=== PATIENT | female | born 1945 | race Caucasian/White ===

== ENCOUNTER 2023-10-08 08:47 | Outpatient (OUT) | payer MEDICARE, SELFPAY ==
--- NOTE | 2023-10-08 08:50 | MM_ITS ---
Patient Name: DAVID ROSEN MR#: [id number] : 1945 Exam Date: 10/08/2023 Ordering Doctor: DR Isrrael Rock D.O. RADIOLOGY REPORT PROCEDURE: MM TOMOSYNTHESIS SCREENING BI COMPARISON: MG MAMM SCREEN 3D ABELARDO CAD, 09/12/2021. MG MAMM SCREEN 3D ABELARDO CAD, 10/05/2022. INDICATIONS: Screening Calculator Name NCI Breast Cancer Risk Assessment Tool 5 Year Breast Cancer Risk 4.50% Lifetime Breast Cancer Risk 9.50% Personal Breast Cancer No Personal Ovarian Cancer No Treatments None Family Cancers Brother with lung cancer at age ~70; Sister with breast cancer at age 64. LOCATION: [facility] BREAST COMPOSITION: Scattered areas fibroglandular density. FINDINGS: DIAGNOSTIC CATEGORY 2--BENIGN FINDING. NO CHANGE FROM COMPARISON. Scattered benign-appearing calcifications are present. Multiple dilated blood vessels, right greater than left, stable RIGHT BREAST: No significant suspicious finding. LEFT BREAST: No significant suspicious finding. RECOMMENDATIONS: ROUTINE MAMMOGRAM AND CLINICAL EVALUATION IN 12 MONTHS. PLEASE NOTE: A NORMAL MAMMOGRAM DOES NOT EXCLUDE THE POSSIBILITY OF BREAST CANCER. A CLINICALLY SUSPICIOUS PALPABLE LUMP SHOULD BE BIOPSIED. Dictated by: Felipe Liu MD on 10/08/2023 at 11:04 Approved by: Felipe Liu MD on 10/08/2023 at 11:05
--- NOTE | 2023-10-08 09:19 | CT_ITS ---
[address] [address] Patient Name: DAVID ROSEN MRN: [id number] date: 1945 Sex: F Assigned Patient Location: MAMMO Current Patient Location: Accession/Order Number: [id number] Exam Date: 10/08/2023 09:12 Report Date: 10/09/2023 07:51 At the request of: ISAK HOWARD Procedure: CT lung screening low-dose EXAMINATION: CT lung screening low-dose HISTORY: Nicotine Dependence COMPARISON: 10/05/2022 TECHNIQUE: Axial, Coronal, and Sagittal images were created without the administration of IV contrast material. Dose reduction techniques were achieved by using automated exposure control and/or adjustment of mA and/or kV according to patient size and/or use of iterative reconstruction technique. FINDINGS: LUNGS: mild centrilobular emphysema with an upper lobe predominance. Scattered subcentimeter noncalcified pulmonary nodules the largest is in the left upper lobe measuring 4 mm, axial image 24. Calcified nodule in the lingula likely a granuloma. PLEURA: No mass, effusion, or pneumothorax. VASCULATURE: No abnormality. SUZI: No mass or pathologic adenopathy. MEDIASTINUM: No mass or pathologic adenopathy. CARDIAC: No enlargement or pericardial effusion. Prominent pulmonary trunk which measures 4.2 cm in diameter with rapid tapering CORONARY ARTERIES: Coronary calcifications are heavy. AORTA: No aortic aneurysm. Moderate atherosclerosis CHEST WALL: No mass or axillary adenopathy BONES: No bone lesion or fracture. Moderate diffuse degenerative changes LIMITED ABDOMEN: No suspicious findings. Limited images of the upper abdomen. OTHER: Negative. CT/CT lung screening low-dose IMPRESSION: LUNG SCREENING: Lung-RADS Category 2- Benign Appearance or Behavior. Nodules with a very low likelihood of becoming a clinically active cancer due to size or lack of growth. 2. Continue annual screening with LDCT in 12 months. Electronically authenticated by: DIXIE LANGSTON Date: 10/09/2023 07:51
[2023-10-08 09:30] LABS: Basophils Absolute Auto 0.1 10^3/uL (0.0-0.1); Basophils Percent Auto 0.8 % (0.2-2.0); Eosinophils Absolute Auto 0.4 10^3/uL (0.0-0.7); Eosinophils Percent Auto 5.7 % (0.9-7.0); Hematocrit 50.2 % (36.0-48.0); Hemoglobin 15.2 g/dL (12.0-16.0); Immature Granulocytes Abs Auto 0.01 10^3/uL (0.00-0.03); Immature Granulocytes Pct Auto 0.2 % (0.0-0.5); Lymphocytes Absolute Auto 1.9 10^3/uL (1.2-3.8); Lymphocytes Percent Auto 30.2 % (20.5-60.0); Mean Corpuscular HGB Conc 30.3 g/dL (29.9-35.2); Mean Corpuscular Hemoglobin 27.1 pg (26.7-34.0); Mean Corpuscular Volume 89.6 fL (81.0-99.0); Mean Platelet Volume 8.8 fL (9.5-13.5); Monocytes Absolute Auto 0.3 10^3/uL (0.3-0.8); Neutrophils Absolute Auto 3.6 10^3/uL (1.4-6.5); Neutrophils Percent Auto 58.1 % (43.0-75.0); Platelet Count 294 10^3/uL (150-450); White Blood Count 6.2 10^3/uL (4.0-11.0)
[2023-10-08 10:34] LABS: Estimated Average Glucose 126 mg/dL
[2023-10-08 10:48] LABS: Alanine Aminotransferase 14 U/L (14-59); Albumin Globulin Ratio 0.7; Alkaline Phosphatase 99 U/L (46-116); Anion Gap 11.3; Aspartate Amino Transferase 12 U/L (15-37); BUN Creatinine Ratio 24.3; Bilirubin Total 0.7 mg/dL (0.2-1.0); Calcium 9.2 mg/dL (8.5-10.1); Carbon Dioxide 32.8 mmol/L (21.0-32.0); Chloride 99 mmol/L (98-107); Chol HDL Ratio 2.2; Cholesterol 119 mg/dL (<=200); Estimated GFR (African America >60 (>=60); Estimated GFR (Non-African Ame >60 (>=60); Globulin 4.6 g/dL; Glucose 106 mg/dL (74-106); HDL Cholesterol 55 mg/dL (40-60); Potassium 4.1 mmol/L (3.5-5.1); Sodium 139 mmol/L (136-145); Total Protein 7.6 g/dL (6.4-8.2); Triglycerides 90 mg/dL (<=150)
== END 2023-10-08 08:48 | disposition home or self-care (01) ==
LOC: MAMMO 08:47
PROVIDERS: PCP Internal Medicine; Visit Provider Internal Medicine
DX: Z12.31 Encounter for screening mammogram for malignant neoplasm of breast (principal); R73.01 Impaired fasting glucose; Z87.891 Personal history of nicotine dependence; E78.00 Pure hypercholesterolemia, unspecified; I10 Essential (primary) hypertension; I25.10 Atherosclerotic heart disease of native coronary artery without angina pectoris; R91.8 Other nonspecific abnormal finding of lung field; Z80.1 Family history of malignant neoplasm of trachea, bronchus and lung; Z80.3 Family history of malignant neoplasm of breast
CPT/HCPCS: 36415; 71271; 77063; 77067; 80053; 80061; 83036; 85025

== ENCOUNTER 2024-04-09 15:34 | Inpatient (IN) | payer MEDICARE, SELFPAY ==
[2024-04-09] VITALS (25 sets, daily range): BP systolic 145–186; BP diastolic 67–78; PULSE 53–72; TEMP 36.3–37.1; O2SAT 74–97; BMI 48.7; BMI 48.6
--- NOTE | 2024-04-09 15:52 | ECG_ITS ---
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
--- NOTE | 2024-04-09 15:52 | US_ITS ---
The [address] [address] Patient Name: DAVID ROSEN MRN: [id number] date: 1945 Sex: F Assigned Patient Location: ER Current Patient Location: MS Accession/Order Number: [id number] Exam Date: 04/09/2024 16:20 Report Date: 04/09/2024 19:37 At the request of: CORNELL KUNZ Procedure: US venous doppler LE BI EXAM: US venous doppler LE BI HISTORY: leg swelling COMPARISON: None. TECHNIQUE: Duplex ultrasound was performed of the bilateral lower extremities. FINDINGS: There is no evidence of deep venous thrombosis in the legs bilaterally. Normal compressibility was seen with normal waveforms in the bilateral femoral, popliteal veins and visualized calf veins. There was limited evaluation of the distal femoral veins due to edema and diffuse subcutaneous edema was noted in both legs. US/US venous doppler LE BI IMPRESSION: 1. Negative for deep venous thrombosis in the legs bilaterally. 2. Subcutaneous edema. Electronically authenticated by: BRIANNA DE LA O Date: 04/09/2024 19:37
--- NOTE | 2024-04-09 15:52 | XR_ITS ---
The [address] [address] Patient Name: DAVID ROSEN MRN: [id number] date: 1945 Sex: F Assigned Patient Location: ER Current Patient Location: ER Accession/Order Number: [id number] Exam Date: 04/09/2024 16:00 Report Date: 04/09/2024 16:19 At the request of: CORNELL KUNZ Procedure: XR chest 1V EXAMINATION: XR chest 1V HISTORY: cp COMPARISON: XR chest 01/12/2022, CT LUNG CANCER SCREENING 10/08/2023 FINDINGS: LUNGS: Hyperexpanded lungs with chronic changes suggestive COPD. Mild opacities and stranding within lung bases. Dense nodule within lower left lung base compatible with known granuloma. VASCULATURE: Mild cephalization. PLEURA: No pneumothorax, effusion, or pleural thickening. CARDIAC: Cardiomegaly. MEDIASTINUM: No visible mass or adenopathy. BONES: No fracture or visible bone lesion. OTHER: Negative. XR/XR chest 1V IMPRESSION: 1. Cardiomegaly and mild cephalization of the pulmonary vessels without convincing pulmonary edema. 2. Mild haziness within lung bases favoring atelectasis or infiltrates. Electronically authenticated by: BRIANNA LY Date: 04/09/2024 16:19
--- NOTE | 2024-04-09 16:09 | ED.GENADUL1 ---
HPI HPI - General Adult General Chief complaint: Extremity Problem, Nontraumatic Stated complaint: Dr Rock sent patient for Lower Pain Time Seen by Provider: 04/09/24 15:37 Source: patient Mode of arrival: Wheelchair History of Present Illness HPI narrative: Patient presents to ED for evaluation of lower extremity edema. Her primary doctor called and said her legs have been progressively more swollen recently and he wanted her evaluated for possible DVT. When patient arrived to ED she was 76% on room air. She is a smoker and not on home oxygen. Her lips were also cyanotic. She said she is always short of breath and always has a cough. She did seem pretty winded when she got to the ER room. Patient denies any chest pain but does have history of 2 stents. She said her legs have been swelling for a while but she finally went to her family doctor about it. She does have open sores and ulcerated areas on bilateral lower extremities worse on the left. They are weeping and malodorous as well. Patient denies any fever. She said she does cough up mucus but that is chronic for her. Patient denies abdominal pain nausea or vomiting. Related Data Home Medications ?Medication ?Instructions ?Recorded ?Confirmed aspirin 81 mg tablet,delayed 81 mg PO DAILY 04/09/24 04/09/24 release (Adult Low Dose Aspirin) atorvastatin 40 mg tablet 40 mg PO DAILY 04/09/24 04/09/24 clopidogrel 75 mg tablet 75 mg PO DAILY 04/09/24 04/09/24 hydrochlorothiazide 12.5 mg capsule 12.5 mg PO DAILY 04/09/24 04/09/24 isosorbide mononitrate 60 mg 60 mg PO DAILY 04/09/24 04/09/24 tablet,extended release 24 hr metoprolol succinate 50 mg 50 mg PO DAILY 04/09/24 04/09/24 tablet,extended release 24 hr Allergies Allergy/AdvReac Type Severity Reaction Status Date / Time Penicillins Allergy Severe Unknown Verified 04/09/24 15:53 strawberry Allergy Severe Hives Verified 04/09/24 15:53 Opioid HPI Opioid Management Most Recent Opioid Data: Last Pain Scale 7 04/09/24 16:12 Review of Systems ROS Status of ROS 10 or more systems reviewed and unremarkable except as noted in history and below [facility] Medical History (Updated 04/09/24 @ 17:59 by Sona Jenkins DO) High cholesterol ?E78.00 - Pure hypercholesterolemia, unspecified (ICD-10) Edema ?R60.9 - Edema, unspecified (ICD-10) COPD (chronic obstructive pulmonary disease) ?J44.9 - Chronic obstructive pulmonary disease, unspecified (ICD-10) HTN (hypertension) ?I10 - Essential (primary) hypertension (ICD-10) CAD (coronary artery disease) ?I25.10 - Atherosclerotic heart disease of [place] coronary artery without angina pectoris (ICD-10) Surgical History (Updated 04/09/24 @ 16:01 by Kayce Law) H/O heart artery stent ?Z95.5 - Presence of coronary angioplasty implant and graft (ICD-10) Exam Narrative Exam Narrative: Time Seen: [] Vital Signs: [Per nurse's notes.] General: [Alert] Skin: [Warm, dry, no rash.] Head: [Normocephalic, atraumatic.] Neck: [Supple, trachea midline.] Eye: [Pupils are equal, round and reactive to light, extraocular movements are intact, normal conjunctiva.] Ears, nose, mouth and throat: oral mucosa moist. Cardiovascular: [Regular rate and rhythm, no murmur.] Respiratory: [Breath sounds diminished bilaterally, crackles in the bases. Hypoxic, moderate respiratory distress. Chest wall: [No tenderness, no deformity.] Gastrointestinal: [Soft, nontender, non distended, normal bowel sounds.] MSK: Bilateral lower extremity edema with ulcerated wounds on bilateral lower extremities with erythema surrounding. Weeping wounds that are malodorous. Psychiatric: [Cooperative, appropriate mood & affect.] Neurological: [Alert and oriented to person, place, time, and situation, no focal neurological deficit observed.] Constitutional Vital Signs, click to edit/add: Last Vital Signs Temp 97.4 F L 04/09/24 15:39 Pulse 58 L 04/09/24 16:40 Resp 22 H 04/09/24 16:40 BP 179/78 H 04/09/24 15:39 Pulse Ox 92 L 04/09/24 16:40 O2 Del Method Nasal Cannula 04/09/24 16:32 O2 Flow Rate 4 04/09/24 16:32 Course Vital Signs Vital signs: Vital Signs Temperature 97.4 F L 04/09/24 15:39 Pulse Rate 72 04/09/24 15:39 Respiratory Rate 22 H 04/09/24 15:39 Blood Pressure 179/78 H 04/09/24 15:39 Pulse Oximetry 74 L 04/09/24 15:39 Oxygen Delivery Method Room Air 04/09/24 15:39 Temperature 97.4 F L 04/09/24 15:39 Pulse Rate 58 L 04/09/24 16:40 Respiratory Rate 22 H 04/09/24 16:40 Blood Pressure 179/78 H 04/09/24 15:39 Pulse Oximetry 92 L 04/09/24 16:40 Oxygen Delivery Method Nasal Cannula 04/09/24 16:32 Oxygen Delivery Flow Rate 4 04/09/24 16:32 Medical Decision Making MDM Narrative Medical decision making narrative: Patient was hypoxic on arrival. Patient was placed on oxygen and it did improve her saturation. She was given a DuoNeb and steroids. She had a chest x-ray that showed vascular congestion and she has severe peripheral edema. Most likely congestive heart failure picture as well. She was given IV Lasix. Vascular study was negative for DVT on the right, left is still pending and CT angio chest pending which Dr. Azar is aware of and will be following up on the results. I spoke to Dr. Azar and he agrees with admission. He states med/tele would be appropriate for her. Patient is comfortable with care plan for admission. I also called Dr. Rock and looped him back in on the findings here today and he is agreeable the patient needs admitted for further respiratory care and care of her lower extremities which also appear cellulitic. Differential Diagnosis Differential Diagnosis: Cellulitis, shortness of breath, CHF, COPD, PE, DVT Medical Records Medical records reviewed: Yes I reviewed the patient's medical records Lab Data Lab results reviewed: Yes I reviewed the patient's lab results Labs: Lab Results 04/09/24 04/09/24 04/09/24 Range/Units 16:00 16:12 16:52 WBC 7.0 (4.0-11.0) 10^3/uL RBC 5.57 H (4.20-5.40) 10^6/uL Hgb 15.2 (12.0-16.0) g/dL Hct 50.7 H (36.0-48.0) % MCV 91.0 (81.0-99.0) fL MCH 27.3 (26.7-34.0) pg MCHC 30.0 (29.9-35.2) g/dL RDW 17.1 H (11.0-15.0) % Plt Count 321 (150-450) 10^3/uL MPV 8.7 L (9.5-13.5) fL Neut % (Auto) 70.1 (43.0-75.0) % Lymph % (Auto) 19.1 L (20.5-60.0) % [place] % (Auto) 6.7 (1.7-12.0) % Eos % (Auto) 3.1 (0.9-7.0) % Baso % (Auto) 0.7 (0.2-2.0) % Neut # (Auto) 4.9 (1.4-6.5) 10^3/uL Lymph # (Auto) 1.3 (1.2-3.8) 10^3/uL [place] # (Auto) 0.5 (0.3-0.8) 10^3/uL Eos # (Auto) 0.2 (0.0-0.7) 10^3/uL Baso # (Auto) 0.1 (0.0-0.1) 10^3/uL Abs Immat Gran (auto) 0.02 (0.00-0.03) 10^3/uL Imm/Tot Granulo (auto) 0.3 (0.0-0.5) % PT 12.1 H (9.0-11.6) sec INR 1.16 Puncture Site Left radial ABG pH 7.406 (7.350-7.450) ABG pCO2 51.9 H* (35.0-45.0) mmHg ABG pO2 64.0 L (80.0-100.0) mmHg ABG HCO3 32.5 H (22.0-26.0) mmol/L ABG O2 Saturation 93.0 % ABG Base Excess 7.8 H (-2.0-2.0) mmol/L Ryan Test Positive (POSITIVE) O2 Liters/Min 4 Sodium 135 L (136-145) mmol/L Potassium 3.8 (3.5-5.1) mmol/L Chloride 98 (98-107) mmol/L Carbon Dioxide 34.3 H (21.0-32.0) mmol/L Anion Gap 6.5 BUN 28.0 H (7.0-18.0) mg/dL Creatinine 0.81 (0.55-1.02) mg/dL Est GFR ( Amer) >60 (>=60) Est GFR (Non-Af Amer) >60 (>=60) BUN/Creatinine Ratio 34.6 Glucose 118 H (74-106) mg/dL Lactate 1.3 (0.4-2.0) mmol/L Calcium 9.0 (8.5-10.1) mg/dL Total Bilirubin 0.6 (0.2-1.0) mg/dL AST 25 (15-37) U/L ALT 34 (14-59) U/L Alkaline Phosphatase 89 (46-116) U/L Troponin I High Sens 6.4 (4.0-51.3) pg/mL NT-Pro-B Natriuret Pep 929.0 (<=1800.0) pg/mL Total Protein 7.2 (6.4-8.2) g/dL Albumin 3.0 L (3.4-5.0) g/dL Globulin 4.2 g/dL Albumin/Globulin Ratio 0.7 Urine Color (YELLOW) Urine Clarity (CLEAR) Urine pH (5.0-9.0) Ur Specific Payne (1.005-1.025) Urine Protein (NEG/TRACE) mg/dL Urine Glucose (UA) (NEGATIVE) mg/dL Urine Ketones (NEGATIVE) mg/dL Urine Occult Blood (NEGATIVE) Urine Nitrite (NEGATIVE) Urine Bilirubin (NEGATIVE) Urine Urobilinogen (0.2-1.0) EU/dL Ur Leukocyte Esterase (NEGATIVE) Urine RBC (0-2) #/HPF Urine WBC (NONE SEEN) #/HPF Ur Squamous Epith Cells (NONE/RARE) #/LPF Ur Transition Epith Cell (NONE SEEN) #/LPF Urine Crystals (None Seen) #/HPF Urine Bacteria (NONE SEEN) #/HPF Urine Casts (NONE SEEN) #/LPF Urine Mucus (NONE SEEN) Ur Culture Indicated? SARS-CoV-2 Ag (CV2AG) Negative (NEGATIVE) 04/09/24 Range/Units 17:02 WBC (4.0-11.0) 10^3/uL RBC (4.20-5.40) 10^6/uL Hgb (12.0-16.0) g/dL Hct (36.0-48.0) % MCV (81.0-99.0) fL MCH (26.7-34.0) pg MCHC (29.9-35.2) g/dL RDW (11.0-15.0) % Plt Count (150-450) 10^3/uL MPV (9.5-13.5) fL Neut % (Auto) (43.0-75.0) % Lymph % (Auto) (20.5-60.0) % [place] % (Auto) (1.7-12.0) % Eos % (Auto) (0.9-7.0) % Baso % (Auto) (0.2-2.0) % Neut # (Auto) (1.4-6.5) 10^3/uL Lymph # (Auto) (1.2-3.8) 10^3/uL [place] # (Auto) (0.3-0.8) 10^3/uL Eos # (Auto) (0.0-0.7) 10^3/uL Baso # (Auto) (0.0-0.1) 10^3/uL Abs Immat Gran (auto) (0.00-0.03) 10^3/uL Imm/Tot Granulo (auto) (0.0-0.5) % PT (9.0-11.6) sec INR Puncture Site ABG pH (7.350-7.450) ABG pCO2 (35.0-45.0) mmHg ABG pO2 (80.0-100.0) mmHg ABG HCO3 (22.0-26.0) mmol/L ABG O2 Saturation % ABG Base Excess (-2.0-2.0) mmol/L Ryan Test (POSITIVE) O2 Liters/Min Sodium (136-145) mmol/L Potassium (3.5-5.1) mmol/L Chloride (98-107) mmol/L Carbon Dioxide (21.0-32.0) mmol/L Anion Gap BUN (7.0-18.0) mg/dL Creatinine (0.55-1.02) mg/dL Est GFR ( Amer) (>=60) Est GFR (Non-Af Amer) (>=60) BUN/Creatinine Ratio Glucose (74-106) mg/dL Lactate (0.4-2.0) mmol/L Calcium (8.5-10.1) mg/dL Total Bilirubin (0.2-1.0) mg/dL AST (15-37) U/L ALT (14-59) U/L Alkaline Phosphatase (46-116) U/L Troponin I High Sens (4.0-51.3) pg/mL NT-Pro-B Natriuret Pep (<=1800.0) pg/mL Total Protein (6.4-8.2) g/dL Albumin (3.4-5.0) g/dL Globulin g/dL Albumin/Globulin Ratio Urine Color Lt. yellow (YELLOW) Urine Clarity Clear (CLEAR) Urine pH 5.5 (5.0-9.0) Ur Specific Payne 1.025 (1.005-1.025) Urine Protein Trace (NEG/TRACE) mg/dL Urine Glucose (UA) Negative (NEGATIVE) mg/dL Urine Ketones Negative (NEGATIVE) mg/dL Urine Occult Blood Negative (NEGATIVE) Urine Nitrite Negative (NEGATIVE) Urine Bilirubin Negative (NEGATIVE) Urine Urobilinogen 0.2 (0.2-1.0) EU/dL Ur Leukocyte Esterase Trace A (NEGATIVE) Urine RBC 0-2 (0-2) #/HPF Urine WBC 0-2 A (NONE SEEN) #/HPF Ur Squamous Epith Cells Few A (NONE/RARE) #/LPF Ur Transition Epith Cell Rare A (NONE SEEN) #/LPF Urine Crystals None seen (None Seen) #/HPF Urine Bacteria Small A (NONE SEEN) #/HPF Urine Casts None seen (NONE SEEN) #/LPF Urine Mucus None seen (NONE SEEN) Ur Culture Indicated? Yes SARS-CoV-2 Ag (CV2AG) (NEGATIVE) Imaging Data Chest x-ray: Radiologist's impression: ITS Impressions Chest X-Ray 04/09/24 15:52 IMPRESSION: 1. Cardiomegaly and mild cephalization of the pulmonary vessels without convincing pulmonary edema. 2. Mild haziness within lung bases favoring atelectasis or infiltrates. Electronically authenticated by: BRIANNA LY Date: 04/09/2024 16:19 ECG Data Attestation: I personally reviewed and interpreted this ECG as follows: Interpretation: EKG INTERPRETATION Time: []1602 Rate: []59 Rhythm: _ []Sinus bradycardia ST segments: _ []No acute ST elevation or depression T waves: _ [] Ectopy: _ [] P wave/WA interval: _ [] QRS interval: _ [] QT interval: _ [] Comparison: _ [] Comparison EKG date: [] Performed by: [self] Smoking Cessation Time spent discussing smoking cessation with patient: 3 to 10 minutes Patient Acknowledges Need for Cessation: Yes Critical Care Time Critical Care Time Critical Care Time: Yes Total Critical Care Time: 52 Attestation: Hypoxic, moderate respiratory distress, respiratory interventions used Discharge Plan Discharge Chief Complaint: Extremity Problem, Nontraumatic Clinical Impression: Cellulitis, Congestive heart failure, COPD (chronic obstructive pulmonary disease), Hypoxemia Patient Disposition: Admitted As Inpatient Time of Disposition Decision: 17:59 Condition: Fair Prescriptions / Home Meds: No Action atorvastatin 40 mg tablet 40 mg PO DAILY clopidogrel 75 mg tablet 75 mg PO DAILY hydrochlorothiazide 12.5 mg capsule 12.5 mg PO DAILY isosorbide mononitrate 60 mg tablet extended release 24 hr 60 mg PO DAILY metoprolol succinate 50 mg tablet extended release 24 hr 50 mg PO DAILY aspirin [Adult Low Dose Aspirin] 81 mg tablet,delayed release (DR/EC) 81 mg PO DAILY Print Language: Amharic Referrals: Isrrael Rock DO [Primary Care Provider] - 1 week
[2024-04-09 16:25] LABS: Basophils Absolute Auto 0.1 10^3/uL (0.0-0.1); Basophils Percent Auto 0.7 % (0.2-2.0); Eosinophils Absolute Auto 0.2 10^3/uL (0.0-0.7); Eosinophils Percent Auto 3.1 % (0.9-7.0); Hematocrit 50.7 % (36.0-48.0); Hemoglobin 15.2 g/dL (12.0-16.0); Immature Granulocytes Abs Auto 0.02 10^3/uL (0.00-0.03); Immature Granulocytes Pct Auto 0.3 % (0.0-0.5); Lymphocytes Absolute Auto 1.3 10^3/uL (1.2-3.8); Lymphocytes Percent Auto 19.1 % (20.5-60.0); Mean Corpuscular Hemoglobin 27.3 pg (26.7-34.0); Mean Platelet Volume 8.7 fL (9.5-13.5); Monocytes Absolute Auto 0.5 10^3/uL (0.3-0.8); Monocytes Percent Auto 6.7 % (1.7-12.0); Neutrophils Absolute Auto 4.9 10^3/uL (1.4-6.5); Neutrophils Percent Auto 70.1 % (43.0-75.0); Platelet Count 321 10^3/uL (150-450); Red Blood Count 5.57 10^6/uL (4.20-5.40); Red Cell Distribution Width 17.1 % (11.0-15.0)
[2024-04-09] MEDS: IPRATROPIUM/ALBUTEROL SULFATE 3 ML AMPUL.NEB IH ×3 (16:31→23:08)
[2024-04-09 16:38] LABS: Internal Control Within Normal Limits; SARS-CoV-2 Ag NEGATIVE (NEGATIVE)
[2024-04-09 16:46] LABS: Lactate/Lactic Acid 1.3 mmol/L (0.4-2.0)
[2024-04-09 16:52] LABS: INR 1.16; Prothrombin Time 12.1 sec (9.0-11.6)
[2024-04-09 16:56] LABS: Alanine Aminotransferase 34 U/L (14-59); Albumin Globulin Ratio 0.7; Alkaline Phosphatase 89 U/L (46-116); Anion Gap 6.5; Aspartate Amino Transferase 25 U/L (15-37); BUN Creatinine Ratio 34.6; Bilirubin Total 0.6 mg/dL (0.2-1.0); Carbon Dioxide 34.3 mmol/L (21.0-32.0); Chloride 98 mmol/L (98-107); Estimated GFR (African America >60 (>=60); Estimated GFR (Non-African Ame >60 (>=60); Globulin 4.2 g/dL; Glucose 118 mg/dL (74-106); Potassium 3.8 mmol/L (3.5-5.1); Sodium 135 mmol/L (136-145); Total Protein 7.2 g/dL (6.4-8.2); Troponin I High Sensitivity 6.4 pg/mL (4.0-51.3)
[2024-04-09 17:05] LABS: Base Excess ABG 7.8 mmol/L (-2.0-2.0); HCO3 ABG 32.5 mmol/L (22.0-26.0); pH ABG 7.406 (7.350-7.450)
[2024-04-09 17:06] LABS: Allen Test POSITIVE (POSITIVE); O2 Mode NC
[2024-04-09 17:07] LABS: Liters per Minute 4; Puncture Site LEFT RADIAL
[2024-04-09 17:08] LABS: ABG PCO2 51.9 mmHg (35.0-45.0)
[2024-04-09] MEDS: FUROSEMIDE 40 MG/4 ML VIAL IVP (17:28)
[2024-04-09] MEDS: DEXAMETHASONE SOD PHOS 10 MG/ML VIAL IV (17:28)
[2024-04-09 17:29] LABS: Bilirubin Urine NEGATIVE (NEGATIVE); Blood Urine NEGATIVE (NEGATIVE); Clarity Urine CLEAR (CLEAR); Color Urine LT. YELLOW (YELLOW); Glucose Urine UA NEGATIVE (NEGATIVE); Ketones Urine NEGATIVE (NEGATIVE); Leukocyte Esterase Urine TRACE (NEGATIVE); Nitrite Urine NEGATIVE (NEGATIVE); Protein Urine TRACE mg/dL (NEG/TRACE); Specific Gravity Urine 1.025 (1.005-1.025); Urobilinogen Urine 0.2 EU/dL (0.2-1.0); pH Urine 5.5 (5.0-9.0)
--- NOTE | 2024-04-09 17:30 | CT_ITS ---
[address] [address] Patient Name: DAVID ROSEN MRN: [id number] date: 1945 Sex: F Assigned Patient Location: ER Current Patient Location: MS Accession/Order Number: [id number] Exam Date: 04/09/2024 19:20 Report Date: 04/09/2024 20:58 At the request of: CORNELL KUNZ Procedure: CT angio chest EXAM: CT angio chest HISTORY: sob COMPARISON: 10/08/2023 TECHNIQUE: CT angiography of the pulmonary arteries following the administration of intravenous contrast. Coronal and sagittal MIP (maximum intensity projection) images were performed. Dose reduction techniques were achieved by using automated exposure control and/or adjustment of mA and/or kV according to patient size and/or use of iterative reconstruction technique. FINDINGS: The study is technically adequate for the diagnosis of pulmonary embolism, with good contrast bolus to the pulmonary arteries. TUBES AND IMPLANTS: None. CHEST WALL AND LOWER NECK: Prominent anterior chest wall collaterals are noted. BONES: No suspicious lesions. Multilevel degenerative changes of the spine. UPPER ABDOMEN: Unremarkable. MEDIASTINUM AND SUZI: Mild hiatal hernia AORTA: No aneurysm or dissection PULMONARY ARTERIES: No embolism HEART: Mild cardiomegaly CORONARY ARTERIES: Coronary artery stents. LUNG AND AIRWAYS: Confluent airspace disease seen in the right lower lobe. Lingular calcified granuloma PLEURA: Unremarkable. CT/CT angio chest IMPRESSION: 1. No evidence for pulmonary embolism. 2. Right lower lobe pneumonia. 3. Small hiatal hernia. Electronically authenticated by: MARISOL PEDROZA Date: 04/09/2024 20:58
[2024-04-09 17:44] LABS: Urine Microscopic Indicated YES
[2024-04-09 17:45] LABS: WBC Urine 0-2 #/HPF (NONE SEEN)
[2024-04-09 17:46] LABS: Bacteria Urine SMALL #/HPF (NONE SEEN); Cast Seen? NONE SEEN #/LPF (NONE SEEN); Crystals Seen? None Seen #/HPF (None Seen); Mucus Urine NONE SEEN (NONE SEEN); RBC Urine 0-2 #/HPF (0-2); Squamous Epithelial Cell Urine FEW #/LPF (NONE/RARE); Transitional Epi Cells Urine RARE #/LPF (NONE SEEN); Urine Culture Indicated YES
[2024-04-09] MEDS: VANCOMYCIN HCL 1,750 MG in 0.9 % SODIUM CHLORIDE 500 ML 250 MG IV (18:42)
[2024-04-09] MEDS: GUAIFENESIN 600 MG TAB.ER.12H PO (21:36)
[2024-04-09 21:37] LABS: Glucometer 169 mg/dL (74-106)
[2024-04-09] MEDS: INSULIN ASPART 300 UNIT/3 ML PEN SUBQ (21:37)
[2024-04-09] MEDS: HEPARIN SODIUM (PORCINE) 5,000 UNIT/ML VIAL 5000 UNIT SUBQ (21:37)
[2024-04-09] MEDS: METHYLPREDNISOLONE SOD SUCC PF 40 MG/ML VIAL IVP (21:37)
[2024-04-09] MEDS: CEFTRIAXONE 2,000 MG in 0.9 % SODIUM CHLORIDE 100 ML 200 MG IV (23:33)
[2024-04-10] VITALS (21 sets, daily range): BP systolic 114–158; BP diastolic 64–74; PULSE 47–71; TEMP 36.4–36.6; O2SAT 88–94
[2024-04-10] MEDS: IPRATROPIUM/ALBUTEROL SULFATE 3 ML AMPUL.NEB IH ×4 (03:46→19:56)
[2024-04-10] MEDS: FUROSEMIDE 40 MG/4 ML VIAL IVP ×2 (05:22→18:19)
[2024-04-10] MEDS: METHYLPREDNISOLONE SOD SUCC PF 40 MG/ML VIAL IVP ×3 (05:22→22:25)
[2024-04-10] MEDS: HEPARIN SODIUM (PORCINE) 5,000 UNIT/ML VIAL 5000 UNIT SUBQ ×3 (05:22→22:25)
[2024-04-10 06:19] LABS: Basophils Percent Auto 0.2 % (0.2-2.0); Eosinophils Percent Auto 0.2 % (0.9-7.0); Hematocrit 50.1 % (36.0-48.0); Immature Granulocytes Abs Auto 0.01 10^3/uL (0.00-0.03); Immature Granulocytes Pct Auto 0.2 % (0.0-0.5); Lymphocytes Absolute Auto 0.7 10^3/uL (1.2-3.8); Lymphocytes Percent Auto 14.5 % (20.5-60.0); Mean Corpuscular HGB Conc 29.9 g/dL (29.9-35.2); Mean Corpuscular Hemoglobin 27.3 pg (26.7-34.0); Mean Corpuscular Volume 91.1 fL (81.0-99.0); Mean Platelet Volume 9.1 fL (9.5-13.5); Monocytes Percent Auto 0.4 % (1.7-12.0); Neutrophils Percent Auto 84.5 % (43.0-75.0); Platelet Count 280 10^3/uL (150-450); Red Cell Distribution Width 16.8 % (11.0-15.0); White Blood Count 4.7 10^3/uL (4.0-11.0)
[2024-04-10 06:52] LABS: Alanine Aminotransferase 32 U/L (14-59); Albumin Globulin Ratio 0.7; Alkaline Phosphatase 84 U/L (46-116); Anion Gap 8.5; Aspartate Amino Transferase 22 U/L (15-37); BUN Creatinine Ratio 36.7; Bilirubin Total 0.6 mg/dL (0.2-1.0); Calcium 9.2 mg/dL (8.5-10.1); Carbon Dioxide 36.4 mmol/L (21.0-32.0); Chloride 97 mmol/L (98-107); Estimated GFR (African America >60 (>=60); Estimated GFR (Non-African Ame >60 (>=60); Globulin 4.4 g/dL; Glucose 150 mg/dL (74-106); Potassium 3.9 mmol/L (3.5-5.1); Sodium 138 mmol/L (136-145); Total Protein 7.4 g/dL (6.4-8.2)
--- NOTE | 2024-04-10 07:00 | CA_ITS ---
Patient Name: DAVID ROSEN MR#: [id number] : 1945 Exam Date: 04/10/2024 Ordering Doctor: Shaikh Melissa Dimas . ECHOCARDIOGRAM REPORT PROCEDURE: CA ECHO DOPPLER COMPLETE INDICATIONS: CHF COMPARISON: None. DESCRIPTION: COMPLETE ECHOCARDIOGRAM Real-time transthoracic echocardiography with 2D, M-mode, spectral and color flow Doppler performed. QUALITY: Technical quality was adequate. LEFT VENTRICLE: Normal chamber size. Moderate concentric left ventricular hypertrophy. LV EF: Global left ventricular systolic function is normal. Visual estimation of left ventricular ejection fraction is 65%. DIASTOLIC: ATRIAL SEPTUM: LEFT ATRIUM: Moderate dilatation. RIGHT ATRIUM: Moderate dilatation. RIGHT VENTRICLE: Normal chamber size. Normal right ventricular systolic function. TRICUSPID VALVE: Normal mobility and thickness. No stenosis with trivial regurgitation. Unable to assess right-sided pressures due to lack of measurable tricuspid regurgitation. MITRAL VALVE: Normal mobility and thickness. No evidence of mitral valve stenosis. Mild mitral annular calcification. Trivial mitral regurgitation. AORTIC VALVE: Normal trileaflet appearance. No visible sclerosis. Normal leaflet mobility. No evidence of aortic valve stenosis. DVI 0.7. No aortic regurgitation. AORTIC ROOT: Normal diameter and appearance. PULMONIC VALVE: Normal thickness and mobility. No stenosis. Trivial regurgitation. PERICARDIUM: No evidence of pericardial effusion. IVC: Severe dilatation. No collapse. PLEURA: CONCLUSION: 1. Moderate concentric ventricular hypertrophy with normal systolic function. LVEF is estimated at 65%. 2. Normal right ventricular size and systolic function. 3. Moderate biatrial dilatation. 4. No significant valvular dysfunction. 5. Unable to assess right-sided pressures due to lack of measurable tricuspid regurgitation. 6. Severely dilated IVC without inspiratory collapse indicative of elevated right-sided filling pressures. Adult Echocardiography Procedure Report Left Ventricle LVEDD (3.7 - 5.6 cm): 2.90 cm LVESD (2.2 - 4.0 cm): 2.24 cm LVIVS thickness (0.6 - 1.2 cm): 1.56 cm LVPW thickness (0.5 - 1.0 cm): 1.39 cm e': 0.09 m/s E - e': 11.25 LVOT Max Gradient: 3.22 mm[Hg] LVOT Area (cm2): 0.90 m/s Peak Velocity (LVOT): 0.90 m/s Mean Velocity (LVOT): 0.50 m/s LVOT Diameter 1.77 cm Left Ventricular Ejection Fraction: 65 % Left Atrium LA Volume Index (2D A2C): 36.15 ml/m2 Left Atrium Systolic Dimension: 4.12 cm Mitral Valve MV E to A Ratio: 1.17 Mitral Valve A-Wave Peak Velocity: 0.82 m/s Mitral Valve E-Wave Peak Velocity: 0.96 m/s Right Ventricle RV Internal Diastolic Dimension: 3.47 cm Aorta AO Root Diam: 2.79 cm Ascending Ao Diam: 2.73 cm Aortic Valve AoV Area (Peak Lester): 1.64 cm2, 1.64 cm2 AoV Area (VTI): 1.53 cm2, 1.53 cm2 Peak Velocity(Antegrade Flow): 1.35 m/s Peak Gradient(Antegrade Flow): 7.31 mm[Hg] Mean Velocity(Antegrade Flow): 0.85 m/s Mean Gradient(Antegrade Flow): 3.31 mm[Hg] Velocity Time Integral: 31.25 cm Tricuspid Valve Peak Velocity (Regurgitant Flow): 1.95 m/s, 2.15 m/s Pulmonic Valve Peak Velocity: 1.22 m/s Peak Gradient: 5.78 mm[Hg], 6.13 mm[Hg] Right Atrium Right Atrium Systolic Pressure: 77.87 ml, 77.87 ml Dictated by: Bautista Martínez M.D. on 04/10/2024 at 15:13 Approved by: Bautista Martínez M.D. on 04/10/2024 at 15:21
[2024-04-10] MEDS: INSULIN ASPART 300 UNIT/3 ML PEN SUBQ ×4 (08:28→22:25)
[2024-04-10] MEDS: ASPIRIN 81 MG TABLET.DR PO (08:28)
[2024-04-10] MEDS: ATORVASTATIN CALCIUM 40 MG TABLET PO (08:28)
[2024-04-10] MEDS: METOPROLOL SUCCINATE 50 MG TAB.ER.24H PO (08:28)
[2024-04-10] MEDS: ISOSORBIDE MONONITRATE 60 MG TAB.ER.24H PO (08:28)
[2024-04-10] MEDS: CLOPIDOGREL BISULFATE 75 MG TABLET PO (08:28)
[2024-04-10] MEDS: GUAIFENESIN 600 MG TAB.ER.12H PO ×2 (08:29→22:25)
--- NOTE | 2024-04-10 09:50 | CM.NOTE ---
Rounds made with Dr. Dimas, discussed admission diagnosis and treatment with pt. Pt on 4L NC this am, pt does not require oxygen at home. PT and OT will evaluate pt today for any discharge needs.
--- NOTE | 2024-04-10 10:30 | CM.NOTE ---
Important Message From Medicare discussed with pt, pt verbalizes understanding and signs paper. Original given to pt and copy placed on pt's chart.
[2024-04-10] MEDS: 0.9 % SODIUM CHLORIDE 250 ML 10 ML IV (10:35)
[2024-04-10] MEDS: CEFTRIAXONE 1,000 MG in 0.9 % SODIUM CHLORIDE 50 ML 100 MG IV (10:36)
--- NOTE | 2024-04-10 11:22 | SWNOTE1 ---
SW reviewed therapy notes and spoke to case management and at this time pt has no anticipated discharge needs. Will monitor for home oxygen need at discharge.
[2024-04-10 11:44] LABS: Glucometer 164 mg/dL (74-106)
--- NOTE | 2024-04-10 12:00 | PM.HP ---
HPI H&P: HPI History of Present Illness Chief complaint: Lower Pain, Hypoxia, CHF, COPD, Bilateral LE Cellu Narrative: 78-year-old female was seen by her primary care physician to rule out deep vein thrombosis. Patient reports bilateral lower extremity edema fluid seeping and superficial skin breakdown for past 1 month. She also has erythema, tenderness in her lower extremities. Ultrasound ruled out deep vein thrombosis. Upon arrival, patient was found to have hypoxia with pulse ox as low as 74% with increased work of breathing. Further workup revealed right lower lobe pneumonia and acute on chronic diastolic heart failure. Patient was placed on 4 L oxygen via nasal cannula and pulse ox is around 90 to 92%. Surprisingly, patient herself denies feeling shortness of breath and is surprised that she is needing oxygen. She does not use home oxygen. She does report chronic cough that is productive in nature for about a month or so and has progressively gotten worse in past 1 to 2 weeks. She denies previous history of congestive heart failure but reports prior history of coronary artery disease with history of PCI. Overnight, patient was started on IV Lasix, IV vancomycin, IV Rocephin, inhaled DuoNebs and IV steroids. She is subjectively feeling better but is still quite hypoxic. Her lower extremity edema has improved a little but she is still complaining of bilateral lower extremity pain/tenderness. Opioid HPI Opioid Management Most Recent Pain and Opioid Data: Last Pain Scale 0 04/10/24 10:14 Last Pain Intensity 0 04/10/24 10:14 Last Pain Assessment 04/10/24 11:00 Last ORT Total Score 0 04/09/24 20:52 Last ORT Risk Category Low Risk 04/09/24 20:52 Review of Systems ROS Status of ROS 10 or more systems reviewed and unremarkable except as noted in history and below [facility] Medical History (Updated 04/10/24 @ 12:11 by Shaikh Judie MD) HLD (hyperlipidemia) ?E78.5 - Hyperlipidemia, unspecified (ICD-10) Vocal fold nodule ?J38.2 - Nodules of vocal cords (ICD-10) Myocardial infarct ?I21.9 - Acute myocardial infarction, unspecified (ICD-10) High cholesterol ?E78.00 - Pure hypercholesterolemia, unspecified (ICD-10) Edema ?R60.9 - Edema, unspecified (ICD-10) COPD (chronic obstructive pulmonary disease) ?J44.9 - Chronic obstructive pulmonary disease, unspecified (ICD-10) HTN (hypertension) ?I10 - Essential (primary) hypertension (ICD-10) CAD (coronary artery disease) ?I25.10 - Atherosclerotic heart disease of [place] coronary artery without angina pectoris (ICD-10) Surgical History (Updated 04/09/24 @ 16:01 by Kayce Law) H/O heart artery stent ?Z95.5 - Presence of coronary angioplasty implant and graft (ICD-10) Family History (Updated 04/09/24 @ 20:51 by Tonya Dumont, RN) Father Family history of myocardial infarction Family history of diabetes mellitus Family history of hypertension Sister Family history of CHF (congestive heart failure) Family history of diabetes mellitus Brother Family history of cancer Family history of diabetes mellitus Mother Family history of diabetes mellitus Social History (Updated 04/09/24 @ 20:52 by Tonya Dumont, SON) Within the past year, how often did you have a drink containing alcohol: never Score interpretation: A score less than 3 is consistent with normal alcohol consumption. Smoking status: Current every day smoker Non-prescribed substance use: denies use Highest level of school completed/degree received: high school graduate In a typical week, how many times do you talk on the telephone with family, friends, or neighbors: 3 or more times per week How often do you get together with friends or relatives: 3 or more times per week Little interest or pleasure in doing things: several days Feeling down, depressed, or hopeless: not at all Do you think of yourself as: straight/heterosexual Gender Identity: female Meds Home Medications and Allergies Home Medications ?Medication ?Instructions ?Recorded ?Confirmed ?Type aspirin 81 mg tablet,delayed 81 mg PO DAILY 04/09/24 04/09/24 History release (Adult Low Dose Aspirin) atorvastatin 40 mg tablet 40 mg PO DAILY 04/09/24 04/09/24 History clopidogrel 75 mg tablet 75 mg PO DAILY 04/09/24 04/09/24 History hydrochlorothiazide 12.5 mg capsule 12.5 mg PO DAILY 04/09/24 04/09/24 History isosorbide mononitrate 60 mg 60 mg PO DAILY 04/09/24 04/09/24 History tablet,extended release 24 hr metoprolol succinate 50 mg 50 mg PO DAILY 09/25/24 09/25/24 History tablet,extended release 24 hr Allergies Allergy/AdvReac Type Severity Reaction Status Date / Time Penicillins Allergy Severe Unknown Verified 04/09/24 15:53 strawberry Allergy Severe Hives Verified 04/09/24 15:53 Exam Constitutional Vital Signs, click to edit/add: Last Vital Signs Temp 97.8 F 04/10/24 08:30 Pulse 68 04/10/24 09:56 Resp 20 04/10/24 08:30 BP 158/74 H 04/10/24 08:30 Pulse Ox 90 L 04/10/24 07:35 O2 Del Method Nasal Cannula 04/10/24 07:35 O2 Flow Rate 4 04/10/24 07:35 Documenting provider has reviewed patient's vital signs: yes Common normals: no apparent distress and oriented x3 General appearance: cooperative HENMT Common normals: normocephalic and head/scalp atraumatic Head and scalp: normocephalic and atraumatic Eye Common normals: conjunctivae normal and no scleral icterus Conjunctiva: conjunctiva(e) normal Respiratory Common normals: normal respiratory effort Effort & inspection: able to speak in complete sentences Auscultation: diminished lung sounds Cardio Common normals: regular rate, S1 normal heart sound and S2 normal heart sound Rate: regular rate Heart sounds: S1 normal and S2 normal GI Common normals: Normal to inspection, nondistended, normoactive bowel sounds present, soft to palpation, non-tender and no hepatosplenomegaly Palpation: soft and no hepatosplenomegaly Extremity General: edema (n/l LE upto knees) Other: B/l LE erythema tenderness extending from ankle to just below knees Neuro Common normals: oriented x3, moves all extremities and no focal motor deficits Psych Common normals: mental status grossly normal, denies hallucinations, denies homicidal ideation and denies suicidal ideation Results Labs Labs: Short CBC 04/09/24 04/10/24 Range/Units 16:12 05:46 WBC 7.0 4.7 (4.0-11.0) 10^3/uL Hgb 15.2 15.0 (12.0-16.0) g/dL Hct 50.7 H 50.1 H (36.0-48.0) % Plt Count 321 280 (150-450) 10^3/uL BMP 04/09/24 04/10/24 16:12 05:46 Sodium 135 L 138 Potassium 3.8 3.9 Chloride 98 97 L Carbon Dioxide 34.3 H 36.4 H BUN 28.0 H 29.0 H Creatinine 0.81 0.79 Glucose 118 H 150 H Calcium 9.0 9.2 Liver Function 04/09/24 04/10/24 Range/Units 16:12 05:46 Total Bilirubin 0.6 0.6 (0.2-1.0) mg/dL AST 25 22 (15-37) U/L ALT 34 32 (14-59) U/L Alkaline Phosphatase 89 84 (46-116) U/L Albumin 3.0 L 3.0 L (3.4-5.0) g/dL Urine 04/09/24 Range/Units 17:02 Urine Color Lt. yellow (YELLOW) Urine Clarity Clear (CLEAR) Urine pH 5.5 (5.0-9.0) Ur Specific [place] 1.025 (1.005-1.025) Urine Protein Trace (NEG/TRACE) mg/dL Urine Glucose (UA) Negative (NEGATIVE) mg/dL ABG ABG results: 04/09/24 16:52 ABG pH 7.406 ABG pCO2 51.9 H* ABG pO2 64.0 L ABG HCO3 32.5 H ABG O2 Saturation 93.0 ABG Base Excess 7.8 H Assessment and Plan Assessment and Plan (1) Acute respiratory failure with hypoxia: Assessment and Plan: On 4 L O2 Currently. Does not use O2 at home. Multifactorial etiology - COPD exacerbation/RLL Pneumonia, Acute on chronic diastolic HF. Wean off O2 as tolerated. (2) COPD exacerbation: Assessment and Plan: Current smoker. Has been told before that she has COPD but never formally diagnosed. Minimal wheezing today but diminished lung sounds. C/w systemic steroids, duonebs. (3) Right lower lobe pneumonia: Assessment and Plan: RLL PNA on CTA. On IV rocephin for it. F/u sputum cx, blood cx. Qualifiers: Pneumonia type: due to unspecified organism Qualified Code(s): J18.9 - Pneumonia, unspecified organism (4) Cellulitis: Assessment and Plan: b/l LE cellulitis, likely due to chronic LE edema, resulting in skin break down On IV vancomycin for it. Qualifiers: Site of cellulitis: extremity Site of cellulitis of extremity: lower extremity Laterality: unspecified laterality Qualified Code(s): L03.119 - Cellulitis of unspecified part of limb (5) Acute on chronic diastolic (congestive) heart failure: Assessment and Plan: Volume overload on exam. On IV lasix 40 Q12. ECHO pending Monitor I/O, daily weights. (6) HTN (hypertension): Assessment and Plan: BP above goal. IV hydralazine as needed. Cw home medications. Added losartan. Qualifiers: Hypertension type: primary hypertension Qualified Code(s): I10 - Essential (primary) hypertension (7) CAD (coronary artery disease): Assessment and Plan: No evidence of active cardiac ischemia C/w ASA, plavix and statin Qualifiers: Coronary Disease-Associated Artery/Lesion type: [place] artery [place] vs. transplanted heart: [place] heart Associated angina: without angina Qualified Code(s): I25.10 - Atherosclerotic heart disease of [place] coronary artery without angina pectoris (8) HLD (hyperlipidemia): Assessment and Plan: C/w Lipitor Qualifiers: Hyperlipidemia type: unspecified Qualified Code(s): E78.5 - Hyperlipidemia, unspecified Plan C/w IV abx. F/u blood and sputum cx. Monitor renal fx, serum electrolytes closely. F/u ECHO result. C/w duonebs, systemic steroids. Monitor Blood glucose closely while on steroids.
[2024-04-10] MEDS: LOSARTAN POTASSIUM 50 MG TABLET PO (12:39)
[2024-04-10 17:38] LABS: Glucometer 159 mg/dL (74-106)
[2024-04-10] MEDS: VANCOMYCIN HCL 1,750 MG in 0.9 % SODIUM CHLORIDE 500 ML 250 MG IV (18:48)
[2024-04-10 22:30] LABS: Glucometer 185 mg/dL (74-106)
[2024-04-11] VITALS (23 sets, daily range): BP systolic 112–157; BP diastolic 62–87; PULSE 44–121; TEMP 36.4–36.6; O2SAT 83–97
[2024-04-11] MEDS: IPRATROPIUM/ALBUTEROL SULFATE 3 ML AMPUL.NEB IH ×6 (03:59→23:55)
[2024-04-11] MEDS: METHYLPREDNISOLONE SOD SUCC PF 40 MG/ML VIAL IVP ×3 (05:28→23:41)
[2024-04-11] MEDS: HEPARIN SODIUM (PORCINE) 5,000 UNIT/ML VIAL 5000 UNIT SUBQ ×3 (05:28→23:41)
[2024-04-11] MEDS: FUROSEMIDE 40 MG/4 ML VIAL IVP ×2 (05:28→17:23)
[2024-04-11 06:12] LABS: Hematocrit 49.5 % (36.0-48.0); Hemoglobin 14.6 g/dL (12.0-16.0); Immature Granulocytes Abs Auto 0.03 10^3/uL (0.00-0.03); Immature Granulocytes Pct Auto 0.4 % (0.0-0.5); Lymphocytes Absolute Auto 0.7 10^3/uL (1.2-3.8); Lymphocytes Percent Auto 9.2 % (20.5-60.0); Mean Corpuscular HGB Conc 29.5 g/dL (29.9-35.2); Mean Corpuscular Hemoglobin 26.8 pg (26.7-34.0); Mean Corpuscular Volume 90.8 fL (81.0-99.0); Monocytes Absolute Auto 0.2 10^3/uL (0.3-0.8); Monocytes Percent Auto 2.7 % (1.7-12.0); Neutrophils Absolute Auto 6.2 10^3/uL (1.4-6.5); Neutrophils Percent Auto 87.7 % (43.0-75.0); Platelet Count 296 10^3/uL (150-450); Red Blood Count 5.45 10^6/uL (4.20-5.40); Red Cell Distribution Width 17.2 % (11.0-15.0); White Blood Count 7.1 10^3/uL (4.0-11.0)
[2024-04-11 06:30] LABS: Alanine Aminotransferase 25 U/L (14-59); Albumin Globulin Ratio 0.7; Albumin Level 3.1 g/dL (3.4-5.0); Alkaline Phosphatase 78 U/L (46-116); Anion Gap 5.7; Aspartate Amino Transferase 12 U/L (15-37); BUN Creatinine Ratio 38.5; Bilirubin Total 0.5 mg/dL (0.2-1.0); Calcium 8.6 mg/dL (8.5-10.1); Chloride 100 mmol/L (98-107); Estimated GFR (African America >60 (>=60); Estimated GFR (Non-African Ame 52 (>=60); Globulin 4.2 g/dL; Glucose 143 mg/dL (74-106); Potassium 4.7 mmol/L (3.5-5.1); Sodium 139 mmol/L (136-145); Total Protein 7.3 g/dL (6.4-8.2)
--- NOTE | 2024-04-11 07:31 | RESP.RT ---
titrated down to 3L
[2024-04-11 07:43] LABS: Glucometer 177 mg/dL (74-106)
[2024-04-11] MEDS: GUAIFENESIN 600 MG TAB.ER.12H PO ×2 (08:41→23:41)
[2024-04-11] MEDS: CLOPIDOGREL BISULFATE 75 MG TABLET PO (08:41)
[2024-04-11] MEDS: LOSARTAN POTASSIUM 50 MG TABLET PO (08:41)
[2024-04-11] MEDS: ATORVASTATIN CALCIUM 40 MG TABLET PO (08:41)
[2024-04-11] MEDS: ISOSORBIDE MONONITRATE 60 MG TAB.ER.24H PO (08:41)
[2024-04-11] MEDS: INSULIN ASPART 300 UNIT/3 ML PEN SUBQ ×4 (08:41→23:54)
[2024-04-11] MEDS: ASPIRIN 81 MG TABLET.DR PO (08:41)
[2024-04-11] MEDS: CEFTRIAXONE 1,000 MG in 0.9 % SODIUM CHLORIDE 50 ML 100 MG IV (08:43)
--- NOTE | 2024-04-11 09:54 | PT.DAILY ---
Physical Therapy Daily Note PT Daily Note/Assess Start: 04/10/24 10:14 Freq: Status: Active Protocol: Document 04/11/24 09:49 MILLIE (Rec: 04/11/24 09:54 [email or web address] [id number]) Physical Therapy Daily Note/Assessment Time In/Time Out Time In 09:20 Time Out 09:36 Pain In Pain N/A Pain Out Pain N/A Subjective Subjective Pt supine upon arrival. Pts call light is on. Needs to use restroom. Therapeutic Exercise Time Therapeutic Exercise Minutes (minutes) 5 Therapeutic Exercise Units 0 Therapeutic Exercise Treatment Therapeutic Exercise Treatment Seated bilat LE strengthening ex complete in BS chair 10x ea . occ rest due to coughing spell. Therapeutic Activity Time Therapeutic Activity Minutes (minutes) 8 Therapeutic Activity Units 1 Therapeutic Activity Treatment Bed Mobility Ability Standby Assistance Chair Transfer Ability Standby Assistance Therapeutic Activity Comments Supine>sit SBA with increased time needed. Sit>stand SBA. Pt amb with IV pole to restroom 20' and assist needed for O2 lines. Pt able to perform toilet transfer and pericare SUP. Pt amb over to sink area in room to prep a drink for herself with a flavor packet. Able to static stand 3 min with min fatigue. Pt amb 15' over to BS chair for short rest before attempting seated ex. Pt remains in BS chair upon completion with feet elevated and call light within reach,. Total Physical Therapy Time Total Therapy Minutes 13 Total Physical Therapy Units 1 Summary Daily Note Summary Safe with transfers and gait but does require increased time. Min fatigue with standing. Pt Would benefit from either HH PT or OP PT upon dc to regain strength and endurance.
--- NOTE | 2024-04-11 10:34 | CM.NOTE ---
Rounds made with Dr. Dimas, pt continues to require oxygen to keep sat greater than 90%. Discussed with pt findings on cardiac echo and plan for treatment. No discharge today. Pt will need diuresing.
--- NOTE | 2024-04-11 11:10 | P.IMPN_ITS ---
Progress Note: A&P Assessment and Plan (1) Acute respiratory failure with hypoxia: Assessment and Plan: Due to right lower lobe pneumonia and COPD exacerbation. Still requiring 4 L of oxygen. However she is feeling subjectively better. Treat underlying COPD exacerbation/right lower lobe pneumonia/chronic heart failure. Wean off oxygen as tolerated. (2) COPD exacerbation: Assessment and Plan: Improved air entry but is still persistent wheezing. Continue with systemic steroids, inhaled bronchodilators. (3) Right lower lobe pneumonia: Assessment and Plan: Continue with IV vancomycin/IV Rocephin. Monitor closely. Wean off oxygen as tolerated. Qualifiers: Pneumonia type: due to unspecified organism Qualified Code(s): J18.9 - Pneumonia, unspecified organism (4) Cellulitis: Assessment and Plan: Improved with IV vancomycin. Continue with same. Qualifiers: Laterality: unspecified laterality Site of cellulitis: extremity Site of cellulitis of extremity: lower extremity Qualified Code(s): L03.119 - Cellulitis of unspecified part of limb (5) Acute on chronic diastolic (congestive) heart failure: Assessment and Plan: Still quite volume overload. Echocardiogram revealed LVH severely dilated IVC with normal ejection fraction. Continue with IV Lasix. Check daily weight, intake and output. Monitor renal function and serum electrolytes closely (6) HTN (hypertension): Assessment and Plan: Blood pressure is better after addition of losartan. Continue with rest of her home medications and losartan. Qualifiers: Hypertension type: primary hypertension Qualified Code(s): I10 - Essential (primary) hypertension (7) Bradycardia: Assessment and Plan: Bradycardia noted on review of vital signs and telemetry. Hold Toprol. Order EKG. Check TSH. (8) CAD (coronary artery disease): Assessment and Plan: No evidence of active cardiac ischemia. Monitor. Continue with home medications except for Toprol due to bradycardia Qualifiers: Coronary Disease-Associated Artery/Lesion type: [place] artery [place] vs. transplanted heart: [place] heart Associated angina: without angina Qualified Code(s): I25.10 - Atherosclerotic heart disease of [place] coronary artery without angina pectoris (9) HLD (hyperlipidemia): Assessment and Plan: Continue with statin. Qualifiers: Hyperlipidemia type: unspecified Qualified Code(s): E78.5 - Hyperlipidemia, unspecified Internal Medicine - PN: Subj Subjective Interval history: Seen and examined. No overnight events. Good urine output on IV Lasix. Patient subjectively feels a little bit better. She reports that her legs do not feel as tight as before. Bilateral lower extremity pain is also better. She is still quite hypoxic and dyspneic on minimal exertion and requiring 4 L of oxygen via nasal cannula Exam Constitutional Vital Signs, click to edit/add: Last Vital Signs Temp 97.9 F 04/11/24 04:31 Pulse 47 L 04/11/24 10:00 Resp 18 04/11/24 07:30 BP 128/75 04/11/24 08:41 Pulse Ox 94 L 04/11/24 07:30 O2 Del Method Nasal Cannula 04/11/24 07:30 O2 Flow Rate 4 04/11/24 07:30 Documenting provider has reviewed patient's vital signs: yes Common normals: no apparent distress and oriented x3 General appearance: cooperative Respiratory Common normals: normal respiratory effort and no retractions Effort & inspection: able to speak in complete sentences Auscultation: wheezes and diminished lung sounds Cardio Common normals: regular rate, S1 normal heart sound and S2 normal heart sound Rate: regular rate Heart sounds: S1 normal and S2 normal GI Common normals: Normal to inspection, nondistended, normoactive bowel sounds present, soft to palpation, non-tender and no hepatosplenomegaly Palpation: soft and no hepatosplenomegaly Extremity General: edema (n/l LE upto knees, improved) Other: B/l LE erythema tenderness extending from ankle to just below knees - improved from before. Neuro Common normals: oriented x3, moves all extremities and no focal motor deficits Psych Common normals: mental status grossly normal, denies hallucinations, denies homicidal ideation and denies suicidal ideation Internal Medicine - PN: Obj Da Labs Labs: Laboratory Results - last 24 hr 04/10/24 04/10/24 04/10/24 11:43 17:35 22:24 WBC RBC Hgb Hct MCV MCH MCHC RDW Plt Count MPV Neut % (Auto) Lymph % (Auto) [place] % (Auto) Eos % (Auto) Baso % (Auto) Neut # (Auto) Lymph # (Auto) [place] # (Auto) Eos # (Auto) Baso # (Auto) Abs Immat Gran (auto) Imm/Tot Granulo (auto) Sodium Potassium Chloride Carbon Dioxide Anion Gap BUN Creatinine Est GFR ( Amer) Est GFR (Non-Af Amer) BUN/Creatinine Ratio Glucose Calcium Total Bilirubin AST ALT Alkaline Phosphatase Total Protein Albumin Globulin Albumin/Globulin Ratio POC Glucose 164 H 159 H 185 H 04/11/24 04/11/24 06:03 07:42 WBC 7.1 RBC 5.45 H Hgb 14.6 Hct 49.5 H MCV 90.8 MCH 26.8 MCHC 29.5 L RDW 17.2 H Plt Count 296 MPV 9.0 L Neut % (Auto) 87.7 H Lymph % (Auto) 9.2 L [place] % (Auto) 2.7 Eos % (Auto) 0.0 L Baso % (Auto) 0.0 L Neut # (Auto) 6.2 Lymph # (Auto) 0.7 L [place] # (Auto) 0.2 L Eos # (Auto) 0.0 Baso # (Auto) 0.0 Abs Immat Gran (auto) 0.03 Imm/Tot Granulo (auto) 0.4 Sodium 139 Potassium 4.7 Chloride 100 Carbon Dioxide 38.0 H Anion Gap 5.7 BUN 40.0 H Creatinine 1.04 H Est GFR ( Amer) >60 Est GFR (Non-Af Amer) 52 L BUN/Creatinine Ratio 38.5 Glucose 143 H Calcium 8.6 Total Bilirubin 0.5 AST 12 L ALT 25 Alkaline Phosphatase 78 Total Protein 7.3 Albumin 3.1 L Globulin 4.2 Albumin/Globulin Ratio 0.7 POC Glucose 177 H
--- NOTE | 2024-04-11 11:15 | ECG_ITS ---
The [facility] Test Date: 2024-04-11 Pat Name: DVAID ROSEN Department: Room: 2211 Gender: Female Load Builder: : 1945 Requested By: ISAK HOWARD Order Number: [id number] Reading MD: ISAK HOWARD Measurements Intervals [place] Rate: 49 P: 39 VA: 166 QRS: 23 QRSD: 114 T: 54 QT: 457 QTc: 415 Interpretive Statements SINUS BRADYCARDIA Poor R wave progression across the precordium Electronically Signed On 04-11-2024 18:59:26 EDT by ISAK HOWARD
[2024-04-11 11:25] LABS: Glucometer 162 mg/dL (74-106)
[2024-04-11 11:50] LABS: Thyroid Stimulating Hormone 0.812 uIU/mL (0.358-3.740)
[2024-04-11 16:09] LABS: Glucometer 181 mg/dL (74-106)
[2024-04-11] MEDS: VANCOMYCIN HCL 1,750 MG in 0.9 % SODIUM CHLORIDE 500 ML 250 MG IV (17:23)
[2024-04-11 20:37] LABS: Glucometer 274 mg/dL (74-106)
--- NOTE | 2024-04-11 20:58 | ECG_ITS ---
The [facility] Test Date: 2024-04-11 Pat Name: DAVID ROSEN Department: Room: 2211 Gender: Female Campus Administrative Assistant: : 1945 Requested By: ISAK HOWARD Order Number: [id number] Reading MD: ISAK HOWARD Measurements Intervals [place] Rate: 108 P: MT: QRS: 16 QRSD: 116 T: 66 QT: 329 QTc: 442 Interpretive Statements ATRIAL FIBRILLATION WITH RAPID VENTRICULAR RESPONSE MODERATE INTRAVENTRICULAR CONDUCTION DELAY [110+ ms QRS DURATION] NONSPECIFIC ST & T-WAVE ABNORMALITY ABNORMAL RHYTHM ECG Electronically Signed On 04-13-2024 7:49:13 EDT by ISAK HOWARD
--- NOTE | 2024-04-11 21:45 | ECG_ITS ---
The [facility] Test Date: 2024-04-12 Pat Name: DAVID ROSEN Department: Room: 2211 Gender: Female Adjunct Trainer: : 1945 Requested By: [id number] Order Number: [id number] Reading MD: ISAK HOWARD Measurements Intervals [place] Rate: 63 P: 62 IL: 157 QRS: 25 QRSD: 93 T: 29 QT: 394 QTc: 406 Interpretive Statements SINUS RHYTHM LOW QRS VOLTAGE IN PRECORDIAL LEADS [QRS DEFLECTION < 1.0 mV IN CHEST LEADS] ANTEROSEPTAL MYOCARDIAL INFARCTION [40+ ms Q WAVE IN V1-V4], OF INDETERMINATE AGE Electronically Signed On 04-13-2024 7:49:38 EDT by ISAK HOWARD
[2024-04-11 22:51] LABS: Alanine Aminotransferase 23 U/L (14-59); Albumin Globulin Ratio 0.7; Albumin Level 2.9 g/dL (3.4-5.0); Alkaline Phosphatase 68 U/L (46-116); Anion Gap 7.8; Aspartate Amino Transferase 13 U/L (15-37); BUN Creatinine Ratio 42.7; Bilirubin Total 0.4 mg/dL (0.2-1.0); Calcium 8.7 mg/dL (8.5-10.1); Chloride 99 mmol/L (98-107); Estimated GFR (African America 58 (>=60); Estimated GFR (Non-African Ame 48 (>=60); Globulin 4.1 g/dL; Glucose 230 mg/dL (74-106); Magnesium 1.7 mg/dL (1.8-2.4); Potassium 3.8 mmol/L (3.5-5.1); Sodium 139 mmol/L (136-145); Troponin I High Sensitivity 5.5 pg/mL (4.0-51.3)
[2024-04-11] MEDS: BENZONATATE 100 MG CAPSULE PO (23:41)
[2024-04-12] VITALS (23 sets, daily range): BP systolic 112–134; BP diastolic 54–78; PULSE 57–109; TEMP 36.3–36.6; O2SAT 83–100
[2024-04-12] MEDS: IPRATROPIUM/ALBUTEROL SULFATE 3 ML AMPUL.NEB IH ×6 (03:51→22:27)
[2024-04-12] MEDS: FUROSEMIDE 40 MG/4 ML VIAL IVP ×2 (05:00→11:38)
[2024-04-12] MEDS: METHYLPREDNISOLONE SOD SUCC PF 40 MG/ML VIAL IVP ×3 (05:03→21:46)
[2024-04-12] MEDS: HEPARIN SODIUM (PORCINE) 5,000 UNIT/ML VIAL 5000 UNIT SUBQ ×3 (05:09→21:46)
[2024-04-12 06:51] LABS: Hematocrit 51.2 % (36.0-48.0); Hemoglobin 14.8 g/dL (12.0-16.0); Mean Corpuscular HGB Conc 28.9 g/dL (29.9-35.2); Mean Corpuscular Hemoglobin 26.8 pg (26.7-34.0); Mean Corpuscular Volume 92.6 fL (81.0-99.0); Mean Platelet Volume 8.9 fL (9.5-13.5); Platelet Count 280 10^3/uL (150-450); Red Cell Distribution Width 17.6 % (11.0-15.0)
--- NOTE | 2024-04-12 07:02 | XR_ITS ---
The [address] [address] Patient Name: DAVID ROSEN MRN: [id number] date: 1945 Sex: F Assigned Patient Location: [place] Current Patient Location: Accession/Order Number: [id number] Exam Date: 04/12/2024 07:20 Report Date: 04/12/2024 07:57 At the request of: SHAIKH URI Procedure: XR chest 1V EXAM: XR chest 1V HISTORY: chf/sob COMPARISON: Portable chest radiograph dated 04/09/2024 and CTA chest dated 04/09/2024. TECHNIQUE: AP erect portable chest radiograph performed. FINDINGS: The trachea is midline. Stable moderate enlargement of the cardiac silhouette. Stable moderate atheromatous calcification at the aortic arch. Stable mild prominence of the central pulmonary arteries. There is prominence and cephalization of the pulmonary vasculature consistent with congestion. There is patchy airspace disease at both lung bases. There is no large pleural effusion. There is no pneumothorax or acute osseous abnormality. The bony structures are osteopenic. XR/XR chest 1V IMPRESSION: Findings which in the right clinical setting are consistent with congestive heart failure which is not significantly changed in appearance compared to the previous portable chest radiograph. Electronically authenticated by: JESSICA HACKETT Date: 04/12/2024 07:57
[2024-04-12 07:15] LABS: Alanine Aminotransferase 27 U/L (14-59); Albumin Globulin Ratio 0.7; Albumin Level 3.1 g/dL (3.4-5.0); Alkaline Phosphatase 68 U/L (46-116); Anion Gap 3.6; Aspartate Amino Transferase 12 U/L (15-37); Bilirubin Total 0.5 mg/dL (0.2-1.0); Calcium 8.5 mg/dL (8.5-10.1); Carbon Dioxide 39.8 mmol/L (21.0-32.0); Chloride 100 mmol/L (98-107); Estimated GFR (African America >60 (>=60); Estimated GFR (Non-African Ame 54 (>=60); Globulin 4.2 g/dL; Glucose 165 mg/dL (74-106); Potassium 4.4 mmol/L (3.5-5.1); Sodium 139 mmol/L (136-145); Total Protein 7.3 g/dL (6.4-8.2)
[2024-04-12 07:25] LABS: Lymphocytes Absolute Manual 0.16 10^3/uL (1.20-3.80); Segmented Neut Absolute Manual 7.84 10^3/uL (1.4-6.5)
[2024-04-12 07:26] LABS: Red Blood Count 5.53 10^6/uL (4.20-5.40)
[2024-04-12] MEDS: INSULIN ASPART 300 UNIT/3 ML PEN SUBQ ×3 (08:24→21:47)
[2024-04-12] MEDS: ATORVASTATIN CALCIUM 40 MG TABLET PO (09:05)
[2024-04-12] MEDS: CEFTRIAXONE 1,000 MG in 0.9 % SODIUM CHLORIDE 50 ML 10 MG IV (09:05)
[2024-04-12] MEDS: CLOPIDOGREL BISULFATE 75 MG TABLET PO (09:05)
[2024-04-12] MEDS: ASPIRIN 81 MG TABLET.DR PO (09:05)
[2024-04-12] MEDS: GUAIFENESIN 600 MG TAB.ER.12H PO ×2 (09:05→20:00)
[2024-04-12] MEDS: ISOSORBIDE MONONITRATE 60 MG TAB.ER.24H PO (09:05)
[2024-04-12] MEDS: LOSARTAN POTASSIUM 50 MG TABLET PO (09:06)
--- NOTE | 2024-04-12 09:13 | PT.DAILY ---
Physical Therapy Daily Note PT Daily Note/Assess Start: 04/10/24 10:14 Freq: Status: Active Protocol: Document 04/12/24 08:58 [id number] (Rec: 04/12/24 09:13 [id number]) Physical Therapy Daily Note/Assessment Time In/Time Out Time In 08:38 Time Out 08:55 Pain In Pain Level 2 Pain Out Pain Level 2 Subjective Subjective Patient states both her ankles are painful due to the swelling in her legs. Patient received supine in bed with pillow under ABELARDO ankles/calves and agreeable to participating with PT, requests to use restroom first . No bed alarm. Therapeutic Exercise Time Therapeutic Exercise Minutes (minutes) 5 Therapeutic Exercise Units 0 Therapeutic Exercise Treatment Therapeutic Exercise Treatment Patient performed ABELARDO LE in chair at bedside: ABELARDO ankle pumps, LAQ's, resisted hip ABD /ADD, marching x 10 reps. Patient able to sit edge of chair without posterior LOB but does use 1 UE for support on arm rest. Therapeutic Activity Time Therapeutic Activity Minutes (minutes) 12 Therapeutic Activity Units 1 Therapeutic Activity Treatment Bed Mobility Ability Standby Assistance Chair Transfer Ability Standby Assistance Therapeutic Activity Comments Bed mobility: patient uses bed rail for assist and performs with SBA. Patient sits EOB without LOB or UE support. Transfer: sit to stand to 4WW is SBA. Patient ambulated ~15 feet to bathroom with 4WW @ SBA. Patient able to perform toilet transfers with SBA and use of R handrail. Requires MIN A to ewa/doff brief. Patient ambulated ~3 feet to sink and is SBA to wash hands and dry. Patient ambulated ~20 feet x 3 with 4WW with SBA. No LOB during gait or turns. Patient verbalizes fatigue and requests to sit. Patient seated in chair at bedside to perform ther ex. Call ochoa placed within reach at patients left side. Patient reclined in chair with ABELARDO LE elevated and pillow placed under ankles/calves. Patient does require assist to manage O2 line throughout entire treatment. Nursing notified of patient placement and use of toilet, acknowledges information. Total Physical Therapy Time Total Therapy Minutes 17 Total Physical Therapy Units 1 Summary Daily Note Summary Patient does require additional time to perform bed mobility and FACT. Patient demonstrates increased ambulation distance with fatigue with functional mobility and ADL's. Patient would benefit from either HH or OP PT upon DC to regain strength and functional mobility.
[2024-04-12 10:24] LABS: Estimated Average Glucose 120 mg/dL; Glycohemoglobin A1C 5.8 % (4.5-6.2)
--- NOTE | 2024-04-12 10:26 | PM.IMPN1 ---
Progress Note: A&P Assessment and Plan (1) Acute respiratory failure with hypoxia: Assessment and Plan: Due to right lower lobe pneumonia/COPD exacerbation/Acute on chronic diastolic HF. Worsened overnight. on 5 L oxygen. Wean off oxygen as tolerated. (2) COPD exacerbation: Assessment and Plan: Diminished air entry, with exp wheezing. Cw/ steroids, duonebs. (3) Right lower lobe pneumonia: Assessment and Plan: Continue with IV vancomycin/IV Rocephin. Monitor closely. Wean off oxygen as tolerated. Qualifiers: Pneumonia type: due to unspecified organism Qualified Code(s): J18.9 - Pneumonia, unspecified organism (4) Cellulitis: Assessment and Plan: Improved with IV vancomycin. Improved. Qualifiers: Laterality: unspecified laterality Site of cellulitis: extremity Site of cellulitis of extremity: lower extremity Qualified Code(s): L03.119 - Cellulitis of unspecified part of limb (5) Acute on chronic diastolic (congestive) heart failure: Assessment and Plan: Still quite volume overload. Increase lasix to 80 q12. Monitor I/O, daily weights. Echocardiogram revealed LVH severely dilated IVC with normal ejection fraction. (6) HTN (hypertension): Assessment and Plan: Blood pressure at goal after addition of losartan. Continue with rest of her home medications except for toprol Qualifiers: Hypertension type: primary hypertension Qualified Code(s): I10 - Essential (primary) hypertension (7) Bradycardia: Assessment and Plan: Bradycardia noted on review of vital signs and telemetry. normal TSH. Improved after Toprol was discontinued. (8) CAD (coronary artery disease): Assessment and Plan: No evidence of active cardiac ischemia. Monitor. Continue with home medications except for Toprol due to bradycardia Qualifiers: Coronary Disease-Associated Artery/Lesion type: [place] artery [place] vs. transplanted heart: [place] heart Associated angina: without angina Qualified Code(s): I25.10 - Atherosclerotic heart disease of [place] coronary artery without angina pectoris (9) HLD (hyperlipidemia): Assessment and Plan: Continue with statin. Qualifiers: Hyperlipidemia type: unspecified Qualified Code(s): E78.5 - Hyperlipidemia, unspecified Internal Medicine - PN: Subj Subjective Interval history: Seen and examined. Patient reports feeling more SOB at night. Good UO on lasix but still SOB at rest and on exertion. Still requiring 5 L O2 via NC. Exam Constitutional Vital Signs, click to edit/add: Last Vital Signs Temp 97.4 F L 04/12/24 09:01 Pulse 76 04/12/24 09:53 Resp 20 04/12/24 09:01 BP 112/54 04/12/24 09:01 Pulse Ox 97 04/12/24 09:01 O2 Del Method Nasal Cannula 04/12/24 09:01 O2 Flow Rate 5 04/12/24 09:01 Documenting provider has reviewed patient's vital signs: yes Common normals: no apparent distress and oriented x3 General appearance: cooperative Respiratory Common normals: normal respiratory effort Effort & inspection: able to speak in complete sentences Other: Exertional dyspnea noted. Diminished lung souds. Exp wheezing. Crackles at bases. Cardio Common normals: regular rate, S1 normal heart sound and S2 normal heart sound Rate: regular rate Heart sounds: S1 normal and S2 normal Extremity General: edema (Resolved. ) Other: B/l LE erythema tenderness extending from ankle to just below knees - resolved. Neuro Common normals: oriented x3, moves all extremities and no focal motor deficits Psych Common normals: mental status grossly normal, denies hallucinations, denies homicidal ideation and denies suicidal ideation Internal Medicine - PN: Obj Da Labs Labs: Laboratory Results - last 24 hr 04/11/24 04/11/24 04/11/24 06:03 11:24 16:09 WBC RBC Hgb Hct MCV MCH MCHC RDW Plt Count MPV Seg Neuts % (Manual) Lymphocytes % (Manual) Monocytes % (Manual) Eosinophils % (Manual) Basophils % (Manual) Neutrophils # (Manual) Lymphocytes # (Manual) Monocytes # (Manual) Eosinophils # (Manual) Basophils # (Manual) Sodium Potassium Chloride Carbon Dioxide Anion Gap BUN Creatinine Est GFR ( Amer) Est GFR (Non-Af Amer) BUN/Creatinine Ratio Glucose Calcium Magnesium Total Bilirubin AST ALT Alkaline Phosphatase Troponin I High Sens Total Protein Albumin Globulin Albumin/Globulin Ratio TSH 0.812 POC Glucose 162 H 181 H 04/11/24 04/11/24 04/12/24 20:27 21:56 06:24 WBC 8.0 RBC 5.53 H Hgb 14.8 Hct 51.2 H MCV 92.6 MCH 26.8 MCHC 28.9 L RDW 17.6 H Plt Count 280 MPV 8.9 L Seg Neuts % (Manual) 98.0 H Lymphocytes % (Manual) 2.0 L Monocytes % (Manual) 0.0 L Eosinophils % (Manual) 0.0 L Basophils % (Manual) 0.0 L Neutrophils # (Manual) 7.84 H Lymphocytes # (Manual) 0.16 L Monocytes # (Manual) 0.00 L Eosinophils # (Manual) 0.00 Basophils # (Manual) 0.00 Sodium 139 139 Potassium 3.8 4.4 Chloride 99 100 Carbon Dioxide 36.0 H 39.8 H Anion Gap 7.8 3.6 BUN 47.0 H 46.0 H Creatinine 1.10 H 1.00 Est GFR ( Amer) 58 L >60 Est GFR (Non-Af Amer) 48 L 54 L BUN/Creatinine Ratio 42.7 46.0 Glucose 230 H 165 H Calcium 8.7 8.5 Magnesium 1.7 L Total Bilirubin 0.4 0.5 AST 13 L 12 L ALT 23 27 Alkaline Phosphatase 68 68 Troponin I High Sens 5.5 Total Protein 7.0 7.3 Albumin 2.9 L 3.1 L Globulin 4.1 4.2 Albumin/Globulin Ratio 0.7 0.7 TSH POC Glucose 274 H
[2024-04-12 11:11] LABS: Glucometer 177 mg/dL (74-106)
[2024-04-12 16:23] LABS: Glucometer 124 mg/dL (74-106)
[2024-04-12 17:42] LABS: Vancomycin Trough 11.2 ug/mL (5.0-20.0)
[2024-04-12] MEDS: VANCOMYCIN HCL 1,750 MG in 0.9 % SODIUM CHLORIDE 500 ML 250 MG IV (17:56)
[2024-04-12] MEDS: FUROSEMIDE 40 MG/4 ML VIAL 80 MG IVP (20:00)
[2024-04-12 20:44] LABS: Glucometer 236 mg/dL (74-106)
[2024-04-12] MEDS: INSULIN DETEMIR 300 UNIT/3 ML INSULN.PEN 20 UNIT SUBQ (21:51)
[2024-04-13] VITALS (20 sets, daily range): BP systolic 118–152; BP diastolic 65–78; PULSE 62–80; TEMP 36.4–36.8; O2SAT 86–97
[2024-04-13] MEDS: IPRATROPIUM/ALBUTEROL SULFATE 3 ML AMPUL.NEB IH ×5 (03:57→19:40)
[2024-04-13] MEDS: METHYLPREDNISOLONE SOD SUCC PF 40 MG/ML VIAL IVP ×3 (04:59→21:20)
[2024-04-13] MEDS: HEPARIN SODIUM (PORCINE) 5,000 UNIT/ML VIAL 5000 UNIT SUBQ ×3 (04:59→21:21)
[2024-04-13 06:13] LABS: Basophils Percent Auto 0.2 % (0.2-2.0); Hematocrit 48.8 % (36.0-48.0); Hemoglobin 14.4 g/dL (12.0-16.0); Immature Granulocytes Abs Auto 0.03 10^3/uL (0.00-0.03); Immature Granulocytes Pct Auto 0.5 % (0.0-0.5); Lymphocytes Absolute Auto 0.3 10^3/uL (1.2-3.8); Lymphocytes Percent Auto 4.4 % (20.5-60.0); Mean Corpuscular HGB Conc 29.5 g/dL (29.9-35.2); Mean Corpuscular Hemoglobin 27.2 pg (26.7-34.0); Mean Corpuscular Volume 92.1 fL (81.0-99.0); Mean Platelet Volume 8.9 fL (9.5-13.5); Monocytes Absolute Auto 0.2 10^3/uL (0.3-0.8); Monocytes Percent Auto 2.7 % (1.7-12.0); Neutrophils Absolute Auto 6.1 10^3/uL (1.4-6.5); Neutrophils Percent Auto 92.2 % (43.0-75.0); Platelet Count 267 10^3/uL (150-450); Red Cell Distribution Width 17.4 % (11.0-15.0); White Blood Count 6.7 10^3/uL (4.0-11.0)
[2024-04-13 06:28] LABS: Alanine Aminotransferase 19 U/L (14-59); Albumin Globulin Ratio 0.7; Albumin Level 2.8 g/dL (3.4-5.0); Alkaline Phosphatase 63 U/L (46-116); Anion Gap 5.7; Aspartate Amino Transferase 9 U/L (15-37); BUN Creatinine Ratio 50.5; Bilirubin Total 0.5 mg/dL (0.2-1.0); Calcium 8.3 mg/dL (8.5-10.1); Carbon Dioxide 39.3 mmol/L (21.0-32.0); Chloride 98 mmol/L (98-107); Estimated GFR (African America >60 (>=60); Estimated GFR (Non-African Ame 57 (>=60); Globulin 4.2 g/dL; Glucose 155 mg/dL (74-106); Sodium 139 mmol/L (136-145)
[2024-04-13] MEDS: INSULIN ASPART 300 UNIT/3 ML PEN SUBQ ×3 (07:56→21:21)
[2024-04-13] MEDS: ISOSORBIDE MONONITRATE 60 MG TAB.ER.24H PO (08:59)
[2024-04-13] MEDS: ATORVASTATIN CALCIUM 40 MG TABLET PO (08:59)
[2024-04-13] MEDS: CLOPIDOGREL BISULFATE 75 MG TABLET PO (08:59)
[2024-04-13] MEDS: ASPIRIN 81 MG TABLET.DR PO (08:59)
[2024-04-13] MEDS: DOCUSATE SODIUM 100 MG CAPSULE PO (08:59)
[2024-04-13] MEDS: BENZONATATE 100 MG CAPSULE PO (08:59)
[2024-04-13] MEDS: LOSARTAN POTASSIUM 50 MG TABLET PO (09:00)
[2024-04-13] MEDS: GUAIFENESIN 600 MG TAB.ER.12H PO ×2 (09:00→21:28)
[2024-04-13] MEDS: FUROSEMIDE 40 MG/4 ML VIAL 80 MG IVP (09:22)
[2024-04-13] MEDS: LEVOFLOXACIN IN DEXTROSE 5 % 750 MG/150 ML PREMIX 100 MG IV (09:24)
--- NOTE | 2024-04-13 11:03 | P.IMPN_ITS ---
Progress Note: A&P Assessment and Plan (1) Acute respiratory failure with hypoxia: Assessment and Plan: Due to right lower lobe pneumonia/COPD exacerbation/Acute on chronic diastolic HF. Improved today. On 2 L O2 via NC Now. (2) COPD exacerbation: Assessment and Plan: Diminished air entry, with exp wheezing. overall improved. Cw/ steroids, duonebs. (3) Right lower lobe pneumonia: Assessment and Plan: Continue with IV vancomycin/IV Rocephin. Monitor closely. Wean off oxygen as tolerated. Qualifiers: Pneumonia type: due to unspecified organism Qualified Code(s): J18.9 - Pneumonia, unspecified organism (4) Cellulitis: Assessment and Plan: Improved with IV vancomycin. Qualifiers: Laterality: unspecified laterality Site of cellulitis: extremity Site of cellulitis of extremity: lower extremity Qualified Code(s): L03.119 - Cellulitis of unspecified part of limb (5) Acute on chronic diastolic (congestive) heart failure: Assessment and Plan: Still volume overload but overall responded well to Increased dose of lasix. Monitor I/O, daily weights. Echocardiogram revealed LVH severely dilated IVC with normal ejection fraction. Switch back to 40 mg IV lasix. (6) HTN (hypertension): Assessment and Plan: Blood pressure at goal after addition of losartan. Continue with rest of her home medications except for toprol Qualifiers: Hypertension type: primary hypertension Qualified Code(s): I10 - Essential (primary) hypertension (7) Bradycardia: Assessment and Plan: Bradycardia noted on review of vital signs and telemetry. normal TSH. Improved after Toprol was discontinued. (8) CAD (coronary artery disease): Assessment and Plan: No evidence of active cardiac ischemia. Monitor. Continue with home medications except for Toprol due to bradycardia Qualifiers: Coronary Disease-Associated Artery/Lesion type: [place] artery [place] vs. transplanted heart: [place] heart Associated angina: without angina Qualified Code(s): I25.10 - Atherosclerotic heart disease of [place] coronary artery without angina pectoris (9) HLD (hyperlipidemia): Assessment and Plan: Continue with statin. Qualifiers: Hyperlipidemia type: unspecified Qualified Code(s): E78.5 - Hyperlipidemia, unspecified Internal Medicine - PN: Subj Subjective Interval history: Seen and examined. No overnight events. Good UO on lasix. Patient weaned off to 2 L O2 via NC. Exam Constitutional Vital Signs, click to edit/add: Last Vital Signs Temp 98.2 F 04/13/24 03:48 Pulse 71 04/13/24 09:46 Resp 18 04/13/24 03:59 BP 131/70 04/13/24 03:48 Pulse Ox 97 04/13/24 07:30 O2 Del Method Nasal Cannula 04/13/24 07:30 O2 Flow Rate 6 04/13/24 07:30 Documenting provider has reviewed patient's vital signs: yes Common normals: no apparent distress and oriented x3 General appearance: cooperative Respiratory Common normals: normal respiratory effort Effort & inspection: able to speak in complete sentences Other: Diminished lung souds. Exp wheezing. Cardio Common normals: regular rate, S1 normal heart sound and S2 normal heart sound Rate: regular rate Heart sounds: S1 normal and S2 normal Extremity General: edema (Resolved. ) Other: B/l LE erythema tenderness extending from ankle to just below knees - resolved. Neuro Common normals: oriented x3, moves all extremities and no focal motor deficits Psych Common normals: mental status grossly normal, denies hallucinations, denies homicidal ideation and denies suicidal ideation Internal Medicine - PN: Obj Da Labs Labs: Laboratory Results - last 24 hr 04/12/24 04/12/24 04/12/24 11:10 16:22 17:09 WBC RBC Hgb Hct MCV MCH MCHC RDW Plt Count MPV Neut % (Auto) Lymph % (Auto) [place] % (Auto) Eos % (Auto) Baso % (Auto) Neut # (Auto) Lymph # (Auto) [place] # (Auto) Eos # (Auto) Baso # (Auto) Abs Immat Gran (auto) Imm/Tot Granulo (auto) Sodium Potassium Chloride Carbon Dioxide Anion Gap BUN Creatinine Est GFR ( Amer) Est GFR (Non-Af Amer) BUN/Creatinine Ratio Glucose Calcium Total Bilirubin AST ALT Alkaline Phosphatase Total Protein Albumin Globulin Albumin/Globulin Ratio Vancomycin Trough 11.2 POC Glucose 177 H 124 H 04/12/24 04/13/24 20:31 05:37 WBC 6.7 RBC 5.30 Hgb 14.4 Hct 48.8 H MCV 92.1 MCH 27.2 MCHC 29.5 L RDW 17.4 H Plt Count 267 MPV 8.9 L Neut % (Auto) 92.2 H Lymph % (Auto) 4.4 L [place] % (Auto) 2.7 Eos % (Auto) 0.0 L Baso % (Auto) 0.2 Neut # (Auto) 6.1 Lymph # (Auto) 0.3 L [place] # (Auto) 0.2 L Eos # (Auto) 0.0 Baso # (Auto) 0.0 Abs Immat Gran (auto) 0.03 Imm/Tot Granulo (auto) 0.5 Sodium 139 Potassium 4.0 Chloride 98 Carbon Dioxide 39.3 H Anion Gap 5.7 BUN 48.0 H Creatinine 0.95 Est GFR ( Amer) >60 Est GFR (Non-Af Amer) 57 L BUN/Creatinine Ratio 50.5 Glucose 155 H Calcium 8.3 L Total Bilirubin 0.5 AST 9 L ALT 19 Alkaline Phosphatase 63 Total Protein 7.0 Albumin 2.8 L Globulin 4.2 Albumin/Globulin Ratio 0.7 Vancomycin Trough POC Glucose 236 H
[2024-04-13 11:20] LABS: Glucometer 245 mg/dL (74-106)
[2024-04-13 16:23] LABS: Glucometer 100 mg/dL (74-106)
[2024-04-13] MEDS: VANCOMYCIN HCL 1,750 MG in 0.9 % SODIUM CHLORIDE 500 ML 250 MG IV (17:41)
[2024-04-13] MEDS: 0.9 % SODIUM CHLORIDE 250 ML 10 ML IV (17:41)
[2024-04-13] MEDS: FUROSEMIDE 40 MG/4 ML VIAL IVP (19:44)
[2024-04-13 20:25] LABS: Glucometer 239 mg/dL (74-106)
--- NOTE | 2024-04-13 20:56 | PC.NURSE ---
iv restart attempt times 2 attempts without success. 1st one to left arm with 20 guage catheter without success. 2nd one to left arm with 22guage catheter without success. Iv to right reddened and edematous removed without difficulty.
[2024-04-13] MEDS: INSULIN DETEMIR 300 UNIT/3 ML INSULN.PEN 20 UNIT SUBQ (21:21)
[2024-04-14] VITALS (24 sets, daily range): BP systolic 110–156; BP diastolic 61–76; PULSE 59–89; TEMP 36.4–36.7; O2SAT 81–93
[2024-04-14] MEDS: HEPARIN SODIUM (PORCINE) 5,000 UNIT/ML VIAL 5000 UNIT SUBQ ×3 (05:14→22:13)
[2024-04-14] MEDS: METHYLPREDNISOLONE SOD SUCC PF 40 MG/ML VIAL IVP ×3 (05:14→22:12)
[2024-04-14 06:40] LABS: Eosinophils Percent Auto 0.2 % (0.9-7.0); Hematocrit 50.8 % (36.0-48.0); Hemoglobin 15.3 g/dL (12.0-16.0); Immature Granulocytes Abs Auto 0.02 10^3/uL (0.00-0.03); Immature Granulocytes Pct Auto 0.4 % (0.0-0.5); Lymphocytes Absolute Auto 0.3 10^3/uL (1.2-3.8); Lymphocytes Percent Auto 6.2 % (20.5-60.0); Mean Corpuscular HGB Conc 30.1 g/dL (29.9-35.2); Mean Corpuscular Hemoglobin 26.9 pg (26.7-34.0); Mean Corpuscular Volume 89.4 fL (81.0-99.0); Mean Platelet Volume 8.9 fL (9.5-13.5); Monocytes Absolute Auto 0.3 10^3/uL (0.3-0.8); Monocytes Percent Auto 5.4 % (1.7-12.0); Neutrophils Absolute Auto 4.5 10^3/uL (1.4-6.5); Neutrophils Percent Auto 87.8 % (43.0-75.0); Platelet Count 251 10^3/uL (150-450); Red Blood Count 5.68 10^6/uL (4.20-5.40); Red Cell Distribution Width 17.6 % (11.0-15.0); White Blood Count 5.1 10^3/uL (4.0-11.0)
[2024-04-14 06:54] LABS: Alanine Aminotransferase 26 U/L (14-59); Albumin Globulin Ratio 0.7; Albumin Level 2.6 g/dL (3.4-5.0); Alkaline Phosphatase 59 U/L (46-116); Anion Gap 3.5; Aspartate Amino Transferase 15 U/L (15-37); BUN Creatinine Ratio 43.6; Bilirubin Total 0.9 mg/dL (0.2-1.0); Calcium 8.2 mg/dL (8.5-10.1); Carbon Dioxide 41.6 mmol/L (21.0-32.0); Chloride 97 mmol/L (98-107); Estimated GFR (African America >60 (>=60); Estimated GFR (Non-African Ame 53 (>=60); Globulin 3.9 g/dL; Glucose 149 mg/dL (74-106); Potassium 4.1 mmol/L (3.5-5.1); Sodium 138 mmol/L (136-145); Total Protein 6.5 g/dL (6.4-8.2)
[2024-04-14] MEDS: IPRATROPIUM/ALBUTEROL SULFATE 3 ML AMPUL.NEB IH ×4 (07:51→19:33)
[2024-04-14 07:55] LABS: Glucometer 139 mg/dL (74-106)
[2024-04-14] MEDS: ISOSORBIDE MONONITRATE 60 MG TAB.ER.24H PO (08:30)
[2024-04-14] MEDS: GUAIFENESIN 600 MG TAB.ER.12H PO ×2 (08:30→20:13)
[2024-04-14] MEDS: LOSARTAN POTASSIUM 50 MG TABLET PO (08:30)
[2024-04-14] MEDS: CLOPIDOGREL BISULFATE 75 MG TABLET PO (08:30)
[2024-04-14] MEDS: FUROSEMIDE 40 MG/4 ML VIAL IVP ×2 (08:30→11:30)
[2024-04-14] MEDS: ATORVASTATIN CALCIUM 40 MG TABLET PO (08:30)
[2024-04-14] MEDS: ASPIRIN 81 MG TABLET.DR PO (08:30)
--- NOTE | 2024-04-14 10:04 | XR_ITS ---
The [address] [address] Patient Name: DAVID ROSEN MRN: [id number] date: 1945 Sex: F Assigned Patient Location: [place] Current Patient Location: [place] Accession/Order Number: [id number] Exam Date: 04/14/2024 10:45 Report Date: 04/14/2024 11:13 At the request of: SHAIKH URI Procedure: XR chest 1V EXAMINATION: XR chest 1V HISTORY: sob COMPARISON: XR chest 04/12/2024 FINDINGS: LUNGS: Mild-moderate opacities within lung bases obscuring the diaphragm margins. VASCULATURE: Mild cephalization. PLEURA: No pneumothorax, effusion, or pleural thickening. CARDIAC: Heart size approaches upper limits of normal. MEDIASTINUM: No visible mass or adenopathy. BONES: No fracture or visible bone lesion. OTHER: Negative. XR/XR chest 1V IMPRESSION: 1. Moderate bibasilar infiltrates; pneumonia versus pulmonary edema. Stable to minimally increased. Electronically authenticated by: BRIANNA LY Date: 04/14/2024 11:13
--- NOTE | 2024-04-14 10:05 | P.IMPN_ITS ---
Progress Note: A&P Assessment and Plan (1) Acute respiratory failure with hypoxia: Assessment and Plan: Due to right lower lobe pneumonia/COPD exacerbation/Acute on chronic diastolic HF. She was weaned off to 2 L on 04/13/24. However, she is now requiring 4 -5 L O2. Her pulse Ox ins unreliable and I suspect she might not be hypoxic to this degree. Ordered ABG. Repeat CXR. (2) COPD exacerbation: Assessment and Plan: Diminished air entry, no wheezing. Cw/ steroids, duonebs. (3) Right lower lobe pneumonia: Assessment and Plan: Continue with IV vancomycin/IV Rocephin. Monitor closely. She was weaned off to 2 L on 04/13/24. However, she is now requiring 4 -5 L O2. Her pulse Ox ins unreliable and I suspect she might not be hypoxic to this degree. Ordered ABG. Repeat CXR. Qualifiers: Pneumonia type: due to unspecified organism Qualified Code(s): J18.9 - Pneumonia, unspecified organism (4) Cellulitis: Assessment and Plan: Improved with IV vancomycin. Qualifiers: Laterality: unspecified laterality Site of cellulitis: extremity Site of cellulitis of extremity: lower extremity Qualified Code(s): L03.119 - Cellulitis of unspecified part of limb (5) Acute on chronic diastolic (congestive) heart failure: Assessment and Plan: Difficult to ascertain volume status reliably but does not appear to be euvolemic. Repeat CXR. Echocardiogram revealed LVH severely dilated IVC with normal ejection fraction. Currently on IV lasix. (6) HTN (hypertension): Assessment and Plan: Blood pressure at goal after addition of losartan. Continue with rest of her home medications except for toprol Qualifiers: Hypertension type: primary hypertension Qualified Code(s): I10 - Essential (primary) hypertension (7) Bradycardia: Assessment and Plan: Bradycardia noted on review of vital signs and telemetry. normal TSH. Improved after Toprol was discontinued. (8) CAD (coronary artery disease): Assessment and Plan: No evidence of active cardiac ischemia. Monitor. Continue with home medications except for Toprol due to bradycardia Qualifiers: Coronary Disease-Associated Artery/Lesion type: [place] artery [place] vs . transplanted heart: [place] heart Associated angina: without angina Qualified Code(s): I25.10 - Atherosclerotic heart disease of [place] coronary artery without angina pectoris (9) HLD (hyperlipidemia): Assessment and Plan: Continue with statin. Qualifiers: Hyperlipidemia type: unspecified Qualified Code(s): E78.5 - Hyperlipidemia, unspecified Plan Worsening hypoxia noted today. Not sure if she is truly hypoxic. Repeat CXR, ABG to confirm hypoxia C/w IV lasix for now. If she indeed has worsening hypoxia and based on CXR, she may end up needing higher dose of IV lasix. Internal Medicine - PN: Subj Subjective Interval history: Seen and examined. No overnight events. Patient on 5 L O2 today. Denies increased SOB, dyspnea. Appears comfortable. Exam Constitutional Vital Signs, click to edit/add: Last Vital Signs Temp 98.0 F 04/14/24 08:25 Pulse 69 04/14/24 10:00 Resp 22 H 04/14/24 08:25 BP 156/76 H 04/14/24 08:25 Pulse Ox 90 L 04/14/24 08:49 O2 Del Method Nasal Cannula 04/14/24 08:49 O2 Flow Rate 5 04/14/24 08:49 Documenting provider has reviewed patient's vital signs: yes Common normals: no apparent distress and oriented x3 General appearance: cooperative Respiratory Common normals: normal respiratory effort, no use of accessory muscles and clear to auscultation bilaterally Effort & inspection: able to speak in complete sentences Other: Diminished lung souds. Cardio Common normals: regular rate, S1 normal heart sound and S2 normal heart sound Rate: regular rate Heart sounds: S1 normal and S2 normal Extremity General: edema (Resolved. ) Other: B/l LE erythema tenderness extending from ankle to just below knees - resolved. Neuro Common normals: oriented x3, moves all extremities and no focal motor deficits Psych Common normals: mental status grossly normal, denies hallucinations, denies homicidal ideation and denies suicidal ideation Internal Medicine - PN: Obj Da Labs Labs: Laboratory Results - last 24 hr 04/13/24 04/13/24 04/13/24 11:19 16:14 20:14 WBC RBC Hgb Hct MCV MCH MCHC RDW Plt Count MPV Neut % (Auto) Lymph % (Auto) [place] % (Auto) Eos % (Auto) Baso % (Auto) Neut # (Auto) Lymph # (Auto) [place] # (Auto) Eos # (Auto) Baso # (Auto) Abs Immat Gran (auto) Imm/Tot Granulo (auto) Sodium Potassium Chloride Carbon Dioxide Anion Gap BUN Creatinine Est GFR ( Amer) Est GFR (Non-Af Amer) BUN/Creatinine Ratio Glucose Calcium Total Bilirubin AST ALT Alkaline Phosphatase Total Protein Albumin Globulin Albumin/Globulin Ratio POC Glucose 245 H 100 239 H 04/14/24 04/14/24 06:15 07:54 WBC 5.1 RBC 5.68 H Hgb 15.3 Hct 50.8 H MCV 89.4 MCH 26.9 MCHC 30.1 RDW 17.6 H Plt Count 251 MPV 8.9 L Neut % (Auto) 87.8 H Lymph % (Auto) 6.2 L [place] % (Auto) 5.4 Eos % (Auto) 0.2 L Baso % (Auto) 0.0 L Neut # (Auto) 4.5 Lymph # (Auto) 0.3 L [place] # (Auto) 0.3 Eos # (Auto) 0.0 Baso # (Auto) 0.0 Abs Immat Gran (auto) 0.02 Imm/Tot Granulo (auto) 0.4 Sodium 138 Potassium 4.1 Chloride 97 L Carbon Dioxide 41.6 H Anion Gap 3.5 BUN 44.0 H Creatinine 1.01 Est GFR ( Amer) >60 Est GFR (Non-Af Amer) 53 L BUN/Creatinine Ratio 43.6 Glucose 149 H Calcium 8.2 L Total Bilirubin 0.9 AST 15 ALT 26 Alkaline Phosphatase 59 Total Protein 6.5 Albumin 2.6 L Globulin 3.9 Albumin/Globulin Ratio 0.7 POC Glucose 139 H
--- NOTE | 2024-04-14 10:16 | CM.NOTE ---
Rounds made with Dr. Dimas, no discharge today. Pt will get ABG's today and chest x-ray. Pt continues to have oxygen need, will evaluate for discharge.
--- NOTE | 2024-04-14 10:21 | CM.NOTE ---
2nd Notice of Important Message From Medicare discussed with pt, pt denies questions or concerns.
--- NOTE | 2024-04-14 10:21 | REH.PTDLY ---
Physical Therapy Daily Note PT Daily Note/Assess Start: 04/10/24 10:14 Freq: Status: Active Protocol: Document 04/14/24 10:10 AUBREY (Rec: 04/14/24 10:21 AUBREY [id number]) Physical Therapy Daily Note/Assessment Time In 09:25 Time Out 09:45 Subjective Pt in bed upon arrival, agreeable to therapy. When asked how pt was doing she states well it doesn't sound that good . Pt wanting to go home. Still wearing 2 L of O2. Therapeutic Exercise Minutes (minutes) 6 Therapeutic Exercise Units 0 Therapeutic Exercise Treatment Instructed pt in B LE seated exs in chair 15x ea with HR/TR , LAQ, marching, hip abd step outs for improved strength. Therapeutic Activity Minutes (minutes) 12 Therapeutic Activity Units 1 Bed Mobility Ability Independent Chair Transfer Ability Contact Guard Assist Therapeutic Activity Comments Pt wears 2L of O2 throughout rx. Pt able to perform bed mobility with no assistance needed. Sit to stand transfer CGA. Gait training with 4 WW 15 feet into restroom. Pt able to perform toilet transfers and self care SBA with use of handrail on wall. Ambulates 3 feet to sink with no AD to wash hands. Gait in room with 4 WW 60 feet SBA with assist to maneuver O2 hosing. Pt sits up in chair post rx with legs elevated. Total Therapy Minutes 18 Total Physical Therapy Units 1 Daily Note Summary No complaints during rx. Progressed gait distance today with no SOB while wearing O2. Pt does have 1 coughing episode. Functionally pt is able to perform safe transfers and gait, but becomes fatigued.
[2024-04-14 10:26] LABS: pH ABG 7.464 (7.350-7.450)
[2024-04-14 10:27] LABS: Allen Test POSITIVE (POSITIVE); Base Excess ABG 18.7 mmol/L (-2.0-2.0); HCO3 ABG 42.4 mmol/L (22.0-26.0); Liters per Minute 2; O2 Mode N/C; Oxygen Saturation ABG 83.4 %; Puncture Site R. RADIAL
[2024-04-14 10:29] LABS: ABG PCO2 59.2 mmHg (35.0-45.0); PO2 ABG 47.2 mmHg (80.0-100.0)
[2024-04-14 11:59] LABS: Glucometer 168 mg/dL (74-106)
--- NOTE | 2024-04-14 14:14 | SWNOTE1 ---
SW to check and see if pt is agreeable to HH or outpt therapy.
--- NOTE | 2024-04-14 15:13 | CM.NOTE ---
Discussed with pt about HH services vs outpatient PT per recommendations. Pt refuses both at this time. Pt very tearful, expresses her concern for being able to pay for her hospital stay. Listened to pt concerns and explained to pt she could set up payment plan if needed. Explained to pt her need to be in the hospital and importance of her health. Explained to pt insurance would cover HH services, pt continues to refuse HH or outpatient PT. Pt states I don't feel week and I have been getting up and walking around the room. Discussed with pt also about possibly needing home oxygen. Pt verbalizes understanding. Case Management and SS will continue to check on pt for any change in discharge needs.
--- NOTE | 2024-04-14 15:16 | CM.NOTE ---
Talked with Dr. Dimas also regarding pt's elevated CO2 if pt would benefit from BIPAP, awaiting response back from [facility]ust[facility].
--- NOTE | 2024-04-14 15:18 | CM.NOTE ---
Txt received back from Dr. Dimas, no new orders at this time. Dr. Dimas states Pt is well compensated and believes its chronic.
[2024-04-14 16:19] LABS: Glucometer 155 mg/dL (74-106)
[2024-04-14] MEDS: 0.9 % SODIUM CHLORIDE 250 ML 10 ML IV (18:14)
[2024-04-14] MEDS: VANCOMYCIN HCL 1,750 MG in 0.9 % SODIUM CHLORIDE 500 ML 200 MG IV (18:14)
[2024-04-14] MEDS: FUROSEMIDE 40 MG/4 ML VIAL 80 MG IVP (20:13)
[2024-04-14 20:28] LABS: Glucometer 245 mg/dL (74-106)
[2024-04-14] MEDS: INSULIN ASPART 300 UNIT/3 ML PEN SUBQ (22:13)
[2024-04-14] MEDS: INSULIN DETEMIR 300 UNIT/3 ML INSULN.PEN 20 UNIT SUBQ (22:14)
[2024-04-15] VITALS (25 sets, daily range): BP systolic 146–157; BP diastolic 55–81; PULSE 60–98; TEMP 36.4–36.7; O2SAT 85–95
[2024-04-15] MEDS: IPRATROPIUM/ALBUTEROL SULFATE 3 ML AMPUL.NEB IH ×6 (03:56→23:24)
[2024-04-15] MEDS: HEPARIN SODIUM (PORCINE) 5,000 UNIT/ML VIAL 5000 UNIT SUBQ ×2 (05:18→22:27)
[2024-04-15] MEDS: METHYLPREDNISOLONE SOD SUCC PF 40 MG/ML VIAL IVP ×3 (05:19→22:29)
[2024-04-15 07:34] LABS: Glucometer 156 mg/dL (74-106)
[2024-04-15] MEDS: GUAIFENESIN 600 MG TAB.ER.12H PO ×2 (08:02→22:26)
[2024-04-15] MEDS: FUROSEMIDE 40 MG/4 ML VIAL 80 MG IVP (08:02)
[2024-04-15] MEDS: INSULIN ASPART 300 UNIT/3 ML PEN SUBQ ×3 (08:02→22:27)
[2024-04-15] MEDS: ISOSORBIDE MONONITRATE 60 MG TAB.ER.24H PO (08:03)
[2024-04-15] MEDS: ASPIRIN 81 MG TABLET.DR PO (08:03)
[2024-04-15] MEDS: ATORVASTATIN CALCIUM 40 MG TABLET PO (08:03)
[2024-04-15] MEDS: LOSARTAN POTASSIUM 50 MG TABLET PO (08:03)
[2024-04-15] MEDS: CLOPIDOGREL BISULFATE 75 MG TABLET PO (08:03)
[2024-04-15] MEDS: LEVOFLOXACIN IN DEXTROSE 5 % 750 MG/150 ML PREMIX 100 MG IV (08:10)
[2024-04-15 08:50] LABS: Hematocrit 57.9 % (36.0-48.0); Hemoglobin 17.5 g/dL (12.0-16.0); Immature Granulocytes Abs Auto 0.03 10^3/uL (0.00-0.03); Immature Granulocytes Pct Auto 0.7 % (0.0-0.5); Lymphocytes Absolute Auto 0.2 10^3/uL (1.2-3.8); Lymphocytes Percent Auto 5.5 % (20.5-60.0); Mean Corpuscular HGB Conc 30.2 g/dL (29.9-35.2); Mean Corpuscular Hemoglobin 26.8 pg (26.7-34.0); Mean Corpuscular Volume 88.7 fL (81.0-99.0); Mean Platelet Volume 8.8 fL (9.5-13.5); Monocytes Absolute Auto 0.1 10^3/uL (0.3-0.8); Monocytes Percent Auto 2.3 % (1.7-12.0); Neutrophils Percent Auto 91.5 % (43.0-75.0); Platelet Count 238 10^3/uL (150-450); Red Blood Count 6.53 10^6/uL (4.20-5.40); Red Cell Distribution Width 18.6 % (11.0-15.0); White Blood Count 4.4 10^3/uL (4.0-11.0)
[2024-04-15 09:05] LABS: Alanine Aminotransferase 36 U/L (14-59); Albumin Globulin Ratio 0.7; Albumin Level 3.1 g/dL (3.4-5.0); Alkaline Phosphatase 69 U/L (46-116); Anion Gap 5.9; Aspartate Amino Transferase 16 U/L (15-37); BUN Creatinine Ratio 40.9; Bilirubin Total 1.3 mg/dL (0.2-1.0); Calcium 8.8 mg/dL (8.5-10.1); Carbon Dioxide 42.4 mmol/L (21.0-32.0); Chloride 92 mmol/L (98-107); Estimated GFR (African America 58 (>=60); Estimated GFR (Non-African Ame 48 (>=60); Globulin 4.5 g/dL; Glucose 195 mg/dL (74-106); Potassium 3.3 mmol/L (3.5-5.1); Sodium 137 mmol/L (136-145); Total Protein 7.6 g/dL (6.4-8.2)
--- NOTE | 2024-04-15 10:20 | CT_ITS ---
[address] [address] Patient Name: DAVID ROSEN MRN: [id number] date: 1945 Sex: F Assigned Patient Location: [place] Current Patient Location: [place] Accession/Order Number: [id number] Exam Date: 04/15/2024 10:54 Report Date: 04/15/2024 12:10 At the request of: SHAIKH URI Procedure: CT chest wo con EXAMINATION: CT chest wo con HISTORY: pna/chf shortness of breath, cough COMPARISON: No relevant comparison available. TECHNIQUE: Multi-planar CT images were created with IV contrast. Axial, Coronal, and Sagittal images. Dose reduction techniques were achieved by using automated exposure control and/or adjustment of mA and/or kV according to patient size and/or use of iterative reconstruction technique. FINDINGS: LUNGS: Moderate centrilobular emphysema with an upper lobe predominance. Scattered calcified and noncalcified pulmonary nodules. Partial consolidation of both lower lobes right greater than left. PLEURA: 1.4 cm right pleural effusion. No pneumothorax VASCULATURE: Prominent pulmonary trunk with rapid tapering, consider pulmonary hypertension SUZI: No mass or adenopathy. MEDIASTINUM: No mass or adenopathy. CARDIAC: No enlargement or pericardial effusion Coronary arteries: Heavy calcifications with stents AORTA: No aortic aneurysm. Mild to moderate atherosclerosis CHEST WALL: No mass or axillary adenopathy. BONES: No bone lesion or fracture. LIMITED ABDOMEN: No suspicious findings. Limited images of the upper abdomen. OTHER: Negative. CT/CT chest wo con IMPRESSION: Partial consolidation of both lower lobes, right greater left. Consider pneumonia Electronically authenticated by: DIXIE LANGSTON Date: 04/15/2024 12:10
--- NOTE | 2024-04-15 10:56 | SWNOTE1 ---
Case management did speak with pt yesterday about Home Health or outpt therapy, but at that time pt had refused and had concerns about cost. Pt was re-assured that insurance does cover, but pt was still not agreeable. Case management or SW to check back with pt today. Pt will likely need home oxygen at discharge.
--- NOTE | 2024-04-15 11:06 | REH.PTDLY ---
Physical Therapy Daily Note PT Daily Note/Assess Start: 04/10/24 10:14 Freq: Status: Active Protocol: Document 04/15/24 11:01 AUBREY (Rec: 04/15/24 11:06 AUBREY [id number]) Physical Therapy Daily Note/Assessment Time In 09:25 Time Out 09:38 Subjective Pt in bed upon arrival, no new complaints. Reports she just wants to go home. Pt now on 5 L of O2, was on 2 L yesterday. Pt states 'they keep messing with it.' Therapeutic Exercise Minutes (minutes) 4 Therapeutic Exercise Units 0 Therapeutic Exercise Treatment Pt performed seated exs bedside 10-15x ea with AP, LAQ , marching, and hip abd kicks. Pt does not appear SOB, but checked SpO2 with ear and finger reader and it is reading at 85% on 5L of O2. Pt states she feels fine. Therapeutic Activity Minutes (minutes) 8 Therapeutic Activity Units 1 Bed Mobility Ability Independent Chair Transfer Ability Standby Assistance Therapeutic Activity Comments Pt Ind with bed mobility. Sit to stand transfers SBA. Gait training with 4 WW SBA with pt wearing O2 for 75 feet around room. Pt has no complaints with gait. Pt returned to sit and instructed in seated exs unsupported. Total Therapy Minutes 12 Total Physical Therapy Units 1 Daily Note Summary Pt has no complaints with PT, however O2 sats are reading at 85% during/post activity while on 5L of O2. Pt able to ambulate and perform transfers with SBA/Supervision safely. At time of DC pt is safe from a therapy standpoint to go home with HH.
[2024-04-15 11:17] LABS: Glucometer 184 mg/dL (74-106)
[2024-04-15] MEDS: POTASSIUM CHLORIDE 10 MEQ ER TABLET 40 MEQ PO (11:48)
--- NOTE | 2024-04-15 11:55 | CM.NOTE ---
Rounds made with Dr. Dimas, pt requiring 5L NC and will have CT of chest today and consult Dr. Justin. No discharge today.
--- NOTE | 2024-04-15 13:08 | P.CACN_ITS ---
<Statement entered by CARLOS HIGGINS - 04/18/24 07:21> This documentation has been reviewed and approved. History of Present Illness History of Present Illness Consult date: 04/15/24 Requesting physician: Shaikh Judie Consult reason: congestive heart failure Chief complaint: Lower Pain, Hypoxia, CHF, COPD, Bilateral LE Cellu Narrative: Patient is a 78 y/o F with known PMHx of CAD s/p stents, HTN, HLD, COPD, smoker who presented to [facility] ER with c/o worsening LE edema. She was found to have PNA, COPD exacerbation, and HFpEF exacerbation. She was started on abx and diuresis regimen - currently on lasix IVP 80mg BID. Cardiology was consulted for CHF management. She reports her breathing is pretty much at her baseline . They have not been able to wean her off supplemental O2. She is currently on 4L via NC. She c/o cough, was productive but is no longer productive. Leg swelling is present but much improved. Denies CP, palpitations, dizziness/LH. She is unable to lay flat due to comfort reasons. Patient seen in collaboration with pulmonary, Dr. Justin. 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 Review of Systems ROS Status of ROS 10 or more systems reviewed and unremark able except as noted in history and below Cardiovascular Reports: edema Respiratory Reports: shortness of breath [facility] Medical History (Updated 04/11/24 @ 11:14 by Shaikh Judie MD) HLD (hyperlipidemia) ?E78.5 - Hyperlipidemia, unspecified (ICD-10) Vocal fold nodule ?J38.2 - Nodules of vocal cords (ICD-10) Myocardial infarct ?I21.9 - Acute myocardial infarction, unspecified (ICD-10) High cholesterol ?E78.00 - Pure hypercholesterolemia, unspecified (ICD-10) Edema ?R60.9 - Edema, unspecified (ICD-10) COPD (chronic obstructive pulmonary disease) ?J44.9 - Chronic obstructive pulmonary disease, unspecified (ICD-10) HTN (hypertension) ?I10 - Essential (primary) hypertension (ICD-10) CAD (coronary artery disease) ?I25.10 - Atherosclerotic heart disease of [place] coronary artery without angina pectoris (ICD-10) Surgical History (Updated 04/09/24 @ 16:01 by Kayce Law) H/O heart artery stent ?Z95.5 - Presence of coronary angioplasty implant and graft (ICD-10) Family History (Updated 04/09/24 @ 20:51 by Tonya Dumont, SON) Father Family history of myocardial infarction Family history of diabetes mellitus Family history of hypertension Sister Family history of CHF (congestive heart failure) Family history of diabetes mellitus Brother Family history of cancer Family history of diabetes mellitus Mother Family history of diabetes mellitus Social History (Updated 04/09/24 @ 20:52 by Tonya Dumont, RN) Within the past year, how often did you have a drink containing alcohol: never Score interpretation: A score less than 3 is consistent with normal alcohol consumption. Smoking status: Current every day smoker Non-prescribed substance use: denies use Highest level of school completed/degree received: high school graduate In a typical week, how many times do you talk on the telephone with family, friends, or neighbors: 3 or more times per week How often do you get together with friends or relatives: 3 or more times per week Little interest or pleasure in doing things: several days Feeling down, depressed, or hopeless: not at all Do you think of yourself as: straight/heterosexual Gender Identity: female Meds Home Medications and Allergies Home Medications ?Medication ?Instructions ?Recorded ?Confirmed ?Type aspirin 81 mg tablet,delayed 81 mg PO DAILY 04/09/24 04/09/24 History release (Adult Low Dose Aspirin) atorvastatin 40 mg tablet 40 mg PO DAILY 04/09/24 04/09/24 History clopidogrel 75 mg tablet 75 mg PO DAILY 04/09/24 04/09/24 History hydrochlorothiazide 12.5 mg capsule 12.5 mg PO DAILY 04/09/24 04/09/24 History isosorbide mononitrate 60 mg 60 mg PO DAILY 04/09/24 04/09/24 History tablet,extended release 24 hr metoprolol succinate 50 mg 50 mg PO DAILY 04/09/24 04/09/24 History tablet,extended release 24 hr Allergies Allergy/AdvReac Type Severity Reaction Status Date / Time Penicillins Allergy Severe Unknown Verified 04/09/24 15:53 strawberry Allergy Severe Hives Verified 04/09/24 15:53 Exam Constitutional Vital Signs, click to edit/add: Last Vital Signs Temp 98.0 F 04/15/24 08:13 Pulse 79 04/15/24 12:00 Resp 20 04/15/24 08:13 BP 157/81 H 04/15/24 08:13 Pulse Ox 87 L 04/15/24 11:19 O2 Del Method Nasal Cannula 04/15/24 11:19 O2 Flow Rate 4 04/15/24 11:19 Common normals: no apparent distress and oriented x3 HENMT Common normals: normocephalic and head/scalp atraumatic Nose: external nose normal and nares normal Eye Common normals: EOMs intact bilaterally and conjunctivae normal Neck & C-Spine Common normals: supple and no JVD Chest Common normals: inspection of chest normal and palpation of chest normal Respiratory Common normals: normal respiratory effort and no use of accessory muscles Auscultation: wheezes upper bilaterally and diminished lung sounds bilateral throughout Cardio Common normals: no JVD, regular rate, regular rhythm, S1 normal heart sound and S2 normal heart sound GI Common normals: Normal to inspection, nondistended, normoactive bowel sounds present Extremity General: cyanosis (finger tips) and edema (+1 BLE edema) Neuro Common normals: oriented x3 and CN's II-XII intact bilaterally Psych Common normals: mental status grossly normal, thought process normal and cooperative Results Labs and Meds Lab results: Cardiac Enzymes 04/15/24 Range/Units 08:42 AST 16 (15-37) U/L CBC 04/15/24 Range/Units 08:42 WBC 4.4 (4.0-11.0) 10^3/uL RBC 6.53 H (4.20-5.40) 10^6/uL Hgb 17.5 H (12.0-16.0) g/dL Hct 57.9 H (36.0-48.0) % Plt Count 238 (150-450) 10^3/uL Neut # (Auto) 4.0 (1.4-6.5) 10^3/uL Lymph # (Auto) 0.2 L (1.2-3.8) 10^3/uL [place] # (Auto) 0.1 L (0.3-0.8) 10^3/uL Eos # (Auto) 0.0 (0.0-0.7) 10^3/uL Baso # (Auto) 0.0 (0.0-0.1) 10^3/uL Comprehensive Metabolic Panel 04/15/24 Range/Units 08:42 Sodium 137 (136-145) mmol/L Potassium 3.3 L (3.5-5.1) mmol/L Chloride 92 L (98-107) mmol/L Carbon Dioxide 42.4 H (21.0-32.0) mmol/L BUN 45.0 H (7.0-18.0) mg/dL Creatinine 1.10 H (0.55-1.02) mg/dL Glucose 195 H (74-106) mg/dL Calcium 8.8 (8.5-10.1) mg/dL AST 16 (15-37) U/L ALT 36 (14-59) U/L Alkaline Phosphatase 69 (46-116) U/L Total Protein 7.6 (6.4-8.2) g/dL Albumin 3.1 L (3.4-5.0) g/dL Intake and Output 04/14/24 04/15/24 04/15/24 23:59 07:59 15:59 Intake Total 745.5 / 745.5 50 / 50 Output Total 650 / 4000 2300 / 4000 500 / 500 Balance 95.5 / -3254.5 -2300 / -3254.5 -450 / -450 Intake: IV 745.5 / 745.5 50 / 50 0.9 % Sodium Chloride 250 ml @ 245.5 / 245.5 10 mls/hr IV .Q24H PRN Rx#: [id number] Levofloxacin in Dextrose 5 % 50 / 50 750 mg In 150 ml @ 100 mls/hr IV Q48H MIKE Rx#:[id number] Vancomycin HCl 1,750 mg In 0.9 500 / 500 % Sodium Chloride 500 ml @ 250 mls/hr IV Q24H MIKE Rx#:[id number] Output: Urine 650 / 4000 2300 / 4000 500 / 500 Other: Weight 105.8 kg Imaging and Cardiology Echo: report reviewed Assessment and Plan Assessment and Plan (1) Acute respiratory failure with hypoxia: (2) COPD exacerbation: (3) Right lower lobe pneumonia: Qualifiers: Pneumonia type: due to unspecified organism Qualified Code(s): J18.9 - Pneumonia, unspecified organism (4) Cellulitis: Qualifiers: Laterality: unspecified laterality Site of cellulitis: extremity Site of cellulitis of extremity: lower extremity Qualified Code(s): L03.119 - Cellulitis of unspecified part of limb (5) Acute on chronic diastolic (congestive) heart failure: (6) HTN (hypertension): Qualifiers: Hypertension type: primary hypertension Qualified Code(s): I10 - Essential (primary) hypertension (7) Bradycardia: (8) CAD (coronary artery disease): Qualifiers: Associated angina: without angina Coronary Disease-Associated Artery/Lesion type: [place] artery [place] vs. transplanted heart: [place] heart Qualified Code(s): I25.10 - Atherosclerotic heart disease of [place] coronary artery without angina pectoris (9) HLD (hyperlipidemia): Qualifiers: Hyperlipidemia type: unspecified Qualified Code(s): E78.5 - Hyperlipidemia, unspecified Plan #Acute on chronic diastolic heart failure #COPD exacerbation #Hypoxia -ECHO 04/10/24 showed EF 65%, moderate LVH, severely dilated IVC without respiratory collapse. -Patient has mild evidence of fluid overload on exam but her bicarb has elevated. -Will give diamox today 250mg BID to help with contractual alkalosis. Will also check a BNP today. Suspect her persistent hypoxia is secondary to her COPD. -Update: NTproBNP 1000 - recommend switched diuretic to PO tomorrow, lasix 40mg daily. -CT chest done today showing consolidation. -Recommend mucolytic and possible vest therapy. -Patient seen in conjunction with pulmonary, Dr. Justin, who agrees with above. -If renal function remains stable, recommend starting patient on an SGLT2i such as Farxiga 10mg daily or Jardiance 10mg daily for HFpEF management prior to discharge. -Please continue to monitor daily weights, maintain 1.5L fluid allowance, low Na+ diet. -Maintain K+>4 and mag >2. -Please schedule for a 1 week heart failure follow-up at discharge. She is no currently established with a cardiology group and we'd be happy to see her if she's agreeable. #PNA -Abx per primary team Discussed plan with patient, primary RN, pulmonary and hospitaliast. Please let us know if any further questions or concerns. Thank you for the consult. Tootie Nelson APRN-[employer] [facility]
--- NOTE | 2024-04-15 15:11 | PM.IMPN1 ---
Progress Note: A&P Assessment and Plan (1) Acute respiratory failure with hypoxia: Assessment and Plan: Due to right lower lobe pneumonia/COPD exacerbation/Acute on chronic diastolic HF. She was weaned off to 2 L on 04/13/24. However, she is now requiring 4 -5 L O2. Consult Cardiology/Pulm as patient not improving clinically. (2) COPD exacerbation: Assessment and Plan: Diminished air entry, no wheezing. Cw/ steroids, duonebs. Consult Pulm (3) Right lower lobe pneumonia: Assessment and Plan: Continue with IV vancomycin/IV Levaquin. Worsening infiltrates on CT chest. Consult Pulm as patient not improving. Qualifiers: Pneumonia type: due to unspecified organism Qualified Code(s): J18.9 - Pneumonia, unspecified organism (4) Cellulitis: Assessment and Plan: Improved with IV vancomycin. Qualifiers: Laterality: unspecified laterality Site of cellulitis: extremity Site of cellulitis of extremity: lower extremity Qualified Code(s): L03.119 - Cellulitis of unspecified part of limb (5) Acute on chronic diastolic (congestive) heart failure: Assessment and Plan: Looks close to euvolemic. Decrease Lasix to 40 q12 Echocardiogram revealed LVH severely dilated IVC with normal ejection fraction. Diamox added by Cardiology. (6) HTN (hypertension): Assessment and Plan: Blood pressure at goal after addition of losartan. Continue with rest of her home medications except for toprol Qualifiers: Hypertension type: primary hypertension Qualified Code(s): I10 - Essential (primary) hypertension (7) Bradycardia: Assessment and Plan: Bradycardia noted on review of vital signs and telemetry. normal TSH. Improved after Toprol was discontinued. (8) CAD (coronary artery disease): Assessment and Plan: No evidence of active cardiac ischemia. Monitor. Continue with home medications except for Toprol due to bradycardia Qualifiers: Coronary Disease-Associated Artery/Lesion type: [place] artery [place] vs. transplanted heart: [place] heart Associated angina: without angina Qualified Code(s): I25.10 - Atherosclerotic heart disease of [place] coronary artery without angina pectoris (9) HLD (hyperlipidemia): Assessment and Plan: Continue with statin. Qualifiers: Hyperlipidemia type: unspecified Qualified Code(s): E78.5 - Hyperlipidemia, unspecified Plan Persistent hypoxia. no improvement. Worsening infiltrates on CT chest. Pulm consulted. Internal Medicine - PN: Subj Subjective Interval history: Seen and examined. No overnight events. Patient still on 5 L O2 today. Denies increased SOB, dyspnea. Appears comfortable. Exam Constitutional Vital Signs, click to edit/add: Last Vital Signs Temp 97.8 F 04/15/24 14:39 Pulse 79 04/15/24 14:39 Resp 16 04/15/24 14:39 BP 154/55 H 04/15/24 14:39 Pulse Ox 90 L 04/15/24 14:39 O2 Del Method Nasal Cannula 04/15/24 14:39 O2 Flow Rate 5 04/15/24 14:39 Documenting provider has reviewed patient's vital signs: yes Common normals: no apparent distress and oriented x3 General appearance: cooperative Respiratory Common normals: normal respiratory effort, no use of accessory muscles and clear to auscultation bilaterally Effort & inspection: able to speak in complete sentences Other: Diminished lung souds. Cardio Common normals: regular rate, S1 normal heart sound and S2 normal heart sound Rate: regular rate Heart sounds: S1 normal and S2 normal Extremity General: edema (Resolved. ) Other: B/l LE erythema tenderness extending from ankle to just below knees - resolved. Neuro Common normals: oriented x3, moves all extremities and no focal motor deficits Psych Common normals: mental status grossly normal, denies hallucinations, denies homicidal ideation and denies suicidal ideation Internal Medicine - PN: Obj Da Labs Labs: Laboratory Results - last 24 hr 04/14/24 04/14/24 04/15/24 16:19 20:26 07:33 WBC RBC Hgb Hct MCV MCH MCHC RDW Plt Count MPV Neut % (Auto) Lymph % (Auto) [place] % (Auto) Eos % (Auto) Baso % (Auto) Neut # (Auto) Lymph # (Auto) [place] # (Auto) Eos # (Auto) Baso # (Auto) Abs Immat Gran (auto) Imm/Tot Granulo (auto) Sodium Potassium Chloride Carbon Dioxide Anion Gap BUN Creatinine Est GFR ( Amer) Est GFR (Non-Af Amer) BUN/Creatinine Ratio Glucose Calcium Total Bilirubin AST ALT Alkaline Phosphatase NT-Pro-B Natriuret Pep Total Protein Albumin Globulin Albumin/Globulin Ratio POC Glucose 155 H 245 H 156 H 04/15/24 04/15/24 08:42 11:16 WBC 4.4 RBC 6.53 H Hgb 17.5 H Hct 57.9 H MCV 88.7 MCH 26.8 MCHC 30.2 RDW 18.6 H Plt Count 238 MPV 8.8 L Neut % (Auto) 91.5 H Lymph % (Auto) 5.5 L [place] % (Auto) 2.3 Eos % (Auto) 0.0 L Baso % (Auto) 0.0 L Neut # (Auto) 4.0 Lymph # (Auto) 0.2 L [place] # (Auto) 0.1 L Eos # (Auto) 0.0 Baso # (Auto) 0.0 Abs Immat Gran (auto) 0.03 Imm/Tot Granulo (auto) 0.7 H Sodium 137 Potassium 3.3 L Chloride 92 L Carbon Dioxide 42.4 H Anion Gap 5.9 BUN 45.0 H Creatinine 1.10 H Est GFR ( Amer) 58 L Est GFR (Non-Af Amer) 48 L BUN/Creatinine Ratio 40.9 Glucose 195 H Calcium 8.8 Total Bilirubin 1.3 H AST 16 ALT 36 Alkaline Phosphatase 69 NT-Pro-B Natriuret Pep 1096.0 Total Protein 7.6 Albumin 3.1 L Globulin 4.5 Albumin/Globulin Ratio 0.7 POC Glucose 184 H
[2024-04-15 16:23] LABS: Glucometer 133 mg/dL (74-106)
[2024-04-15] MEDS: VANCOMYCIN HCL 1,750 MG in 0.9 % SODIUM CHLORIDE 500 ML 250 MG IV (18:11)
--- NOTE | 2024-04-15 18:44 | PM.PLCN ---
History of Present Illness History of Present Illness Consult date: 04/15/24 Reason for consult: hypoxemia Chief complaint: Lower Pain, Hypoxia, CHF, COPD, Bilateral LE Cellu Narrative: 78yo female with worsening respiratory failure seen today by me, in conjunction with Tootie Nelson NP from cardiology. Patient originally presented with BLE cellulitic changes, later felt to have a component of acute on chronic diastolic CHF and was treated with aggressive diuresis. Chest CT 04/09/2024 noted a RLL infiltrate. Over the past several days, her O2 requirements have worsened and is now desaturated on 4L/min O2 per NC. Pulmonary and cardiology were both consulted. A repeat chest CT today (04/15/2024) noted worsening RLL infiltrate and development of a LLL infiltrate. The patient does not complain of any distress at rest, nor any significant coughing. She does voice some dyspnea going to and from the bathroom, but she does not appeared significantly concerned about her breathing. She is a long-term smoker. She was told she likely has COPD, but never had a PFT and is not on any inhalers. Her PCP has kept the patient up to date on annual LDCT screening. On admission, she had evidence of chronic hypercapnia with pH 7.406 and pCO 51.9. Repeat ABG yesterday noted an increase in pH to 7.464 and pCO 59.2. The patient's HCO3- has steadily increased this visit. Review of Systems ROS Status of ROS 10 or more systems reviewed and unremarkable except as noted in history and below Constitutional Denies: fever, chills or night sweats Respiratory Reports: shortness of breath; Denies: cough or wheezing [facility] Medical History (Updated 04/15/24 @ 19:11 by Caleb Justin DO) HLD (hyperlipidemia) ?E78.5 - Hyperlipidemia, unspecified (ICD-10) Vocal fold nodule ?J38.2 - Nodules of vocal cords (ICD-10) Myocardial infarct ?I21.9 - Acute myocardial infarction, unspecified (ICD-10) High cholesterol ?E78.00 - Pure hypercholesterolemia, unspecified (ICD-10) Edema ?R60.9 - Edema, unspecified (ICD-10) COPD (chronic obstructive pulmonary disease) ?J44.9 - Chronic obstructive pulmonary disease, unspecified (ICD-10) HTN (hypertension) ?I10 - Essential (primary) hypertension (ICD-10) CAD (coronary artery disease) ?I25.10 - Atherosclerotic heart disease of [place] coronary artery without angina pectoris (ICD-10) Surgical History (Updated 04/09/24 @ 16:01 by Kayce Law) H/O heart artery stent ?Z95.5 - Presence of coronary angioplasty implant and graft (ICD-10) Family History (Updated 04/09/24 @ 20:51 by Tonya Dumont, RN) Father Family history of myocardial infarction Family history of diabetes mellitus Family history of hypertension Sister Family history of CHF (congestive heart failure) Family history of diabetes mellitus Brother Family history of cancer Family history of diabetes mellitus Mother Family history of diabetes mellitus Social History (Updated 04/09/24 @ 20:52 by Tonya Dumont, SON) Within the past year, how often did you have a drink containing alcohol: never Score interpretation: A score less than 3 is consistent with normal alcohol consumption. Smoking status: Current every day smoker Non-prescribed substance use: denies use Highest level of school completed/degree received: high school graduate In a typical week, how many times do you talk on the telephone with family, friends, or neighbors: 3 or more times per week How often do you get together with friends or relatives: 3 or more times per week Little interest or pleasure in doing things: several days Feeling down, depressed, or hopeless: not at all Do you think of yourself as: straight/heterosexual Gender Identity: female Meds Home Medications and Allergies Home Medications ?Medication ?Instructions ?Recorded ?Confirmed ?Type aspirin 81 mg tablet,delayed 81 mg PO DAILY 04/09/24 04/09/24 History release (Adult Low Dose Aspirin) atorvastatin 40 mg tablet 40 mg PO DAILY 04/09/24 04/09/24 History clopidogrel 75 mg tablet 75 mg PO DAILY 04/09/24 04/09/24 History hydrochlorothiazide 12.5 mg capsule 12.5 mg PO DAILY 04/09/24 04/09/24 History isosorbide mononitrate 60 mg 60 mg PO DAILY 04/09/24 04/09/24 History tablet,extended release 24 hr metoprolol succinate 50 mg 50 mg PO DAILY 04/09/24 04/09/24 History tablet,extended release 24 hr Allergies Allergy/AdvReac Type Severity Reaction Status Date / Time Penicillins Allergy Severe Unknown Verified 04/09/24 15:53 strawberry Allergy Severe Hives Verified 04/09/24 15:53 Exam Constitutional Vital Signs, click to edit/add: Last Vital Signs Temp 97.8 F 04/15/24 14:39 Pulse 94 H 04/15/24 17:58 Resp 16 04/15/24 14:39 BP 154/55 H 04/15/24 14:39 Pulse Ox 85 L 04/15/24 15:23 O2 Del Method Nasal Cannula 04/15/24 15:23 O2 Flow Rate 4 04/15/24 15:23 Documenting provider has reviewed patient's vital signs: yes Common normals: apparent distress Exam limitations: no altered mental status General appearance: cooperative HENMT Other: Wearing nasal cannula Chest Chest: symmetrical chest wall rise Respiratory Other: Diminished breath sounds with bibasilar crackles. No wheezes. Cardio Rate: regular rate Rhythm: regular rhythm GI Other: Increased central adiposity Extremity Other: BLE 2+ edema with evidence of mild recession of fluid (wrinkling) of mid/upper posterior legs. Distal fingers appear cyanotic. Neuro Motor exam: no tremor noted and no fasciculations Psych Attitude: calm Results Laboratory Findings ABG, PT/INR, D-dimer: ABG ABG pH 7.464 (7.350-7.450) H 04/14/24 10:18 ABG pCO2 59.2 mmHg (35.0-45.0) H* 04/14/24 10:18 ABG pO2 47.2 mmHg (80.0-100.0) L* 04/14/24 10:18 ABG O2 Saturation 83.4 % 04/14/24 10:18 PT/INR, D-dimer PT 12.1 sec (9.0-11.6) H 04/09/24 16:12 INR 1.16 04/09/24 16:12 Abnormal lab findings: Abnormal Labs 04/09/24 04/09/24 04/09/24 16:12 16:52 17:02 RBC 5.57 H Hgb Hct 50.7 H MCHC RDW 17.1 H MPV 8.7 L Neut % (Auto) Lymph % (Auto) 19.1 L [place] % (Auto) Eos % (Auto) Baso % (Auto) Lymph # (Auto) [place] # (Auto) Seg Neuts % (Manual) Lymphocytes % (Manual) Monocytes % (Manual) Eosinophils % (Manual) Basophils % (Manual) Imm/Tot Granulo (auto) Neutrophils # (Manual) Lymphocytes # (Manual) Monocytes # (Manual) PT 12.1 H ABG pH ABG pCO2 51.9 H* ABG pO2 64.0 L ABG HCO3 32.5 H ABG Base Excess 7.8 H Sodium 135 L Potassium Chloride Carbon Dioxide 34.3 H BUN 28.0 H Creatinine Est GFR ( Amer) Est GFR (Non-Af Amer) Glucose 118 H Calcium Magnesium Total Bilirubin AST Albumin 3.0 L Ur Leukocyte Esterase Trace A Urine WBC 0-2 A Ur Squamous Epith Cells Few A Ur Transition Epith Cell Rare A Urine Bacteria Small A POC Glucose 04/09/24 04/10/24 04/10/24 21:36 05:46 11:43 RBC 5.50 H Hgb Hct 50.1 H MCHC RDW 16.8 H MPV 9.1 L Neut % (Auto) 84.5 H Lymph % (Auto) 14.5 L [place] % (Auto) 0.4 L Eos % (Auto) 0.2 L Baso % (Auto) Lymph # (Auto) 0.7 L [place] # (Auto) 0.0 L Seg Neuts % (Manual) Lymphocytes % (Manual) Monocytes % (Manual) Eosinophils % (Manual) Basophils % (Manual) Imm/Tot Granulo (auto) Neutrophils # (Manual) Lymphocytes # (Manual) Monocytes # (Manual) PT ABG pH ABG pCO2 ABG pO2 ABG HCO3 ABG Base Excess Sodium Potassium Chloride 97 L Carbon Dioxide 36.4 H BUN 29.0 H Creatinine Est GFR ( Amer) Est GFR (Non-Af Amer) Glucose 150 H Calcium Magnesium Total Bilirubin AST Albumin 3.0 L Ur Leukocyte Esterase Urine WBC Ur Squamous Epith Cells Ur Transition Epith Cell Urine Bacteria POC Glucose 169 H 164 H 04/10/24 04/10/24 04/11/24 17:35 22:24 06:03 RBC 5.45 H Hgb Hct 49.5 H MCHC 29.5 L RDW 17.2 H MPV 9.0 L Neut % (Auto) 87.7 H Lymph % (Auto) 9.2 L [place] % (Auto) Eos % (Auto) 0.0 L Baso % (Auto) 0.0 L Lymph # (Auto) 0.7 L [place] # (Auto) 0.2 L Seg Neuts % (Manual) Lymphocytes % (Manual) Monocytes % (Manual) Eosinophils % (Manual) Basophils % (Manual) Imm/Tot Granulo (auto) Neutrophils # (Manual) Lymphocytes # (Manual) Monocytes # (Manual) PT ABG pH ABG pCO2 ABG pO2 ABG HCO3 ABG Base Excess Sodium Potassium Chloride Carbon Dioxide 38.0 H BUN 40.0 H Creatinine 1.04 H Est GFR ( Amer) Est GFR (Non-Af Amer) 52 L Glucose 143 H Calcium Magnesium Total Bilirubin AST 12 L Albumin 3.1 L Ur Leukocyte Esterase Urine WBC Ur Squamous Epith Cells Ur Transition Epith Cell Urine Bacteria POC Glucose 159 H 185 H 04/11/24 04/11/24 04/11/24 07:42 11:24 16:09 RBC Hgb Hct MCHC RDW MPV Neut % (Auto) Lymph % (Auto) [place] % (Auto) Eos % (Auto) Baso % (Auto) Lymph # (Auto) [place] # (Auto) Seg Neuts % (Manual) Lymphocytes % (Manual) Monocytes % (Manual) Eosinophils % (Manual) Basophils % (Manual) Imm/Tot Granulo (auto) Neutrophils # (Manual) Lymphocytes # (Manual) Monocytes # (Manual) PT ABG pH ABG pCO2 ABG pO2 ABG HCO3 ABG Base Excess Sodium Potassium Chloride Carbon Dioxide BUN Creatinine Est GFR ( Amer) Est GFR (Non-Af Amer) Glucose Calcium Magnesium Total Bilirubin AST Albumin Ur Leukocyte Esterase Urine WBC Ur Squamous Epith Cells Ur Transition Epith Cell Urine Bacteria POC Glucose 177 H 162 H 181 H 04/11/24 04/11/24 04/12/24 20:27 21:56 06:24 RBC 5.53 H Hgb Hct 51.2 H MCHC 28.9 L RDW 17.6 H MPV 8.9 L Neut % (Auto) Lymph % (Auto) [place] % (Auto) Eos % (Auto) Baso % (Auto) Lymph # (Auto) [place] # (Auto) Seg Neuts % (Manual) 98.0 H Lymphocytes % (Manual) 2.0 L Monocytes % (Manual) 0.0 L Eosinophils % (Manual) 0.0 L Basophils % (Manual) 0.0 L Imm/Tot Granulo (auto) Neutrophils # (Manual) 7.84 H Lymphocytes # (Manual) 0.16 L Monocytes # (Manual) 0.00 L PT ABG pH ABG pCO2 ABG pO2 ABG HCO3 ABG Base Excess Sodium Potassium Chloride Carbon Dioxide 36.0 H 39.8 H BUN 47.0 H 46.0 H Creatinine 1.10 H Est GFR ( Amer) 58 L Est GFR (Non-Af Amer) 48 L 54 L Glucose 230 H 165 H Calcium Magnesium 1.7 L Total Bilirubin AST 13 L 12 L Albumin 2.9 L 3.1 L Ur Leukocyte Esterase Urine WBC Ur Squamous Epith Cells Ur Transition Epith Cell Urine Bacteria POC Glucose 274 H 04/12/24 04/12/24 04/12/24 11:10 16:22 20:31 RBC Hgb Hct MCHC RDW MPV Neut % (Auto) Lymph % (Auto) [place] % (Auto) Eos % (Auto) Baso % (Auto) Lymph # (Auto) [place] # (Auto) Seg Neuts % (Manual) Lymphocytes % (Manual) Monocytes % (Manual) Eosinophils % (Manual) Basophils % (Manual) Imm/Tot Granulo (auto) Neutrophils # (Manual) Lymphocytes # (Manual) Monocytes # (Manual) PT ABG pH ABG pCO2 ABG pO2 ABG HCO3 ABG Base Excess Sodium Potassium Chloride Carbon Dioxide BUN Creatinine Est GFR ( Amer) Est GFR (Non-Af Amer) Glucose Calcium Magnesium Total Bilirubin AST Albumin Ur Leukocyte Esterase Urine WBC Ur Squamous Epith Cells Ur Transition Epith Cell Urine Bacteria POC Glucose 177 H 124 H 236 H 04/13/24 04/13/24 04/13/24 05:37 11:19 20:14 RBC Hgb Hct 48.8 H MCHC 29.5 L RDW 17.4 H MPV 8.9 L Neut % (Auto) 92.2 H Lymph % (Auto) 4.4 L [place] % (Auto) Eos % (Auto) 0.0 L Baso % (Auto) Lymph # (Auto) 0.3 L [place] # (Auto) 0.2 L Seg Neuts % (Manual) Lymphocytes % (Manual) Monocytes % (Manual) Eosinophils % (Manual) Basophils % (Manual) Imm/Tot Granulo (auto) Neutrophils # (Manual) Lymphocytes # (Manual) Monocytes # (Manual) PT ABG pH ABG pCO2 ABG pO2 ABG HCO3 ABG Base Excess Sodium Potassium Chloride Carbon Dioxide 39.3 H BUN 48.0 H Creatinine Est GFR ( Amer) Est GFR (Non-Af Amer) 57 L Glucose 155 H Calcium 8.3 L Magnesium Total Bilirubin AST 9 L Albumin 2.8 L Ur Leukocyte Esterase Urine WBC Ur Squamous Epith Cells Ur Transition Epith Cell Urine Bacteria POC Glucose 245 H 239 H 04/14/24 04/14/24 04/14/24 06:15 07:54 10:18 RBC 5.68 H Hgb Hct 50.8 H MCHC RDW 17.6 H MPV 8.9 L Neut % (Auto) 87.8 H Lymph % (Auto) 6.2 L [place] % (Auto) Eos % (Auto) 0.2 L Baso % (Auto) 0.0 L Lymph # (Auto) 0.3 L [place] # (Auto) Seg Neuts % (Manual) Lymphocytes % (Manual) Monocytes % (Manual) Eosinophils % (Manual) Basophils % (Manual) Imm/Tot Granulo (auto) Neutrophils # (Manual) Lymphocytes # (Manual) Monocytes # (Manual) PT ABG pH 7.464 H ABG pCO2 59.2 H* ABG pO2 47.2 L* ABG HCO3 42.4 H ABG Base Excess 18.7 H Sodium Potassium Chloride 97 L Carbon Dioxide 41.6 H BUN 44.0 H Creatinine Est GFR ( Amer) Est GFR (Non-Af Amer) 53 L Glucose 149 H Calcium 8.2 L Magnesium Total Bilirubin AST Albumin 2.6 L Ur Leukocyte Esterase Urine WBC Ur Squamous Epith Cells Ur Transition Epith Cell Urine Bacteria POC Glucose 139 H 04/14/24 04/14/24 04/14/24 11:58 16:19 20:26 RBC Hgb Hct MCHC RDW MPV Neut % (Auto) Lymph % (Auto) [place] % (Auto) Eos % (Auto) Baso % (Auto) Lymph # (Auto) [place] # (Auto) Seg Neuts % (Manual) Lymphocytes % (Manual) Monocytes % (Manual) Eosinophils % (Manual) Basophils % (Manual) Imm/Tot Granulo (auto) Neutrophils # (Manual) Lymphocytes # (Manual) Monocytes # (Manual) PT ABG pH ABG pCO2 ABG pO2 ABG HCO3 ABG Base Excess Sodium Potassium Chloride Carbon Dioxide BUN Creatinine Est GFR ( Amer) Est GFR (Non-Af Amer) Glucose Calcium Magnesium Total Bilirubin AST Albumin Ur Leukocyte Esterase Urine WBC Ur Squamous Epith Cells Ur Transition Epith Cell Urine Bacteria POC Glucose 168 H 155 H 245 H 04/15/24 04/15/24 04/15/24 07:33 08:42 11:16 RBC 6.53 H Hgb 17.5 H Hct 57.9 H MCHC RDW 18.6 H MPV 8.8 L Neut % (Auto) 91.5 H Lymph % (Auto) 5.5 L [place] % (Auto) Eos % (Auto) 0.0 L Baso % (Auto) 0.0 L Lymph # (Auto) 0.2 L [place] # (Auto) 0.1 L Seg Neuts % (Manual) Lymphocytes % (Manual) Monocytes % (Manual) Eosinophils % (Manual) Basophils % (Manual) Imm/Tot Granulo (auto) 0.7 H Neutrophils # (Manual) Lymphocytes # (Manual) Monocytes # (Manual) PT ABG pH ABG pCO2 ABG pO2 ABG HCO3 ABG Base Excess Sodium Potassium 3.3 L Chloride 92 L Carbon Dioxide 42.4 H BUN 45.0 H Creatinine 1.10 H Est GFR ( Amer) 58 L Est GFR (Non-Af Amer) 48 L Glucose 195 H Calcium Magnesium Total Bilirubin 1.3 H AST Albumin 3.1 L Ur Leukocyte Esterase Urine WBC Ur Squamous Epith Cells Ur Transition Epith Cell Urine Bacteria POC Glucose 156 H 184 H 04/15/24 16:22 RBC Hgb Hct MCHC RDW MPV Neut % (Auto) Lymph % (Auto) [place] % (Auto) Eos % (Auto) Baso % (Auto) Lymph # (Auto) [place] # (Auto) Seg Neuts % (Manual) Lymphocytes % (Manual) Monocytes % (Manual) Eosinophils % (Manual) Basophils % (Manual) Imm/Tot Granulo (auto) Neutrophils # (Manual) Lymphocytes # (Manual) Monocytes # (Manual) PT ABG pH ABG pCO2 ABG pO2 ABG HCO3 ABG Base Excess Sodium Potassium Chloride Carbon Dioxide BUN Creatinine Est GFR ( Amer) Est GFR (Non-Af Amer) Glucose Calcium Magnesium Total Bilirubin AST Albumin Ur Leukocyte Esterase Urine WBC Ur Squamous Epith Cells Ur Transition Epith Cell Urine Bacteria POC Glucose [address] scan - chest: report reviewed and image reviewed Assessment and Plan Assessment and Plan (1) Pneumonia: Assessment and Plan: Community acquired pneumonia, initially identified in the RLL on chest CT 04/09/2024, now worsening with new LLL infiltrate on chest CT 04/15/2024. Despite concomitant cellulitis, the patient never developed leukocytosis or fever. She is currently on vancomycin and levofloxacin. Given worsening respiratory status and increased infiltrates, adding cefdinir on top of antibiotics (avoiding additional fluid with IV antibiotics, and she can take oral). Ordered sputum cx, but patient is not expectorating well. Adding hypertonic saline with vest to assist in a pulmonary toilet. Qualifiers: Pneumonia type: due to unspecified organism Laterality: bilateral Lung location: lower lobe of lung Qualified Code(s): J18.9 - Pneumonia, unspecified organism (2) Acute respiratory failure with hypoxia: Assessment and Plan: Worsening oxygenation. Secondary to pneumonia +/- CHF despite treatment? Patient appears cyanotic (fingers), but she states this is somewhat her baseline, though there is no clubbing. As ABG SpO2 was 83%, this is around the saturation for methemoglobinemia - ordered repeat ABG with co-oximetries for tomorrow to R/O metHb. In the meantime, goal SpO2 is 88-92% given evidence of chronic hypercapnic respiratory failure. If she is unable to maintain adequate saturations despite nasal cannula, Vapotherm has been ordered. (3) Acute and chronic respiratory failure with hypercapnia: Assessment and Plan: Initial ABG 04/09/2024 noted pH 7.406 & pCO2 51.9 with serum HCO3- 34.3; this follows with primary metabolic alkalosis with secondary respiratory acidosis. F/U ABG 04/14/2024 noted pH 7.464 & pCO2 59.2 with serum HCO3- 41.6, once again following a primary metabolic alkalosis with secondary respiratory acidosis. Based on treatment for CHF, this would be most consistent with a contraction alkalosis from diuresis causing further retention of CO2 to compensate. This is evidenced as HCO3- has steadily increased on daily BMP. Overtreatment of pCO2 with a BiPAP may cause a significant drop in pCO2 to normal values (~40), but would then further complicate the metabolic alkalosis with potential post-hypercapnic metabolic alkalosis physiology contributed to the chronic hypercapnia portion. The patient appears A&O x3 without evidence of confusion as would be seen in symptomatic acute hypercapnia, so I would recommend observing for now off BiPAP. Repeat ABG was ordered for tomorrow with co-oximetries for the hypoxemic portion. (4) COPD exacerbation: Assessment and Plan: Patient likely has underlying COPD from years of smoking. Continue current treatment, recommend outpatient evaluation with PFT once she recovers. (5) Metabolic alkalosis: Assessment and Plan: As above. (6) Acute on chronic diastolic (congestive) heart failure: Assessment and Plan: Discussed with cardiology - I agree with the addition acetazolamide which can aid in excretion of HCO3-. (7) Cigarette nicotine dependence with nicotine-induced disorder: Assessment and Plan: Patient was counseled on the importance of smoking cessation. (8) Morbid obesity: Assessment and Plan: BMI 45.6 contributing to a restrictive pulmonary physiology. Weight loss strongly advised. Can evaluate outpatient for potential RUSTY/OHS.
[2024-04-15] MEDS: SODIUM CHLORIDE 3% INHALATION 15 ML NEB 3 ML IH (20:03)
[2024-04-15 20:55] LABS: Glucometer 300 mg/dL (74-106)
[2024-04-15] MEDS: FUROSEMIDE 40 MG/4 ML VIAL IVP (21:29)
[2024-04-15] MEDS: ACETAZOLAMIDE 250 MG TABLET PO (22:27)
[2024-04-15] MEDS: CEFDINIR 300 MG CAPSULE PO (22:27)
[2024-04-15] MEDS: INSULIN DETEMIR 300 UNIT/3 ML INSULN.PEN 20 UNIT SUBQ (22:28)
[2024-04-16] VITALS (23 sets, daily range): BP systolic 112–160; BP diastolic 66–78; PULSE 64–90; TEMP 34.8–36.6; O2SAT 88–95
--- NOTE | 2024-04-16 03:55 | RESP.RT ---
No breathing tx given. Pt sleeping and does not want woken up.
[2024-04-16] MEDS: HEPARIN SODIUM (PORCINE) 5,000 UNIT/ML VIAL 5000 UNIT SUBQ ×3 (05:34→22:09)
[2024-04-16] MEDS: METHYLPREDNISOLONE SOD SUCC PF 40 MG/ML VIAL IVP ×3 (05:35→22:09)
[2024-04-16 05:42] LABS: HCO3 ABG 39.4 mmol/L (22.0-26.0); Oxygen Saturation ABG 93.9 %; PO2 ABG 69.7 mmHg (80.0-100.0); pH ABG 7.425 (7.350-7.450)
[2024-04-16 05:43] LABS: Allen Test POSITIVE (POSITIVE); Carboxyhemoglobin 1.4 % (1.5-4.9); Liters per Minute 5; Methemoglobin ABG <1.0 % (1.1-1.9); O2 Mode NASAL CANNULA; Puncture Site L RADIAL
[2024-04-16 05:44] LABS: ABG PCO2 60.1 mmHg (35.0-45.0)
[2024-04-16 06:08] LABS: Hematocrit 56.5 % (36.0-48.0); Immature Granulocytes Abs Auto 0.01 10^3/uL (0.00-0.03); Immature Granulocytes Pct Auto 0.2 % (0.0-0.5); Lymphocytes Absolute Auto 0.2 10^3/uL (1.2-3.8); Lymphocytes Percent Auto 4.7 % (20.5-60.0); Mean Corpuscular HGB Conc 30.1 g/dL (29.9-35.2); Mean Corpuscular Hemoglobin 26.5 pg (26.7-34.0); Mean Platelet Volume 8.8 fL (9.5-13.5); Monocytes Absolute Auto 0.2 10^3/uL (0.3-0.8); Monocytes Percent Auto 3.7 % (1.7-12.0); Neutrophils Absolute Auto 4.7 10^3/uL (1.4-6.5); Neutrophils Percent Auto 91.4 % (43.0-75.0); Platelet Count 236 10^3/uL (150-450); Red Blood Count 6.42 10^6/uL (4.20-5.40); Red Cell Distribution Width 18.3 % (11.0-15.0); White Blood Count 5.2 10^3/uL (4.0-11.0)
[2024-04-16 06:20] LABS: Alanine Aminotransferase 41 U/L (14-59); Albumin Globulin Ratio 0.7; Albumin Level 2.8 g/dL (3.4-5.0); Alkaline Phosphatase 63 U/L (46-116); Anion Gap 6.3; Aspartate Amino Transferase 17 U/L (15-37); BUN Creatinine Ratio 48.6; Bilirubin Total 1.5 mg/dL (0.2-1.0); Calcium 8.9 mg/dL (8.5-10.1); Carbon Dioxide 38.8 mmol/L (21.0-32.0); Chloride 94 mmol/L (98-107); Estimated GFR (African America 59 (>=60 mL/min/1.73m^2); Estimated GFR (Non-African Ame 49 (>=60 mL/min/1.73m^2); Globulin 3.9 g/dL; Glucose 160 mg/dL (74-106); Potassium 4.1 mmol/L (3.5-5.1); Sodium 135 mmol/L (136-145); Total Protein 6.7 g/dL (6.4-8.2)
[2024-04-16] MEDS: IPRATROPIUM/ALBUTEROL SULFATE 3 ML AMPUL.NEB IH ×5 (07:54→23:26)
[2024-04-16] MEDS: SODIUM CHLORIDE 3% INHALATION 15 ML NEB 3 ML IH ×3 (07:54→23:26)
[2024-04-16 08:13] LABS: Glucometer 147 mg/dL (74-106)
[2024-04-16] MEDS: INSULIN ASPART 300 UNIT/3 ML PEN SUBQ ×4 (09:21→22:12)
[2024-04-16] MEDS: ASPIRIN 81 MG TABLET.DR PO (09:25)
[2024-04-16] MEDS: CLOPIDOGREL BISULFATE 75 MG TABLET PO (09:25)
[2024-04-16] MEDS: FUROSEMIDE 40 MG/4 ML VIAL IVP ×2 (09:25→19:39)
[2024-04-16] MEDS: GUAIFENESIN 600 MG TAB.ER.12H PO ×2 (09:25→22:09)
[2024-04-16] MEDS: ATORVASTATIN CALCIUM 40 MG TABLET PO (09:25)
[2024-04-16] MEDS: CEFDINIR 300 MG CAPSULE PO ×2 (09:25→22:09)
[2024-04-16] MEDS: LOSARTAN POTASSIUM 50 MG TABLET PO (09:25)
[2024-04-16] MEDS: ISOSORBIDE MONONITRATE 60 MG TAB.ER.24H PO (09:25)
[2024-04-16] MEDS: ACETAZOLAMIDE 250 MG TABLET PO ×2 (09:25→22:09)
--- NOTE | 2024-04-16 10:34 | CM.NOTE ---
Rounds made with Dr. Dimas, pt continues to require 5L NC. Pt now has started pulmonary vest, and continues to use PEP device. Encouraged pt to ambulate and deep breathe. No discharge for pt today.
--- NOTE | 2024-04-16 10:38 | P.IMPN_ITS ---
Progress Note: A&P Assessment and Plan (1) Acute respiratory failure with hypoxia: Assessment and Plan: Due to right lower lobe pneumonia/COPD exacerbation/Acute on chronic diastolic HF. Still requiring 5 L of oxygen. (2) Acute and chronic respiratory failure with hypercapnia: Assessment and Plan: Pulmonology on board. Chronic hypercapnic respiratory failure that is well compensated. Monitor closely (3) Acute on chronic diastolic (congestive) heart failure: Assessment and Plan: Looks close to euvolemic. Decrease Lasix to 40 q12 Echocardiogram revealed LVH severely dilated IVC with normal ejection fraction. Diamox added by Cardiology. (4) Right lower lobe pneumonia: Assessment and Plan: Continue with IV vancomycin/IV Levaquin. Worsening infiltrates on CT chest. Added oral cefdinir along with IV vancomycin and Levaquin. Qualifiers: Pneumonia type: due to unspecified organism Qualified Code(s): J18.9 - Pneumonia, unspecified organism (5) CAD (coronary artery disease): Assessment and Plan: No evidence of active cardiac ischemia. Monitor. Continue with home medications except for Toprol due to bradycardia Qualifiers: Coronary Disease-Associated Artery/Lesion type: [place] artery [place] vs. transplanted heart: [place] heart Associated angina: without angina Qualified Code(s): I25.10 - Atherosclerotic heart disease of [place] coronary artery without angina pectoris (6) COPD exacerbation: Assessment and Plan: Diminished air entry, no wheezing. Cw/ steroids, duonebs. Pulmonology added saline nebs along with vest to help with cough/mucus and airway secretions. (7) Cellulitis: Assessment and Plan: Improved with IV vancomycin. Qualifiers: Laterality: unspecified laterality Site of cellulitis: extremity Site of cellulitis of extremity: lower extremity Qualified Code(s): L03.119 - Cellulitis of unspecified part of limb (8) HLD (hyperlipidemia): Assessment and Plan: Continue with statin. Qualifiers: Hyperlipidemia type: unspecified Qualified Code(s): E78.5 - Hyperlipidemia, unspecified (9) HTN (hypertension): Assessment and Plan: Blood pressure at goal after addition of losartan. Continue with rest of her home medications except for toprol Qualifiers: Hypertension type: primary hypertension Qualified Code(s): I10 - Essential (primary) hypertension (10) Morbid obesity: Assessment and Plan: Recommend lifestyle measures and weight loss. (11) Bradycardia: Assessment and Plan: Bradycardia noted on review of vital signs and telemetry. normal TSH. Improved after Toprol was discontinued. Plan Persistent hypoxia. no improvement. Continue with current treatment. Encourage patient to use OPEP as often as possible. Internal Medicine - PN: Subj Subjective Interval history: Seen and examined. No overnight events. No significant improvement in her clinical status. Exam Constitutional Vital Signs, click to edit/add: Last Vital Signs Temp 97.8 F 04/16/24 09:07 Pulse 72 04/16/24 10:00 Resp 18 04/16/24 09:07 BP 150/68 H 04/16/24 09:07 Pulse Ox 90 L 04/16/24 09:07 O2 Del Method Nasal Cannula 04/16/24 09:07 O2 Flow Rate 5 04/16/24 09:07 Documenting provider has reviewed patient's vital signs: yes Common normals: no apparent distress and oriented x3 General appearance: cooperative Respiratory Common normals: normal respiratory effort, no use of accessory muscles and clear to auscultation bilaterally Effort & inspection: able to speak in complete sentences Other: Diminished lung souds. Cardio Common normals: regular rate, S1 normal heart sound and S2 normal heart sound Rate: regular rate Heart sounds: S1 normal and S2 normal Extremity General: edema (Resolved. ) Other: B/l LE erythema tenderness extending from ankle to just below knees - resolved. Neuro Common normals: oriented x3, moves all extremities and no focal motor deficits Psych Common normals: mental status grossly normal, denies hallucinations, denies homicidal ideation and denies suicidal ideation Internal Medicine - PN: Obj Da Labs Labs: Laboratory Results - last 24 hr 04/15/24 04/15/24 04/15/24 08:42 11:16 16:22 WBC RBC Hgb Hct MCV MCH MCHC RDW Plt Count MPV Neut % (Auto) Lymph % (Auto) [place] % (Auto) Eos % (Auto) Baso % (Auto) Neut # (Auto) Lymph # (Auto) [place] # (Auto) Eos # (Auto) Baso # (Auto) Abs Immat Gran (auto) Imm/Tot Granulo (auto) Puncture Site ABG pH ABG pCO2 ABG pO2 ABG HCO3 ABG O2 Saturation ABG Base Excess ABG Methemoglobin Ryan Test Carboxyhemoglobin O2 Liters/Min Sodium Potassium Chloride Carbon Dioxide Anion Gap BUN Creatinine Est GFR ( Amer) Est GFR (Non-Af Amer) BUN/Creatinine Ratio Glucose Calcium Total Bilirubin AST ALT Alkaline Phosphatase NT-Pro-B Natriuret Pep 1096.0 Total Protein Albumin Globulin Albumin/Globulin Ratio POC Glucose 184 H 133 H 04/15/24 04/16/24 04/16/24 20:54 05:34 05:47 WBC 5.2 RBC 6.42 H Hgb 17.0 H Hct 56.5 H MCV 88.0 MCH 26.5 L MCHC 30.1 RDW 18.3 H Plt Count 236 MPV 8.8 L Neut % (Auto) 91.4 H Lymph % (Auto) 4.[address] [place] % (Auto) 3.7 Eos % (Auto) 0.0 L Baso % (Auto) 0.0 L Neut # (Auto) 4.7 Lymph # (Auto) 0.[address] [place] # (Auto) 0.2 L Eos # (Auto) 0.0 Baso # (Auto) 0.0 Abs Immat Gran (auto) 0.01 Imm/Tot Granulo (auto) 0.2 Puncture Site L radial ABG pH 7.425 ABG pCO2 60.1 H* ABG pO2 69.7 L ABG HCO3 39.4 H ABG O2 Saturation 93.9 ABG Base Excess 15.0 H ABG Methemoglobin <1.0 L Ryan Test Positive Carboxyhemoglobin 1.4 L O2 Liters/Min 5 Sodium 135 L Potassium 4.1 Chloride 94 L Carbon Dioxide 38.8 H Anion Gap 6.3 BUN 53.0 H Creatinine 1.09 H Est GFR ( Amer) 59 L Est GFR (Non-Af Amer) 49 L BUN/Creatinine Ratio 48.6 Glucose 160 H Calcium 8.9 Total Bilirubin 1.5 H AST 17 ALT 41 Alkaline Phosphatase 63 NT-Pro-B Natriuret Pep Total Protein 6.7 Albumin 2.8 L Globulin 3.9 Albumin/Globulin Ratio 0.7 POC Glucose 300 H 04/16/24 08:11 WBC RBC Hgb Hct MCV MCH MCHC RDW Plt Count MPV Neut % (Auto) Lymph % (Auto) [place] % (Auto) Eos % (Auto) Baso % (Auto) Neut # (Auto) Lymph # (Auto) [place] # (Auto) Eos # (Auto) Baso # (Auto) Abs Immat Gran (auto) Imm/Tot Granulo (auto) Puncture Site ABG pH ABG pCO2 ABG pO2 ABG HCO3 ABG O2 Saturation ABG Base Excess ABG Methemoglobin Ryan Test Carboxyhemoglobin O2 Liters/Min Sodium Potassium Chloride Carbon Dioxide Anion Gap BUN Creatinine Est GFR ( Amer) Est GFR (Non-Af Amer) BUN/Creatinine Ratio Glucose Calcium Total Bilirubin AST ALT Alkaline Phosphatase NT-Pro-B Natriuret Pep Total Protein Albumin Globulin Albumin/Globulin Ratio POC Glucose 147 H
--- NOTE | 2024-04-16 10:50 | REH.PTDLY ---
Physical Therapy Daily Note PT Daily Note/Assess Start: 04/10/24 10:14 Freq: Status: Active Protocol: Document 04/16/24 10:39 AUBREY (Rec: 04/16/24 10:50 AUBREY [id number]) Physical Therapy Daily Note/Assessment Time In 09:53 Time Out 10:10 Subjective Pt has no new complaints. Didn 't sleep well last night. Still working on getting lungs cleared up per pt. Not sure when I will get to go home. Therapeutic Exercise Minutes (minutes) 5 Therapeutic Exercise Units 0 Therapeutic Exercise Treatment Instructed in B LE seated exs after ambulation 10-15x ea in chair with demo given for exs. Pt's SpO2 ranges between 85- 88% with exs. Therapeutic Activity Minutes (minutes) 11 Therapeutic Activity Units 1 Therapeutic Activity Comments SpO2 at 90% prior to rx. Ind with transfers. Pt is getting up and down to bedside commode Ind without nursing assistance. Gait training with 5 L of O2 and rollator in hallways for 125 feet. SpO2 drops to 85% post gait. Pt sits in chair after with cues for breathing. Total Therapy Minutes 16 Total Physical Therapy Units 1 Daily Note Summary Pt doing well with transfers. O2 sats continue to drop into mid 80s with activity while on 5L. Pt reports she feels fine throughout rx and minimal SOB is noted during rx.
[2024-04-16 11:05] LABS: Glucometer 183 mg/dL (74-106)
--- NOTE | 2024-04-16 11:46 | CM.NOTE ---
2nd Important Message From Medicare discussed with pt, pt denies questions or concerns.
--- NOTE | 2024-04-16 12:28 | P.PLPN_ITS ---
Progress Note: A&P Assessment and Plan (1) Pneumonia: Assessment and Plan: Cefdinir added on top of levofloxacin and vancomycin yesterday d/t worsening infiltrates. Continue antibiotics for now. Sputum sample ordered. Continue vest and hypertonic saline to promote a good pulmonary toilet and improve expectoration. Qualifiers: Pneumonia type: due to unspecified organism Laterality: bilateral Lung location: lower lobe of lung Qualified Code(s): J18.9 - Pneumonia, unspecified organism (2) Acute respiratory failure with hypoxia: Assessment and Plan: SpO2 maintaining at 5L/min via NC. ABG improved. No COHb or MetHb on co- oximetry. Vapotherm ordered in the event oxygenation worsens. (3) Acute and chronic respiratory failure with hypercapnia: Assessment and Plan: Slight improvement in pH today - pH 7.425 / pCO2 60.1 / serum HCO3- 38.8. Recommend continuing acetazolamide per cardiology. Will check VBG tomorrow - do not need ABG. (4) COPD exacerbation: Assessment and Plan: Continue bronchodilators. (5) Metabolic alkalosis: Assessment and Plan: As above, serum HCO3- improved from ~42 to 38.8. Continue acetazolamide. (6) Acute on chronic diastolic (congestive) heart failure: Assessment and Plan: Continue diuretics - monitor for contraction alkalosis. Cardiology mgmt. (7) Cigarette nicotine dependence with nicotine-induced disorder: Assessment and Plan: Smoking cessation!!! (8) Morbid obesity: Assessment and Plan: Weight loss. Subjective Subjective Interval history: Patient was seen this morning ~07:00. She states the vest and hypertonic saline have improved her ability to loosen her secretions. She still maintains that her breathing is not as bad as everyone else maintains it is. Reviewed labs - no abnormal COHb or MetHb; HCO3- slightly improved. Still has hypercapnia. Did not require use of Vapotherm - remains on O2 @ 5L/min. Exam Constitutional Vital Signs, click to edit/add: Last Vital Signs Temp 97.8 F 04/16/24 11:38 Pulse 90 04/16/24 11:58 Resp 20 04/16/24 11:38 BP 146/70 H 04/16/24 11:38 Pulse Ox 92 L 04/16/24 11:38 O2 Del Method Nasal Cannula 04/16/24 11:38 O2 Flow Rate 5 04/16/24 11:38 Documenting provider has reviewed patient's vital signs: yes Common normals: apparent distress Exam limitations: no altered mental status General appearance: cooperative HENMT Other: Wearing nasal cannula Chest Chest: symmetrical chest wall rise Respiratory Other: Slightly more air movement, mild crackles. Cardio Rate: regular rate Rhythm: regular rhythm GI Other: Increased central adiposity Extremity Other: There is further reduction in BLE edema today. Distal fingers appear cyanotic. Neuro Motor exam: no tremor noted and no fasciculations Psych Attitude: calm
[2024-04-16 16:33] LABS: Glucometer 146 mg/dL (74-106)
[2024-04-16 17:44] LABS: Vancomycin Trough 19.1 ug/mL (5.0-20.0)
[2024-04-16] MEDS: VANCOMYCIN HCL 1,750 MG in 0.9 % SODIUM CHLORIDE 500 ML 150 MG IV (18:36)
[2024-04-16] MEDS: 0.9 % SODIUM CHLORIDE 250 ML 10 ML IV (18:36)
[2024-04-16 21:26] LABS: Glucometer 174 mg/dL (74-106)
[2024-04-16] MEDS: INSULIN DETEMIR 300 UNIT/3 ML INSULN.PEN 20 UNIT SUBQ (22:12)
[2024-04-17] VITALS (25 sets, daily range): BP systolic 105–154; BP diastolic 62–78; PULSE 70–99; TEMP 36.4–37.2; O2SAT 88–93
[2024-04-17] MEDS: IPRATROPIUM/ALBUTEROL SULFATE 3 ML AMPUL.NEB IH ×6 (03:51→23:37)
[2024-04-17] MEDS: HEPARIN SODIUM (PORCINE) 5,000 UNIT/ML VIAL 5000 UNIT SUBQ ×3 (05:44→20:33)
[2024-04-17] MEDS: METHYLPREDNISOLONE SOD SUCC PF 40 MG/ML VIAL IVP ×3 (05:45→21:32)
[2024-04-17 05:52] LABS: PCO2 VBG 59.2 mmHg (40.0-52.0); pH VBG 7.395 (7.330-7.430)
[2024-04-17 05:57] LABS: Eosinophils Percent Auto 0.2 % (0.9-7.0); Hematocrit 55.6 % (36.0-48.0); Immature Granulocytes Abs Auto 0.03 10^3/uL (0.00-0.03); Immature Granulocytes Pct Auto 0.5 % (0.0-0.5); Lymphocytes Absolute Auto 0.3 10^3/uL (1.2-3.8); Lymphocytes Percent Auto 5.8 % (20.5-60.0); Mean Corpuscular HGB Conc 30.6 g/dL (29.9-35.2); Mean Corpuscular Volume 88.4 fL (81.0-99.0); Mean Platelet Volume 9.1 fL (9.5-13.5); Monocytes Absolute Auto 0.2 10^3/uL (0.3-0.8); Monocytes Percent Auto 3.3 % (1.7-12.0); Neutrophils Absolute Auto 5.1 10^3/uL (1.4-6.5); Neutrophils Percent Auto 90.2 % (43.0-75.0); Platelet Count 213 10^3/uL (150-450); Red Blood Count 6.29 10^6/uL (4.20-5.40); Red Cell Distribution Width 18.2 % (11.0-15.0); White Blood Count 5.7 10^3/uL (4.0-11.0)
[2024-04-17 06:13] LABS: Alanine Aminotransferase 45 U/L (14-59); Albumin Globulin Ratio 0.8; Albumin Level 2.7 g/dL (3.4-5.0); Alkaline Phosphatase 59 U/L (46-116); Anion Gap 8.7; Aspartate Amino Transferase 20 U/L (15-37); BUN Creatinine Ratio 53.7; Bilirubin Total 1.8 mg/dL (0.2-1.0); Calcium 8.7 mg/dL (8.5-10.1); Carbon Dioxide 35.3 mmol/L (21.0-32.0); Chloride 96 mmol/L (98-107); Estimated GFR (African America 60 (>=60 mL/min/1.73m^2); Estimated GFR (Non-African Ame 49 (>=60 mL/min/1.73m^2); Globulin 3.6 g/dL; Glucose 157 mg/dL (74-106); Sodium 136 mmol/L (136-145); Total Protein 6.3 g/dL (6.4-8.2)
--- NOTE | 2024-04-17 06:48 | PM.PLPN ---
Progress Note: A&P Assessment and Plan (1) Pneumonia: Assessment and Plan: Continue cefdinir + levofloxacin + vancomycin. No sputum for analysis available. Recheck CXR. Qualifiers: Laterality: bilateral Lung location: lower lobe of lung Pneumonia type: due to unspecified organism Qualified Code(s): J18.9 - Pneumonia, unspecified organism (2) Acute respiratory failure with hypoxia: Assessment and Plan: SpO2 remains on 5L/min O2. She has multiple contributing factors (e.g. pneumonia, COPD, CHF). Anticipate eventual recovery (if she stays off cigarettes), but will most likely require home O2. (3) Acute and chronic respiratory failure with hypercapnia: Assessment and Plan: VBG today: pH 7.395, pCO2 59; serum HCO3- 35.3. Slow improvement - recommend continuing acetazolamide. Recheck VBG in AM. (4) COPD exacerbation: Assessment and Plan: Continue bronchodilators. (5) Metabolic alkalosis: Assessment and Plan: HCO3- improved from ~42 to 38.8 to 35.3. Continue acetazolamide. (6) Acute on chronic diastolic (congestive) heart failure: Assessment and Plan: Continue diuretics. Monitor closely. (7) Cigarette nicotine dependence with nicotine-induced disorder: Assessment and Plan: STOP SMOKING! (8) Morbid obesity: Assessment and Plan: Weight loss. Subjective Subjective Interval history: Patient complains that she is tired and has difficulty sleeping from staff monitoring/assessing the patient throughout the night. COONEY with exertion, expectorating slightly more, but has not collected any sputum sample - I just spit it in a tissue. Exam Constitutional Vital Signs, click to edit/add: Last Vital Signs Temp 97.6 F 04/17/24 05:52 Pulse 70 04/17/24 06:00 Resp 18 04/17/24 05:52 BP 154/78 H 04/17/24 05:52 Pulse Ox 90 L 04/17/24 05:52 O2 Del Method Nasal Cannula 04/17/24 05:52 O2 Flow Rate 5 04/17/24 05:52 Documenting provider has reviewed patient's vital signs: yes General appearance: cooperative Other: Appears tired, but not obtunded HENMT Other: Wearing nasal cannula Chest Chest: symmetrical chest wall rise Respiratory Other: Diminished air movement, no wheezes, no rhonchi.. Cardio Rate: regular rate Rhythm: regular rhythm GI Other: Increased central adiposity Extremity Other: Decreased BLE edema Neuro Motor exam: no tremor noted and no fasciculations Psych Attitude: calm
[2024-04-17] MEDS: SODIUM CHLORIDE 3% INHALATION 15 ML NEB 3 ML IH ×2 (07:02→15:08)
[2024-04-17 07:45] LABS: Glucometer 127 mg/dL (74-106)
--- NOTE | 2024-04-17 07:52 | XR_ITS ---
The [address] [address] Patient Name: DAVID ROSEN MRN: [id number] date: 1945 Sex: F Assigned Patient Location: [place] Current Patient Location: [place] Accession/Order Number: [id number] Exam Date: 04/17/2024 08:15 Report Date: 04/17/2024 09:36 At the request of: VIRGINIA WHITE Procedure: XR chest 1V EXAM: XR chest 1V HISTORY: Bilateral lower lobe pneumonia COMPARISON: 04/14/2024 TECHNIQUE: AP portable FINDINGS: LUNGS: Mild bibasilar infiltrates, slightly improved VASCULATURE: Moderately increased pulmonary vasculature, worsening since the prior exam. PLEURA: No pneumothorax, effusion, or pleural thickening. CARDIAC: No cardiomegaly or cardiac silhouette abnormality. MEDIASTINUM: No visible mass or adenopathy. BONES: No fracture or visible bone lesion. OTHER: Negative. XR/XR chest 1V IMPRESSION: Slight improvement of bibasilar infiltrates Moderate pulmonary vascular congestion Electronically authenticated by: DIXIE LANGSTON Date: 04/17/2024 09:36
[2024-04-17] MEDS: FUROSEMIDE 40 MG/4 ML VIAL IVP ×2 (09:04→20:33)
[2024-04-17] MEDS: CEFDINIR 300 MG CAPSULE PO ×2 (09:05→20:34)
[2024-04-17] MEDS: ATORVASTATIN CALCIUM 40 MG TABLET PO (09:05)
[2024-04-17] MEDS: ASPIRIN 81 MG TABLET.DR PO (09:05)
[2024-04-17] MEDS: CLOPIDOGREL BISULFATE 75 MG TABLET PO (09:05)
[2024-04-17] MEDS: GUAIFENESIN 600 MG TAB.ER.12H PO ×2 (09:05→20:34)
[2024-04-17] MEDS: LOSARTAN POTASSIUM 50 MG TABLET PO (09:05)
[2024-04-17] MEDS: 0.9 % SODIUM CHLORIDE 250 ML 10 ML IV (09:05)
[2024-04-17] MEDS: ISOSORBIDE MONONITRATE 60 MG TAB.ER.24H PO (09:05)
[2024-04-17] MEDS: ACETAZOLAMIDE 250 MG TABLET PO ×2 (09:05→20:34)
[2024-04-17] MEDS: LEVOFLOXACIN IN DEXTROSE 5 % 750 MG/150 ML PREMIX 150 MG IV (09:06)
--- NOTE | 2024-04-17 10:19 | PM.IMPN1 ---
Progress Note: A&P Assessment and Plan (1) Right lower lobe pneumonia: Assessment and Plan: Continue with IV vancomycin/IV Levaquin. Worsening infiltrates on CT chest. Patient is also on oral cefdinir. Qualifiers: Pneumonia type: due to unspecified organism Qualified Code(s): J18.9 - Pneumonia, unspecified organism (2) Acute respiratory failure with hypoxia: Assessment and Plan: Due to pneumonia/COPD exacerbation/Acute on chronic diastolic HF. Still requiring 5 L of oxygen. No improvement noted (3) Acute and chronic respiratory failure with hypercapnia: Assessment and Plan: Chronic hypercapnic respiratory failure that is well compensated. Monitor closely. Continue with Diamox (4) COPD exacerbation: Assessment and Plan: Diminished air entry, no wheezing. Cw/ steroids, duonebs. Pulmonology added saline nebs along with vest to help with cough/mucus and airway secretions. She is still experiencing dyspnea on exertion and has persistent hypoxia. She feels that her cough is more loose today and she is able to expectorate. (5) Acute on chronic diastolic (congestive) heart failure: Assessment and Plan: Continue with IV Lasix to 40 q12 Echocardiogram revealed LVH severely dilated IVC with normal ejection fraction. Diamox added by Cardiology. (6) Cigarette nicotine dependence with nicotine-induced disorder: Assessment and Plan: Counseled on smoking cessation (7) CAD (coronary artery disease): Assessment and Plan: No evidence of active cardiac ischemia. Monitor. Continue with home medications except for Toprol due to bradycardia Qualifiers: Coronary Disease-Associated Artery/Lesion type: [place] artery [place] vs. transplanted heart: [place] heart Associated angina: without angina Qualified Code(s): I25.10 - Atherosclerotic heart disease of [place] coronary artery without angina pectoris (8) Cellulitis: Assessment and Plan: Improved with IV vancomycin. More or less resolved. Qualifiers: Laterality: unspecified laterality Site of cellulitis: extremity Site of cellulitis of extremity: lower extremity Qualified Code(s): L03.119 - Cellulitis of unspecified part of limb (9) HLD (hyperlipidemia): Assessment and Plan: Continue with statin. Qualifiers: Hyperlipidemia type: unspecified Qualified Code(s): E78.5 - Hyperlipidemia, unspecified (10) HTN (hypertension): Assessment and Plan: Blood pressure at goal. Continue with rest of her home medications except for toprol Qualifiers: Hypertension type: primary hypertension Qualified Code(s): I10 - Essential (primary) hypertension (11) Bradycardia: Assessment and Plan: Bradycardia noted on review of vital signs and telemetry. normal TSH. Improved after Toprol was discontinued. (12) Morbid obesity: Assessment and Plan: Recommend lifestyle measures and weight loss. Internal Medicine - PN: Subj Subjective Interval history: Seen and examined. No overnight events. Patient reports a stuffy nose today. Otherwise no active complaints. She is still quite hypoxic and requiring 5 L of oxygen Exam Constitutional Vital Signs, click to edit/add: Last Vital Signs Temp 97.8 F 04/17/24 08:00 Pulse 96 H 04/17/24 10:00 Resp 18 04/17/24 08:00 BP 134/65 04/17/24 08:00 Pulse Ox 93 L 04/17/24 08:00 O2 Del Method Nasal Cannula 04/17/24 08:00 O2 Flow Rate 5 04/17/24 08:00 Documenting provider has reviewed patient's vital signs: yes Common normals: no apparent distress and oriented x3 General appearance: cooperative Respiratory Common normals: normal respiratory effort, no use of accessory muscles and clear to auscultation bilaterally Effort & inspection: able to speak in complete sentences Other: Diminished lung souds. Cardio Common normals: regular rate, S1 normal heart sound and S2 normal heart sound Rate: regular rate Heart sounds: S1 normal and S2 normal Extremity General: edema (Resolved. ) Other: B/l LE erythema tenderness extending from ankle to just below knees - resolved. Neuro Common normals: oriented x3, moves all extremities and no focal motor deficits Psych Common normals: mental status grossly normal, denies hallucinations, denies homicidal ideation and denies suicidal ideation Internal Medicine - PN: Obj Da Labs Labs: Laboratory Results - last 24 hr 04/16/24 04/16/24 04/16/24 05:34 11:04 16:33 WBC RBC Hgb Hct MCV MCH MCHC RDW Plt Count MPV Neut % (Auto) Lymph % (Auto) [place] % (Auto) Eos % (Auto) Baso % (Auto) Neut # (Auto) Lymph # (Auto) [place] # (Auto) Eos # (Auto) Baso # (Auto) Abs Immat Gran (auto) Imm/Tot Granulo (auto) Puncture Site L radial ABG pH 7.425 ABG pCO2 60.1 H* ABG pO2 69.7 L ABG HCO3 39.4 H ABG O2 Saturation 93.9 ABG Base Excess 15.0 H ABG Methemoglobin <1.0 L Ryan Test Positive VBG pH VBG pCO2 Carboxyhemoglobin 1.4 L O2 Liters/Min 5 Sodium Potassium Chloride Carbon Dioxide Anion Gap BUN Creatinine Est GFR ( Amer) Est GFR (Non-Af Amer) BUN/Creatinine Ratio Glucose Calcium Total Bilirubin AST ALT Alkaline Phosphatase Total Protein Albumin Globulin Albumin/Globulin Ratio Vancomycin Trough POC Glucose 183 H 146 H 04/16/24 04/16/24 04/17/24 17:04 21:25 05:42 WBC 5.7 RBC 6.29 H Hgb 17.0 H Hct 55.6 H MCV 88.4 MCH 27.0 MCHC 30.6 RDW 18.2 H Plt Count 213 MPV 9.1 L Neut % (Auto) 90.2 H Lymph % (Auto) 5.8 L [place] % (Auto) 3.3 Eos % (Auto) 0.2 L Baso % (Auto) 0.0 L Neut # (Auto) 5.1 Lymph # (Auto) 0.3 L [place] # (Auto) 0.2 L Eos # (Auto) 0.0 Baso # (Auto) 0.0 Abs Immat Gran (auto) 0.03 Imm/Tot Granulo (auto) 0.5 Puncture Site ABG pH ABG pCO2 ABG pO2 ABG HCO3 ABG O2 Saturation ABG Base Excess ABG Methemoglobin Ryan Test VBG pH 7.395 VBG pCO2 59.2 H Carboxyhemoglobin O2 Liters/Min Sodium 136 Potassium 4.0 Chloride 96 L Carbon Dioxide 35.3 H Anion Gap 8.7 BUN 58.0 H Creatinine 1.08 H Est GFR ( Amer) 60 Est GFR (Non-Af Amer) 49 L BUN/Creatinine Ratio 53.7 Glucose 157 H Calcium 8.7 Total Bilirubin 1.8 H AST 20 ALT 45 Alkaline Phosphatase 59 Total Protein 6.3 L Albumin 2.7 L Globulin 3.6 Albumin/Globulin Ratio 0.8 Vancomycin Trough 19.1 POC Glucose 174 H 04/17/24 07:45 WBC RBC Hgb Hct MCV MCH MCHC RDW Plt Count MPV Neut % (Auto) Lymph % (Auto) [place] % (Auto) Eos % (Auto) Baso % (Auto) Neut # (Auto) Lymph # (Auto) [place] # (Auto) Eos # (Auto) Baso # (Auto) Abs Immat Gran (auto) Imm/Tot Granulo (auto) Puncture Site ABG pH ABG pCO2 ABG pO2 ABG HCO3 ABG O2 Saturation ABG Base Excess ABG Methemoglobin Ryan Test VBG pH VBG pCO2 Carboxyhemoglobin O2 Liters/Min Sodium Potassium Chloride Carbon Dioxide Anion Gap BUN Creatinine Est GFR ( Amer) Est GFR (Non-Af Amer) BUN/Creatinine Ratio Glucose Calcium Total Bilirubin AST ALT Alkaline Phosphatase Total Protein Albumin Globulin Albumin/Globulin Ratio Vancomycin Trough POC Glucose 127 H
--- NOTE | 2024-04-17 10:42 | CM.NOTE ---
Rounds made with Dr. Dimas. Dr. Dimas discussed treatment plan with Kathleen. Kathleen verbalized understanding. Kathleen currently on O2 @ 5l. Plan is to try to wean O2 today. No discharge today.
--- NOTE | 2024-04-17 11:23 | REH.PTDLY ---
Physical Therapy Daily Note PT Daily Note/Assess Start: 04/10/24 10:14 Freq: Status: Active Protocol: Document 04/17/24 11:07 AUBREY (Rec: 04/17/24 11:23 AUBREY [id number]) Physical Therapy Daily Note/Assessment Time In 10:55 Time Out 11:05 Subjective Pt reports busy morning, chest x-rays done several times, worked with OT and just had new IV placed. Willing to participate in PT. Therapeutic Exercise Minutes (minutes) 6 Therapeutic Exercise Units 1 Therapeutic Exercise Treatment Instructed in B LE seated exs 10x ea with AP, LAQ, marching, hip abd, and hip add squeezes for improved strength. SpO2 is at 89/90% prior to exs Therapeutic Activity Minutes (minutes) 4 Therapeutic Activity Units 0 Therapeutic Activity Comments Pt performs 5 sit to stands in a row with no UE support. Gait training in room with rollator 30 feet SBA on 5 L of O2. SpO2 at 87/88% after gait . Total Therapy Minutes 10 Total Physical Therapy Units 1 Daily Note Summary Pt has increased fatigue today and is more melancholy compared to previous visits. Continues to be on 5L of O2 with sats staying in mid to upper 80s throughout rx. Limited gait distance today due to this and fatigue.
[2024-04-17 11:30] LABS: Glucometer 166 mg/dL (74-106)
[2024-04-17] MEDS: INSULIN ASPART 300 UNIT/3 ML PEN SUBQ ×2 (12:03→21:34)
[2024-04-17] MEDS: DOCUSATE SODIUM 100 MG CAPSULE PO (13:02)
[2024-04-17 16:57] LABS: Glucometer 105 mg/dL (74-106)
[2024-04-17] MEDS: VANCOMYCIN HCL 1,750 MG in 0.9 % SODIUM CHLORIDE 500 ML 250 MG IV (18:48)
[2024-04-17] MEDS: BENZONATATE 100 MG CAPSULE PO (20:34)
[2024-04-17 21:29] LABS: Glucometer 188 mg/dL (74-106)
[2024-04-17] MEDS: INSULIN DETEMIR 300 UNIT/3 ML INSULN.PEN 20 UNIT SUBQ (21:34)
[2024-04-18] VITALS (23 sets, daily range): BP systolic 93–137; BP diastolic 56–78; PULSE 68–96; TEMP 36.4–36.6; O2SAT 89–97
[2024-04-18] MEDS: METHYLPREDNISOLONE SOD SUCC PF 40 MG/ML VIAL IVP ×3 (05:19→21:12)
[2024-04-18] MEDS: HEPARIN SODIUM (PORCINE) 5,000 UNIT/ML VIAL 5000 UNIT SUBQ ×3 (05:19→21:16)
[2024-04-18 06:41] LABS: Hemoglobin 17.1 g/dL (12.0-16.0); Immature Granulocytes Abs Auto 0.03 10^3/uL (0.00-0.03); Immature Granulocytes Pct Auto 0.5 % (0.0-0.5); Lymphocytes Absolute Auto 0.4 10^3/uL (1.2-3.8); Lymphocytes Percent Auto 5.3 % (20.5-60.0); Mean Corpuscular HGB Conc 30.5 g/dL (29.9-35.2); Mean Corpuscular Hemoglobin 26.7 pg (26.7-34.0); Mean Corpuscular Volume 87.4 fL (81.0-99.0); Mean Platelet Volume 9.5 fL (9.5-13.5); Monocytes Absolute Auto 0.3 10^3/uL (0.3-0.8); Neutrophils Absolute Auto 5.9 10^3/uL (1.4-6.5); Neutrophils Percent Auto 90.2 % (43.0-75.0); PCO2 VBG 55.6 mmHg (40.0-52.0); Platelet Count 235 10^3/uL (150-450); Red Blood Count 6.41 10^6/uL (4.20-5.40); Red Cell Distribution Width 18.2 % (11.0-15.0); White Blood Count 6.6 10^3/uL (4.0-11.0); pH VBG 7.393 (7.330-7.430)
[2024-04-18] MEDS: SODIUM CHLORIDE 3% INHALATION 15 ML NEB 3 ML IH ×3 (06:56→22:58)
[2024-04-18] MEDS: IPRATROPIUM/ALBUTEROL SULFATE 3 ML AMPUL.NEB IH ×5 (06:56→22:58)
[2024-04-18 07:02] LABS: Alanine Aminotransferase 53 U/L (14-59); Albumin Globulin Ratio 0.8; Albumin Level 2.7 g/dL (3.4-5.0); Alkaline Phosphatase 56 U/L (46-116); Anion Gap 9.6; Aspartate Amino Transferase 19 U/L (15-37); BUN Creatinine Ratio 58.7; Bilirubin Total 1.8 mg/dL (0.2-1.0); Calcium 8.9 mg/dL (8.5-10.1); Chloride 96 mmol/L (98-107); Estimated GFR (African America >60 (>=60 mL/min/1.73m^2); Estimated GFR (Non-African Ame 52 (>=60 mL/min/1.73m^2); Globulin 3.6 g/dL; Glucose 153 mg/dL (74-106); Potassium 3.6 mmol/L (3.5-5.1); Sodium 135 mmol/L (136-145); Total Protein 6.3 g/dL (6.4-8.2)
--- NOTE | 2024-04-18 07:17 | RESP.RT ---
titrated down from 5L
[2024-04-18] MEDS: ISOSORBIDE MONONITRATE 60 MG TAB.ER.24H PO (08:56)
[2024-04-18] MEDS: ACETAZOLAMIDE 250 MG TABLET PO ×2 (08:56→21:15)
[2024-04-18] MEDS: ASPIRIN 81 MG TABLET.DR PO (08:56)
[2024-04-18] MEDS: ATORVASTATIN CALCIUM 40 MG TABLET PO (08:56)
[2024-04-18] MEDS: CLOPIDOGREL BISULFATE 75 MG TABLET PO (08:56)
[2024-04-18] MEDS: GUAIFENESIN 600 MG TAB.ER.12H PO ×2 (08:56→21:15)
[2024-04-18] MEDS: CEFDINIR 300 MG CAPSULE PO ×2 (08:56→21:15)
[2024-04-18] MEDS: FUROSEMIDE 40 MG/4 ML VIAL IVP (08:56)
[2024-04-18] MEDS: LOSARTAN POTASSIUM 50 MG TABLET PO (08:59)
[2024-04-18] MEDS: INSULIN ASPART 300 UNIT/3 ML PEN SUBQ ×3 (09:00→21:18)
--- NOTE | 2024-04-18 09:22 | SWNOTE1 ---
SW did speak with pt yesterday. Pt was tearful, voiced frustration as she has not improved clinically. Pt voiced she has never had oxygen and overwhelmed with the situation. SW provided pt was encouragement and comfort. SW to check back in today.
--- NOTE | 2024-04-18 09:49 | CM.NOTE ---
Rounds made with Dr. Dimas, discussed with pt need for home oxygen. Dr. Dimas will discuss discharge planning with Dr. Justin and then update pt.
--- NOTE | 2024-04-18 10:57 | PM.IMPN1 ---
Progress Note: A&P Assessment and Plan (1) Right lower lobe pneumonia: Assessment and Plan: Continue with IV vancomycin/IV Levaquin. Patient was started on oral cefdinir by Pulm. CXR slightly better. Qualifiers: Pneumonia type: due to unspecified organism Qualified Code(s): J18.9 - Pneumonia, unspecified organism (2) Acute respiratory failure with hypoxia: Assessment and Plan: Due to pneumonia/COPD exacerbation/Acute on chronic diastolic HF. Weaned off to 4 L O2 via NC. (3) Acute and chronic respiratory failure with hypercapnia: Assessment and Plan: Chronic hypercapnic respiratory failure that is well compensated. Monitor closely. Continue with Diamox (4) COPD exacerbation: Assessment and Plan: Diminished air entry, no wheezing. Cw/ steroids, duonebs. She is also on saline nebs along with vest therapy Slight improvement. On 4 L Now (5) Acute on chronic diastolic (congestive) heart failure: Assessment and Plan: Continue with IV Lasix to 40 q12, Diamox Echocardiogram revealed LVH severely dilated IVC with normal ejection fraction. (6) Cigarette nicotine dependence with nicotine-induced disorder: Assessment and Plan: Counseled on smoking cessation (7) CAD (coronary artery disease): Assessment and Plan: No evidence of active cardiac ischemia. Monitor. Continue with home medications except for Toprol due to bradycardia Qualifiers: Coronary Disease-Associated Artery/Lesion type: [place] artery [place] vs. transplanted heart: [place] heart Associated angina: without angina Qualified Code(s): I25.10 - Atherosclerotic heart disease of [place] coronary artery without angina pectoris (8) Cellulitis: Assessment and Plan: More or less resolved. On IV vancomycin for PNA/cellulitis Qualifiers: Laterality: unspecified laterality Site of cellulitis: extremity Site of cellulitis of extremity: lower extremity Qualified Code(s): L03.119 - Cellulitis of unspecified part of limb (9) HLD (hyperlipidemia): Assessment and Plan: Continue with statin. Qualifiers: Hyperlipidemia type: unspecified Qualified Code(s): E78.5 - Hyperlipidemia, unspecified (10) HTN (hypertension): Assessment and Plan: Blood pressure at goal. Continue with rest of her home medications except for toprol Qualifiers: Hypertension type: primary hypertension Qualified Code(s): I10 - Essential (primary) hypertension (11) Bradycardia: Assessment and Plan: Bradycardia noted on review of vital signs and telemetry. normal TSH. Improved after Toprol was discontinued. (12) Morbid obesity: Assessment and Plan: Recommend lifestyle measures and weight loss. Internal Medicine - PN: Subj Subjective Interval history: Seen and examined. No overnight events. Slight improvement. On 4 L O2 now. Exam Constitutional Vital Signs, click to edit/add: Last Vital Signs Temp 97.7 F 04/18/24 07:48 Pulse 85 04/18/24 09:57 Resp 18 04/18/24 07:49 BP 134/75 04/18/24 07:48 Pulse Ox 92 L 04/18/24 07:48 O2 Del Method Nasal Cannula 04/18/24 07:48 O2 Flow Rate 5 04/18/24 07:48 Documenting provider has reviewed patient's vital signs: yes Common normals: no apparent distress and oriented x3 General appearance: cooperative Respiratory Common normals: normal respiratory effort, no use of accessory muscles and clear to auscultation bilaterally Effort & inspection: able to speak in complete sentences Other: Diminished lung souds. Cardio Common normals: regular rate, S1 normal heart sound and S2 normal heart sound Rate: regular rate Heart sounds: S1 normal and S2 normal Extremity General: edema (Resolved. ) Other: B/l LE erythema tenderness extending from ankle to just below knees - resolved. Neuro Common normals: oriented x3, moves all extremities and no focal motor deficits Psych Common normals: mental status grossly normal, denies hallucinations, denies homicidal ideation and denies suicidal ideation Internal Medicine - PN: Obj Da Labs Labs: Laboratory Results - last 24 hr 04/17/24 04/17/24 04/17/24 11:30 16:55 21:27 WBC RBC Hgb Hct MCV MCH MCHC RDW Plt Count MPV Neut % (Auto) Lymph % (Auto) [place] % (Auto) Eos % (Auto) Baso % (Auto) Neut # (Auto) Lymph # (Auto) [place] # (Auto) Eos # (Auto) Baso # (Auto) Abs Immat Gran (auto) Imm/Tot Granulo (auto) VBG pH VBG pCO2 Sodium Potassium Chloride Carbon Dioxide Anion Gap BUN Creatinine Est GFR ( Amer) Est GFR (Non-Af Amer) BUN/Creatinine Ratio Glucose Calcium Total Bilirubin AST ALT Alkaline Phosphatase Total Protein Albumin Globulin Albumin/Globulin Ratio POC Glucose 166 H 105 188 H 04/18/24 06:16 WBC 6.6 RBC 6.41 H Hgb 17.1 H Hct 56.0 H MCV 87.4 MCH 26.7 MCHC 30.5 RDW 18.2 H Plt Count 235 MPV 9.5 Neut % (Auto) 90.2 H Lymph % (Auto) 5.3 L [place] % (Auto) 4.0 Eos % (Auto) 0.0 L Baso % (Auto) 0.0 L Neut # (Auto) 5.9 Lymph # (Auto) 0.4 L [place] # (Auto) 0.3 Eos # (Auto) 0.0 Baso # (Auto) 0.0 Abs Immat Gran (auto) 0.03 Imm/Tot Granulo (auto) 0.5 VBG pH 7.393 VBG pCO2 55.6 H Sodium 135 L Potassium 3.6 Chloride 96 L Carbon Dioxide 33.0 H Anion Gap 9.6 BUN 61.0 H Creatinine 1.04 H Est GFR ( Amer) >60 Est GFR (Non-Af Amer) 52 L BUN/Creatinine Ratio 58.7 Glucose 153 H Calcium 8.9 Total Bilirubin 1.8 H AST 19 ALT 53 Alkaline Phosphatase 56 Total Protein 6.3 L Albumin 2.7 L Globulin 3.6 Albumin/Globulin Ratio 0.8 POC Glucose
[2024-04-18 11:32] LABS: Glucometer 213 mg/dL (74-106)
--- NOTE | 2024-04-18 11:46 | SWNOTE1 ---
SW did check therapy notes again today, and they do recommended home health. Myself or case management will talk to pt about home health services coming in for a short time. Pt previously refused, but will try again.
--- NOTE | 2024-04-18 12:06 | P.PLPN_ITS ---
Progress Note: A&P Assessment and Plan (1) Right lower lobe pneumonia: Assessment and Plan: Appears to be clinically improving. Can discontinue vancomycin at this time and continue levofloxacin and cefdinir. Qualifiers: Pneumonia type: due to unspecified organism Qualified Code(s): J18.9 - Pneumonia, unspecified organism (2) Acute respiratory failure with hypoxia: Assessment and Plan: Attempting to wean O2; has decreased to 4L/min - at rest, SpO2 is 89%, so I do not feel she is satisfactory for discharge. Goal is SpO2 4L/min ambulatory to facilitate portability. I discussed this with the patient who voiced agreement. (3) Acute and chronic respiratory failure with hypercapnia: Assessment and Plan: Slow improvement. (4) COPD exacerbation: Assessment and Plan: Continue bronchodilators. (5) Metabolic alkalosis: Assessment and Plan: HCO3- down to 33. Continue acetazolamide. (6) Acute on chronic diastolic (congestive) heart failure: Assessment and Plan: Continue diuretics. I strongly recommended patient that she establish with a etl database developer (Dr. Ramírez retired). (7) Cigarette nicotine dependence with nicotine-induced disorder: Assessment and Plan: STOP SMOKING! (8) Morbid obesity: Assessment and Plan: Weight loss. Subjective Subjective Interval history: Patient states she is doing about the same today as yesterday. Not expectorating much, but more than several days ago. Chest x-ray shows improvement in bilateral lower lobe infiltrates, but still has suggestion of vascular congestion. I spoke with respiratory therapy?they weaned the patient down to 4L/min this AM. Exam Constitutional Vital Signs, click to edit/add: Last Vital Signs Temp 97.7 F 04/18/24 07:48 Pulse 85 04/18/24 09:57 Resp 18 04/18/24 07:49 BP 134/75 04/18/24 07:48 Pulse Ox 89 L 04/18/24 11:08 O2 Del Method Nasal Cannula 04/18/24 11:08 O2 Flow Rate 4 04/18/24 11:08 Documenting provider has reviewed patient's vital signs: yes General appearance: cooperative Other: Appears tired, but not obtunded HENMT Other: Wearing nasal cannula Chest Chest: symmetrical chest wall rise Respiratory Other: Some more air movement this morning. No crackles/rhonchi in the bases. Cardio Rate: regular rate Rhythm: regular rhythm GI Other: Increased central adiposity Extremity Other: Continued evidence of improvement of her lower extremity edema Neuro Motor exam: no tremor noted and no fasciculations Psych Attitude: calm
--- NOTE | 2024-04-18 13:57 | SWNOTE1 ---
SW spoke to pt about having home health come in. SW explained to pt that insurance does cover it. SW also explained it would be beneficial to have a nurse come in to monitor vitals and make sure all is well with oxygen. SW also expressed therapy will be beneficial to keep her moving. Pt voiced she would like to think about it. SW to check back later.
--- NOTE | 2024-04-18 15:54 | SWNOTE1 ---
SW spoke to pt and she would like home health for a short time. SW provided list from medicare.gov to pt, but she has no preference. SW sent referral to [facility] . Referral sent to [facility] . Referral included face sheet, ED note, H&P, provider notes, and PT/OT notes.
--- NOTE | 2024-04-18 15:56 | CM.NOTE ---
Discussed with pt again regarding Important Message From Medicare, pt denies any questions or concerns.
--- NOTE | 2024-04-18 16:12 | SWNOTE1 ---
[address] is able to accept. SW put phone number in discharge information and updated nurse. SW sent CRF to [address] as well.
[2024-04-18 17:40] LABS: Glucometer 126 mg/dL (74-106)
--- NOTE | 2024-04-18 18:53 | ECG_ITS ---
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
[2024-04-18 20:14] LABS: Glucometer 236 mg/dL (74-106)
[2024-04-18] MEDS: INSULIN DETEMIR 300 UNIT/3 ML INSULN.PEN 20 UNIT SUBQ (21:18)
[2024-04-19] VITALS (21 sets, daily range): BP systolic 100–114; BP diastolic 63–65; PULSE 71–97; TEMP 36.4–36.5; O2SAT 90–96
[2024-04-19] MEDS: HEPARIN SODIUM (PORCINE) 5,000 UNIT/ML VIAL 5000 UNIT SUBQ ×3 (05:17→21:39)
[2024-04-19] MEDS: METHYLPREDNISOLONE SOD SUCC PF 40 MG/ML VIAL IVP ×3 (05:25→21:39)
[2024-04-19 06:34] LABS: Eosinophils Percent Auto 0.1 % (0.9-7.0); Hematocrit 55.6 % (36.0-48.0); Hemoglobin 17.2 g/dL (12.0-16.0); Immature Granulocytes Abs Auto 0.04 10^3/uL (0.00-0.03); Immature Granulocytes Pct Auto 0.5 % (0.0-0.5); Lymphocytes Absolute Auto 0.4 10^3/uL (1.2-3.8); Lymphocytes Percent Auto 5.5 % (20.5-60.0); Mean Corpuscular HGB Conc 30.9 g/dL (29.9-35.2); Mean Corpuscular Hemoglobin 26.9 pg (26.7-34.0); Mean Corpuscular Volume 86.9 fL (81.0-99.0); Mean Platelet Volume 9.7 fL (9.5-13.5); Monocytes Absolute Auto 0.3 10^3/uL (0.3-0.8); Monocytes Percent Auto 3.4 % (1.7-12.0); Neutrophils Absolute Auto 6.9 10^3/uL (1.4-6.5); Neutrophils Percent Auto 90.5 % (43.0-75.0); Platelet Count 213 10^3/uL (150-450); Red Cell Distribution Width 18.3 % (11.0-15.0); White Blood Count 7.7 10^3/uL (4.0-11.0)
[2024-04-19 06:53] LABS: Alanine Aminotransferase 57 U/L (14-59); Albumin Globulin Ratio 0.7; Albumin Level 2.6 g/dL (3.4-5.0); Alkaline Phosphatase 56 U/L (46-116); Aspartate Amino Transferase 27 U/L (15-37); BUN Creatinine Ratio 65.2; Bilirubin Total 1.4 mg/dL (0.2-1.0); Calcium 8.7 mg/dL (8.5-10.1); Carbon Dioxide 32.9 mmol/L (21.0-32.0); Chloride 95 mmol/L (98-107); Estimated GFR (African America 56 (>=60 mL/min/1.73m^2); Estimated GFR (Non-African Ame 46 (>=60 mL/min/1.73m^2); Globulin 3.5 g/dL; Glucose 160 mg/dL (74-106); Potassium 3.9 mmol/L (3.5-5.1); Sodium 136 mmol/L (136-145); Total Protein 6.1 g/dL (6.4-8.2)
[2024-04-19] MEDS: FUROSEMIDE 40 MG/4 ML VIAL IVP ×2 (08:40→21:39)
[2024-04-19] MEDS: LEVOFLOXACIN IN DEXTROSE 5 % 750 MG/150 ML PREMIX 100 MG IV (08:40)
[2024-04-19] MEDS: CEFDINIR 300 MG CAPSULE PO ×2 (08:41→21:40)
[2024-04-19] MEDS: CLOPIDOGREL BISULFATE 75 MG TABLET PO (08:41)
[2024-04-19] MEDS: ACETAZOLAMIDE 250 MG TABLET PO ×2 (08:41→21:40)
[2024-04-19] MEDS: GUAIFENESIN 600 MG TAB.ER.12H PO ×2 (08:41→21:40)
[2024-04-19] MEDS: ISOSORBIDE MONONITRATE 60 MG TAB.ER.24H PO (08:41)
[2024-04-19] MEDS: ATORVASTATIN CALCIUM 40 MG TABLET PO (08:41)
[2024-04-19] MEDS: ASPIRIN 81 MG TABLET.DR PO (08:41)
[2024-04-19] MEDS: LOSARTAN POTASSIUM 50 MG TABLET PO (09:50)
--- NOTE | 2024-04-19 10:59 | PT.DAILY ---
Physical Therapy Daily Note PT Daily Note/Assess Start: 04/10/24 10:14 Freq: Status: Active Protocol: Document 04/19/24 10:51 [id number] (Rec: 04/19/24 10:59 [id number]) Physical Therapy Daily Note/Assessment Time In/Time Out Time In 09:20 Time Out 09:40 Pain In Pain Level 0 Pain Out Pain Level 0 Subjective Subjective Patient received seated on BSC and requested assistance. Patient agreeable to participate with PT. Patient on ~4 1/2L nc O2. Therapeutic Exercise Time Therapeutic Exercise Minutes (minutes) 5 Therapeutic Exercise Units 0 Therapeutic Exercise Treatment Therapeutic Exercise Treatment Patient performed seated ther ex to ABELARDO LE for: ankle pumps, heel raises, LAQ's, resisted hip ABD/ADD and marching x 10 reps to strengthening LE for gait and ADL's. Therapeutic Activity Time Therapeutic Activity Minutes (minutes) 15 Therapeutic Activity Units 1 Therapeutic Activity Treatment Chair Transfer Ability Contact Guard Assist Therapeutic Activity Comments Patient is able to complete pericare. Transfer from BSC to standing and ~3 steps to L to bedside chair is CGA +1. Patient performed seated ther ex prior to ambulating. Sit to stand to 4WW is CGA +1, MIN A for IV and O2 line management. Patient ambulated ~20 feet with 4WW x 2 with CGA +1. Patient seated in chair at bedside, CBWR and ABELARDO LE elevated and pillow placed to float heels. Nursing notified of patient placement and acknowledge information. Total Physical Therapy Time Total Therapy Minutes 20 Total Physical Therapy Units 1 Summary Daily Note Summary Patient patient was able to ambulate without a therapeutic rest break, but did verbalize fatigue afterward and slight labored breathing. No LOB during ambulation or turns. Patients pace of ambulation is safe and she verbalizes understanding she needs to take her time for safety. Patient would benefit from HH PT upon DC to address functional deficits to return to PLOF.
[2024-04-19] MEDS: IPRATROPIUM/ALBUTEROL SULFATE 3 ML AMPUL.NEB IH ×4 (11:10→23:04)
[2024-04-19 11:36] LABS: Glucometer 167 mg/dL (74-106)
--- NOTE | 2024-04-19 11:37 | P.PLPN_ITS ---
Progress Note: A&P Assessment and Plan (1) Right lower lobe pneumonia: Assessment and Plan: Continue levofloxacin and cefdinir Qualifiers: Pneumonia type: due to unspecified organism Qualified Code(s): J18.9 - Pneumonia, unspecified organism (2) Acute respiratory failure with hypoxia: Assessment and Plan: Patient is maintaining oxygenation at 4L/min during rest. Discussed with the patient that she may require increased flow with ambulation. She does not want to go home with O2, and I have concern about her compliance. At this point, she may require higher than 4L/min O2 flows with ambulation. Will check ambulatory pulse ox evaluation. I feel that she would be adequate to go home @ 4L/min with activity/ambulation, but if she is able to get some sort of portability at 5- 6L/min, then that could be acceptable for discharge. (3) Acute and chronic respiratory failure with hypercapnia: Assessment and Plan: Slow improvement. (4) COPD exacerbation: Assessment and Plan: Continue bronchodilators. Stop hypertonic saline to the patient's nausea/vomiting. She does not require this at home. I would still have her take her PEP device with her at discharge. (5) Metabolic alkalosis: Assessment and Plan: HCO3-continues to improve. Continue acetazolamide. (6) Acute on chronic diastolic (congestive) heart failure: Assessment and Plan: Patient absolutely needs a patient transport orderly at discharge. (7) Cigarette nicotine dependence with nicotine-induced disorder: Assessment and Plan: STOP SMOKING! (8) Morbid obesity: Assessment and Plan: Weight loss. Plan Patient does not need to follow-up with me at this current time unless she wants to. She needs to follow-up with Dr. Rock after discharge and further pulmonary Evaluation can be done at that time. She requires cardiology monitoring over pulmonary for now. Subjective Subjective Interval history: Patient states she is feeling okay this morning. Spoke with RT. She stated that the patient was vomiting from the hypertonic saline and did not want that anymore. Patient continues to states she is really not expectorating well. She remains on 4L/min. Exam Constitutional Vital Signs, click to edit/add: Last Vital Signs Temp 97.7 F 04/19/24 05:22 Pulse 79 04/19/24 10:00 Resp 18 04/19/24 05:22 BP 114/65 04/19/24 05:22 Pulse Ox 91 L 04/19/24 11:24 O2 Del Method Nasal Cannula 04/19/24 11:24 O2 Flow Rate 4 04/19/24 05:22 Documenting provider has reviewed patient's vital signs: yes General appearance: cooperative Other: Appears tired, but not obtunded HENMT Other: Wearing nasal cannula Chest Chest: symmetrical chest wall rise Respiratory Other: Improved air movement. Cardio Rate: regular rate Rhythm: regular rhythm GI Other: Increased central adiposity Extremity Other: Continued evidence of improvement of her lower extremity edema Neuro Motor exam: no tremor noted and no fasciculations Psych Attitude: calm
--- NOTE | 2024-04-19 13:29 | PC.NURSE ---
Pt at 95% on 4 liters using ear probe. Fingers cool and dusky. Walked in room with oxygen on, and still dropped to 87%. Back to chair and came up to 92% on 4 liters. Oxygen reduced to 3 liters and will spot check in a bit. Pt was slightly short of breath with ambulation, and recovered well after sitting back in chair.
--- NOTE | 2024-04-19 15:44 | PM.PN ---
Progress Note: Subjective Subjective Interval history: Patient slow to improve. Continued SOB with exertion. Chest not as tight and mild cough. Edema improved and minimal redness in legs. Afebrile. Normal appetite and no emesis or diarrhea. No chest pain or palpitations. Exam Constitutional Vital Signs, click to edit/add: Last Vital Signs Temp 97.7 F 04/19/24 13:42 Pulse 87 04/19/24 13:55 Resp 22 H 04/19/24 13:42 BP 100/63 04/19/24 13:42 Pulse Ox 96 04/19/24 15:39 O2 Del Method Nasal Cannula 04/19/24 15:39 O2 Flow Rate 3 04/19/24 15:39 Documenting provider has reviewed patient's vital signs: yes Common normals: no apparent distress, oriented x3 and alert HENMT Common normals: normocephalic Eye Common normals: PERRL and EOMs intact bilaterally Respiratory Auscultation: rhonchi, wheezes and diminished lung sounds Cardio Common normals: regular rate, regular rhythm, no gallops, no murmurs and no rub GI Common normals: Normal to inspection, nondistended, normoactive bowel sounds present and non-tender Extremity Common normals: no pedal edema Progress Note: Objective Labs Labs: Short CBC 04/19/24 Range/Units 06:02 WBC 7.7 (4.0-11.0) 10^3/uL Hgb 17.2 H (12.0-16.0) g/dL Hct 55.6 H (36.0-48.0) % Plt Count 213 (150-450) 10^3/uL BMP 04/19/24 06:02 Sodium 136 Potassium 3.9 Chloride 95 L Carbon Dioxide 32.9 H BUN 75.0 H Creatinine 1.15 H Glucose 160 H Calcium 8.7 Liver Function 04/19/24 Range/Units 06:02 Total Bilirubin 1.4 H (0.2-1.0) mg/dL AST 27 (15-37) U/L ALT 57 (14-59) U/L Alkaline Phosphatase 56 (46-116) U/L Albumin 2.6 L (3.4-5.0) g/dL Progress Note: A&P Assessment and Plan (1) Acute respiratory failure with hypoxia: (2) Right lower lobe pneumonia: Qualifiers: Pneumonia type: due to unspecified organism Qualified Code(s): J18.9 - Pneumonia, unspecified organism (3) COPD exacerbation: (4) Acute on chronic diastolic (congestive) heart failure: (5) Acute and chronic respiratory failure with hypercapnia: (6) Cellulitis: Qualifiers: Laterality: unspecified laterality Site of cellulitis: extremity Site of cellulitis of extremity: lower extremity Qualified Code(s): L03.119 - Cellulitis of unspecified part of limb (7) HTN (hypertension): Qualifiers: Hypertension type: primary hypertension Qualified Code(s): I10 - Essential (primary) hypertension (8) CAD (coronary artery disease): Qualifiers: Coronary Disease-Associated Artery/Lesion type: [place] artery [place] vs. transplanted heart: [place] heart Associated angina: without angina Qualified Code(s): I25.10 - Atherosclerotic heart disease of [place] coronary artery without angina pectoris (9) Cigarette nicotine dependence with nicotine-induced disorder: (10) Morbid obesity: Plan Patient slowly improving. Continue antibiotics, steroids, and breathing treatments. Continue oral lasix. Attempted to walk patient and desaturated on 4 LPM but recovered quickly at rest. Continue to wean O2 as tolerated and increase ambulation. If SpO2 stable potentially ready for discharge in next 1-2 days.
[2024-04-19 16:22] LABS: Glucometer 152 mg/dL (74-106)
[2024-04-19 20:08] LABS: Glucometer 163 mg/dL (74-106)
[2024-04-19] MEDS: INSULIN ASPART 300 UNIT/3 ML PEN SUBQ (21:40)
[2024-04-19] MEDS: INSULIN DETEMIR 300 UNIT/3 ML INSULN.PEN 20 UNIT SUBQ (21:40)
[2024-04-20] VITALS (11 sets, daily range): BP systolic 122–143; BP diastolic 61–75; PULSE 65–90; TEMP 36.4–36.6; O2SAT 91–97
--- NOTE | 2024-04-20 04:06 | RESP.RT ---
Titrated oxygen down to 2L
[2024-04-20] MEDS: HEPARIN SODIUM (PORCINE) 5,000 UNIT/ML VIAL 5000 UNIT SUBQ (05:09)
[2024-04-20] MEDS: METHYLPREDNISOLONE SOD SUCC PF 40 MG/ML VIAL IVP (05:35)
[2024-04-20 06:00] LABS: Hematocrit 56.6 % (36.0-48.0); Hemoglobin 17.4 g/dL (12.0-16.0); Mean Corpuscular HGB Conc 30.7 g/dL (29.9-35.2); Mean Corpuscular Hemoglobin 26.8 pg (26.7-34.0); Mean Corpuscular Volume 87.1 fL (81.0-99.0); Mean Platelet Volume 9.3 fL (9.5-13.5); Platelet Count 186 10^3/uL (150-450); Red Cell Distribution Width 18.4 % (11.0-15.0); White Blood Count 6.8 10^3/uL (4.0-11.0)
[2024-04-20 06:18] LABS: Alanine Aminotransferase 55 U/L (14-59); Albumin Globulin Ratio 0.7; Albumin Level 2.6 g/dL (3.4-5.0); Alkaline Phosphatase 57 U/L (46-116); Anion Gap 9.4; Aspartate Amino Transferase 16 U/L (15-37); BUN Creatinine Ratio 63.8; Bilirubin Total 1.3 mg/dL (0.2-1.0); Calcium 8.3 mg/dL (8.5-10.1); Carbon Dioxide 33.2 mmol/L (21.0-32.0); Chloride 95 mmol/L (98-107); Estimated GFR (African America 50 (>=60 mL/min/1.73m^2); Estimated GFR (Non-African Ame 41 (>=60 mL/min/1.73m^2); Globulin 3.5 g/dL; Glucose 169 mg/dL (74-106); Potassium 3.6 mmol/L (3.5-5.1); Sodium 134 mmol/L (136-145); Total Protein 6.1 g/dL (6.4-8.2)
[2024-04-20 06:19] LABS: Lymphocytes Absolute Manual 0.34 10^3/uL (1.20-3.80); Monocytes Absolute Manual 0.06 10^3/uL (0.30-0.80); Segmented Neut Absolute Manual 6.39 10^3/uL (1.4-6.5)
[2024-04-20 06:20] LABS: Anisocytosis 1+
[2024-04-20] MEDS: IPRATROPIUM/ALBUTEROL SULFATE 3 ML AMPUL.NEB IH ×2 (07:36→11:13)
[2024-04-20] MEDS: INSULIN ASPART 300 UNIT/3 ML PEN SUBQ (08:32)
[2024-04-20] MEDS: FUROSEMIDE 40 MG/4 ML VIAL IVP (08:33)
[2024-04-20] MEDS: ISOSORBIDE MONONITRATE 60 MG TAB.ER.24H PO (08:33)
[2024-04-20] MEDS: LOSARTAN POTASSIUM 50 MG TABLET PO (08:33)
[2024-04-20] MEDS: GUAIFENESIN 600 MG TAB.ER.12H PO (08:33)
[2024-04-20] MEDS: ACETAZOLAMIDE 250 MG TABLET PO (08:33)
[2024-04-20] MEDS: ASPIRIN 81 MG TABLET.DR PO (08:33)
[2024-04-20] MEDS: ATORVASTATIN CALCIUM 40 MG TABLET PO (08:33)
[2024-04-20] MEDS: CEFDINIR 300 MG CAPSULE PO (08:33)
[2024-04-20] MEDS: CLOPIDOGREL BISULFATE 75 MG TABLET PO (08:34)
[2024-04-20 11:30] LABS: Glucometer 147 mg/dL (74-106)
--- NOTE | 2024-04-20 11:52 | P.DS_ITS ---
DS: Providers Provider Date of admission: 04/09/24 19:32 Primary care physician: Isrrael Rock DO Consults: 04/09/24 17:36 Occupational Therapy Eval and Treat Routine Reason for consultation: Ambulatory dysfunction/weakness Physical Therapy Eval and Treat Routine Reason for consultation: Ambulatory dysfunction/weakness 04/15/24 10:38 Consult to Cardiology Routine Reason for consultation: chf Consult to Pulmonology Routine Consulting Provider: Caleb Justin Reason for consultation: COPD/chf DS: Diagnosis Discharge Diagnosis (1) Acute respiratory failure with hypoxia: (2) Right lower lobe pneumonia: Qualifiers: Pneumonia type: due to unspecified organism Qualified Code(s): J18.9 - Pneumonia, unspecified organism (3) COPD exacerbation: (4) Acute on chronic diastolic (congestive) heart failure: (5) Acute and chronic respiratory failure with hypercapnia: (6) Cellulitis: Qualifiers: Laterality: unspecified laterality Site of cellulitis: extremity Site of cellulitis of extremity: lower extremity Qualified Code(s): L03.119 - Cell ulitis of unspecified part of limb (7) HTN (hypertension): Qualifiers: Hypertension type: primary hypertension Qualified Code(s): I10 - Essential (primary) hypertension (8) CAD (coronary artery disease): Qualifiers: Coronary Disease-Associated Artery/Lesion type: [place] artery [place] vs. transplanted heart: [place] heart Associated angina: without angina Qualified Code(s): I25.10 - Atherosclerotic heart disease of [place] coronary artery without angina pectoris (9) Cigarette nicotine dependence with nicotine-induced disorder: (10) Morbid obesity: DS: Summary Hospital Course Hospital Course: Reason for admission: See ER note and H&P for details. 78 y/o female to ER with worsening edema. C/o increased SOB and swelling in legs. SOB with exertion and hard to stay active. Developed redness in legs. To ER and 76% on room air. Chest x-ray with fluid overload and CT showed RLL pneumonia. Admitted for treatment. Hospital course: Started IV lasix. Started vanco and rocephin. US LE negative for DVT. Edema improved but continued SOB and hypoxia. Changed to vancomycin and levaquin. Giving solu-medrol and duoneb for COPD. Pulmonology and cardiology consulted. Echo with EF 65%. Edema improved and changed to PO lasix. Urine culture showed 10-25 K beta hemolytic strep and not representative phlebotomy services of UTI. Changed to oral cefdinir. Able to wean oxygen but continued desaturation with ambulation. Slowly improved. Performed walk test and d esaturated on 4 LPM. Remained stable. Discharged home and arranged for home oxygen with portability at 4 LPM. Complete antibiotics and steroids as directed. Continue oral lasix and losartan. Follow up with pulmonology and cardiology in 1-2 weeks. Time Spent with Patient Time attestation: Total time spent providing and/or coordinating discharge services: Time spent: greater than 30 minutes Exam Constitutional Vital Signs, click to edit/add: Last Vital Signs Temp 97.8 F 04/20/24 08:28 Pulse 75 04/20/24 11:16 Resp 18 04/20/24 08:28 BP 143/75 H 04/20/24 08:28 Pulse Ox 97 04/20/24 11:16 O2 Del Method Nasal Cannula 04/20/24 11:16 O2 Flow Rate 2 04/20/24 11:16 Documenting provider has reviewed patient's vital signs: yes Common normals: no apparent distress, oriented x3 and alert HENMT Common normals: normocephalic Eye Common normals: PERRL and EOMs intact bilaterally Respiratory Common normals: normal respiratory effort and clear to auscultation bilaterally Cardio Common normals: regular rate, regular rhythm, no gallops, no murmurs and no rub GI Common normals: Normal to inspection, nondistended, normoactive bowel sounds present and non-tender Extremity Common normals: no pedal edema DS: Data Data Completed and Pending Labs on day of discharge: Labs from last 24 hours 04/20/24 04/20/24 04/19/24 11:29 05:33 20:06 WBC 6.8 RBC 6.50 H Hgb 17.4 H Hct 56.6 H MCV 87.1 MCH 26.8 MCHC 30.7 RDW 18.4 H Plt Count 186 MPV 9.3 L Seg Neuts % (Manual) 94.0 H Lymphocytes % (Manual) 5.0 L Monocytes % (Manual) 1.0 L Eosinophils % (Manual) 0.0 L Basophils % (Manual) 0.0 L Neutrophils # (Manual) 6.39 Lymphocytes # (Manual) 0.34 L Monocytes # (Manual) 0.06 L Eosinophils # (Manual) 0.00 Basophils # (Manual) 0.00 Anisocytosis 1+ Sodium 134 L Potassium 3.6 Chloride 95 L Carbon Dioxide 33.2 H Anion Gap 9.4 BUN 81.0 H* Creatinine 1.27 H Est GFR ( Amer) 50 L Est GFR (Non-Af Amer) 41 L BUN/Creatinine Ratio 63.8 Glucose 169 H Calcium 8.3 L Total Bilirubin 1.3 H AST 16 ALT 55 Alkaline Phosphatase 57 Total Protein 6.1 L Albumin 2.6 L Globulin 3.5 Albumin/Globulin Ratio 0.7 POC Glucose 147 H 163 H 04/19/24 16:21 WBC RBC Hgb Hct MCV MCH MCHC RDW Plt Count MPV Seg Neuts % (Manual) Lymphocytes % (Manual) Monocytes % (Manual) Eosinophils % (Manual) Basophils % (Manual) Neutrophils # (Manual) Lymphocytes # (Manual) Monocytes # (Manual) Eosinophils # (Manual) Basophils # (Manual) Anisocytosis Sodium Potassium Chloride Carbon Dioxide Anion Gap BUN Creatinine Est GFR ( Amer) Est GFR (Non-Af Amer) BUN/Creatinine Ratio Glucose Calcium Total Bilirubin AST ALT Alkaline Phosphatase Total Protein Albumin Globulin Albumin/Globulin Ratio POC Glucose 152 H Discharge Plan Discharge Disposition: Home, Self-Care Condition: Fair Discharge Medications: New acetazolamide 250 mg Tablet 250 mg PO BID Qty: 14 0RF losartan 50 mg Tablet 50 mg PO QD Qty: 14 0RF cefdinir 300 mg capsule 300 mg PO BID 5 Days Qty: 10 0RF furosemide 40 mg tablet 40 mg PO DAILY Qty: 30 0RF prednisone 10 mg tablets,dose pack 10 mg PO DAILY Qty: 39 0RF Rx Instructions: 6 PO daily x 3 days, then 4 PO daily x 3 days, then 2 PO daily x 3 days, then 1 PO daily x 3 days levofloxacin 750 mg tablet 750 mg PO DAILY 7 Days Qty: 7 0RF Continued atorvastatin 40 mg tablet 40 mg PO DAILY clopidogrel 75 mg tablet 75 mg PO DAILY isosorbide mononitrate 60 mg tablet extended release 24 hr 60 mg PO DAILY metoprolol succinate 50 mg tablet extended release 24 hr 50 mg PO DAILY aspirin [Adult Low Dose Aspirin] 81 mg tablet,delayed release (DR/EC) 81 mg PO DAILY Discontinued hydrochlorothiazide 12.5 mg capsule 12.5 mg PO DAILY Activity: resume usual activities as tolerated Diet: advance to your usual diet Print Language: [place]ese [employer]visor Of 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 Phone number is [phone]. They should contact within 48 hours of discharge Forms: Portal Instructions
--- NOTE | 2024-04-21 09:02 | SWNOTE1 ---
[facility] reached out to see if pt discharged. SW checked charts and pt did discharge 04/20/24. [facility] faxed over dc med rec, dc summary, CRF, and pulmonology note from 04/19/24.
--- NOTE | 2024-04-21 14:43 | CM.DCFOLLOWU ---
Person spoke with:patient How are you feeling? fairly well, still short of breath here and there How is your pain? none Did you understand your discharge instructions? yes Do you have any questions about your discharge instructions? no Were you given any prescriptions at discharge?yes Were you able to get your prescriptions filled?yes Do you understand how to take your medications as ordered? yes Do you have any questions about your follow up appointment and do you plan to keep your follow up appointment? no questions, reviewed follow ups Is there anything else that you would like to discuss?no Questions/Comments/Concerns/Other: Going to talk to the home health nurse coming tomorrow to possibly re-arrange home oxygen or assist with getting her a bedside commode.
== END 2024-04-20 14:07 | disposition home or self-care (01) | DRG 193 ==
LOC: ER 19:17 → MS 19:35
PROVIDERS: Internal Medicine; Nurse Practitioner Family; Registered Nurse; Admitting Provider Internal Medicine; Emergency Provider Emergency Medicine; PCP Internal Medicine; Visit Provider Internal Medicine
DX: J18.9 Pneumonia, unspecified organism (principal); I50.33 Acute on chronic diastolic (congestive) heart failure; J96.01 Acute respiratory failure with hypoxia; J96.22 Acute and chronic respiratory failure with hypercapnia; J44.0 Chronic obstructive pulmonary disease with (acute) lower respiratory infection; J44.1 Chronic obstructive pulmonary disease with (acute) exacerbation; L03.116 Cellulitis of left lower limb; L03.115 Cellulitis of right lower limb; Z68.41 Body mass index [BMI] 40.0-44.9, adult; E87.4 Mixed disorder of acid-base balance; I11.0 Hypertensive heart disease with heart failure; I25.10 Atherosclerotic heart disease of native coronary artery without angina pectoris; E66.01 Morbid (severe) obesity due to excess calories; E78.5 Hyperlipidemia, unspecified; F17.210 Nicotine dependence, cigarettes, uncomplicated; R00.1 Bradycardia, unspecified; Z79.899 Other long term (current) drug therapy; Z79.82 Long term (current) use of aspirin; Z79.02 Long term (current) use of antithrombotics/antiplatelets; Z95.5 Presence of coronary angioplasty implant and graft; Z88.0 Allergy status to penicillin; Z91.018 Allergy to other foods
CPT/HCPCS: 36415; 36600; 71045; 71250; 71275; 80053; 80202; 81001; 82375; 82800; 82805; 82948; 83036; 83050; 83605; 83735; 83880; 84443; 84484; 85007; 85025; 85027; 85610; 87040; 87070; 87086; 87150; 87811; 93005; 93306; 93970; 94640; 94667; 94668; 94761; 96365; 96375; 97110; 97161; 97165; 97530; 97535; 99285; 99406; J0696; J1100; J1644; J1940; J2919; J3370; Q9967

== ENCOUNTER 2024-05-08 18:37 | Outpatient (REF) | payer MEDICARE, SELFPAY ==
--- OUTSIDE RECORDS SUMMARY | 2024-05-08 18:42 | XMS_ITS | CCD ---
Author Organization [facility] CliniSysd Care Team Providers Care Gui Developer Name Role Phone Unknown, Referring Provider Unavailable Unav ailable Unavailable Unavailable Isrrael Howard Unavailable Lee DOIsrrael E Primary Care Provider Asaf Patricia Unavailable Isrrael Howard DO Primary Care Provider Asaf Patricia Unavailable Asaf Patricia Unavailable CMR G LV Referring Unavailable BALL, ISRRAEL E Primary Care Unavailable ENGELER, G LV Attending Unavailable ENGELER, G LV Referring Unavailable BALL, ISRRAEL E Primary Care Unavailable ENGELER, G LV Referring Unavailable BALL, ISRRAEL E Primary Care Unavailable ENGELER, G LV Referring Unavailable BALL, ISRRAEL E Primary Care Unavailable ENGELER, G LV Referring Unavailable BALL, ISRRAEL E Primary Care Unavailable ASHLY WATERS Attending Unavailable ENGELER, G LV Referring Unavailable BALL, ISRRAEL E Primary Care Unavailable ENGELER, G LV Referring Unavailable BALL, ISRRAEL E Primary Care Unavailable BALL, ISRRAEL E Referring Unavailable BALL, ISRRAEL E Primary Care Unavailable ENGELER, G LV Referring Unavailable BALL, ISRRAEL E Primary Care Unavailable ENGELER, G LV Attending Unavailable ENGELER, G LV Referring Unavailable BALL, ISRRAEL E Primary Care Unavailable ENGELER, G LV Referring Unavailable BALL, ISRRAEL E Primary Care Unavailable ENGELER, G LV Attending Unavailable LEE, ISRRAEL E Primary Care Unavailable ENGELER, G LV Referring Unavailable BALL, ISRRAEL E Primary Care Unavailable ASHLY WATERS Attending Unavailable ENGELER, G LV Referring Unavailable BALL, ISRRAEL E Primary Care Unavailable ENGELER, G LV Referring Unavailable BALL, ISRRAEL E Primary Care Unavailable ENGELER, G LV Referring Unavailable BALL, ISRRAEL E Primary Care Unavailable ASHLY WATERS Attending Unavailable BALL, ISRRAEL E Referring Unavailable BALL, ISRRAEL E Primary Care Unavailable ENGELER, G LV Attending Unavailable BALL, ISRRAEL E Referring Unavailable BALL, ISRRAEL E Primary Care Unavailable ENGELER, G LV Attending Unavailable BALL, ISRRAEL E Referring Unavailable BALL, ISRRAEL E Primary Care Unavailable ENGELER, G LV Referring Unavailable BALL, ISRRAEL E Primary Care Unavailable ENGELER, G LV Referring Unavailable BALL, ISRRAEL E Primary Care Unavailable ASHLY WATERS Attending Unavailable ENGELER, G LV Referring Unavailable BALL, ISRRAEL E Primary Care Unavailable ENGELER, G LV Referring Unavailable BALL, ISRRAEL E Primary Care Unavailable ENGELER, G LV Referring Unavailable BALL, ISRRAEL E Primary Care Unavailable ENGELER, G LV Referring Unavailable BALL, ISRRAEL E Primary Care Unavailable ENGELER, G LV Referring Unavailable BALL, ISRRAEL E Primary Care Unavailable ENGELER, G LV Referring Unavailable BALL, ISRRAEL E Primary Care Unavailable ENGELER, G LV Attending Unavailable BALL, ISRRAEL E Primary Care Unavailable ENGELER, G LV Referring Unavailable BALL, ISRRAEL E Primary Care Unavailable ENGELER, G LV Referring Unavailable BALL, ISRRAEL E Primary Care Unavailable ENGELER, G LV Referring Unavailable BALL, ISRRAEL E Primary Care Unavailable ASHLY WATERS Attending Unavailable LAVON MCKINNON Referring Unavailable BALL, ISRRAEL E Primary Care Unavailable ENGELER, G LV Referring Unavailable BALL, ISRRAEL E Primary Care Unavailable ENGELER, G LV Referring Unavailable BALL, ISRRAEL E Primary Care Unavailable ENGELER, G LV Attending Unavailable BALL, ISRRAEL E Primary Care Unavailable ENGELER, G LV Attending Unavailable ENGELER G LV Referring Unavailable BALL, ISRRAEL E Primary Care Unavailable ENGELER, G LV Referring Unavailable BALL, ISRRAEL E Primary Care Unavailable ENGELER, G LV Referring Unavailable BALL, ISRRAEL E Primary Care Unavailable ENGELER, G LV Attending Unavailable BALL, ISRRAEL E Primary Care Unavailable ENGELER, G LV Referring Unavailable BALL, ISRRAEL E Primary Care Unavailable LAVON MCKINNON Attending Unavailable BALL, ISRRAEL E Primary Care Unavailable ENGELER, G LV Referring Unavailable BALL, ISRRAEL E Primary Care Unavailable ENGELER, G LV Referring Unavailable BALL, ISRRAEL E Primary Care Unavailable ENGELER, G LV Referring Unavailable BALL, ISRRAEL E Primary Care Unavailable KAETZASHLY HARDIN Attending Unavailable ENGELER, G LV Referring Unavailable BALL, ISRRAEL E Primary Care Unavailable KAETZASHLY HARDIN Attending Unavailable BALL, ISRRAEL E Primary Care Unavailable ENGELER, G LV Attending Unavailable ENGELER, G LV Referring Unavailable BALL, ISRRAEL E Primary Care Unavailable ENGELER, G LV Referring Unavailable BALL, ISRRAEL E Primary Care Unavailable ENGELER, G LV Attending Unavailable TIMMIS, ASAF GONZALEZ Referring Unavaila ble BALL, ISRRAEL E Primary Care Unavailable Ball, Isrrael Unavailable HARSHAD, DR RON Admitting Unavailable TIMMIS, DR RON Attending Unavailable BALL, DR PARISI Primary Care Unavailable TIMMIS, DR RON Consulting Unavailable NEFCY, PETER Consulting Unavailable TIMMIS, DR RON Admitting Unavailable TIMMIS, DR RON Attending Unavailable BALL, DR PARISI Primary Care Unavailable TIMMIS, DR RON Consulting Unavailable DORKOSKJESSICA MARQUEZ Consulting Unavailable MCCORNACKBRIANNA Consulting Unavailable BALL, DR PARISI Admitting Unavailable BALL, DR PARISI Attending Unavailable BALL, DR PARISI Primary Care Unavailable BALL, DR PARISI Consulting Unavailable ZIEBER, DR BRIANNA Stone Consulting Unavailable Ball DO, Isrrael E Primary Care Provider Harshad MELGOZA, Asaf Gonzalez Unavailable Allergies Allergy Classification Reported Allergen(s) Allergy Type Date of Onset Reaction(s) Facility (11 sources) Penicillins; Translations: [Penicillins] Allergy to drug (finding) 02-01-20 [facility] Repository (20 sources) Penicillins Propensity to adverse reactions to drug 02-01-[address] [facility] (4 sources) Holden; Translations: [STRAWBERRIES] Food Allergy 04-18-20 22 Hives, Swelling [facility] (4 sources) Penicillin Drug Allergy Unknown [facility] Other (1 source) Penicillins Drug allergy (disorder) 05-21-20 16 [facility] Repository (1 source) strawberry allergenic extract Drug Allergy [facility] Repository (1 source) patient allergy list reviewed by nurse or physicia Propensity to adverse reactions 06-18-20 13 Comment:Done [facility] Other (1 source) Substance with penicillin structure and antibacterial mechanism of action (substance) Drug allergy Unknown [facility] Other Medications Current Medications Medication Drug Class(es) Dates Sig (Normalized) Sig (Original) aspirin 81 mg delayed release oral tablet (20 sources) Platelet Aggregation Inhibitor, Nonsteroidal Anti-inflammatory Drug aspirin, enteric coated (ASPIRIN, ENTERIC COATED) 81 mg EC tablet Take by mouth q 24 HR. Active take 1 tablet by adrian th every twenty-four hours Aspirin 81 MG 1 tablet Orally Once a day Active Comment on above: Take by mouth q 24 H R. atorvastatin 40 mg oral tablet (20 sources) HMG-CoA Reductase Inhibitor Start: 05-20-2021 atorvastatin (LIPITOR) 40 mg tablet Take by mouth. 05/20/2021 Active Comment on above: Take by mouth. calcium carbonate 1500 mg oral tablet (20 sources) calcium carbonat e (CALTRATE) 600 mg calcium (1,500 mg) tab Take by mouth q 12 HR. Active Calcium 600 MG T ABS Take 1 tablet twice daily Quantity: 0 Refills: 0 Ordered: 06-Apr-2021 DO Active Comment on above: Take by mouth q 12 H R. cholecalciferol 0.025 mg ora l tablet (20 sources) Vitamin D cholecalciferol (VITAMIN D3) 1,000 unit tab tablet Take by mouth q 12 HR. Active Vitamin D 1000 U NIT TABS Take 1 tablet twice daily Quantity: 0 Refills: 0 Ordered: 06-Apr-2021 DO Active Comment on above: Take by mouth q 12 H R. clopidogrel 75 mg oral tablet (20 sources) P2Y12 Platelet Inhibitor Start: 05-05-2021 take 1 tablet by mouth every twenty-four hours Clopidogrel Bisulfate 75 MG 1 tablet Orally Once a day for 90 days Sep, Active Start: 05-05-2021 Clopidogrel Bi sulfate 75 MG Oral Tablet TAKE 4 PILLS X1 DOSE THE ONE PILL DAILY THERAFTER Quantity: 90 Refills: 3 Ordered: 05-May-2021 Naomie Cross Start : 05-May-2021 Active Comment on above: Take by mouth. hydroCHLOROthiazide 12.5 mg oral capsule (20 sources) Thiazide Diuretic Start: 2020 hydroCHLOROthiazide (HYDRODIURIL, ESIDRIX) 12.5 mg capsule Take by mouth. 11/18/2020 Active Comment on above: Take by mouth. 24 hr isosorbide mononitrate 60 mg extended release oral tablet (20 sources) Nitrate Vasodilator Start: 2020 take 1 tablet by mouth every twenty-four hours isosorbide mononitrate ER (IMDUR) 60 mg 24 hr tablet Take by mouth. 08/16/2020 Active Start: 08-16-2020 isosorbide mon onitrate ER (IMDUR) 60 mg 24 hr tablet Take by mouth. 0 08/16/2020 Active Imdur Active Comment on above: Take by mouth. 24 hr metoprolol succinate 25 mg extended release oral tablet (20 sources) beta-Adrenergic Kristina take 1 tablet by mouth every twenty-four hours metoprolol succinate ER (TOPROL XL) 25 mg 24 hr tablet Take by mouth q 24 HR. Active take 1 tablet by adrian th every twenty-four hours Metoprolol Succinate ER 50 MG 1 tablet Orally Once a day for 90 days Active take 1 tablet by mouth once gris y Metoprolol Succinate ER 25 MG Oral Tablet Extended Release 24 Hour TAKE 1 TABLET ONCE DAILY. Quantity: 90 Refills: 3 Ordered: 22-Jan-2022 Aneudy Torres MD Active Comment on above: Take by mouth q 24 H R. nitroglycerin 0.4 mg sublingual tablet (20 sources) Nitrate Vasodilator Start: 05-20-2021 nitroglycerin sublingual (NITROQUICK) 0.4 mg SL tablet Dissolve under the tongue. 05/20/2021 Active Start: 05-20-2021 Nitroglycerin 0.4 MG Sublingual Tablet Sublingual Quantity: 25 Refills: 0 Ordered: 22-May-2021 DO Start : 20-May-2021 Active Comment on above: Dissolve under the t ongue. Completed/Discontinued Medications Medication Drug Class(es) Dates Sig (Normalized) Sig (Original) lovastatin 10 mg oral tablet (4 sources) HMG-CoA Reductase Inhibitor Start: 03-19-2020 take 1 tablet by mouth once daily in the evening Lovastatin 10 MG Oral Tablet TAKE 1 TABLET BY MOUTH ONCE DAILY IN THE EVENING Quantity: 87 Refills: 0 Ordered: 28-Jan-2021 DO Start : 19-Mar-2020 Active Problems Active Problems Problem Classification Problem Date Documented Date Episodic/Chronic Acute bronchitis (2 sources) Acute bronchitis; Translations: [Acute bronchitis due to other specified organisms] Onset: 04-21-2014 Episodic Acute myocardial infarction (5 sources) Myocardial infarction; Translations: [Acute myocardial infarction of unspecified site, episode of care unspecified] Chronic Cancer of head and neck (19 sources) Malignant tumor of glottis; 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] Onset: 01-23-2022 Chronic Chronic obstructive pulmonary disease and bronchiectasis (7 sources) Mucopurulent chronic bronchitis; Translations: [Mucopurulent chronic bronchitis] Onset: 01-23-2022 Chronic Coronary atherosclerosis and other heart disease (20 sources) Coronary arteriosclerosis; Translations: [Coronary atherosclerosis of unspecified type of vessel, [place] or graft] Onset: 01-23-2022 Chronic Diabetes mellitus without complication (1 source) Type 2 diabetes mellitus without complication; Translations: [Diabetes mellitus without mention of complication, type II or unspecified type, not stated as uncontrolled] Chronic Diabetes mellitus without complication (6 sources) Impaired fasting glycemia; Translations: [Impaired fasting glucose] Episodic Disorders of lipid metabolism (18 sources) Hyperlipidemia; Translations: [Other and unspecified hyperlipidemia] Onset: 07-16-1959 Chronic Essential hypertension (17 sources) Hypertensive disorder; Translations: [Unspecified essential hypertension] Chronic Immunizations and screening for infectious disease (1 source) Vaccination given; Translations: [Encounter for immunization] Episodic Nutritional deficiencies (10 sources) Undernutrition; Translations: [Mild protein-calorie malnutrition] Onset: 03-23-2022 Chronic Osteoporosis (5 sources) Primary osteoporosis; Translations: [Age-related osteoporosis without current pathological fracture] Onset: 10-08-2022 Chronic Other bone disease and musculoskeletal deformities (4 sources) Osteopenia; Translations: [Other specified disorders of bone density and structure, other site] Episodic Other bone disease and musculoskeletal deformities (1 source) Disorder of bone; Translations: [Other specified disorders of bone density and structure, other site] Episodic Other diseases of veins and lymphatics (6 sources) Peripheral venous insufficiency; Translations: [Venous insufficiency (chronic) (peripheral)] Episodic Other lower respiratory disease (1 source) Productive cough-yellow sputum; Translations: [Cough productive of yellow sputum] Episodic Other lower respiratory disease (4 sources) Nodule of lung; Translations: [Solitary pulmonary nodule] Episodic Other lower respiratory disease (1 source) Solitary pulmonary nodule Episodic Other lower respiratory disease (1 source) Solitary nodule of lung; Translations: [Solitary pulmonary nodule] Episodic Other nutritional; endocrine; and metabolic disorders (7 sources) Body mass index 40+ - severely obese; Translations: [Morbid obesity] Onset: 12-29-2015 Chronic Other nutritional; endocrine; and metabolic disorders (1 source) Obesity; Translations: [Obesity, unspecified] Chronic Other screening for suspected conditions (not mental disorders or infectious disease) (14 sources) Cardiovascular stress test abnormal; Translations: [Other nonspecific abnormal results of function study of cardiovascular system] Onset: 07-24-2014 Resolved: 08-20-2021 Episodic Other upper respiratory disease (1 source) Rhinitis; Translations: [Chronic rhinitis] Chronic Other upper respiratory disease (4 sources) Difficulty speaking; Translations: [Dysphonia] Episodic Other upper respiratory disease (1 source) Dysphonia; Translations: [Dysphonia] Episodic Residual codes; unclassified (6 sources) Asymptomatic menopausal state; Translations: [Menopause] Onset: 10-08-2022 Episodic Residual codes; unclassified (1 source) Family history of malignant neoplasm of trachea, bronchus and lung; Translations: [FAM HX MALIG NEOPLSM TRACH BRON LNG] Onset: 10-08-2022 Episodic Residual codes; unclassified (1 source) Family history of malignant neoplasm of breast; Translations: [FAMILY HX MALIG NEOPLASM OF BREAST] Onset: 10-08-2022 Episodic Residual codes; unclassified (1 source) Postmenopausal state; Translations: [Asymptomatic menopausal state] Episodic Residual codes; unclassified (2 sources) Tobacco user; Translations: [Tobacco use] Onset: 07-05-2016 Episodic Spondylosis; intervertebral disc disorders; other back problems (5 sources) Lumbar spondylosis; Translations: [Spondylosis without myelopathy or radiculopathy, lumbar region] Chronic Substance-related disorders (11 sources) Tobacco user; Translations: [Nicotine dependence, cigarettes, in remission] Onset: 12-29-2015 Chronic Past or Other Problems Problem Classification Problem Date Documented Da te Episodic/Chronic Bacterial infection; unspecified site (1 source) Bacterial infectious disease; Translations: [Bacterial infection, unspecified, in conditions classified elsewhere and of unspecified site] Onset: 05-21-2018 Episodic Malaise and fatigue (1 source) Malaise and fatigue; Translations: [Other malaise and fatigue] Onset: 07-05-2016 Episodic Nonspecific chest pain (1 source) Chest pain; Translations: [Chest pain, unspecified] Resolved: 02-28-2021 Episodic Other acquired deformities (1 source) Acquired chest and rib deformity; Translations: [Acquired deformity of chest and rib] Onset: 04-18-2017 Episodic Other aftercare (1 source) long-term (current) use of aspirin; Translations: [LITIGATION ATTORNEY CURRENT USE OF ASPIRIN] Onset: 01-23-2022 Episodic Other aftercare (1 source) Other terminal worker (current) drug therapy; Translations: [OT RESIDENTIAL CURRENT DRUG THERAPY] Onset: 01-23-2022 Episodic Other bone disease and musculoskeletal deformities (1 source) Other specified disorders of bone density and structure, unspecified site; Translations: [OT D/O BONE DEN STRUCT UNS SITE] Onset: 01-23-2022 Episodic Other connective tissue disease (1 source) Ganglion and cyst of synovium, tendon and bursa; Translations: [Other ganglion and cyst of synovium, tendon, and bursa] Onset: 09-28-2014 Episodic Other diseases of veins and lymphatics (2 sources) Venous insufficiency (chronic) (peripheral); Translations: [VENOUS INSUFF CHRONIC PERIPHERAL] Onset: 01-23-2022 Episodic Other injuries and conditions due to external causes (1 source) History of fall; Translations: [History of falling] Resolved: 08-20-2021 Episodic Other lower respiratory disease (1 source) Disorder of lung; Translations: [Other diseases of lung, not elsewhere classified] Onset: 04-13-2017 Episodic Other lower respiratory disease (1 source) H/O: pneumonia; Translations: [Personal history, Pneumonia (recurrent)] Onset: 04-13-2017 Episodic Other nutritional; endocrine; and metabolic disorders (5 sources) Morbid obesity; Translations: [Morbid obesity] Resolved: 08-20-2021 Chronic Other upper respiratory disease (4 sources) Other diseases of vocal cords; Translations: [OTHER DISEASES OF VOCAL CORDS] Onset: 01-17-2022 Episodic Other upper respiratory disease (1 source) Dysphonia; Translations: [DYSPHONIA] Onset: 01-23-2022 Episodic Other upper respiratory disease (1 source) Disorder of vocal cord; Translations: [Other diseases of vocal cords] Onset: 02-02-2021 Resolved: 02-02-2022 Episodic Other upper respiratory infections (1 source) Acute maxillary sinusitis; Translations: [Acute maxillary sinusitis, unspecified] Onset: 05-21-2018 Episodic Residual codes; unclassified (1 source) Acquired absence of other specified parts of digestive tract; Translations: [ACQ ABSENCE OTH PART DIGESTV TRACT] Onset: 01-23-2022 Episodic Screening and history of mental health and substance abuse codes (7 sources) Ex-smoker; Translations: [Personal history of tobacco use] Onset: 07-05-2016 Episodic Comment on above: quit 05/22/21; Sprains and strains (1 source) Strain of rotator cuff capsule; Translations: [Rotator cuff (capsule) sprain and strain] Onset: 09-28-2014 Episodic Superficial injury; contusion (2 sources) Contusion of lower back; Translations: [Contusion of lower back and pelvis, initial encounter] Onset: 08-16-2016 Episodic Results Test Name Value Interpretation Reference Range Facility CT LUNG CANCER SCREENINGon 0 10-05-2022 CT LUNG CANCER SCREENING EXAMINATION: CT LUNG CANCER SCREENING HISTORY: Nicotine dependence in remission COMPARISON: CT chest 04/12/2022 TECHNIQUE: Axial, Coronal, and Sagittal images were created without the administration of IV contrast material. Dose reduction techniques were achieved by using automated exposure control and/or adjustment of mA and/or kV according to patient size and/or use of iterative reconstruction technique. FINDINGS: LUNGS: Mild emphysematous changes bilaterally. 1.3 cm partially calcified granuloma within the lingula. PLEURA: No mass, effusion, or pneumothorax. VASCULATURE: No abnormality. SUZI: No mass or pathologic adenopathy. MEDIASTINUM: No mass or pathologic adenopathy. CARDIAC: Marked atherosclerotic coronary artery disease. No pericardial effusion. AORTA: No aneurysm or dissection. CHEST WALL: Dilated subcutaneous vessels within the anterior chest wall suggesting collateral circulation; nonspecific. No mass or axillary adenopathy BONES: No bone lesion or fracture. LIMITED ABDOMEN: No suspicious findings. Limited images of the upper abdomen. OTHER: Negative. IMPRESSION: 1. Lung-RADS 2- Benign Appearance or Behavior. Nodules with a very low likelihood of becoming a clinically active cancer due to size or lack of growth. Follow-up CT Chest in 1 year. Electronically authenticated by: BRIANNA LY Date: 2022-10-05 12:47 Normal [facility] MG MAMM SCREEN 3D ABELARDO CADon 10-05-2022 MG MAMM SCREEN 3D ABELARDO CAD Patient: KATHLEEN ROSEN Exam Date: 10/05/2022 : 1945 Gender:F Ordering : DR ISRRAEL HOWARD D.O. Admission #: [id number] Family : Order #: [id number] CLICK HERE TO VIEW EXAM RADIOLOGY REPORT PROCEDURE: MAMMOGRAM SCREENING 3D BILATERAL CAD COMPARISON: MG MAMM SCREEN 3D ABELARDO CAD, 09/12/2021. MG MAMM SCREEN ABELARDO W CAD, 09/07/2020. MG MAMM SCREEN ABELARDO W CAD, 08/27/2019. MG MAMM ABELARDO SCRN W CAD DIG, 07/22/2014. INDICATIONS: Screening mammography Calculator Name NCI Breast Cancer Risk Assessment Tool 5 Year Breast Cancer Risk 4.50% Lifetime Breast Cancer Risk 10.10% Personal Breast Cancer No Personal Ovarian Cancer No Treatments None Family Cancers Brother with lung cancer at age 70; Sister with breast cancer at age 64. LOCATION: [facility] BREAST COMPOSITION: Scattered areas fibroglandular density. FINDINGS: DIAGNOSTIC CATEGORY 2--BENIGN FINDING: RIGHT BREAST: No significant suspicious finding. Scattered benign-appearing calcifications are present. Dilated vessels within the upper breast. No significant change has occurred. LEFT BREAST: No significant suspicious finding. Scattered benign-appearing calcifications are present. Chronic dilated vessels within the upper breast. No significant change has occurred. RECOMMENDATIONS: ROUTINE MAMMOGRAM AND CLINICAL EVALUATION IN 12 MONTHS. PLEASE NOTE: A NORMAL MAMMOGRAM DOES NOT EXCLUDE THE POSSIBILITY OF BREAST CANCER. A CLINICALLY SUSPICIOUS PALPABLE LUMP SHOULD BE BIOPSIED. Dictated by: Brianna Ly M.D. on 10/05/2022 at 11:58 Approved by: Brianna Ly M.D. on 10/05/2022 at 12:03 Normal [facility] XR DEXA BONE DENSITYon 10-05 XR DEXA BONE DENSITY EXAMINATION: XR DEXA BONE DENSITY, 10/05/2022 8:00 AM EDT HISTORY: Menopause present COMPARISON: DEXA bone densitometry 09/07/2020 TECHNIQUE: Dual-energy X-ray absorptiometry (DEXA) bone density study performed for the axial skeleton. FINDINGS: SPINE ANALYSIS: Average bone mineral density is 1.353 g/cm2. T-score (standard deviation relative to young adult mean): 1.4 . -1.7% change since prior study. HIP ANALYSIS: Lowest bone mineral density is within the left femoral neck, 0.597 g/cm2. T-score (standard deviation relative to young adult mean): -3.2 . -8.4% change since prior study. IMPRESSION: [employer] Classification: Osteoporosis - High Fracture Risk Electronically authenticated by: BRIANNA LY Date: 2022-10-05 08:[address] 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 RADIATION SUMMARY: DATES OF TREATMENT: 02/27/2022- 04/06/2022 AREA TREATED: Larynx DELIVERED DOSE: Larynx: 6,300 cGy in 28 fractions, 2 Arcs, IMRT, 6MV with daily CBCT TOTAL: 6,300 cGy in 28 fractions ELAPSED TIME: 38 days. INTERVAL HISTORY: Patient doing well. Voice is improved. Mild dysphagia also improved. No other new issues. ALLERGIES Allergen Reactions Penicillins Unknown Strawberries Hives, Swelling MEDICATIONS: aspirin, enteric coated (ASPIRIN, ENTERIC COATED) 81 mg EC tablet Take by mouth q 24 HR. atorvastatin (LIPITOR) 40 mg tablet Take by mouth. calcium carbonate (CALTRATE) 600 mg calcium (1,500 mg) tab Take by mouth q 12 HR. cholecalciferol (VITAMIN D3) 1,000 unit tab tablet Take by mouth q 12 HR. clopidogrel (PLAVIX) 75 mg tablet Take by mouth. hydroCHLOROthiazide (HYDRODIURIL, ESIDRIX) 12.5 mg capsule Take by mouth. isosorbide mononitrate ER (IMDUR) 60 mg 24 hr tablet Take by mouth. metoprolol succinate ER (TOPROL XL) 25 mg 24 hr tablet Take by mouth q 24 HR. nitroglycerin sublingual (NITROQUICK) 0.4 mg SL tablet Dissolve under the tongue. REVIEW OF SYSTEMS: GENERAL: Negative for weight loss, fevers, chills, or night sweats. HEENT: Negative for sudden vision or hearing changes. NECK: Negative for masses in the neck. RESPIRATORY: Negative for cough or shortness of breath. NEURO: Negative for dizziness, headache, weakness or numbness. HEMATOLOGIC: Negative for bleeding or easy bruising. SKIN: Negative for rashes or other skin changes. PHYSICAL EXAM: VS: BP 141/78 Pulse 60 Temp 36.6 ?C (97.8 ?F) Resp 16 Wt 111.5 kg (245 lb 12.8 oz) SpO2 92% BMI 48.00 kg/m? KPS: 100 General Appearance: Alert and oriented. No acute distress. HEENT: NCAT. Sclera anicteric. PERRL. EOMI. Oral cavity and oropharynx: lips and gums normal, oral and pharyngeal mucosa moist, palate elevates normally, tongue mobile and without palpable lesions, tonsils without masses, indirect exam unable to see cords due to gag reflex Neck: Normal ROM. No palpable cervical or supraclavicular adenopathy. Skin: Mild postradiation changes anterior neck over the larynx no open areas Lymphatics: No palpable lymphadenopathy. 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 Status post definitive radiation completed 04/04/2022. Patient overall doing well with resolving postradiation issues. She has had follow-up with Dr. Patricia without new findings reported. She will have continued surveillance with him. I will plan to see patient back in 3 months. Signed by: Lauren Mosqueda MD cc: Isrrael Howard (Agustin) [address] [place] [address] Dr. Patricia Referring Provider: ISRRAEL HOWARD [[id number]] Allergies As of Date: 05/09/2022 Noted Allergy Reaction PENICILLINS 01/31/2022 16 - Unknown STRAWBERRIES 04/18/2022 4 - Hives 7 - Swelling Date Reviewed: 05/09/2022 Reviewed by: Yovanny Grissom LPN - Fully Assessed Reason for Visit: Head and Neck Cancer [551] 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] Order(s):T4/THYROXINE BLOOD [SQT4] Order #: [id number] FUTURE TSH BLD [SQTSH] Order #: [id number] FUTURE Prescriptions as of 05/15/2022 - aspirin, enteric coated (ASPIRIN, ENTERIC COATED) 81 mg EC tablet Take by mouth q 24 HR. - atorvastatin (LIPITOR) 40 mg tablet Take by mouth. - calcium carbonate (CALTRATE) 600 mg calcium (1,500 mg) tab Take by mouth q 12 HR. - cholecalciferol (VITAMIN D3) 1,000 unit tab tablet Take by mouth q 12 HR. - clopidogrel (PLAVIX) 75 mg tablet Take by mouth. - hydroCHLOROthiazide (HYDRODIURIL, ESIDRIX) 12.5 mg capsule Take by mouth. - isosorbide mononitrate ER (IMDUR) 60 mg 24 hr tablet Take by mouth. - metoprolol succinate ER (TOPROL XL) 25 mg 24 hr tablet Take by mouth q 24 HR. - nitroglycerin sublingual (NITROQUICK) 0.4 mg SL tablet Dissolve under the tongue. Problem List As Of Date 05/09/2022 Noted Resolved Malnutrition of mild degree (HCC) [E44.1] 03/23/2022 Encounter Status:Closed by Lauren MOSQUEDA on 05/15/22 [facility] aMi 04-18-2022 CNOV Office Visit (RADTSA ) ----- KATHLEEN ROSEN ([id number]) 1945 F Date Time Provider Department 04/18/22 2:30 PM Lauren MOSQUEDA During your visit today, we recorded the following information about you: Temperature Pulse Respiration Blood pressure 96.9 degrees 55/minute 16/minute 138/67 Weight 109.8 kg G Lv Mosqueda MD 04/24/2022 8:20 AM Signed Radiation Oncology - Follow Up Note PATIENT NAME: Kathleen Rosen PATIENT DIAGNOSIS: Glottic cancer, right true vocal cord, 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 RADIATION SUMMARY: DATES OF TREATMENT: 02/27/2022- 04/06/2022 AREA TREATED: Larynx DELIVERED DOSE: Larynx: 6,300 cGy in 28 fractions, 2 Arcs, IMRT, 6MV with daily CBCT TOTAL: 6,300 cGy in 28 fractions ELAPSED TIME: 38 days. INTERVAL HISTORY: Doing fairly well. Swallowing improved. Still with hoarseness/voice change. Denies dyspnea. Denies neck pain. ALLERGIES Allergen Reactions Penicillins Unknown Strawberries Hives, Swelling MEDICATIONS: aspirin, enteric coated (ASPIRIN, ENTERIC COATED) 81 mg EC tablet Take by mouth q 24 HR. atorvastatin (LIPITOR) 40 mg tablet Take by mouth. calcium carbonate (CALTRATE) 600 mg calcium (1,500 mg) tab Take by mouth q 12 HR. cholecalciferol (VITAMIN D3) 1,000 unit tab tablet Take by mouth q 12 HR. clopidogrel (PLAVIX) 75 mg tablet Take by mouth. hydroCHLOROthiazide (HYDRODIURIL, ESIDRIX) 12.5 mg capsule Take by mouth. isosorbide mononitrate ER (IMDUR) 60 mg 24 hr tablet Take by mouth. metoprolol succinate ER (TOPROL XL) 25 mg 24 hr tablet Take by mouth q 24 HR. nitroglycerin sublingual (NITROQUICK) 0.4 mg SL tablet Dissolve under the tongue. REVIEW OF SYSTEMS: GENERAL: Negative for weight loss, fevers, chills, or night sweats. HEENT: Negative for sudden vision or hearing changes. NECK: Negative for masses in the neck. RESPIRATORY: Negative for cough or shortness of breath. MUSCULOSKELETAL: Negative for limitations in movement, pain, or swelling. NEURO: Negative for dizziness, headache, weakness or numbness. HEMATOLOGIC: Negative for bleeding or easy bruising. SKIN: Negative for rashes or other skin changes. PHYSICAL EXAM: VS: BP 138/67 Pulse (!) 55 Temp 36.1 ?C (96.9 ?F) Resp 16 Wt 109.8 kg (242 lb) SpO2 (!) 57% BMI 47.26 kg/m? KPS: 100 General Appearance: Alert and oriented. No acute distress. HEENT: NCAT. Sclera anicteric. PERRL. EOMI. Oral cavity and oropharynx: lips and gums normal, oral and pharyngeal mucosa moist, palate elevates normally, tongue mobile and without palpable lesions, tonsils without masses. Indirect exam did not get good view of cords Neck: Normal ROM. No palpable cervical or supraclavicular adenopathy. Skin: Mild to moderate hyperemia anterior lower neck Lymphatics: No palpable lymphadenopathy. 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 Clinically doing fairly well with improving dysphagia. Still with hoarseness. She will require continued close follow-up with Dr. Torrez which has been arranged. I would like to see patient back in 1 month for follow-up. Signed by: Lauren Mosqueda MD cc: Isrrael Howard (Agustin) [address] [place] [address] Dr. Patricia Referring Provider: ISRRAEL HOWARD [[id number]] Allergies As of Date: 04/18/2022 Noted Allergy Reaction PENICILLINS 01/31/2022 16 - Unknown STRAWBERRIES 04/18/2022 4 - Hives 7 - Swelling Date Reviewed: 04/18/2022 Reviewed by: Ashly Waters RD - Fully Assessed Reason for Visit: Head and Neck Cancer [551] 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] Prescriptions as of 04/24/2022 - aspirin, enteric coated (ASPIRIN, ENTERIC COATED) 81 mg EC tablet Take by mouth q 24 HR. - atorvastatin (LIPITOR) 40 mg tablet Take by mouth. - calcium carbonate (CALTRATE) 600 mg calcium (1,500 mg) tab Take by mouth q 12 HR. - cholecalciferol (VITAMIN D3) 1,000 unit tab tablet Take by mouth q 12 HR. - clopidogrel (PLAVIX) 75 mg tablet Take by mouth. - hydroCHLOROthiazide (HYDRODIURIL, ESIDRIX) 12.5 mg capsule Take by mouth. - isosorbide mononitrate ER (IMDUR) 60 mg 24 hr tablet Take by mouth. - metoprolol succinate ER (TOPROL XL) 25 mg 24 hr tablet Take by mouth q 24 HR. - nitroglycerin sublingual (NITROQUICK) 0.4 mg SL tablet Dissolve under the tongue. Problem List As Of Date 04/18/2022 Noted Resolved Malnutrition of mild degree (HCC) [E44.1] 03/23/2022 Disposition: Return in about 3 weeks (around 05/09/2022). Follow-up and Disposition History for Encounter Date Provider Department Center 04/18/2022 [id number] MOSQUEDA (more content not included)... 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 COURSE: definitive Area Treated: Larynx Current dose: 5625 Gy in 25 fx Planned dose: 6300 Gy in 28 fx SUBJECTIVE: Doing fairly well continued mild to moderate dysphagia. Able to eat most foods however. No dyspnea. Hoarseness somewhat worse. PHYSICAL EXAM: KPS: 100 General Appearance: Alert and oriented. No acute distress. Radiation dermatitis: No Mucositis: No Neck: Normal ROM. No palpable cervical or supraclavicular adenopathy. IMAGING/LAB RESULTS: None TOXICITY ASSESSMENT (CTCv4): Dysphagia:grade 1 Mucositis: grade 0 - No symptoms Radiation dermatitis: grade 0 - No symptoms Trismus: grade 0 - No symptoms Voice Changes:grade 1/2 - Mild or intermittent change from normal voice Xerostomia: grade 0 - No symptoms . Treatment chart checked: Yes Patient treatment site reviewed and verified:Yes Port films reviewed and current:Yes Medications started: None ASSESSMENT: Patient doing well. Continue diet modification. Patient will finish this week. Chart and images reviewed. Follow-up care discussed. MD Yovanny Vanegas LPN 04/03/2022 12:49 PM Signed Status: Post-menopausal. Referring Provider: Lauren MOSQUEDA [[id number]] Allergies As of Date: 04/03/2022 Noted Allergy Reaction PENICILLINS 01/31/2022 16 - Unknown Date Reviewed: 03/31/2022 Reviewed by: Ashly Waters RD - Fully Assessed Reason for Visit: Radiotherapy On-treatment Visit [1722] 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] Prescriptions as of 04/03/2022 - aspirin, enteric coated (ASPIRIN, ENTERIC COATED) 81 mg EC tablet Take by mouth q 24 HR. - atorvastatin (LIPITOR) 40 mg tablet Take by mouth. - calcium carbonate (CALTRATE) 600 mg calcium (1,500 mg) tab Take by mouth q 12 HR. - cholecalciferol (VITAMIN D3) 1,000 unit tab tablet Take by mouth q 12 HR. - clopidogrel (PLAVIX) 75 mg tablet Take by mouth. - hydroCHLOROthiazide (HYDRODIURIL, ESIDRIX) 12.5 mg capsule Take by mouth. - isosorbide mononitrate ER (IMDUR) 60 mg 24 hr tablet Take by mouth. - metoprolol succinate ER (TOPROL XL) 25 mg 24 hr tablet Take by mouth q 24 HR. - nitroglycerin sublingual (NITROQUICK) 0.4 mg SL tablet Dissolve under the tongue. Problem List As Of Date 04/03/2022 Noted Resolved Malnutrition of mild degree (HCC) [E44.1] 03/23/2022 Visit Notes: >> Yovannynazia Grissom LPN Mon Apr 03, 2022 10:23 AM Status: Signed Status: Post-menopausal. Encounter Status:Closed by Lauren MOSQUEDA on 04/03/22 [facility] JUAN COV[facility]atheryn 03-27-2022 CNOV Office Visit (RADTSA ) ----- SILASKATHLEEN Womack ([id number]) 1945 F Date Time Provider Department 03/27/22 10:15 AM Lauren MOSQUEDA RADLEIFA During your visit today, we recorded the following information about you: Temperature Pulse Respiration Blood pressure 96.7 degrees 58/minute 16/minute 152/74 Weight 109.8 kg Lauren Mosqueda MD 03/27/2022 11:41 AM Signed Radiation Oncology - On Treatment Review (OTR) Note PATIENT NAME: Kathleen Rosen PATIENT DIAGNOSIS: Glottic cancer, right true vocal cord, 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 COURSE: definitive Area Treated: Larynx Current dose: 3600 Gy in 16 fx Planned dose: 6300 Gy in 28 fx SUBJECTIVE: Doing well. Voice and swallowing stable. Denies dyspnea. Denies significant pain. PHYSICAL EXAM: KPS: 100 General Appearance: Alert and oriented. No acute distress. Radiation dermatitis: No Mucositis: No Neck: Normal ROM. No palpable cervical or supraclavicular adenopathy. IMAGING/LAB RESULTS: None TOXICITY ASSESSMENT (CTCv4): Dysphagia:grade 1 Mucositis: grade 0 - No symptoms Radiation dermatitis: grade 0 - No symptoms Trismus: grade 0 - No symptoms Voice Changes:grade 1 - Mild or intermittent change from normal voice Xerostomia: grade 0 - No symptoms . Treatment chart checked: Yes Patient treatment site reviewed and verified:Yes Port films reviewed and current:Yes Medications started: None ASSESSMENT: Patient doing well. Continue with softer foods for dysphagia. Tolerance good. Chart and imaging reviewed. Continue radiation as outlined. Lauren Mosqueda MD Allergies As of Date: 03/27/2022 Noted Allergy Reaction PENICILLINS 01/31/2022 16 - Unknown Date Reviewed: 03/27/2022 Reviewed by: Leah Fisher RN - Fully Assessed Reason for Visit: Radiotherapy On-treatment Visit [1722] 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] Prescriptions as of 03/27/2022 - aspirin, enteric coated (ASPIRIN, ENTERIC COATED) 81 mg EC tablet Take by mouth q 24 HR. - atorvastatin (LIPITOR) 40 mg tablet Take by mouth. - calcium carbonate (CALTRATE) 600 mg calcium (1,500 mg) tab Take by mouth q 12 HR. - cholecalciferol (VITAMIN D3) 1,000 unit tab tablet Take by mouth q 12 HR. - clopidogrel (PLAVIX) 75 mg tablet Take by mouth. - hydroCHLOROthiazide (HYDRODIURIL, ESIDRIX) 12.5 mg capsule Take by mouth. - isosorbide mononitrate ER (IMDUR) 60 mg 24 hr tablet Take by mouth. - metoprolol succinate ER (TOPROL XL) 25 mg 24 hr tablet Take by mouth q 24 HR. - nitroglycerin sublingual (NITROQUICK) 0.4 mg SL tablet Dissolve under the tongue. Problem List As Of Date 03/27/2022 Noted Resolved Malnutrition of mild degree (HCC) [E44.1] 03/23/2022 Encounter Status:Closed by Lauren MOSQUEDA on 03/27/22 Normal [facility] CNOVon 03-21-2022 CNOV Office Visit (RADTSA ) ----- KATHLEEN ROSEN ([id number]) 1945 F Date Time Provider Department 03/21/22 10:15 AM Lauren MOSQUEDA During your visit today, we recorded the following information about you: Temperature Pulse Respiration Blood pressure 97.4 degrees 66/minute 18/minute 128/75 Weight 108.9 kg Lauren Mosqueda MD 03/21/2022 10:55 AM Signed Radiation Oncology - On Treatment Review (OTR) Note PATIENT NAME: Kathleen Rosen PATIENT DIAGNOSIS: Glottic cancer, right true vocal cord, 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 COURSE: definitive Area Treated: Larynx Current dose: 3600 Gy in 16 fx Planned dose: 6300 Gy in 28 fx SUBJECTIVE: Doing well. Having more issues with throat irritation, feeling things are catching. Denies pain. Denies dyspnea. PHYSICAL EXAM: KPS: 100 General Appearance: Alert and oriented. No acute distress. Radiation dermatitis: No Mucositis: No Neck: Normal ROM. No palpable cervical or supraclavicular adenopathy. IMAGING/LAB RESULTS: None TOXICITY ASSESSMENT (CTCv4): Dysphagia:grade 1 Mucositis: grade 0 - No symptoms Radiation dermatitis: grade 0 - No symptoms Trismus: grade 0 - No symptoms Voice Changes:grade 1 - Mild or intermittent change from normal voice Xerostomia: grade 0 - No symptoms . Treatment chart checked: Yes Patient treatment site reviewed and verified:Yes Port films reviewed and current:Yes Medications started: None ASSESSMENT: Patient doing well. Discussed diet modification. PMX should she develop further dysphagia symptoms. Chart and imaging reviewed. Continue radiation as outlined. Lauren Mosqueda MD Allergies As of Date: 03/21/2022 Noted Allergy Reaction PENICILLINS 01/31/2022 16 - Unknown Date Reviewed: 03/16/2022 Reviewed by: Ashly Waters RD - Fully Assessed Reason for Visit: Radiotherapy On-treatment Visit [1721] 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] Prescriptions as of 03/21/2022 - aspirin, enteric coated (ASPIRIN, ENTERIC COATED) 81 mg EC tablet Take by mouth q 24 HR. - atorvastatin (LIPITOR) 40 mg tablet Take by mouth. - calcium carbonate (CALTRATE) 600 mg calcium (1,500 mg) tab Take by mouth q 12 HR. - cholecalciferol (VITAMIN D3) 1,000 unit tab tablet Take by mouth q 12 HR. - clopidogrel (PLAVIX) 75 mg tablet Take by mouth. - hydroCHLOROthiazide (HYDRODIURIL, ESIDRIX) 12.5 mg capsule Take by mouth. - isosorbide mononitrate ER (IMDUR) 60 mg 24 hr tablet Take by mouth. - metoprolol succinate ER (TOPROL XL) 25 mg 24 hr tablet Take by mouth q 24 HR. - nitroglycerin sublingual (NITROQUICK) 0.4 mg SL tablet Dissolve under the tongue. Problem List As Of Date: 03/21/2022 (None) Encounter Status:Closed by Lauren MOSQUEDA on 03/21/22 [facility] Mai 03-16-2022 CNOV Office Visit (RADTSA ) ----- SILASKATHLEEN L ([id number]) 1945 F Date Time Provider Department 03/16/22 10:45 AM LAB/PORT RADT BALDO LINDER During your visit today, we recorded the following information about you: Temperature Pulse Respiration Blood pressure 96.9 degrees 67/minute 18/minute 131/78 Yovanny Grissom LPN 03/16/2022 10:12 AM Satya Wang is here for radiation therapy with c/o a cough and runny nose. She states her cough is productive with yellowish mucus. These symptoms started approximately two days ago. She has not taken any OTC medication for her symptoms. I reviewed with her that she can try OTC cough/cold remedy and mucinex as needed. She agreed with the above. She is vaccinated for Covid x 1 with [employer] She is to notify us tomorrow if symptoms worsen. Dr. Mosqueda notified of the above and is in agreement. Yovanny Grissom LPN Referring Provider: ISRRAEL HOWARD [[id number]] Allergies As of Date: 03/16/2022 Noted Allergy Reaction PENICILLINS 01/31/2022 16 - Unknown Date Reviewed: 03/16/2022 Reviewed by: Ashly Waters RD - Fully Assessed Primary Visit Diagnosis:Cough productive of yellow sputum [R05.8] Other Visit Diagnosis:Rhinitis, unspecified type [J31.0] Prescriptions as of 03/16/2022 - aspirin, enteric coated (ASPIRIN, ENTERIC COATED) 81 mg EC tablet Take by mouth q 24 HR. - atorvastatin (LIPITOR) 40 mg tablet Take by mouth. - calcium carbonate (CALTRATE) 600 mg calcium (1,500 mg) tab Take by mouth q 12 HR. - cholecalciferol (VITAMIN D3) 1,000 unit tab tablet Take by mouth q 12 HR. - clopidogrel (PLAVIX) 75 mg tablet Take by mouth. - hydroCHLOROthiazide (HYDRODIURIL, ESIDRIX) 12.5 mg capsule Take by mouth. - isosorbide mononitrate ER (IMDUR) 60 mg 24 hr tablet Take by mouth. - metoprolol succinate ER (TOPROL XL) 25 mg 24 hr tablet Take by mouth q 24 HR. - nitroglycerin sublingual (NITROQUICK) 0.4 mg SL tablet Dissolve under the tongue. Problem List As Of Date: 03/16/2022 (None) Visit Notes: >> Yovanny Grissom LPN Lady Mar 16, 2022 10:09 AM Status: Signed Kathleen is here for radiation therapy with c/o a cough and runny nose. She states her cough is productive with yellowish mucus. These symptoms started approximately two days ago. She has not taken any OTC medication for her symptoms. I reviewed with her that she can try OTC cough/cold remedy and mucinex as needed. She agreed with the above. She is vaccinated for Covid x 1 with [employer] She is to notify us tomorrow if symptoms worsen. Dr. Mosqueda notified of the above and is in agreement. 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 COURSE: definitive Area Treated: Larynx Current dose: 2475 Gy in 11 fx Planned dose: 6300 Gy in 28 fx SUBJECTIVE: Doing well. Denies significant new problems other than the feeling of fullness in the mid neck area. No pain. PHYSICAL EXAM: KPS: 100 General Appearance: Alert and oriented. No acute distress. Radiation dermatitis: No Mucositis: No Neck: Normal ROM. No palpable cervical or supraclavicular adenopathy. IMAGING/LAB RESULTS: None TOXICITY ASSESSMENT (CTCv4): Dysphagia:grade 0 - No symptoms Mucositis: grade 0 - No symptoms Radiation dermatitis: grade 0 - No symptoms Trismus: grade 0 - No symptoms Voice Changes:grade 1 - Mild or intermittent change from normal voice Xerostomia: grade 0 - No symptoms . Treatment chart checked: Yes Patient treatment site reviewed and verified:Yes Port films reviewed and current:Yes Medications started: None ASSESSMENT: Patient doing well. Chart and imaging reviewed. Continue radiation as outlined. MD Leah Vanegas, RN 03/13/2022 1:32 PM Signed Status: Post-menopausal.Leah Fisher RN Allergies As of Date: 03/13/2022 Noted Allergy Reaction PENICILLINS 01/31/2022 16 - Unknown Date Reviewed: 03/13/2022 Reviewed by: Leah Fisher RN - Fully Assessed Reason for Visit: Radiotherapy On-treatment Visit [1722] 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] Prescriptions as of 03/13/2022 - aspirin, enteric coated (ASPIRIN, ENTERIC COATED) 81 mg EC tablet Take by mouth q 24 HR. - atorvastatin (LIPITOR) 40 mg tablet Take by mouth. - calcium carbonate (CALTRATE) 600 mg calcium (1,500 mg) tab Take by mouth q 12 HR. - cholecalciferol (VITAMIN D3) 1,000 unit tab tablet Take by mouth q 12 HR. - clopidogrel (PLAVIX) 75 mg tablet Take by mouth. - hydroCHLOROthiazide (HYDRODIURIL, ESIDRIX) 12.5 mg capsule Take by mouth. - isosorbide mononitrate ER (IMDUR) 60 mg 24 hr tablet Take by mouth. - metoprolol succinate ER (TOPROL XL) 25 mg 24 hr tablet Take by mouth q 24 HR. - nitroglycerin sublingual (NITROQUICK) 0.4 mg SL tablet Dissolve under the tongue. Problem List As Of Date: 03/13/2022 (None) Visit Notes: >> eLah Fisher RN Mon Mar 13, 2022 10:20 AM Status: Signed Status: Post-menopausal.Leah Fisher RN Encounter Status:Closed by Lauren MOSQUEDA on 03/13/22 [facility] CNOVkatheryn 03-07-2022 CNOV Office Visit (RADTSA ) ----- KATHLEEN ROSEN ([id number]) 1945 F Date Time Provider Department 03/07/22 10:15 AM LAVON MCKINNON During your visit today, we recorded the following information about you: Temperature Pulse Respiration Blood pressure 97.6 degrees 61/minute 16/minute 160/68 Weight 112.5 kg Leah Fisher RN 03/14/2022 10:16 PM Signed Status: Post-menopausal.SON Rai MD 03/14/2022 10:16 PM Signed Radiation Oncology - On Treatment Review (OTR) Note PATIENT NAME: Kathleen Rosen PATIENT DIAGNOSIS: Glottic cancer, right true vocal cord, 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 COURSE: definitive Area Treated: Larynx Current dose: 1575 Gy in 7 fx Planned dose: 6300 Gy in 28 fx SUBJECTIVE: Tolerating surgery well and denies any pain/discomfort or change in his voice. He does get hoarse with talking. He denies any trouble swallowing and endorses stable energy appetite and hydration. He denies dry mouth with intact taste. EXAM: KPS: 90 General Appearance: Alert and oriented. No acute distress. Radiation dermatitis: No IMAGING/LAB RESULTS: None Treatment chart checked: Yes Patient treatment site reviewed and verified:Yes Port films reviewed and current:Yes Medications started: None ASSESSMENT/PLAN: Clinically stable. Toxicity within expected parameters. Continue radiation treatment as planned. Lavon Mckinnon MD Referring Provider: LAVON MCKINNON [[id number]] Allergies As of Date: 03/07/2022 Noted Allergy Reaction PENICILLINS 01/31/2022 16 - Unknown Date Reviewed: 01/31/2022 Reviewed by: Yovanny Grissom LPN - Fully Assessed Reason for Visit: Radiotherapy On-treatment Visit [1722] 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] Prescriptions as of 03/14/2022 - aspirin, enteric coated (ASPIRIN, ENTERIC COATED) 81 mg EC tablet Take by mouth q 24 HR. - atorvastatin (LIPITOR) 40 mg tablet Take by mouth. - calcium carbonate (CALTRATE) 600 mg calcium (1,500 mg) tab Take by mouth q 12 HR. - cholecalciferol (VITAMIN D3) 1,000 unit tab tablet Take by mouth q 12 HR. - clopidogrel (PLAVIX) 75 mg tablet Take by mouth. - hydroCHLOROthiazide (HYDRODIURIL, ESIDRIX) 12.5 mg capsule Take by mouth. - isosorbide mononitrate ER (IMDUR) 60 mg 24 hr tablet Take by mouth. - metoprolol succinate ER (TOPROL XL) 25 mg 24 hr tablet Take by mouth q 24 HR. - nitroglycerin sublingual (NITROQUICK) 0.4 mg SL tablet Dissolve under the tongue. Problem List As Of Date: 03/07/2022 (None) Visit Notes: >> Leah Fisher RN Tue Mar 07, 2022 10:22 AM Status: Signed Status: Post-menopausal.Leah Fisher RN Encounter Status:Closed by LAVON MCKINNON on 03/14/22 [facility] CNOVon 02-27-2022 CNOV Office Visit (RADTSA ) ----- SILASKATHLEEN Reyes ([id number]) 1945 F Date Time Provider Department 02/27/22 9:45 AM Lauren MOSQUEDA During your visit today, we recorded the following information about you: Temperature Pulse Respiration Blood pressure 97 degrees 62/minute 18/minute 144/82 Weight 112.9 kg Lauren Mosqueda MD 02/27/2022 10:41 AM Signed Radiation Oncology - On Treatment Review (OTR) Note PATIENT NAME: Kathleen Rosen PATIENT DIAGNOSIS: Glottic cancer, right true vocal cord, 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 COURSE: definitive Area Treated: Larynx Current dose: 225 Gy in 1 fx Planned dose: 6300 Gy in 28 fx SUBJECTIVE: Here to start radiation, doing well. PHYSICAL EXAM: KPS: 100 General Appearance: Alert and oriented. No acute distress. Radiation dermatitis: No Mucositis: No Neck: Normal ROM. No palpable cervical or supraclavicular adenopathy. IMAGING/LAB RESULTS: None TOXICITY ASSESSMENT (CTCv4): Dysphagia:grade 0 - No symptoms Mucositis: grade 0 - No symptoms Radiation dermatitis: grade 0 - No symptoms Trismus: grade 0 - No symptoms Voice Changes:grade 1 - Mild or intermittent change from normal voice Xerostomia: grade 0 - No symptoms . Treatment chart checked: Yes Patient treatment site reviewed and verified:Yes Port films reviewed and current:Yes Medications started: None ASSESSMENT: Patient starting radiation today. Plan of care and expectations again reviewed. Plan, MU calculations and qa report reviewed. Initial imaging including cone beam ct and verification reviewed and approved. First treatment given. Continue radiation as prescribed. MD Yovanny Vanegas LPN 02/27/2022 10:41 AM Signed Status: Post-menopausal. Referring Provider: SELF [[id number]] Allergies As of Date: 02/27/2022 Noted Allergy Reaction PENICILLINS 01/31/2022 16 - Unknown Date Reviewed: 01/31/2022 Reviewed by: Yovanny Grissom LPN - Fully Assessed Reason for Visit: Radiotherapy On-treatment Visit [1722] 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] Prescriptions as of 02/27/2022 - aspirin, enteric coated (ASPIRIN, ENTERIC COATED) 81 mg EC tablet Take by mouth q 24 HR. - atorvastatin (LIPITOR) 40 mg tablet Take by mouth. - calcium carbonate (CALTRATE) 600 mg calcium (1,500 mg) tab Take by mouth q 12 HR. - cholecalciferol (VITAMIN D3) 1,000 unit tab tablet Take by mouth q 12 HR. - clopidogrel (PLAVIX) 75 mg tablet Take by mouth. - hydroCHLOROthiazide (HYDRODIURIL, ESIDRIX) 12.5 mg capsule Take by mouth. - isosorbide mononitrate ER (IMDUR) 60 mg 24 hr tablet Take by mouth. - metoprolol succinate ER (TOPROL XL) 25 mg 24 hr tablet Take by mouth q 24 HR. - nitroglycerin sublingual (NITROQUICK) 0.4 mg SL tablet Dissolve under the tongue. Problem List As Of Date: 02/27/2022 (None) Visit Notes: >> Yovanny Grissom LPN Mon Feb 27, 2022 9:37 AM Status: Signed Status: Post-menopausal. Encounter Status:Closed by Lauren MOSQUEDA on 02/27/22 [facility] CNOVon 02-17-2022 CNOV Office Visit (RADTSA ) ----- SILASKATHLEEN Jonn ([id number]) 1945 F Date Time Provider Department 02/17/22 11:45 AM Lauren MOSQUEDA During your visit today, we recorded the following information about you: Referring Provider: Lauren MOSQUEDA [[id number]] Allergies As of Date: 02/17/2022 Noted Allergy Reaction PENICILLINS 01/31/2022 16 - Unknown Date Reviewed: 01/31/2022 Reviewed by: Yovanny Grissom LPN - Fully Assessed Reason for Visit: Simulation Request Form [4065] 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] Order(s):RADIATION TREATMENT PER RADIATION ONCOLOGIST PLAN [[id number]] Order #: [id number]: 1 PT ED CANCER [[id number]] Order #: [id number]: 1 CT SIM PLANNING RADIATION ONCOLOGY [[id number]] Order #: [id number] Prescriptions as of 02/20/2022 - aspirin, enteric coated (ASPIRIN, ENTERIC COATED) 81 mg EC tablet Take by mouth q 24 HR. - atorvastatin (LIPITOR) 40 mg tablet Take by mouth. - calcium carbonate (CALTRATE) 600 mg calcium (1,500 mg) tab Take by mouth q 12 HR. - cholecalciferol (VITAMIN D3) 1,000 unit tab tablet Take by mouth q 12 HR. - clopidogrel (PLAVIX) 75 mg tablet Take by mouth. - hydroCHLOROthiazide (HYDRODIURIL, ESIDRIX) 12.5 mg capsule Take by mouth. - isosorbide mononitrate ER (IMDUR) 60 mg 24 hr tablet Take by mouth. - metoprolol succinate ER (TOPROL XL) 25 mg 24 hr tablet Take by mouth q 24 HR. - nitroglycerin sublingual (NITROQUICK) 0.4 mg SL tablet Dissolve under the tongue. Problem List As Of Date: 02/17/2022 (None) Encounter Status:Closed by Lauren MOSQUEDA on 02/20/22 Normal [facility] CT NECK SOFT TISSUE WO IVCON on 02-17-2022 CT NECK SOFT TISSUE WO IVCON * * *Final Report* * * DATE OF EXAM: Feb 17 2022 1:10PM [facility] [address] - CT NECK SOFT TISSUE WO IVCON / PROCEDURE REASON: Malignant neoplasm of glottis (HCC) * * * * Physician Interpretation * * * * RESULT: CT NECK SOFT TISSUE WO IVCON History: Malignant neoplasm of glottis (HCC) 76 year old female with squamous cell carcinoma in situ which is likely invasive, right true vocal cord, stage?[id number]. Comparison: No prior imaging available for comparison. Technique: A series of contiguous helical scans were performed from the skull base to the aortic arch without intravenous contrast. CT Radiation dose: Integrated Dose-length product (DLP) for this visit = 573 mGy*cm. CT Dose Reduction Employed: Automated exposure control (AEC) RESULT: Postoperative change: Radiation planning mask is present. Suprahyoid Neck: Nasopharynx and oropharynx appear grossly normal. Parapharyngeal tissue planes are preserved. Soft tissues of the oral cavity and floor of mouth appear normal. Patient is edentulous. Parotid and submandibular spaces are normal in unenhanced appearance. Floor Scrubber spaces appear normal. Infrahyoid Neck: The known right true vocal cord lesion is not discretely delineated. Within constraints of mild motion degradation there is no discrete abnormality of the paraglottic fat or laryngeal cartilages. Imaged upper esophagus is unremarkable. Thyroid gland is homogeneous without evidence of discrete nodule. Lymph Nodes: No cervical lymphadenopathy by size criteria within constraints of this unenhanced exam. Carotid Space: No masses. Orbits, Face and Skull Base: Orbital soft tissue planes are preserved. Paranasal sinuses are clear. Mastoid air cells and middle ear cavities are clear. No evidence of an osteolytic or osteoblastic process in the skull base. Imaged intracranial contents: No evidence of intracranial mass effect or hydrocephalus. Cervical spine and remaining osseous structures: No discrete osteolytic or osteoblastic process. Mild spondylotic changes in the visualized spine. Lung apices: Imaged lung apices are clear of focal consolidation or mass. Other: Prominent subcutaneous veins in the anterior chest radiograph possibility of collaterals raising the possibility of central stenosis or thoracic outlet syndrome. IMPRESSION: Known right true vocal cord lesion not clearly visualized on this study. No definitive paraglottic, cartilage or extralaryngeal involvement. No other mass and no lymphadenopathy identified in the neck. Prominent subcutaneous veins in the anterior chest radiograph possibility of collaterals raising the possibility of central venous stenosis or venous thoracic outlet syndrome. Transcribe Date/Time: Feb 17 2022 1:14P Dictated by: ALLY CESPEDES MD This examination was interpreted and the report reviewed and electronically signed by: ALLY CESPEDES MD on Feb 17 2022 1:25PM EST Thank you for allowing us to participate in the care of your patient. Should there be any questions regarding this interpretation, please call [phone]. If you are unable to reach us at the number above, please feel free to contact [facility] at [phone]. [id number] Normal [facility] CT Neck WO contraston 2021 IMPRESSION: Known right true vocal cord lesion not clearly visualized on this study. No definitive paraglottic, cartilage or extralaryngeal involvement. No other mass and no lymphadenopathy identified in the neck. Prominent subcutaneous veins in the anterior chest radiograph possibility of collaterals raising the possibility of central venous stenosis or venous thoracic outlet syndrome. Transcribe Date/Time: Feb 17 2022 1:14P Dictated by: ALLY CESPEDES MD This examination was interpreted and the report reviewed and electronically signed by: ALLY CESPEDES MD on Feb 17 2022 1:25PM EST Thank you for allowing us to participate in the care of your patient. Should there be any questions regarding this interpretation, please call [phone]. If you are unable to reach us at the number above, please feel free to contact [facility] at [phone]. [email or web address] SE_DIVISION OF RADIOLOGY * * *Final Report* * * DATE OF EXAM: Feb 17 2022 1:10PM [facility] [address] - CT NECK SOFT TISSUE WO IVCON / PROCEDURE REASON: Malignant neoplasm of glottis (HCC) * * * * Physician Interpretation * * * * RESULT: CT NECK SOFT TISSUE WO IVCON History: Malignant neoplasm of glottis (HCC) 76 year old female with squamous cell carcinoma in situ which is likely invasive, right true vocal cord, stage?[id number]. Comparison: No prior imaging available for comparison. Technique: A series of contiguous helical scans were performed from the skull base to the aortic arch without intravenous contrast. CT Radiation dose: Integrated Dose-length product (DLP) for this visit = 573 mGy*cm. CT Dose Reduction Employed: Automated exposure control (AEC) RESULT: Postoperative change: Radiation planning mask is present. Suprahyoid Neck: Nasopharynx and oropharynx appear grossly normal. Parapharyngeal tissue planes are preserved. Soft tissues of the oral cavity and floor of mouth appear normal. Patient is edentulous. Parotid and submandibular spaces are normal in unenhanced appearance. Floor Scrubber spaces appear normal. Infrahyoid Neck: The known right true vocal cord lesion is not discretely delineated. Within constraints of mild motion degradation there is no discrete abnormality of the paraglottic fat or laryngeal cartilages. Imaged upper esophagus is unremarkable. Thyroid gland is homogeneous without evidence of discrete nodule. Lymph Nodes: No cervical lymphadenopathy by size criteria within constraints of this unenhanced exam. Carotid Space: No masses. Orbits, Face and Skull Base: Orbital soft tissue planes are preserved. Paranasal sinuses are clear. Mastoid air cells and middle ear cavities are clear. No evidence of an osteolytic or osteoblastic process in the skull base. Imaged intracranial contents: No evidence of intracranial mass effect or hydrocephalus. Cervical spine and remaining osseous structures: No discrete osteolytic or osteoblastic process. Mild spondylotic changes in the visualized spine. Lung apices: Imaged lung apices are clear of focal consolidation or mass. Other: Prominent subcutaneous veins in the anterior chest radiograph possibility of collaterals raising the possibility of central stenosis or thoracic outlet syndrome. ZZZ_[email or web address]_U SE_DIVISION OF RADIOLOGY Provider, [facility] - 02/17/2022 * * *Final Report* * * DATE OF EXAM: Feb 17 2022 1:10PM [facility] [address] - CT NECK SOFT TISSUE WO IVCON / PROCEDURE REASON: Malignant neoplasm of glottis (HCC) * * * * Physician Interpretation * * * * RESULT: CT NECK SOFT TISSUE WO IVCON History: Malignant neoplasm of glottis (HCC) 76 year old female with squamous cell carcinoma in situ which is likely invasive, right true vocal cord, stage?[id number]. Comparison: No prior imaging available for comparison. Technique: A series of contiguous helical scans were performed from the skull base to the aortic arch without intravenous contrast. CT Radiation dose: Integrated Dose-length product (DLP) for this visit = 573 mGy*cm. CT Dose Reduction Employed: Automated exposure control (AEC) RESULT: Postoperative change: Radiation planning mask is present. Suprahyoid Neck: Nasopharynx and oropharynx appear grossly normal. Parapharyngeal tissue planes are preserved. Soft tissues of the oral cavity and floor of mouth appear normal. Patient is edentulous. Parotid and submandibular spaces are normal in unenhanced appearance. Floor Scrubber spaces appear normal. Infrahyoid Neck: The known right true vocal cord lesion is not discretely delineated. Within constraints of mild motion degradation there is no discrete abnormality of the paraglottic fat or laryngeal cartilages. Imaged upper esophagus is unremarkable. Thyroid gland is homogeneous without evidence of discrete nodule. Lymph Nodes: No cervical lymphadenopathy by size criteria within constraints of this unenhanced exam. Carotid Space: No masses. Orbits, Face and Skull Base: Orbital soft tissue planes are preserved. Paranasal sinuses are clear. Mastoid air cells and middle ear cavities are clear. No evidence of an osteolytic or osteoblastic process in the skull base. Imaged intracranial contents: No evidence of intracranial mass effect or hydrocephalus. Cervical spine and remaining osseous structures: No discrete osteolytic or osteoblastic process. Mild spondylotic changes in the visualized spine. Lung apices: Imaged lung apices are clear of focal consolidation or mass. Other: Prominent subcutaneous veins in the anterior chest radiograph possibility of collaterals raising the possibility of central stenosis or thoracic outlet syndrome. IMPRESSION IMPRESSION: Known right true vocal cord lesion not clearly visualized on this study. No definitive paraglottic, cartilage or extralaryngeal involvement. No other mass and no lymphadenopathy identified in the neck. Prominent subcutaneous veins in the anterior chest radiograph possibility of collaterals raising the possibility of central venous stenosis or venous thoracic outlet syndrome. Transcribe Date/Time: Feb 17 2022 1:14P Dictated by: ALLY CESPEDES MD This examination was interpreted and the report reviewed and electronically signed by: ALLY CESPEDES MD on Feb 17 2022 1:25PM EST Thank you for allowing us to participate in the care of your patient. Should there be any questions regarding this interpretation, please call [phone]. If you are unable to reach us at the number above, please feel free to contact [facility] at [phone]. [facility] Radiology Study observation (narrative) [facility] CT Neck WO contrastOrdered B y: [facility] Provider on 02-17-[address] [facility] CNOVon 01-31-2022 CNOV Office Visit (RADTSA ) ----- KATHLEEN ROSEN ([id number]) 1945 F Date Time Provider Department 01/31/22 10:00 AM Lauren MOSQUEDA During your visit today, we recorded the following information about you: Temperature Pulse Blood pressure Weight 97.3 degrees 67/minute 112/70 112 kg Height 1.524 m Lauren Mosqueda MD 02/02/2022 11:51 AM Signed Radiation Oncology - New Patient/Consult Note PATIENT NAME: Kathleen Rosen PATIENT : 1945 REQUESTING PROVIDER: Dr. Patricia Primary Site: Larynx Date of Diagnosis: 01/17/22 Clinical Stage: T1 a N0 M0 Pathologic Stage: NA DIAGNOSIS: 76 year old female with squamous cell carcinoma in situ which is likely invasive, right true vocal cord, stage [id number]. Cancer Staging No matching staging information was found for the patient. HPI: 76 year old female who presents with above diagnosis, for an opinion regarding the role of radiation therapy in the management of the patient's disease. Final recommendations will be communicated back to the requesting physician by way of the shared medical record, or letter to requesting physician via US mail. Patient initially presented January 2021 with worsening hoarseness. She was seen by Dr. Patricia and found to have a verrucous lesion involving her right true vocal cord on endoscopy in the clinic. It was recommended she undergo examination under anesthesia with direct laryngoscopy and biopsy however on clearance she was found to have cardiac related issues subsequently needing stent placement. The procedure was delayed until this January. On January 04, 2022 she underwent reexamination of the larynx with fiberoptic flexible laryngoscope showing normal bilateral true vocal cord motion. Lesion involving the right true vocal cord was described. Bilateral piriform sinuses base of tongue without lesion. Given cardiac clearance she then underwent examination under anesthesia with biopsy as noted below. Microlaryngoscopy with biopsy/debulking right true cord lesion performed 01/17/2022, with biopsy right true vocal cord lesion. Findings including a hyperkeratotic/verrucous mass entire right true vocal cord. Pathology demonstrating at least squamous cell carcinoma in situ superficial invasion cannot be ruled out clinical correlation is suggested. She has done well after biopsy/debulking with no significant issues. She feels her voice has improved since her biopsy/debulking.. She is here to discuss potential radiation for newly diagnosed laryngeal cancer. FOCUSED ROS: Dysphagia: No Mucositis: No Voice Changes:Yes See HPI Fatigue: No Nausea: No Vomitting: No Pain: No Taste: No change Weight loss: No ALLERGIES Allergen Reactions - Penicillins Unknown MEDICATIONS: aspirin, enteric coated (ASPIRIN, ENTERIC COATED) 81 mg EC tablet Take by mouth q 24 HR. atorvastatin (LIPITOR) 40 mg tablet Take by mouth. calcium carbonate (CALTRATE) 600 mg calcium (1,500 mg) tab Take by mouth q 12 HR. cholecalciferol (VITAMIN D3) 1,000 unit tab tablet Take by mouth q 12 HR. clopidogrel (PLAVIX) 75 mg tablet Take by mouth. hydroCHLOROthiazide (HYDRODIURIL, ESIDRIX) 12.5 mg capsule Take by mouth. isosorbide mononitrate ER (IMDUR) 60 mg 24 hr tablet Take by mouth. metoprolol succinate ER (TOPROL XL) 25 mg 24 hr tablet Take by mouth q 24 HR. nitroglycerin sublingual (NITROQUICK) 0.4 mg SL tablet Dissolve under the tongue. PAST MEDICAL HISTORY Diagnosis Date - HTN (hypertension) - Hypercholesteremia Prior radiation therapy, collagen vascular disease, or inflammatory bowel disease: No No past surgical history on file. No family history on file. Social History Tobacco Use - Smoking status: Current Every Day Smoker Packs/day: 1.50 Years: 55.00 Pack years: 82.50 - Smokeless tobacco: Never Used - Tobacco comment: 01/31/22 less than 1ppd now Substance Use Topics - Alcohol use: Not Currently - Drug use: Never COMPLETE REVIEW OF SYSTEMS: GENERAL: feeling well without fatigue, no recent change in weight NECK: denies swelling or pain in neck RESPIRATORY: no cough, no wheezing or shortness of breath CARDIOVASCULAR: no chest pain, no palpitations, doing better after her stent placement last year GI: normal appetite, tolerating PO well, BMs normal and no abdominal pain MUSCULOSKELETAL: denies any painful or swollen joints, no muscle aches SKIN: no rash As noted in HPI PHYSICAL EXAM: VS: BP 112/70 Pulse 67 Temp 36.3 ?C (97.3 ?F) Ht 152.4 cm (5') Wt 112 kg (247 lb) SpO2 95% BMI 48.24 kg/m? KPS: 90 General Appearance: Alert and oriented. No acute distress. HEENT: NCAT. Sclera anicteric. PERRL. EOMI. Oral cavity AND oropharnyx: lips and gums normal, oral and pharyngeal mucosa moist, palate elevates normally, tongue mobile and without palpable lesions, tonsils wit (more content not included)... Normal [facility] CBC AUTO DIFFon 01-12-2022 BASO # 0.1 103/ul Normal 0.0-0.1 [facility] Comment on above: Performed By: #### C BC #### [facility] [address] [place] [address] Dr. Prosper Doyle Basophils/100 WBC (Bld) 0.8 % Normal 0.2-2.0 [facility] Comment on above: Performed By: #### C BC #### [facility] [address] [address] [address] Prosper Doyle EO # 0.5 103/ul Normal 0.0-0.7 [facility] Comment on above: Performed By: #### C BC #### [facility] [address] [place] [address] Dr. Prosper Doyle Eosinophils/100 WBC (Bld) 5.8 % Normal 0.9-7.0 [facility] Comment on above: Performed By: #### C BC #### [facility] [address] [place] [address] Dr. Prosper Doyle Erythrocyte distribution width (RBC) [Ratio] 14.1 % Normal 11.0-15.0 [facility] Comment on above: Performed By: #### C BC #### [facility] [address] [place] [address] Dr. Prosper Doyle Hematocrit (Bld) [Volume fraction] 48.1 % Critically high 36.0-48.0 [facility] Comment on above: Performed By: #### C BC #### [facility] [address] [place] [address] Dr. Prosper Doyle Hemoglobin (Bld) [Mass/Vol] 15.2 g/dL Normal 12.0-16.0 [facility] Comment on above: Performed By: #### C BC #### [facility] [address] [place] [address] Dr. Prosper Doyle IG # 0.01 10e3/ul Normal 0.00-0.03 [facility] Comment on above: Performed By: #### C BC #### [facility] [address] [place] [address] Dr. Prosper Doyle IG % 0.1 % Normal 0.0-0.5 [facility] Comment on above: Performed By: #### C BC #### [facility] [address] [place] [address] Dr. Prosper Doyle LYMPH # 2.7 103/ul Normal 1.2-3.8 [facility] Comment on above: Performed By: #### C BC #### [facility] [address] [place] [address] Dr. Prosper Doyle Lymphocytes/100 WBC (Bld) 35.5 % Normal 20.5-60.0 [facility] Comment on above: Performed By: #### C BC #### [facility] [address] [place] [address] Dr. Prosper Doyle MANUAL DIFF REQ NO Normal [facility] Comment on above: Performed By: #### C BC #### [facility] [address] [place] [address] Dr. Prosper Doyle MCH (RBC) [Entitic mass] 30.5 pg Normal 26.7-34.0 [facility] Comment on above: Performed By: #### C BC #### [facility] [address] [place] [address] Dr. Prosper Doyle MCHC (RBC) [Mass/Vol] 31.6 g/dL Normal 29.9-35.2 [facility] Comment on above: Performed By: #### C BC #### [facility] [address] [place] [address] Dr. Prosper Doyle MCV (RBC) [Entitic vol] 96.4 fL Normal 81.0-99.0 [facility] Comment on above: Performed By: #### C BC #### [facility] [address] [place] [address] Dr. Prosper Doyle MONO # 0.5 103/ul Normal 0.3-0.8 [facility] Comment on above: Performed By: #### C BC #### [facility] [address] [place] [address] Dr. Prosper Doyle Monocytes/100 WBC (Bld) 6.4 % Normal 1.7-12.0 [facility] Comment on above: Performed By: #### C BC #### [facility] [address] [place] [address] Dr. Prosper Doyle NEUT # 4.0 103/ul Normal 1.4-6.5 [facility] Comment on above: Performed By: #### C BC #### [facility] [address] [place] [address] Dr. Prosper Doyle Neutrophils/100 WBC (Bld) 51.4 % Normal 43.0-75.0 [facility] Comment on above: Performed By: #### C BC #### [facility] [address] [place] [address] Dr. Prosper Doyle Platelet mean volume (Bld) [Entitic vol] 9.0 fL Critically low 9.5-13.5 [facility] Comment on above: Performed By: #### C BC #### [facility] [address] [place] [address] Dr. Prosper Doyle PLT 275 103/ul Normal 150-450 [facility] Comment on above: Performed By: #### C BC #### [facility] [address] [place] [address] Dr. Prosper Doyle RBC 4.99 106/ul Normal 4.20-5.40 [facility] Comment on above: Performed By: #### C BC #### [facility] [address] [place] [address] Dr. Prosper Doyle WBC 7.7 103/ul Normal 4.0-11.0 [facility] Comment on above: Performed By: #### C BC #### [facility] [address] [place] [address] Dr. Prosper Doyle PROF CHEM 8 (BAS METB)on Anion gap [Moles/Vol] 8.0 mmol/L Normal [facility] Comment on above: Performed By: #### B MP #### [facility] [address] [place] [address] Dr. Prosper Doyle Calcium [Mass/Vol] 9.1 mg/dL Normal 8.5-10.1 [facility] Comment on above: Performed By: #### B MP #### [facility] [address] [place] [address] Dr. Prosper Doyle Chloride [Moles/Vol] 99 mmol/L Normal 98-107 [facility] Comment on above: Performed By: #### B MP #### [facility] [address] [place] [address] Dr. Prosper Doyle CO2 [Moles/Vol] 35.1 mmol/L Critically high 21.0-32.0 [facility] Comment on above: Performed By: #### B MP #### [facility] [address] [place] [address] Dr. Prosper Doyle Creatinine [Mass/Vol] 0.72 mg/dL Normal 0.55-1.02 [facility] Comment on above: Performed By: #### B MP #### [facility] [address] [address] [address] Prosper Doyle EGFR-AF CANADIAN >60 Normal >=60 [facility] Comment on above: Performed By: #### B MP #### [facility] [address] [address] [address] Prosper Doyle EGFR-NON AF CANADIAN >60 Normal >=60 [facility] Comment on above: Performed By: #### B MP #### [facility] [address] [address] [address] Prosper Doyle Glucose [Mass/Vol] 103 mg/dL Normal 74-106 [facility] Comment on above: Performed By: #### B MP #### [facility] [address] [place] [address] Dr. Prosper Doyle Potassium [Moles/Vol] 4.1 mmol/L Normal 3.5-5.1 [facility] Comment on above: Performed By: #### B MP #### [facility] [address] [address] [address] Prosper Doyle Sodium [Moles/Vol] 138 mmol/L Normal 136-145 [facility] Comment on above: Performed By: #### B MP #### [facility] [address] [address] [address] Prosper Doyle Urea nitrogen [Mass/Vol] 15.0 mg/dL Normal 7.0-18.0 [facility] Comment on above: Performed By: #### B MP #### [facility] [address] [address] [address] Prosper Doyle Urea nitrogen/Creatinine [Mass ratio] 20.8 mg/mg Normal [facility] Comment on above: Performed By: #### B MP #### [facility] [address] [address] [address] Prosper Doyle PROTIMEon 01-12-2022 INR Coag (PPP) [Relative time] 1.06 {INR} Normal [facility] Comment on above: Performed By: #### P T, PTT #### [facility] [address] [place] [address] Dr. Prosper Doyle INR GUIDELINES SEE BELOW Normal [facility] Comment on above: Result Comment: CARLA RED INR: 2.0 - 3.0 CONDITIONS NOT LISTED BELOW 2.5 - 3.5 FOR PROSTHETIC HEART VALVE REPLACEMENT 2.5 - 3.5 RECURRENT THROMBOSIS Performed By: #### P T, PTT #### [facility] [address] [place] [address] Dr. Prosper Doyle PT Coag (PPP) [Time] 11.4 s Normal 9.0-11.6 [facility] Comment on above: Performed By: #### P T, PTT #### [facility] [address] [place] [address] Dr. Prosper Doyle PTTon 01-12-2022 aPTT Coag (Bld) [Time] 27.1 s Normal 22.3-36.2 [facility] Comment on above: Performed By: #### P T, PTT #### [facility] [address] [place] [address] Dr. Prosper Doyle XR CHEST 2 Von 01-12-2022 XR CHEST 2 V EXAM: XR CHEST 2 V HISTORY: Chronic obstructive lung disease COMPARISON: 02/11/2021 TECHNIQUE: Upright PA and lateral chest x-ray FINDINGS: The heart is at the upper limits of normal in size with mild prominence of the central pulmonary vasculature. There is elongation of the aorta. A nodular opacity projects over the left lung base. Slight chronic changes are seen throughout the lungs. No acute infiltrate, effusion or pneumothorax is identified. Degenerative changes are seen in the spine IMPRESSION: Mild prominence of the central pulmonary vasculature and slight prominence of the interstitial markings throughout the lungs which appear chronic in nature. No acute infiltrate or overt cardiac decompensation. A nodular structure is seen at the left lung base. This was noted to be a calcified granuloma in the prior CT study of the lung performed 09/07/2020. The overall appearance of the chest is unchanged. Electronically authenticated by: JESSICA ORTIZ Date: 2022-01-12 15:42 Normal [facility] Office Visit (Cardiology)on 12-06-2021 Follow-up visit Diagnoses/Problems Assessed CAD (coronary artery disease) (414.00) (I25.10) Hyperlipidemia (272.4) (E78.5) Hypertension (401.9) (I10) Morbid obesity with BMI of 45.0-49.9, adult (278.01,V85.42) (E66.01,Z68.42) History of PTCA (V45.82) (Z98.61) Former smoker (V15.82) (Z87.891) quit 05/22/21 Orders CAD (coronary artery disease), History of ND (myocardial infarction) Renew: Aspirin 81 MG Oral Tablet Delayed Release; TAKE 1 TABLET DAILY CAD (coronary artery disease), Hyperlipidemia Renew: Atorvastatin Calcium 40 MG Oral Tablet; TAKE 1 TABLET AT BEDTIME Morbid obesity with BMI of 45.0-49.9, adult Healthy Weight Tips; Status:Complete - Retrospective Authorization; Done: 06Dec2021 SocHx: Former smoker Tobacco Use Screening; Status:Complete; Done: 06Dec2021 Patient Instructions By signing my name below, I, Violetta Quiroz LPN ,Scribe, attest that this documentation has been prepared under the direction and in the presence of Dr. Aneudy Torres MD. All medical record entries made by the Scribe were at my direction and personally dictated by me. I have reviewed the chart and agree that the record accurately reflects my personal performance of the history, physical exam, discussion and plan. Please bring all medicines, vitamins, and herbal supplements with you when you come to the office. Prescriptions will not be filled unless you are compliant with your follow up appointments or have a follow up appointment scheduled as per instruction of your physician. Refills should be requested at the time of your visit. Follow up in 6 months Chief Complaint KATHLEEN ROSEN is being seen for a 6 month follow-up of. History of Present Illness Returns for follow-up of problems as noted. In the interim she is done relatively well. Underwent high risk angioplasty and stenting of the left main trunk, LAD, and right coronary. This was well-tolerated. Its been 6 months and because of this we now question whether or not antiplatelet therapy could be interrupted to facilitate vocal cord biopsy as per original plan. I will confer with interventional cardiology in this regard. In the meantime it appears his risk factors including hypertension and hyperlipidemia are adequately controlled and because of this we suggest no change. We will contact her after we have reviewed with interventional cardiology the recommendations. Surgical History Problems History of Appendectomy History of Breast surgery History of Cholecystectomy Denied: History of Colonoscopy History of Coronary artery stent placement History of Tonsillectomy Past Medical History Problems CAD (coronary artery disease) (414.00) (I25.10) Hyperlipidemia (272.4) (E78.5) History of Pre-operative cardiovascular examination (V72.81) (Z01.810) Resolved Date: 26 May 2021 Current Meds Medication NameInstruction Aspirin 81 MG Oral Tablet Delayed ReleaseTAKE 1 TABLET DAILY. Atorvastatin Calcium 40 MG Oral TabletTAKE 1 TABLET AT BEDTIME. Calcium 600 MG TABSTake 1 tablet twice daily Clopidogrel Bisulfate 75 MG Oral TabletTAKE 4 PILLS X1 DOSE THE ONE PILL DAILY THERAFTER hydroCHLOROthiazide 12.5 MG Oral CapsuleTAKE 1 CAPSULE BY MOUTH ONCE DAILY Isosorbide Mononitrate ER 60 MG Oral Tablet Extended Release 24 HourTAKE 1 TABLET BY MOUTH ONCE DAILY Metoprolol Succinate ER 25 MG Oral Tablet Extended Release 24 HourTAKE 1 TABLET ONCE DAILY. Nitroglycerin 0.4 MG Sublingual Tablet Sublingual Vitamin D 1000 UNIT TABSTake 1 tablet twice daily Patient did not bring medication list or bottles. Updated verbally with patient Allergies Medication Penicillins Recorded By: Tonya Mcwilliams; 04/06/2021 9:45:26 AM Social History Problems Caffeine use (V49.89) (Z78.9) 2 cups of coffee Former smoker (V15.82) (Z87.891) quit 05/22/21 No alcohol use No illicit drug use Review of Systems Constitutional: not feeling tired. Eyes: no eyesight problems. ENT: no hearing loss and no nosebleeds. Cardiovascular: no intermittent leg claudication and as noted in HPI. Respiratory: no chronic cough and no shortness of breath. Gastrointestinal: no change in bowel habits and no blood in stools. Genitourinary: no urinary frequency. Skin: no skin rashes. Neurological: no seizures and no frequent falls. Psychiatric: no depression and not suicidal. All other systems have been reviewed and are negative for complaint. Vitals Vital Signs Recorded: [id number] 10:31AM Heart Rate66, R Radial Aarrgqfi497, RUE, Sitting Kamzfaqzr52, RUE, Sitting Height5 ft 1 in Kovpqh975 lb BMI Qkyrhkliei89.18 kg/m2 BSA Calculated2.09 Tobacco Useb) No PHQ-2 #1. Over the last 2 weeks have you felt down, depressed or hopeless? (If yes, answer PHQ-9 below)No PHQ-2 #2. Over the last 2 weeks have you felt little interest or pleasure in doing things? (If yes, answer PHQ-9 below)No Fall Screeninga) No falls within the last year Physical Exam Constitutional: alert and in no acute (more content not included)... Normal [employer] Tobacco Screening.on 022 Adult depression screening assessment No [facility] [employer] [place] [address] DO Work Phone: Fall risk assessment a) No falls within the last year [facility] [place] [address] DO Work Phone: Tobacco use status CP b) No [facility] [address] DO Work Phone: Office Visit (Cardiology)on 05-26-2021 Follow-up visit Diagnoses/Problems Assessed CAD (coronary artery disease) (414.00) (I25.10) Hyperlipidemia (272.4) (E78.5) Hypertension (401.9) (I10) History of PTCA (V45.82) (Z98.61) Morbid obesity with BMI of 45.0-49.9, adult (278.01,V85.42) (E66.01,Z68.42) History of ND (myocardial infarction) (412) (I25.2) Former smoker (V15.82) (Z87.891) quit 05/22/21 Orders History of ND (myocardial infarction) Renew: Aspirin 81 MG Oral Tablet Delayed Release; TAKE 1 TABLET DAILY SocHx: Former smoker Tobacco Use Screening; Status:Complete; Done: 26May2021 Patient Instructions Please bring all medicines, vitamins, and herbal supplements with you when you come to the office. Prescriptions will not be filled unless you are compliant with your follow up appointments or have a follow up appointment scheduled as per instruction of your physician. Refills should be requested at the time of your visit. By signing my name below, Lea Ernandez RN,Scribe LETTER TO DR PATRICIA Follow up in6 [ ] months Chief Complaint [facility] f/u PTCA. KATHLEEN ROSEN is being seen for follow-up of a hospitalization for. History of Present Illness Patient is seen after an absence. She underwent coronary angiography demonstrating disease in need of intervention. I thought that she really needed bypass surgery and she was referred to [facility]. They felt she was too high risk and because of this they ultimately requested that Dr. Odell perform high risk multivessel coronary intervention and this was undertaken last week in [place] without event. She is now doing well. She states she feels about the same. Chart review reveals that her symptoms have basically not changed. Her risk factors including hypertension and hyperlipidemia appear to be adequately managed and because of this we suggest continued therapy as is without change. The merits of diet lifestyle modification exercise and weight loss were reviewed. Surgical History Problems History of Appendectomy History of Breast surgery History of Cholecystectomy Denied: History of Colonoscopy History of Coronary artery stent placement History of Tonsillectomy Past Medical History Problems CAD (coronary artery disease) (414.00) (I25.10) Hyperlipidemia (272.4) (E78.5) History of Pre-operative cardiovascular examination (V72.81) (Z01.810) Current Meds Medication NameInstruction Aspirin 81 MG Oral Tablet Delayed ReleaseTAKE 1 TABLET DAILY. Atorvastatin Calcium 40 MG Oral TabletTAKE 1 TABLET AT BEDTIME. Calcium 600 MG TABSTake 1 tablet twice daily Clopidogrel Bisulfate 75 MG Oral TabletTAKE 4 PILLS X1 DOSE THE ONE PILL DAILY THERAFTER hydroCHLOROthiazide 12.5 MG Oral CapsuleTAKE 1 CAPSULE BY MOUTH ONCE DAILY Isosorbide Mononitrate ER 60 MG Oral Tablet Extended Release 24 HourTAKE 1 TABLET BY MOUTH ONCE DAILY Metoprolol Succinate ER 25 MG Oral Tablet Extended Release 24 HourTAKE 1 TABLET ONCE DAILY. Nitroglycerin 0.4 MG Sublingual Tablet Sublingual Vitamin D 1000 UNIT TABSTake 1 tablet twice daily Allergies Medication Penicillins Recorded By: Tonya Mcwilliams; 04/06/2021 9:45:26 AM Social History Problems Caffeine use (V49.89) (Z78.9) 2 cups of coffee Former smoker (V15.82) (Z87.891) quit 05/22/21 No alcohol use No illicit drug use Review of Systems Constitutional: not feeling tired. Eyes: no eyesight problems. ENT: no hearing loss and no nosebleeds. Cardiovascular: no intermittent leg claudication and as noted in HPI. Respiratory: no chronic cough and no shortness of breath. Gastrointestinal: no change in bowel habits and no blood in stools. Genitourinary: no urinary frequency. Skin: no skin rashes. Neurological: no seizures and no frequent falls. Psychiatric: no depression and not suicidal. All other systems have been reviewed and are negative for complaint. Vitals Vital Signs Recorded: 26May2021 01:21PMRecorded: 26May2021 12:47PM Wgyifzfy169, LUE, Knmifth597, LUE, Sitting Magibyuel13, LUE, Qmxdpkh21, LUE, Sitting Heart Rate57, L Brachial Artery Height5 ft 1 in Tipbcm436 lb BMI Mobysgfzas06.91 kg/m2 BSA Calculated2.05 Tobacco Useb) No Fall Screeninga) No falls within the last year Physical Exam Constitutional: alert and in no acute distress. Eyes: no erythema, swelling or discharge from the eye . Neck: neck is supple, symmetric, trachea midline, no masses and no thyromegaly . Pulmonary: no increased work of breathing or signs of respiratory distress and lungs clear to auscultation. Cardiovascular: carotid pulses 2+ bilaterally with no bruit , JVP was normal, no thrills , regular rhythm, normal S1 and S2, no murmurs , pedal pulses 2+ bilaterally and no edema . Abdomen: abdomen non-tender, no masses and no hepatomegaly . Skin: skin warm and dry, normal skin turgor . Psychiatric judgment and insight is normal and oriented to person, place and time . Signatures Electronically signed by : Aneudy Torres MD; Nov (more content not included)... Normal [employer] Tobacco Screening.on 021 Fall risk assessment a) No falls within the last year -[facility] [place] [address] DO Work Phone: Tobacco use status CP b) No -[facility] [place] [address] DO Work Phone: BASIC METABOLIC PANELon 11-0 Anion gap [Moles/Vol] 10 mmol/L Normal 10 - 20 [facility] Comment on above: Performed By: #### B #### [address] [id number] Calcium [Mass/Vol] 9.7 mg/dL Normal 8.6 - 10.3 [facility] Comment on above: Performed By: #### B MP #### [address] [id number] Chloride [Moles/Vol] 97 mmol/L Low 98 - 107 [facility] Comment on above: Performed By: #### B MP #### [address] [id number] Creatinine [Mass/Vol] 0.69 mg/dL Normal 0.50 - 1.05 [facility] Comment on above: Performed By: #### B MP #### [address] [id number] GFR- AM. >60 Normal >60 [facility] Comment on above: Result Comment: CALC ULATIONS OF ESTIMATED GFR ARE PERFORMED USING THE MDRD STUDY EQUATION FOR THE IDMS-TRACEABLE CREATININE METHODS. CLIN CHEM 2007;53:766-72 Performed By: #### B MP #### [address] [id number] GFR-NON AM. >60 Normal >60 [facility] Comment on above: Performed By: #### B MP #### [address] [id number] Glucose [Mass/Vol] 100 mg/dL High 74 - 99 [facility] Comment on above: Performed By: #### B MP #### [address] [id number] HCO3 (Bld) [Moles/Vol] 31 mmol/L Normal 21 - 32 [facility] Comment on above: Performed By: #### B MP #### [address] [id number] Potassium [Moles/Vol] 4.0 mmol/L Normal 3.5 - 5.3 [facility] Comment on above: Performed By: #### B MP #### [address] [id number] Sodium [Moles/Vol] 134 mmol/L Low 136 - 145 [facility] Comment on above: Performed By: #### B MP #### [facility] [address] [place], [place] [id number] Urea nitrogen [Mass/Vol] 17 mg/dL Normal 6 - 23 [facility] Comment on above: Performed By: #### B MP #### [facility] [address], [place] [id number] Laboratory - Chemistry and C hemistry - challengeon 05-21-2021 Anion gap [Moles/Vol] 10 mmol/L 10 - 20 [facility] DO Work Phone: [phone] Calcium [Mass/Vol] 9.7 mg/dL 8.6 - 10.3 [facility] [address] DO Work Phone: Chloride [Moles/Vol] 97 mmol/L below low threshold 98 - 107 [facility] DO Work Phone: CO2 [Moles/Vol] 31 mmol/L 21 - 32 [facility] DO Work Phone: Creatinine [Mass/Vol] 0.69 mg/dL See Below [facility] DO Work Phone: Comment on above: Reference Range: 0.5 0 - 1.05 Glucose [Mass/Vol] 100 mg/dL above high threshold 74 - 99 [facility] DO Work Phone: Potassium [Moles/Vol] 4.0 mmol/L 3.5 - 5.3 [facility] DO Work Phone: Sodium [Moles/Vol] 134 mmol/L below low threshold 136 - 145 [facility] [facility] DO Work Phone: Urea nitrogen [Mass/Vol] 17 mg/dL 6 - 23 [facility] DO Work Phone: No Panel Informationon 11-06 -2021 >60 >60 -[facility] 305 DO Work Phone: Comment on above: CALCULATIONS OF MICH MATED GFR ARE PERFORMED USING THE MDRD STUDY EQUATION FOR THE IDMS-TRACEABLE CREATININE METHODS. CLIN CHEM 2007;53:766-72 BASIC METABOLIC PANELon 11-0 Anion gap [Moles/Vol] 12 mmol/L Normal 10 - 20 [facility] Comment on above: Performed By: #### B MP #### [address] [id number] Calcium [Mass/Vol] 9.1 mg/dL Normal 8.6 - 10.3 [facility] Comment on above: Performed By: #### B MP #### [address] [id number] Chloride [Moles/Vol] 99 mmol/L Normal 98 - 107 [facility] Comment on above: Performed By: #### B MP #### [address] [id number] Creatinine [Mass/Vol] 0.64 mg/dL Normal 0.50 - 1.05 [facility] Comment on above: Performed By: #### B MP #### [address] [id number] GFR- AM. >60 Normal >60 [facility] Comment on above: Result Comment: CALC ULATIONS OF ESTIMATED GFR ARE PERFORMED USING THE MDRD STUDY EQUATION FOR THE IDMS-TRACEABLE CREATININE METHODS. CLIN CHEM 2007;53:766-72 Performed By: #### B MP #### [address] [id number] GFR-NON AM. >60 Normal >60 [facility] Comment on above: Performed By: #### B MP #### [address] [id number] Glucose [Mass/Vol] 115 mg/dL High 74 - 99 [facility] Comment on above: Performed By: #### B MP #### [address] [id number] HCO3 (Bld) [Moles/Vol] 30 mmol/L Normal 21 - 32 [facility] Comment on above: Performed By: #### B MP #### [address] [id number] Potassium [Moles/Vol] 3.9 mmol/L Normal 3.5 - 5.3 [facility] Comment on above: Performed By: #### B MP #### [address] [id number] Sodium [Moles/Vol] 137 mmol/L Normal 136 - 145 [facility] Comment on above: Performed By: #### B MP #### [address] [id number] Urea nitrogen [Mass/Vol] 14 mg/dL Normal 6 - 23 [facility] Comment on above: Performed By: #### B MP #### [address] [id number] CBCon 05-20-2021 Erythrocyte distribution width (RBC) [Ratio] 13.6 % Normal 11.5 - 14.5 [facility] Comment on above: Performed By: #### C BC #### [address] [id number] Hematocrit (Bld) [Volume fraction] 48.4 % High 36.0 - 46.0 [facility] Comment on above: Performed By: #### C BC #### [address] [id number] Hemoglobin (Bld) [Mass/Vol] 15.2 g/dL Normal 12.0 - 16.0 [facility] Comment on above: Performed By: #### C BC #### [address] [id number] MCHC (RBC) [Mass/Vol] 31.4 g/dL Low 32.0 - 36.0 [facility] Comment on above: Performed By: #### C BC #### [address] [id number] MCV (RBC) [Entitic vol] 98 fL Normal 80 - 100 [facility] Comment on above: Performed By: #### C BC #### [address] [id number] Platelets (Bld) [#/Vol] 266 10*3/uL Normal 150 - 450 [facility] Comment on above: Performed By: #### C BC #### [address] [id number] RBC 4.94 x10E12/L Normal 4.00 - 5.20 [facility] Comment on above: Performed By: #### C BC #### [address] [id number] WBC (Bld) [#/Vol] 6.9 10*3/uL Normal 4.4 - 11.3 [facility] Comment on above: Performed By: #### C BC #### [address] [id number] Discharge [id number] 021 Discharge Profile2 Discharge Orders: Anticipated Discharge Date: Anticipated Discharge [id number] Anticipated Discharge Time09:36 DNAR: DNAR Status: none Activity: activity as tolerated. May shower. May return to school/work Instructions: No pushing, pulling, or lifting objects greater than 5 pounds for 2 day(s). Hospital Course (Home Care/Gold Form): Hospital Course: Hospital Course: include significant abnormal lab values Patient was admitted electively on 05/20/2021 for IVUS/possible high risk PCI under the care of Dr. Odell due to recent findings of severe coronary artery disease per left heart catheterization performed on March 09, 2021. Recommendations were made for patient to undergo CABG, however she was deemed not a surgical candidate. Patient underwent IVUS of the left main and left anterior descending arteries with findings of 50% distal left main stenosis and 75% ostial LAD stenosis. Patient also noted to have severely calcified 80% mid RCA stenosis. She underwent successful PCI and 1 ERICA to the left main and LAD reducing those lesions down to 0% stenosis. She also received 1 ERICA to the mid RCA reducing that lesion down to 0% stenosis. She tolerated the procedure well and there were no postprocedural complications. She was monitored overnight due to high risk PCI and for close monitoring of her groin due to highly calcified arteries at procedural access site. She will be discharged to home on 05/21/2021 barring no complications. See progress note per medical planting material unloader for physical exam details. Patient will be discharged home on aspirin and Plavix therapy. She was initiated on high intensity statin therapy with atorvastatin 40 mg daily. She will be scheduled to follow-up with Dr. Torres in the [facility] office next week. Postprocedural activity, restrictions, potential complications, medications and future follow up discussed at length. Patient verbalized an understanding. Provider FINAL REVIEW of Orders: Final Review: Final Review of Medication Reconciliation and Orders Completedby Physician Reviewing ProviderCharlie Desai MD at 21-May-2021 09:36:58 Appointments: Follow-Up Appointment 01: Physician/Dept/ServiceDr. Torres [facility] Sched[facility] Date/[id number] 12:40 [facility] Office Phone [phone] Electronic Signatures: Charlie Desai) (Signed 21-May-2021 09:36) Authored: Discharge Orders, Provider FINAL REVIEW of Orders Kayce Wallace (STRIPPER CUTTER MACHINE-HELPER TEACHER) (Signed 20-May-2021 15:19) Authored: Discharge Orders, Hospital Course (Home Care/Gold Form), Provider FINAL REVIEW of Orders, Appointments, Gold Form - Gang Investigator Summary Last Updated: 21-May-2021 09:36 by Charlie Desai) [facility] FFR/IVUSon 05-20-2021 FFR/IVUS [facility], Mortgage Processor [address] [place] [id number] Cardiovascular Catheterization Report Patient Name: KATHLEEN Randolph [id number] Nicolas ROSEN Physician: Study Date: 05/20/2021 Verifying Physician: [id number] Nicolas Odell MD MRN/PID: [id number] Last Scourer: Accession/Order#: [id number] Referring Physician: [id number] NICOLAS ODELL Date of : 1945 Referring Physician: Gender: F Referring Physician: [id number] Nicolas Odell MD Admit Date: 05/20/2021 Fellow: Study: PCI (Percutaneous Cardiac Intervention) Additional Study: IVUS - Intravascular Ultrasound Indications: KATHLEEN ROSEN is a 76 year old female who presents with hypertension, dyslipidemia, prior myocardial infarction, prior percutaneous coronary intervention, tobacco Use - current and chronic pulmonary disease. Other PCI indication, with a chest pain assessment of typical angina. Study performed as an elective PCI procedure. Medical History: Stress test performed: Yes. Stress test type: Stress Nuclear. Stress result: Positive. Ischemic Risk: Intermediate. CTA performed: No. Agatston accessed: Yes. LVEF Assessed: Yes. LVEF = 60%. Procedure Description: After infiltration with 2% Lidocaine, the right femoral artery was cannulated with a modified Seldinger technique. Subsequently a 6 Yi sheath was placed in the right femoral artery. Selective coronary catheterization was performed using a 6 Fr catheter(s) exchanged over a guide wire to cannulate the coronary arteries. Multiple injections of contrast were made into the left and right coronary arteries with angiograms recorded in multiple projections. After completion of the procedure, femoral artery angiography was performed. This demonstrated a common femoral artery puncture appropriate for closure. A Vascade 6/7Fr vascular closure Device was placed per protocol. Coronary Angiography: The coronary circulation is right dominant. Left Main Coronary Artery: The left main artery is calcified. The left main coronary artery is calcified. There is 50% stenosis in the distal left main coronary artery. The devices advanced to the the distal left main lesion were: a balloon was inflated for pre-dilation, SYNERGY MEGATRON ERICA, Synergy Megatron 4.50x16 drug-eluting stent was deployed in the lesion a balloon was inflated for post-dilation. Residual stenosis is <10%. Left Anterior Descending Coronary Artery Distribution: There is 75% stenosis in the ostial left anterior descending artery. This vessel is calcified. This segment is calcified. The devices advanced to the ostial LAD lesion were: a balloon was inflated for pre-dilation, Synergy Megatron 4.50x16 drug-eluting stent was deployed in the lesion a balloon was inflated for post-dilation. Residual stenosis is <10 %. Right Coronary Artery Distribution: There is 80% stenosis in the the mid Right Coronary Artery. This segment is calcified. The devices advanced to the the mid RCA lesion were: a balloon was inflated for pre-dilation Resolute Hiram 4.50x18 stent was deployed in the lesion. Residual stenosis is <10%. Left Ventriculography: Ejection fraction was not assessed. Coronary Interventions: Pre-intervention CORINNA flow was 3. Intravascular Ultrasound (IVUS) was performed on the lesion within the distal and ostial left main and left anterior descending. The plaque seen was predominantly fibro-calcific, no thrombus was visualized and no dissection was revealed. This lesion was interpreted to be significant. Percutaneous coronary intervention was performed within the distal and ostial left main and left anterior descending. Post intervention Intravascular Ultrasound (IVUS) was performed within the distal and ostial left main and left anterior descending . The stent demonstrated good apposition. No thrombus was visualized. No edge dissection is visualized. Post-intervention CORINNA flow was 3. Hemo Personnel: + ---+ + Name Duty + ---+ + Nicolas Odell MD, MD 1 + ---+ + Darya Menjivar PROC SCRUB 1 + ---+ + Alanna Matamoros RN PROC CIRC 1 + ---+ + Aster Gilmore RN PROC CIRC 2 + ---+ + Zahraa Tenorio RN PROC RECORD 1 + ---+ + Lea Gilmore RN PROC NURSE 1 + ---+ + Marianela Magaña RN PROC NURSE 2 + ---+ + Sedation Time: + + + Sedation Start/End Times Time + + + Start 05/20/2021 08:16:09 + + + Drugs Versed for Sedation 1 mg IV per Physicia +------- (more content not included)... Normal [facility] - Chemistry and C hemistry - challengeon 05-20-2021 Anion gap [Moles/Vol] 12 mmol/L 10 - 20 -[facility] 305 DO Work Phone: Calcium [Mass/Vol] 9.1 mg/dL 8.6 - 10.3 [facility] 305 DO Work Phone: [phone] Chloride [Moles/Vol] 99 mmol/L 98 - 107 [facility] 305 DO Work Phone: [phone] CO2 [Moles/Vol] 30 mmol/L 21 - 32 [facility] Francesca DO Work Phone: [phone] Creatinine [Mass/Vol] 0.64 mg/dL See Below [facility] Francesca DO Work Phone: [phone] Comment on above: Reference Range: 0.5 0 - 1.05 Glucose [Mass/Vol] 115 mg/dL above high threshold 74 - 99 [facility] Francesca DO Work Phone: [phone] Potassium [Moles/Vol] 3.9 mmol/L 3.5 - 5.3 [facility] Francesca DO Work Phone: [phone] Sodium [Moles/Vol] 137 mmol/L 136 - 145 [facility] Francesca DO Work Phone: [phone] Urea nitrogen [Mass/Vol] 14 mg/dL 6 - 23 [facility] Francesca DO Work Phone: [phone] Laboratory - Hematology and Cell countson 05-20-2021 Erythrocyte distribution width (RBC) [Ratio] 13.6 % See Below [facility] Work Phone: [phone] Comment on above: Reference Range: 11. 5 - 14.5 Hematocrit (Bld) [Volume fraction] 48.4 % above high threshold See Below [facility] Work Phone: [phone] Comment on above: Reference Range: 36. 0 - 46.0 Hemoglobin (Bld) [Mass/Vol] 15.2 g/dL See Below [facility] Francesca DO Work Phone: [phone] Comment on above: Reference Range: 12. 0 - 16.0 MCHC (RBC) [Mass/Vol] 31.4 g/dL below low threshold See Below [facility] Francesca DO Work Phone: Comment on above: Reference Range: 32. 0 - 36.0 MCV (RBC) [Entitic vol] 98 fL 80 - 100 [facility] 305 DO Work Phone: [phone] Platelets (Bld) [#/Vol] 266 10*3/uL 150 - 450 [facility] Francesca DO Work Phone: [phone] RBC (Bld) [#/Vol] 4.94 {x10E12/L} See Below [facility] 305 DO Work Phone: [phone] Comment on above: Reference Range: 4.0 0 - 5.20 WBC (Bld) [#/Vol] 6.9 10*3/uL 4.4 - 11.3 [facility] 305 DO Work Phone: [phone] Panel Informationon 05-20 [email or web address] [email or web address] [email or web address] ?RetrieveTestByDateTime?P [id number]&Date=0 11-23-2020&Time=10%3a37%3a 26%3a00&TestType=ECG&Site =11&OutputType=PDF&Ext=PD F [facility] 305 DO Work Phone: [phone] Sinus bradycardia wi th sinus arrhythmia [facility] Francesca DO Work Phone: [phone] Borderline Abnormal -[facility] 305 DO Work Phone: [phone] [facility] 305 DO Work Phone: [phone] [facility] 305 DO Work Phone: [phone] [facility] 305 DO Work Phone: [phone] [facility] 305 DO Work Phone: [phone] [facility] 305 DO Work Phone: [phone] [facility] 305 DO Work Phone: [phone] [facility] 305 DO Work Phone: [phone] [facility] 305 DO Work Phone: [phone] [facility] 305 DO Work Phone: [phone] [facility] 305 DO Work Phone: [phone] [facility] 305 DO Work Phone: [phone] [facility] 305 DO Work Phone: [phone] [facility] 305 DO Work Phone: [phone] [facility] 305 DO Work Phone: [phone] [facility] 305 DO Work Phone: [phone] [facility] Francesca DO Work Phone: Comment on above: CALCULATIONS OF MICH MATED GFR ARE PERFORMED USING THE MDRD STUDY EQUATION FOR THE IDMS-TRACEABLE CREATININE METHODS. CLIN CHEM 2007;53:766-72 [email or web address] [email or web address] [email or web address] ?RetrieveTestByDateTime?P [id number]&Date=0 11-23-2020&Time=06%3a58%3a 23%3a00&TestType=ECG&Site =11&OutputType=PDF&Ext=PD F [facility] 305 DO Work Phone: [phone] Sinus bradycardia [facility] 305 DO Work Phone: [phone] [facility] 305 DO Work Phone: [phone] [facility] 305 DO Work Phone: [phone] [facility] 305 DO Work Phone: [phone] [facility] 305 DO Work Phone: [phone] -[facility] 305 DO Work Phone: [phone] -[facility] 305 DO Work Phone: [phone] [facility] 305 DO Work Phone: [phone] [facility] 305 DO Work Phone: [phone] [facility] 305 DO Work Phone: [phone] [facility] 305 DO Work Phone: [phone] [facility] 305 DO Work Phone: [phone] [facility] 305 DO Work Phone: [phone] [facility] 305 DO Work Phone: [phone] [facility] 305 DO Work Phone: Order Reconciliationon 05-20 Order Reconciliation Page 1 Discharge Reconciliation Document Reconciliation Type: Discharge requested on behalf of Kayce Wallace (Advanced Practice Nurse) done by Kayce Wallace (STRIPPER CUTTER MACHINE-HELPER TEACHER) Discharge - Reconciliation: 20-May-2021 12:26 by: Kayce Wallace (STRIPPER CUTTER MACHINE-HELPER TEACHER) Home Medications EnteredHOME MEDICATIONS AT DISCHARGE DateReconciliation Comment/ Additional Information aspirin 81 mg oral tablet 1 tab(s) orally once a day 19-May-2021 14:59 aspirin 81 mg oral tablet 1 tab(s) orally once a day 19-May-2021 14:59 aspirin 81 mg oral tablet is continued as aspirin 81 mg oral tablet Calcium 600+D oral tablet 1 tab(s) orally 2 times a day 19-May-2021 14:59 Calcium 600+D oral tablet 1 tab(s) orally 2 times a day 19-May-2021 14:59 Calcium 600+D oral tablet is continued as Calcium 600+D oral tablet clopidogrel 75 mg oral tablet 1 tab(s) orally once a day 19-May-2021 14:59 clopidogrel 75 mg oral tablet 1 tab(s) orally once a day 20-May-2021 12:23 Discontinued; Copy/Discontinue Prescription is created for clopidogrel 75 mg oral tablet hydroCHLOROthiazide 12.5 mg oral capsule 1 cap(s) orally once a day 19-May-2021 15:00 hydroCHLOROthiazide 12.5 mg oral capsule 1 cap(s) orally once a day 19-May-2021 15:00 hydroCHLOROthiazide 12.5 mg oral capsule is continued as hydroCHLOROthiazide 12.5 mg oral capsule isosorbide mononitrate 60 mg oral tablet, extended release 1 tab(s) orally once a day (in the morning) 19-May-2021 15:00 isosorbide mononitrate 60 mg oral tablet, extended release 1 tab(s) orally once a day (in the morning) 19-May-2021 15:00 isosorbide mononitrate 60 mg oral tablet, extended release is continued as isosorbide mononitrate 60 mg oral tablet, extended release lovastatin 10 mg oral tablet 1 tab(s) orally once a day 19-May-2021 15:00 Discontinued; Discontinue from ORM lovastatin 10 mg oral tablet is not required Metoprolol Succinate ER 25 mg oral tablet, extended release 1 tab(s) orally once a day 19-May-2021 15:01 Metoprolol Succinate ER 25 mg oral tablet, extended release 1 tab(s) orally once a day 19-May-2021 15:01 Metoprolol Succinate ER 25 mg oral tablet, extended release is continued as Metoprolol Succinate ER 25 mg oral tablet, extended release Vitamin D3 25 mcg (1000 intl units) oral capsule 1 cap(s) orally 2 times a day 19-May-2021 15:01 Vitamin D3 25 mcg (1000 intl units) oral capsule 1 cap(s) orally 2 times a day 19-May-2021 15:01 Vitamin D3 25 mcg (1000 intl units) oral capsule is continued as Vitamin D3 25 mcg (1000 intl units) oral capsule Current OrdersDateHOME MEDICATIONS AT DISCHARGE DateReconciliation Comment/ Additional Information Aspirin Chewable Tablet, ChewableDOSE = 81 mg Oral Daily 20-May-2021 10:12 Aspirin Chewable is not required Atorvastatin Tablet (LIPITOR)DOSE = 40 mg Oral At Bedtime 20-May-2021 10:51 atorvastatin 40 mg oral tablet 1 tab(s) orally once (at bedtime) 20-May-2021 12:23 Prescription is created for atorvastatin 40 mg oral tablet Clopidogrel Tablet (PLAVIX)DOSE = 75 mg Oral Daily 20-May-2021 10:12 Clopidogrel is not required hydroCHLOROthiazide Tablet (ESIDREX)DOSE = 12.5 mg Oral Daily 20-May-2021 10:50 hydroCHLOROthiazide is not required Isosorbide Mononitrate Extended Release Tablet, Extended Release (IMDUR)DOSE = 60 mg Oral Daily 20-May-2021 10:50 Isosorbide Mononitrate Extended Release is not required Metoprolol Succinate Extended Release Tablet, Extended Release (TOPROL-XL)DOSE = 25 mg Oral Daily 20-May-2021 10:50 Metoprolol Succinate Extended Release is not required Sodium Chloride 0.9% Infusion IV Bag Volume = 1,000 mL Run at: 100 mL/hr IntraVenous Stop After 6 HoursClinician Notes: Post procedure 20-May-2021 10:12 Sodium Chloride 0.9% Infusion is not required Home Medications Added During Discharge Reconciliation Nitrostat 0.4 mg sublingual tablet 1 tab sublingual every 5 minutes x 3 doses as needed for chest pain. All Active Home Medications at time of Discharge Reconciliation: 20-May-2021 12:26 aspirin 81 mg oral tablet 1 tab(s) orally once a day atorvastatin 40 mg oral tablet 1 tab(s) orally once (at bedtime) Calcium 600+D oral tablet 1 tab(s) orally 2 times a day clopidogrel 75 mg oral tablet 1 tab(s) orally once a day hydroCHLOROthiazide 12.5 mg oral capsule 1 cap(s) orally once a day isosorbide mononitrate 60 mg oral tablet, extended release 1 tab(s) orally once a day (in the morning) Metoprolol Succinate ER 25 mg oral tablet, extended release 1 tab(s) orally once a day Nitrostat 0.4 mg sublingual tablet 1 tab sublingual every 5 minutes x 3 doses as needed for chest pain. Vitamin D3 25 mcg (1000 intl units) oral capsule 1 cap(s) orally 2 times a day Normal [facility] Order Reconciliation Page 1 Admission Reconciliation Document Reconciliation Type: Observation requested on behalf of Kayce Wallace (Advanced Practice Nurse) done by Kayce Wallace (STRIPPER CUTTER MACHINE-[facility]) Observation - Reconciliation: 20-May-2021 10:51 by: Kayce Wallace (STRIPPER CUTTER MACHINE-[facility]) Home MedicationsEnteredLast Dose TakenReconciled with current Order Reconciliation Comment/ Additional Information aspirin 81 mg oral tablet 1 tab(s) orally once a [id number] 5:00 AM Reviewed and Held Calcium 600+D oral tablet 1 tab(s) orally 2 times a [id number] 5:00 AM Reviewed and Held clopidogrel 75 mg oral tablet 1 tab(s) orally once a [id number]-May-2021 5:00 AM Reviewed and Held hydroCHLOROthiazide 12.5 mg oral capsule 1 cap(s) orally once a [id number]-May-2021 5:00 AM hydroCHLOROthiazide Tablet (ESIDREX)DOSE = 12.5 mg Oral DailyhydroCHLOROthiazide 12.5 mg oral capsule continued as the inpatient order hydroCHLOROthiazide isosorbide mononitrate 60 mg oral tablet, extended release 1 tab(s) orally once a day (in the morning) 5:00 AM Isosorbide Mononitrate Extended Release Tablet, Extended Release (IMDUR)DOSE = 60 mg Oral Daily isosorbide mononitrate 60 mg oral tablet, extended release continued as the inpatient order Isosorbide Mononitrate Extended Release lovastatin 10 mg oral tablet 1 tab(s) orally once a [id number] 9:00 PM Reviewed and Held Metoprolol Succinate ER 25 mg oral tablet, extended release 1 tab(s) orally once a [id number] 5:00 AM Metoprolol Succinate Extended Release Tablet, Extended Release (TOPROL-XL)DOSE = 25 mg Oral DailyMetoprolol Succinate ER 25 mg oral tablet, extended release continued as the inpatient order Metoprolol Succinate Extended Release Vitamin D3 25 mcg (1000 intl units) oral capsule 1 cap(s) orally 2 times a day 5:00 AM Reviewed and Held Additional Current Orders Aspirin Chewable Tablet, ChewableDOSE = 81 mg Oral Daily Clopidogrel Tablet (PLAVIX)DOSE = 75 mg Oral Daily Sodium Chloride 0.9% Infusion IV Bag Volume = 1,000 mL Run at: 100 mL/hr IntraVenous Stop After 6 HoursClinician Notes: Post procedure Normal [facility] Patient Profile - Preop v3on 05-20-2021 Patient Profile - Preop v3 Patient Profile - Preop: Initial Info: Patient DemographicsName: KATHLEEN ROSEN Date: 1945 Address: [address] [place] [address] Primary Phone [phone] How to be AddressedSharon Spoken Language PreferredEnglish Source of Informationpatient Stated Reason for Admissionfor heart cath Primary Contact Name and NumberPam [phone] Patient Belongingsremains with patient Patient Belongings Remaining with Patientvision aids; cell phone/electronics; purse/wallet Medications Brought to Hospitalno General Health: Weight in kg109.2 kilogram(s) Weight in fkc249.7 pound(s) Weight Methodactual (measured) Scale Typestanding Height in feet5 feet Height in inches1 inch(es) Height in cm154.9 centimeter(s) Height Methodstated BMI (kg/m2)45.511 square meter Patient or Family Member Reaction to Anesthesiano previous reaction Blood Avoidance/Restrictionsnon e Previous Transfusion Reactionno Health Mgmt: Symptoms/Conditions Managed at Homecardiovascular Cardiovascular Symptoms/Conditionshypert ension Barriers to Managing Healthnone Relationship/Environ: Lives Withother relative(s) Living Arrangementshouse Resource/Environmental Concernsnone [place]ticipated [place] Anticipated at Transitionnone Tobacco Use: Tobacco Useyes Tobacco Typecigarettes Last Tobacco [id number] Number of Packs per Day1 Pre-op Checklist: Arrival [id number] Arrival Time05:53 Procedure Typefor heart cath NPOyes Last Food [id number] 18:00 ID Band On Patientpatient ID (name), allergy, falls risk Consent Signedpending H&P Completepending Anesthesia Assessment Completedpending EKG Performedyes Chest X-Ray Performednot ordered Preop Antibioticsnot ordered Beta-kristina Last Dose Date/[id number]-3223 04:37 Type and Screen Resultedn/a HCG Urine TestN/A Chlorhexadine Bath Givennot applicable Nasal Antiseptic Appliednot applicable Soap and Water Bath the Night Before Surgerynot applicable Hair Washed with Shampoono SCD's Appliedno NITISH Hose Appliedno Additional Information: Information Review: Allergies, Home Meds and Significant Events have been Reviewed and Verified with Patient/Familyyes Allergy, Intolerance, Adverse Event: Allergies: Holden: Food, Facial Swelling, Rash, Active penicillin: Drug, Unknown, Active Electronic Signatures: Marianela Magaña (SON) (Signed 20-May-2021 06:39) Authored: Initial Info, General Health, Health Mgmt, Relationship/Environ, Tobacco Use, Pre-op Checklist, Additional Information Last Updated: 20-May-2021 06:39 by Marianela Magaña (SON) Normal [facility] Office Visit (Cardiac Surger y)on 05-04-2021 Follow-up visit Provider Impressions In summary, this 75-year-old woman continues to be asymptomatic, but she does have coronary artery disease. We need to identify but more precisely the extent of his coronary artery disease. The patient is extremely reluctant to undergo coronary bypass surgery unless it is absolutely necessary, unless there are no other feasible options. She has much preferred the idea of PCI, although she understands that from some levels, surgery might offer her a better long-term result. Having said that, her surgery would not be without substantial risk. She has morbid obesity, in fact her BMI is 47 with a body surface area of 2.07, height is 5 foot 1 weight is 249 pounds. Surgery would certainly for slightly higher risks of infection sternal issues. Having said that I do believe her surgical risk would be relatively low probably at 1 or 2% for stroke or mortality. I discussed her case with Dr. Ananda Odell, and that was the recommendation of the [facility] group, since he works with Dr. Cintron in the [facility] heart group. Dr. Odell reviewed the films and felt that she could be studied further, and felt that IVUS of the left main, and FFR of the RCA would be indicated. He also expressed some skepticism about the severity of the lesions, although he does note that in some views they appear to be more significant than others. He felt that if these lesions are hemodynamically significant, that they could be stented successfully. This would be very much in accordance with the patient's wishes and in accordance with a heart team based approach. Chief Complaint Patient is having a telehealth follow-up visit to discuss PCi vs CABG. Referring provider: Dr. Aneudy Torres. Little Mcwilliams, BSN, RN. Adult Risk ScreeningThere are no spiritual/cultural practices/values/needs that are important to know Initial Fall Risk Screening: KATHLEEN has not fallen in the last 6 months. Advance directives: Living Will: No living will on file. Healthcare POA: No healthcare proxy on file. History of Present Illness I was able to have a discussion with Kathleen about her coronary artery disease. She had originally seen in consultation on 30 April. She had been referred because of a positive stress test, and a coronary angiogram that suggested the presence of 70% stenosis in the LAD, 50 to 70% distal left main stenosis, and occluded and small circumflex, and an RCA lesion of 70 to 80%. However she was completely asymptomatic, and reluctant to have surgery. Therefore we presented her at our weekly CHIP meeting which is attended by several planting material unloader and surgeons. Interestingly, it was the consensus of the group that the lesions may not be as severe as identified. It was also the feeling that the stress test that was performed, may have little relevance especially in morbidly obese patients. It suggested a large transmural defect on the anterior lateral wall with normal ventricular function and possible reversible ischemia. During our discussion with the group, there was question as to the relevance of that. The suggestion of this group was to obtain further imaging of her coronary arteries. The feeling was to obtain either a heart flow CT FFR study, or to have her restudy by the [facility] group, with possible IVUS or FFR of these lesions. Review of Systems Constitutional: not feeling tired. Cardiovascular: no intermittent leg claudication and as noted in HPI. Respiratory: no cough and no shortness of breath. Gastrointestinal: no change in bowel habits and no blood in stools. Integumentary: no skin rashes. Neurological: no seizures and no frequent falls. All other systems have been reviewed and are negative for complaint. Active Problems Problems Hyperlipidemia (272.4) (E78.5) Hypertension (401.9) (I10) Morbid obesity (278.01) (E66.01) Myocardial infarction (410.90) (I21.9) Past Medical History Problems CAD (coronary artery disease) (414.00) (I25.10) Hyperlipidemia (272.4) (E78.5) Myocardial infarction (410.90) (I21.9) Surgical History Problems History of Coronary artery stent placement Social History Problems Current every day smoker (305.1) (F17.200) Allergies Medication Penicillins Recorded By: Tonya Mcwilliams; 04/06/2021 9:45:26 AM Current Meds Medication NameInstruction Aspirin 81 MG Oral Tablet Delayed ReleaseTAKE 1 TABLET DAILY. Calcium 600 MG TABSTake 1 tablet twice daily hydroCHLOROthiazide 12.5 MG Oral CapsuleTAKE 1 CAPSULE BY MOUTH ONCE DAILY Isosorbide Mononitrate ER 60 MG Oral Tablet Extended Release 24 HourTAKE 1 TABLET BY MOUTH ONCE DAILY Lovastatin 10 MG Oral TabletTAKE 1 TABLET BY MOUTH ONCE DAILY IN THE EVENING Metoprolol Succinate ER 25 MG Oral Tablet Extended Release 24 HourTAKE 1 TABLET ONCE DAILY. Vitamin D 1000 UNIT TABSTake 1 tablet twice daily Letter Closing cc: Dr. Aneudy Torres If you have any questions please do not hesitate to contact my office. Sincerely, Sign (more content not included)... Normal [facility] Office Visit (Cardiac Surger y)on 04-20-2021 Follow-up visit Diagnoses/Problems Assessed CAD (coronary artery disease) (414.00) (I25.10) Provider Impressions In summary, this 75-year-old woman appears to have no symptoms of coronary artery disease, however has a positive stress test and a coronary angiogram revealing significant three-vessel disease. I reviewed her stress test from February 24. This was a Lexiscan protocol, the interpretation was of no significant ischemia. She did complain of nausea but no shortness of breath. She underwent a coronary angiogram on 09 March. This revealed a left main lesion of 50 to 70%, with a 70% lesion extending into the left anterior descending artery. The circumflex revealed an ostial lesion of 70 to 80%, followed by a complete occlusion. The remaining segments of the circumflex appeared to be small with a small distal bed. The RCA is large. It has a lesion in its proximal third of 70 to 80%. Ventriculogram showed normal ventricular function. Based on the available information, she would meet class I indications for surgical revascularization. The goal of surgery would be to improve her long-term survival and to decrease her risk of a myocardial infarction. Because she is having no symptoms, it is unclear that she would gain a quality of life benefit. Having said that, her surgical risk would be increased mainly because of her body habitus. Her BMI is 47. Her height is 5 1 with a weight of 249 pounds. She clearly is reluctant to undergo surgery. I did discuss that we could discuss her case at our regular CHIP meeting which is a meeting with planting material unloader and surgeons about complex revascularization. In looking at her angiogram, although we do not typically stent left main lesions, one could argue that in this case because of the extremely small circumflex vessels, that the proximal LAD and left main could be stented. The RCA appears to be easily stent double. However I would want the opinion of my interventional cardiology colleagues, and we will discuss her case next Sunday. If she is not a candidate for PCI, we will discuss again the options of surgery. I sense that she is reluctant, but perhaps with some time, will reconsider. If we do proceed with surgery, we would try to keep it relatively simple with a SALGADO to the LAD and a vein graft to the RCA. Alternatively we could use a radial artery depending on her body habitus, or bilateral mammary arteries. We have not had a chance to examine her since this was a virtual visit. After our meeting next Sunday, I will endeavor to contact the patient with our final recommendations. Chief Complaint A telephone visit (audio only) between the patient (at the originating site) and the provider (at the distant site) was utilized to provide this telehealth service. Verbal consent was requested and obtained from KATHLEEN ROSEN on this date, 04/20/2021 02:15 PM , for a telehealth visit. Patient is having a telehealth surgical evaluation for CAD following a referral by Dr. Aneudy Torres. AGUSTÍN PalomoN, RN Adult Risk ScreeningThere are no spiritual/cultural practices/values/needs that are important to know Initial Fall Risk Screening: KATHLEEN has not fallen in the last 6 months. Advance directives: Living Will: No living will on file. Healthcare POA: No healthcare proxy on file. History of Present Illness Mrs. Rosen is a 75-year-old woman who has been referred by Dr. Aneudy Torres, for assessment of her coronary artery disease. She had been offered and in person consultation and a virtual visit through a video conferencing system but wanted to be seen through a phone call. We had a long discussion about her current symptoms and coronary artery disease. She was evaluated for coronary artery disease because of a hoarse voice that will need to be evaluated further. 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 In preparation for this, she underwent a cardiac evaluation including a stress test which was positive. This led to a coronary angiogram which revealed significant coronary artery disease. For that reason, she has been referred for cardiac surgery, in preparation for general anesthetic for a vocal cord biopsy. Upon questioning, she states that she has no symptoms at all of coronary artery disease. She has no shortness of breath, no chest pain and no chest tightness. The morning of our visit, she had been walking in [facility], with no difficulty and no limitations. She has no PND or orthopnea. She has no dizziness or syncope. She is questioning her need for coronary artery bypass surgery. Her past medical history includes coronary artery disease diagnosed recently, hypertension, dyslipidemia, morbid obesity, peripheral vascular disease, COPD. She is an active smoker. Review of Systems Constitutional: not feeling tired. Eyes: no eyesight problems. ENT: no hearing loss and no nosebleeds. Cardiovascular: no intermittent leg claudication and as noted in HPI. Re (more content not included)... Normal [facility] Blood Urea Nitrogenon 2020 Urea nitrogen [Mass/Vol] 16 mg/dL Normal - [facility] Comment on above: Performed By: #### P P, BUN, LYTES, CBC, CREAT, LIPID #### [facility] [address] COVID-19 Antigenon 1 COVID-19 Antigen Healthcare Worker?: N Reji Reference Reji Reference Negative SARS-CoV+SARS-CoV-2 (COVID-19) Ag [Presence] in Respiratory specimen by Rapid immunoassay Negative for SARS Antigen by JEAN CLAUDE COVID19 Blank Space ---- Reji Disclaimer Negative results, from patients with symptom Reji Disclaimer onset beyond five days, should be treated as Reji Disclaimer presumptive and confirmation with a molecular Reji Disclaimer assay, if necessary, for patient management, Reji Disclaimer may be performed. Negative results do not rule Reji Disclaimer out COVID-19 and should not be used as the sole Reji Disclaimer basis for treatment or patient management Reji Disclaimer decisions, including infection control decisions. Reji Disclaimer Negative results should be considered in the Reji Disclaimer context of a patient's recent exposures, history Reji Disclaimer and the presence of clinical signs and symptoms Reji Disclaimer consistent with COVID-19. COVID19 Blank Space ---- Reji Disclaimer The Reji SARS Antigen JEAN CLAUDE does not differentiate Reji Disclaimer between SARS-CoV and SARS-CoV-2. COVID19 Blank Space ---- Reji Disclaimer This test was developed and its performance Reji Disclaimer characteristic determined by [employer] and Reji Disclaimer validated at [facility]. This Reji Disclaimer test has not been FDA cleared or approved. This Reji Disclaimer test has been authorized by FDA under an Emergency Use Reji Disclaimer Authorization (EUA). This test has been validated Reji Disclaimer in accordance with the FDA's Guidance Document (Policy Reji Disclaimer for Diagnostics Testing in Laboratories Certified to Reji Disclaimer Perform High Complexity Testing under CLIA prior to Reji Disclaimer Emergency Use Authorization for Coronavirus Reji Disclaimer during the Public Health Emergency) Reji Disclaimer issued on October 16, 2019. This test is only authorized Reji Disclaimer for the duration of time the declaration that Reji Disclaimer circumstances exist justifying the authorization of Reji Disclaimer the emergency use of in vitro diagnostic tests for Reji Disclaimer detection of SARS-CoV-2 virus and/or diagnosis of Reji Disclaimer COVID-19 infection under section 564(b)(1) of the Reji Disclaimer Act, 21 U.S.C. 360bbb-3(b)(1), unless the Reji Disclaimer authorization is terminated or revoked sooner. PERFORMED BY: [place] [address] PATHOLOGIST DAYTIME CAREGIVER IVAN NOBLES M.D. [facility] Comment on above: Performed By: #### C OVID-19 REJI, SOFIANEG #### [address] Coagulation Profileon 2020 aPTT Coag (Bld) [Time] 33.3 s Normal 25.1-36.5 [facility] Comment on above: Result Comment: PERF ORMED BY: [place] [address] PATHOLOGIST DAYTIME CAREGIVER IVAN NOBLES M.D. Performed By: #### P P, BUN, LYTES, CBC, CREAT, LIPID #### [address] INR Coag (PPP) [Relative time] 1.1 {INR} Normal [facility] Comment on above: Result Comment: INR Therapeutic Range A) Pre- and Peroperative OAT started two weeks before surgery. NOT HIP SURGERY: 1.5 - 2.5 HIP SURGERY: 2 - 3 B) Primary and secondary prevention of venous THROMBOSIS: 2 - 3 C) Active venous thrombosis, pulmonary embolism and prevention of recurrent venous thrombosis: 2 - 3 D) Prevention of arterial thromboembolism including patients with mechanical heart valves: 3 - 4.5 Performed By: #### P P, BUN, LYTES, CBC, CREAT, LIPID #### [address] PT Coag (PPP) [Time] 12.6 s Normal 9.0-12.9 [facility] Comment on above: Performed By: #### P P, BUN, LYTES, CBC, CREAT, LIPID #### [address] Complete Blood Count Auto Di ffon 03-09-2021 Basophils (Bld) [#/Vol] 0.1 10*3/uL Normal 0.0-0.2 [facility] Comment on above: Result Comment: PERF ORMED BY: [place] [address] PATHOLOGIST DAYTIME CAREGIVER IVAN NOBLES M.D. Performed By: #### P P, BUN, LYTES, CBC, CREAT, LIPID #### [address] Basophils/100 WBC (Bld) 0.8 % Normal . [facility] Comment on above: Performed By: #### P P, BUN, LYTES, CBC, CREAT, LIPID #### [address] Eosinophils (Bld) [#/Vol] 0.2 10*3/uL Normal 0.0-0.45 [facility] Comment on above: Performed By: #### P P, BUN, LYTES, CBC, CREAT, LIPID #### [address] Eosinophils/100 WBC (Bld) 3.7 % Normal . [facility] Comment on above: Performed By: #### P P, BUN, LYTES, CBC, CREAT, LIPID #### [address] Erythrocyte distribution width (RBC) [Ratio] 15.1 % Normal 11.9-15.3 [facility] Comment on above: Performed By: #### P P, BUN, LYTES, CBC, CREAT, LIPID #### [address] Hematocrit (Bld) [Volume fraction] 47.4 % High 34.0-46.4 [facility] Comment on above: Performed By: #### P P, BUN, LYTES, CBC, CREAT, LIPID #### [address] Hemoglobin (Bld) [Mass/Vol] 15.9 g/dL High 11.8-15.4 [facility] Comment on above: Performed By: #### P P, BUN, LYTES, CBC, CREAT, LIPID #### [address] Lymphocytes (Bld) [#/Vol] 2.2 10*3/uL Normal 1.00-4.8 [facility] Comment on above: Performed By: #### P P, BUN, LYTES, CBC, CREAT, LIPID #### [address] Lymphocytes/100 WBC (Bld) 34.3 % Normal . [facility] Comment on above: Performed By: #### P P, BUN, LYTES, CBC, CREAT, LIPID #### [address] MCH (RBC) [Entitic mass] 31.2 pg Normal 24.7-34.3 [facility] Comment on above: Performed By: #### P P, BUN, LYTES, CBC, CREAT, LIPID #### [address] MCV (RBC) [Entitic vol] 93.0 fL Normal 80-100 [facility] Comment on above: Performed By: #### P P, BUN, LYTES, CBC, CREAT, LIPID #### [address] Mean Corpuscular HGB Conc 33.5 g/dL Normal 32.0-35.0 [facility] Comment on above: Performed By: #### P P, BUN, LYTES, CBC, CREAT, LIPID #### [address] Monocytes (Bld) [#/Vol] 0.4 10*3/uL Normal 0.0-0.8 [facility] Comment on above: Performed By: #### P P, BUN, LYTES, CBC, CREAT, LIPID #### [facility] [address] Monocytes/100 WBC (Bld) 6.1 % Normal . [facility] Comment on above: Performed By: #### P P, BUN, LYTES, CBC, CREAT, LIPID #### [address] Neutrophils (Bld) [#/Vol] 3.6 10*3/uL Normal 1.8-7.7 [facility] Comment on above: Performed By: #### P P, BUN, LYTES, CBC, CREAT, LIPID #### [address] Neutrophils/100 WBC (Bld) 55.1 % Normal . [facility] Comment on above: Performed By: #### P P, BUN, LYTES, CBC, CREAT, LIPID #### [address] Nucleated RBC/100 WBC (Bld) [Ratio] 0.0 % Normal 0-0.5 [facility] Comment on above: Performed By: #### P P, BUN, LYTES, CBC, CREAT, LIPID #### [place] [address] [place] Platelet mean volume (Bld) [Entitic vol] 7.4 fL Normal 6.3-10.7 [facility] Comment on above: Performed By: #### P P, BUN, LYTES, CBC, CREAT, LIPID #### [place] [address] [place] Platelets (Bld) [#/Vol] 275 10*3/uL Normal 150-450 [facility] Comment on above: Performed By: #### P P, BUN, LYTES, CBC, CREAT, LIPID #### [place] [id number] [place] RBC (Bld) [#/Vol] 5.10 10*6/uL High 3.60-5.00 [facility] Comment on above: Performed By: #### P P, BUN, LYTES, CBC, CREAT, LIPID #### [address] WBC (Bld) [#/Vol] 6.5 10*3/uL Normal 4.5-11.0 [facility] Comment on above: Performed By: #### P P, BUN, LYTES, CBC, CREAT, LIPID #### [address] Creatinineon 03-09-2021 Creatinine [Mass/Vol] 0.71 mg/dL Normal 0.44-1.03 [facility] Comment on above: Performed By: #### P P, BUN, LYTES, CBC, CREAT, LIPID #### [address] Creatinine Clr Calc Pharmacy 73.02 [facility] Comment on above: Performed By: #### P P, BUN, LYTES, CBC, CREAT, LIPID #### [address] Estimated GFR ( Sheela > 60 [facility] Comment on above: Result Comment: GFR estimated reference range: According to KDOQI guidelines, <60 ml/min/1.73m2 is sufficient to diagnose a patient with chronic kidney disease. Performed By: #### P P, BUN, LYTES, CBC, CREAT, LIPID #### [address] Estimated GFR (Non- Am > 60 [facility] Comment on above: Performed By: #### P P, BUN, LYTES, CBC, CREAT, LIPID #### [address] Electrolyteson 03-09-2021 Chloride [Moles/Vol] 97 mmol/L Normal 95-114 [facility] Comment on above: Performed By: #### P P, BUN, LYTES, CBC, CREAT, LIPID #### [address] CO2 [Moles/Vol] 28.0 mmol/L Normal 22.0-30.0 [facility] Comment on above: Performed By: #### P P, BUN, LYTES, CBC, CREAT, LIPID #### [address] Potassium [Moles/Vol] 3.9 mmol/L Normal 3.5-5.1 [facility] Comment on above: Performed By: #### P P, BUN, LYTES, CBC, CREAT, LIPID #### [address] Sodium [Moles/Vol] 137 mmol/L Normal 136-146 [facility] Comment on above: Performed By: #### P P, BUN, LYTES, CBC, CREAT, LIPID #### [address] Lipid Panelon 03-09-2021 Cholesterol [Mass/Vol] 147 mg/dL Normal 140-200 [facility] Comment on above: Result Comment: Chol less than 200 mg/dl low risk Chol 201-239 mg/dl borderline risk Chol 240 mg/dl and greater high risk Performed By: #### P P, BUN, LYTES, CBC, CREAT, LIPID #### [address] Cholesterol in HDL [Mass/Vol] 43 mg/dL Normal 35-85 [facility] Comment on above: Result Comment: HDL CHOL ATP-III CLASSIFICATION Cardiovascular Risk HDL > or equal to 60 mg/dL LOW HDL < 40 mg/dL HIGH Performed By: #### P P, BUN, LYTES, CBC, CREAT, LIPID #### [address] Cholesterol.total/C holesterol in HDL [Mass ratio] 3.4 {ratio} Normal <5.0 [facility] Comment on above: Result Comment: PERF ORMED BY: [place] [phone] PATHOLOGIST DAYTIME CAREGIVER IVAN NOBLES M.D. Performed By: #### P P, BUN, LYTES, CBC, CREAT, LIPID #### [address] LDL Cholesterol,Calcula nitish 81 mg/dL Normal 0-100 [facility] Comment on above: Result Comment: LDL ATP III CLASSIFICATION LDL less than 100 mg/dL Optimal LDL 100-129 mg/dL Near or above optimal LDL 130-159 mg/dL Borderline high LDL 160-189 mg/dL High LDL greater than 189 mg/dL Very high Performed By: #### P P, BUN, LYTES, CBC, CREAT, LIPID #### [address] Triglyceride w/Reflex 117 mg/dL Normal 35-149 [facility] Comment on above: Result Comment: TRIG ATP III CLASSIFICATION TRIG less than 150 mg/dL Normal TRIG 150-199 mg/dL Borderline high TRIG 200-500 mg/dL High TRIG greater than 500 mg/dL Very high Standard traceable to the Center for Disease Conrtrol and Prevention (CDC) test method. Performed By: #### P P, BUN, LYTES, CBC, CREAT, LIPID #### [address] VLDL CHOLESTEROL 23 mg/dL Normal [facility] Comment on above: Performed By: #### P P, BUN, LYTES, CBC, CREAT, LIPID #### [address] Reji Ag Negativeon 03-09-20 21 Reji Ag Negative Negative Normal Negative [facility] Comment on above: Result Comment: This is a duplicate Reji SARS Antigen (JEAN CLAUDE) result to be used for statistical tracking purpose only. PERFORMED BY: [place] [address] PATHOLOGIST DAYTIME CAREGIVER IVAN NOBLES M.D. Performed By: #### C OVID-19 REJI, SOFIANEG #### [address] Vital Signs Date Time Vital Sign Value Performing Clinician Facility 09-14-2022 10:30-0500 Body height 170.18 cm Isrrael Ball Other [facility] Other 09-14-2022 10:30-0500 Body mass index (BMI) [Ratio] 37.99 kg/m2 Isrrael Ball Other [facility] Other 09-14-2022 10:30-0500 Body weight 110.04 kg Isrrael Ball Other [facility] Other 09-14-2022 10:30-0500 Diastolic blood pressure 80 mm[Hg] Isrrael Ball Other [facility] Other 09-14-2022 10:30-0500 Respiratory rate 12 /min Isrrael Ball Other [facility] Other 09-14-2022 10:30-0500 Systolic blood pressure 130 mm[Hg] Isrrael Ball Other [facility] Other 05-09-2022 14:18-0400 Body temperature 97.81 [degF] GOKUL Mosqueda MD Work Phone: [facility] 05-09-2022 14:18-0400 Body weight 111.49 kg GOKUL Mosqueda MD Work Phone: [facility] 05-09-2022 14:18-0400 Diastolic blood pressure 78 mm[Hg] GOKUL Mosqueda MD Work Phone: [facility] 05-09-2022 14:18-0400 Heart rate 60 /min GOKUL Mosqueda MD Work Phone: [facility] 05-09-2022 14:18-0400 Respiratory rate 16 /min GOKUL Mosqueda MD Work Phone: [facility] 05-09-2022 14:18-0400 SaO2% (BldA) [Mass fraction] 92 % GOKUL Mosqueda MD Work Phone: [facility] 05-09-2022 14:18-0400 Systolic blood pressure 141 mm[Hg] GOKUL Mosqueda MD Work Phone: [facility] 04-18-2022 14:07-0400 Body temperature 96.91 [degF] GOKUL Mosqueda MD Work Phone: [facility] 04-18-2022 14:07-0400 Body weight 109.77 kg GOKUL Mosqueda MD Work Phone: [facility] 04-18-2022 14:07-0400 Diastolic blood pressure 67 mm[Hg] GOKUL Mosqueda MD Work Phone: [facility] 04-18-2022 14:07-0400 Heart rate 55 /min GOKUL Mosqueda MD Work Phone: [facility] 04-18-2022 14:07-0400 Respiratory rate 16 /min GOKUL Mosqueda MD Work Phone: [facility] 04-18-2022 14:07-0400 SaO2% (BldA) [Mass fraction] 57 % GOKUL Mosqueda MD Work Phone: [facility] 04-18-2022 14:07-0400 Systolic blood pressure 138 mm[Hg] GOKUL Mosqueda MD Work Phone: [facility] 04-03-2022 10:21-0400 Body temperature 97.11 [degF] GOKUL Mosqueda MD Work Phone: [facility] 04-03-2022 10:21-0400 Body weight 107.05 kg GOKUL Mosqueda MD Work Phone: [facility] 04-03-2022 10:21-0400 Diastolic blood pressure 84 mm[Hg] GOKUL Mosqueda MD Work Phone: [facility] 04-03-2022 10:21-0400 Heart rate 62 /min GOKUL Mosqueda MD Work Phone: [facility] 04-03-2022 10:21-0400 Respiratory rate 16 /min GOKUL Mosqueda MD Work Phone: [facility] 04-03-2022 10:21-0400 SaO2% (BldA) [Mass fraction] 91 % GOKUL Mosqueda MD Work Phone: [facility] 04-03-2022 10:21-0400 Systolic blood pressure 144 mm[Hg] GOKUL Mosqueda MD Work Phone: [facility] 03-21-2022 10:35-0400 Body temperature 97.39 [degF] GOKUL Mosqueda MD Work Phone: [facility] 03-21-2022 10:35-0400 Body weight 108.86 kg GOKUL Mosqueda MD Work Phone: [facility] 03-21-2022 10:35-0400 Diastolic blood pressure 75 mm[Hg] GOKUL Mosqueda MD Work Phone: [facility] 03-21-2022 10:35-0400 Heart rate 66 /min GOKUL Mosqueda MD Work Phone: [facility] 03-21-2022 10:35-0400 Respiratory rate 18 /min GOKUL Mosqueda MD Work Phone: [facility] 03-21-2022 10:35-0400 SaO2% (BldA) [Mass fraction] 92 % GOKUL Mosqueda MD Work Phone: [facility] 03-21-2022 10:35-0400 Systolic blood pressure 128 mm[Hg] GOKUL Mosqueda MD Work Phone: [facility] 03-16-2022 10:08-0400 Body temperature 96.91 [degF] [facility] Work Phone: [facility] 03-16-2022 10:08-0400 Diastolic blood pressure 78 mm[Hg] [facility] Work Phone: [facility] 03-16-2022 10:08-0400 Heart rate 67 /min [facility] [place] Work Phone: [facility] 03-16-2022 10:08-0400 Respiratory rate 18 /min [facility] [place] Work Phone: [facility] 03-16-2022 10:08-0400 SaO2% (BldA) [Mass fraction] 91 % [facility] [place] Work Phone: [facility] 03-16-2022 10:08-0400 Systolic blood pressure 131 mm[Hg] [facility] [place] Work Phone: [facility] 03-13-2022 10:19-0400 Body temperature 97.11 [degF] GOKUL Mosqueda MD Work Phone: [facility] 03-13-2022 10:19-0400 Body weight 113.31 kg GOKUL Mosqueda MD Work Phone: [facility] 03-13-2022 10:19-0400 Heart rate 69 /min GOKUL Mosqueda MD Work Phone: [facility] 03-13-2022 10:19-0400 Respiratory rate 18 /min GOKUL Mosqueda MD Work Phone: [facility] 03-13-2022 10:19-0400 SaO2% (BldA) [Mass fraction] 92 % GOKUL Mosqueda MD Work Phone: [facility] 03-07-2022 10:22-0400 Body temperature 97.59 [degF] Lavon Mckinnon MD Work Phone: [facility] 03-07-2022 10:22-0400 Body weight 112.49 kg Lavon Mckinnon MD Work Phone: [facility] 03-07-2022 10:22-0400 Diastolic blood pressure 68 mm[Hg] Lavon Mckinnon MD Work Phone: [facility] 03-07-2022 10:22-0400 Heart rate 61 /min Lavon Mckinnon MD Work Phone: [facility] 03-07-2022 10:22-0400 Respiratory rate 16 /min Lavon Mckinnon MD Work Phone: [facility] 03-07-2022 10:22-0400 SaO2% (BldA) [Mass fraction] 93 % Lavon Mckinnon MD Work Phone: [facility] 03-07-2022 10:22-0400 Systolic blood pressure 160 mm[Hg] Lavon Mckinnon MD Work Phone: [facility] 01-31-2022 09:49-0400 Body height 152.4 cm GOKUL Mosqueda MD [facility] [facility] 01-31-2022 09:49-0400 Body temperature 97.3 [degF] GOKUL Mosqueda MD Work Phone: [facility] 01-31-2022 09:49-0400 Body weight 112.04 kg GOKUL Mosqueda MD Work Phone: [facility] 01-31-2022 09:49-0400 Diastolic blood pressure 70 mm[Hg] GOKUL Mosqueda MD Work Phone: [facility] 01-31-2022 09:49-0400 Heart rate 67 /min GOKUL Mosqueda MD Work Phone: [facility] 01-31-2022 09:49-0400 SaO2% (BldA) [Mass fraction] 95 % GOKUL Mosqueda MD Work Phone: [facility] 01-31-2022 09:49-0400 Systolic blood pressure 112 mm[Hg] GOKUL Mosqueda MD Work Phone: [facility] 12-06-2021 10:31-0400 Body height 154.94 cm Isrrael Howard Work Phone: [facility] 250 DO Work Phone: 12-06-2021 10:31-0400 Body mass index (BMI) [Ratio] 48.18 kg/m2 Isrrael Howard Work Phone: [facility] 250 DO Work Phone: 12-06-2021 10:31-0400 Body surface area Derived from formula 2.09 m2 Isrrael E Ball Work Phone: [facility] 250 DO Work Phone: 12-06-2021 10:31-0400 Body weight 115.67 kg Isrrael E Ball Work Phone: [facility] 250 DO Work Phone: 12-06-2021 10:31-0400 Diastolic blood pressure 66 mm[Hg] Isrrael E Ball Work Phone: [facility] 250 DO Work Phone: 12-06-2021 10:31-0400 Heart rate 66 /min Isrrael E Ball Work Phone: [facility] 250 DO Work Phone: 12-06-2021 10:31-0400 Systolic blood pressure 108 mm[Hg] Isrrael Elena Ball Work Phone: [facility] 250 DO Work Phone: 05-26-2021 13:21-0500 Diastolic blood pressure 78 mm[Hg] Referring Provider Unknown [facility] 250 DO Work Phone: 05-26-2021 13:21-0500 Systolic blood pressure 132 mm[Hg] Referring Provider Unknown [facility] 250 DO Work Phone: 05-26-2021 12:47-0500 Body height 154.94 cm Referring Provider Unknown [facility] 250 DO Work Phone: 05-26-2021 12:47-0500 Body mass index (BMI) [Ratio] 45.91 kg/m2 Referring Provider Unknown [facility] 250 DO Work Phone: 05-26-2021 12:47-0500 Body surface area Derived from formula 2.05 m2 Referring Provider Unknown [facility] 250 DO Work Phone: 05-26-2021 12:47-0500 Body weight 110.22 kg Referring Provider Unknown [facility] 250 DO Work Phone: 05-26-2021 12:47-0500 Diastolic blood pressure 73 mm[Hg] Referring Provider Unknown [facility] 250 DO Work Phone: 05-26-2021 12:47-0500 Heart rate 57 /min Referring Provider Unknown [facility] 250 DO Work Phone: 05-26-2021 12:47-0500 Systolic blood pressure 149 mm[Hg] Referring Provider Unknown [facility] 250 DO Work Phone: Encounters Encounter Date Encounter Type Care Provider Facility Start: 03-26-2023 End: 03-26-2023 ambulatory Isrrael Howard Other [facility] Other Start: 03-26-2023 Telephone encounter Isrrael LARA G [facility] Start: 10-05-2022 End: 10-06-[address] ISRRAEL HOWARD Facility: Start: 09-28-2022 End: 09-28-2022 ambulatory Isrrael Howard Other [facility] Other Start: 09-28-2022 Telephone encounter Isrrael LARA G [facility] Start: 09-14-2022 End: 09-14-2022 ambulatory Isrrael Howard Other [facility] Other Start: 09-14-2022 Patient encounter procedure Isrrael Howard [facility] Start: 09-11-2022 End: 09-11-2022 ambulatory Isrrael Howard Other [facility] Other Start: 09-11-2022 Telephone encounter Isrrael LARA [facility] Start: 05-09-2022 End: 05-09-2022 ambulatory Lauren MOSQUEDA Facility:[facility] Start: 05-09-2022 End: 05-09-2022 Patient encounter procedure Lauren Mosqueda MD Work Phone: Radiation Oncology Comment on above: 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) Start: 04-18-2022 End: 04-19-[address] Work Phone: [facility] Start: 04-18-2022 End: 04-18-20[address] Waters RD Work Phone: Nutrition Therapy Comment on above: Nutrition Counseling Start: 04-18-2022 End: 04-18-2022 Patient encounter procedure Lauren Mosqueda MD Work Phone: Radiation Oncology Comment on above: 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) Start: 04-06-2022 Patient encounter procedure Lauren Mosqueda MD Work Phone: [facility] Start: 04-06-2022 Radiation Oncology Note Lauren Mosqueda MD Work Phone: Radiation Oncology Comment on above: Completion Note Start: 04-06-2022 End: 04-06-2022 ambulatory Lauren MOSQUEDA Facility:[facility] Start: 04-05-2022 End: 04-05-2022 ambulatory ASHLY WATERS Facility:[facility] Start: 04-04-2022 End: 04-04-2022 ambulatory Lauren MOSQUEDA Facility:[facility] Start: 04-03-2022 End: 04-03-2022 ambulatory Lauren MOSQUEDA Facility:[facility] Start: 04-03-2022 End: 04-03-2022 Patient encounter procedure Lauren Mosqueda MD Work Phone: Radiation Oncology Comment on above: 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) Start: 03-31-2022 End: 03-31-2022 ambulatory ASHLY WATERS Facility:[facility] Start: 03-31-2022 End: 03-31-[address] Work Phone: [facility] Start: 03-31-2022 End: 03-31-2022 Nutrition therapy Ashly Waters RD Work Phone: Nutrition Therapy Comment on above: Nutrition Counseling Start: 03-30-2022 End: 03-30-2022 ambulatory Lauren MOSQUEDA Facility:[facility] Start: 03-29-2022 End: 03-29-2022 ambulatory Lauren MOSQUEDA Facility:[facility] Start: 03-28-2022 Rx Renewal Isrrael Geronimo l Work Phone: [facility] 250 DO Work Phone: Start: 03-28-2022 End: 03-28-2022 ambulatory Lauren MOSQUEDA Facility:[facility] Start: 03-27-2022 End: 03-27-2022 ambulatory Lauren MOSQUEDA Facility:[facility] Start: 03-24-2022 End: 03-24-2022 ambulatory Lauren MOSQUEDA Facility:[facility] Start: 03-23-2022 End: 03-24-[address] Work Phone: [facility] Start: 03-23-2022 End: 03-23-2022 Nutrition therapy [address]ly Waters RD Work Phone: Nutrition Therapy Comment on above: Nutrition Assessment Start: 03-22-2022 End: 03-22-2022 ambulatory Lauren MOSQUEDA Facility:[facility] Start: 03-21-2022 End: 03-21-2022 ambulatory Lauren MOSQUEDA Facility:[facility] Start: 03-21-2022 End: 03-21-2022 Patient encounter procedure Lauren Mosqueda MD Work Phone: Radiation Oncology Comment on above: 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) Start: 03-17-2022 End: 03-17-2022 ambulatory Lauren MOSQUEDA Facility:[facility] Start: 03-16-2022 End: 03-16-2022 Patient encounter procedure Lab/[facility] Work Phone: Radiation Oncology Comment on above: Cough productive of yellow sputum (Primary Dx); Rhinitis, unspecified type Start: 03-16-2022 End: 03-16-[address] Work Phone: [facility] Start: 03-16-2022 End: 03-16-20[address] therapy [address] Waters RD Work Phone: Nutrition Therapy Comment on above: Nutrition Assessment Start: 03-15-2022 End: 03-15-2022 ambulatory Lauren BABINBENITA FANGNICK Facility:[facility] Start: 03-14-2022 End: 03-14-2022 [facility] Start: 03-13-2022 End: 03-13-2022 [facility] Start: 03-13-2022 End: 03-13-2022 Patient encounter procedure Lauren Mosqueda MD Work Phone: Radiation Oncology Comment on above: 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) Start: 03-10-2022 End: 03-10-2022 [facility] Start: 03-09-2022 End: 03-09-2022 [facility] Start: 03-08-2022 End: 03-08-2022 [facility] Start: 03-07-2022 End: 03-07-2022 ambulatory LAVON MCKINNON Facility:[facility] Start: 03-07-2022 End: 03-07-2022 Patient encounter procedure Lavon Mckinnon MD Work Phone: Radiation Oncology Comment on above: 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) Start: 03-06-2022 End: 03-06-[address] Work Phone: [facility] Start: 03-06-2022 End: 03-06-2022 Nutrition therapy [address] Waters RD Work Phone: Nutrition Therapy Comment on above: Nutrition Counseling Start: 03-03-2022 End: 03-03-2022 ambulatory Lauren [facility]ABONBertha Facility:[facility] Start: 03-02-2022 End: 03-02-2022 ambulatory Lauren MOSQUEDA Facility:[facility] Start: 03-01-2022 End: 03-01-2022 ambulatory Lauren MOSQUEDA Facility:[facility] Start: 02-28-2022 End: 02-28-2022 ambulatory Lauren MOSQUEDA Facility:[facility] Start: 02-27-2022 End: 02-27-2022 ambulatory Lauren MOSQUEDA Facility:[facility] Start: 02-20-2022 End: 02-21-[address] Work Phone: [facility] Start: 02-20-2022 End: 02-20-2022 Nutrition therapy [address] Waters RD Work Phone: Nutrition Therapy Comment on above: Nutrition Telephone Start: 02-17-2022 End: 02-17-2022 Patient encounter procedure Lauren Mosqueda MD Work Phone: Radiation Oncology Comment on above: 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) Start: 01-19-2022 Encounter for preprocedural cardiovascular examination DR ASAF PATRICIA [facility] Start: 01-19-2022 Encounter for preprocedural laboratory examination DR ASAF PATRICIA [facility] Start: 01-18-2022 Rx Renewal Isrrael reyes Work Phone: [facility] 250 DO Work Phone: Start: 01-17-2022 End: 01-17-[address] ASAF PATRICIA Facility:[facility] Start: 01-12-2022 End: 01-13-[address] ASAF PATRICIA Facility:[facility] Start: 01-12-2022 End: 01-13-2022 Encounter for preprocedural cardiovascular examination DR ASAF PATRICIA Facility:[facility] Start: 12-08-2021 Message Isrrael reyes Work Phone: [facility] 250 DO Work Phone: Start: 12-06-2021 Office outpatient vi sit 25 minutes Isrrael Howard Work Phone: [facility] 250 DO Work Phone: Start: 08-20-2021 End: 08-20-2021 Pre-procedure evaluation check Isrrael Howard Other [facility] Other Start: 07-12-2021 Adult health examination Js Howard Other [facility] Other Start: 05-26-2021 Office outpatient vi sit 15 minutes Referring Provider Unknown [facility] 250 DO Work Phone: Start: 05-21-2021 Chart Update Referring Prov ider Unknown [facility] [place] 305 DO Work Phone: Start: 05-05-2021 Telephone encounter Referring Provider Unknown [facility] 250 DO Work Phone: Start: 05-04-2021 Office consultation new/estab patient 80 min Referring Provider Unknown [facility] 1800 Work Phone: Patient encounter status Referri ng Provider Unknown [facility] 305 DO Work Phone: End: 05-26-2021 Patient encounter status Referring Provider Unknown [facility] 250 DO Work Phone: Procedures Date Procedure Procedure Detail Performing Clinician Start: 02-17-2022 Ct soft tissue neck w/o contrast material G Lv Mosqueda MD Work Phone: Start: 04-06-2021 Follow-up visit Start: 06-25-2014 Screening for osteoporosis Isrrael Howard Other Start: 06-25-2014 Screening mammography B enjamin Lee Other Appendectomy Referring Provi melody Unknown Cholecystectomy Referring Pr mairlouer Unknown Colonoscopy Referring Provi melody Unknown Comment on above: denied history of co mplete of colonocopy; End: 08-20-2021 Depression screening Isrrael Howard Other History of percutane ous transluminal coronary angioplasty History of PTCA Referring Provider Unknown Operation on breast Referrin g Provider Unknown Placement of stent i n coronary artery Referring Provider Unknown Screening for malign ant neoplasm of breast Isrrael Howard Other Screening for malign ant neoplasm of colon Isrrael Howard Other Tonsillectomy Referring Prov ider Unknown NEGATED: Highlighted row has not occurred! Colonoscopy Referring Provider Unknown Plan of Treatment Date Care Activity Detail Author Start: 03-16-2024 Covid-19 Vaccine ( season) Covid-19 Vaccine ( season) [facility] Start: 03-16-2024 Influenza vaccination Influenza Vacc ine (#1) [facility] Start: 07-16-2023 Advance Directive Discussion Advance Directive Discussion [facility] Start: 10-30-2022 RSV Vaccine (1 - 1-d ose 75+ series) RSV Vaccine (1 - 1-dose 75+ series) [facility] Start: 07-21-2022 FUV, Provider: Aneudy Torres, Status: Pen, Time: 3:20 PM FUV, Provider: Aneudy Torres, Status: Pen, Time: 3:20 PM [facility] DO Work Phone: Start: 05-09-2022 End: 07-09-2022 Thyrotropin [Units/volume] in Serum or Plasma TSH BLD Lab Routine Malignant neoplasm of glottis (HCC) Expected: 05/09/2022, Expires: 07/09/2022 [facility] Work Phone: Comment on above: Expected: 05/09/2022 , Expires: 07/09/2022 Start: 05-09-2022 End: 07-09-2022 Thyroxine (T4) [Mass/volume] in Serum or Plasma T4/THYROXINE BLOOD Lab Routine Malignant neoplasm of glottis (HCC) Expected: 05/09/2022, Expires: 07/09/2022 [facility] Work Phone: Comment on above: Expected: 05/09/2022 , Expires: 07/09/2022 Start: 03-16-2022 Influenza vaccination INFLUENZA (#1) [facility] Start: 12-06-2021 FUV, Provider: Aneudy Torres, Status: Pen, Time: 10:40 AM FUV, Provider: Aneudy Torres, Status: Pen, Time: 10:40 AM [facility] 250 DO Work Phone: Start: 07-16-2021 ADVANCE DIRECTIVE DISCUSSION ADVANCE DIRECTIVE DISCUSSION [facility] Start: 07-16-2021 DEPRESSION ASSESSMENT DEPRESSION ASS ESSMENT [facility] Start: 05-26-2021 FUV, Provider: Aneudy Torres, Status: Pen, Time: 12:40 PM FUV, Provider: Aneudy Torres, Status: Pen, Time: 12:40 PM [facility] 305 DO Work Phone: Start: 05-20-2021 [facility], Provider: Nicolas Odell, Status: Pen, Time: 12:00 PM [facility], Provider: Nicolas Odell, Status: Pen, Time: 12:00 PM -[facility] Ordoñez DO Work Phone: Start: 01-25-2021 COVID-19 VACCINE (2 - Booster for Sendy series) COVID-19 VACCINE (2 - Booster for Sendy series) [facility] Start: 07-16-2016 Pneumococcal Vaccine : 65+ (2 of 2 - PCV) Pneumococcal Vaccine: 65+ (2 of 2 - PCV) [facility] Start: 10-30-2012 BONE DENSITY BONE DENSITY [facility] Start: 10-30-2012 Screening for osteoporosis Bone Density Screening [facility] Start: 10-30-1997 Influenza vaccination LUNG CANCER [facility] Start: 10-30-1997 SHINGRIX VACCINE (1 of 2) SHINGRIX VACCINE (1 of 2) [facility] Start: 10-30-1992 COLOGUARD (FIT-DNA) COLOGUARD (FIT-D NA) [facility] Start: 10-30-1992 Colonoscopy COLONOSCOPY [facility] Start: 10-30-1992 COLORECTAL CANCER SCREENING COLORECTAL CANCER SCREENING [facility] Start: 10-30-[address] COLONOGRAPHY [facility] Start: 10-30-1992 DIABETES SCREEN DIABETES SCREEN [facility] Start: 10-30-1992 Diabetes Screening Diabetes Screenin g [facility] Start: 10-30-1992 FECAL OCCULT BLOOD FECAL OCCULT BLOO D [facility] Start: 10-30-1992 LIPID SCREEN LIPID SCREEN [facility] Start: 10-30-1992 SIGMOIDOSCOPY SIGMOIDOSCOPY [facility] Start: 1987 Mammography MAMMOGRAM [facility] Start: 10-30-1966 Urine microalbumin profile [facility] Start: 10-30-1965 Anxiety Screening Anxiety Screening [facility] Start: 10-30-1965 Depression Screening Depression Scre ening [facility] Start: 10-30-1965 HEPATITIS C SCREENING HEPATITIS C [facility] Start: 10-30-1965 Hepatitis C screening Hepatitis C [facility] Start: 1959 Adult depression screening assessment DEPRESSION SCREENING [facility] Start: 10-30-1953 PNEUMOCOCCAL: 65+ (1 - PCV) PNEUMOCOCCAL: 65+ (1 - PCV) [facility] CT SIM PLANNING RADIATION ONCOLOGY CT SIM PLANNING RADIATION ONCOLOGY Radiology Routine Malignant neoplasm of glottis (HCC) Ordered: 02/20/2022 [facility] Work Phone: Comment on above: Ordered: 02/20/2022 End: 03-02-2023 Ct soft tissue neck w/o contrast material CT NECK SOFT TISSUE WO IVCON Radiology Routine Malignant neoplasm of glottis (HCC) 1 Occurrences starting 01/31/2022 until 03/02/2023 [facility] Work Phone: Comment on above: 1 Occurrences starti ng 01/31/2022 until 03/02/2023 [facility] Immunizations Immunization Date Immunization Notes Care Provider Sowmya read 05-13-2021 Fluad Quadrivalent 0 .5 ML Intramuscular Prefilled Syringe Referring Provider Unknown [place] [address] DO Work Phone: 05-13-2021 influenza virus vaccine, split virus (incl. purified surface antigen) Isrrael Howard Other [facility] Other 05-13-2021 influenza virus vaccine, unspecified formulation Arrival Radiology Work Phone: [facility] 11-30-2020 Sendy COVID-19 Vaccine 0.5 ML Intramuscular Suspension Referring Provider Unknown [place] [address] DO Work Phone: 07-12-2020 influenza virus vaccine, split virus (incl. purified surface antigen) Isrrael Howard Other [facility] Other 04-15-2020 influenza, seasonal, injectable Referring Provider Unknown [place] [address] DO Work Phone: 04-18-2017 influenza virus vaccine, split virus (incl. purified surface antigen) Isrrael Howard Other [facility] Other 04-18-2017 influenza, high dose seasonal, preservative-free Referring Provider Unknown [place] [address] DO Work Phone: 07-19-2015 influenza, seasonal, injectable Referring Provider Unknown [facility] 250 DO Work Phone: 07-16-2015 pneumococcal polysaccharide vaccine, 23 valent Referring Provider Unknown [facility] 250 DO Work Phone: 06-30-2015 pneumococcal conjuga te vaccine, 13 valent Isrrael Howard Other [facility] Other 06-24-2014 influenza virus vaccine, split virus (incl. purified surface antigen) Isrrael Howard Other [facility] Other 06-18-2013 pneumococcal polysaccharide vaccine, 23 valent Isrrael Howard Other [facility] Other 05-16-2013 tetanus and diphther ia toxoids, adsorbed, preservative free, for adult use (5 Lf of tetanus toxoid and 2 Lf of diphtheria toxoid) Isrrael Howard Other [facility] Other pneumococcal Conjuga te, unspecified formulation; Translations: [Need for prophylactic vaccination against Streptococcus pneumoniae (pneumococcus)] Isrrael Howard Other [facility] Other Payers Date Payer Category Payer Medicare UHC AAR MEDICAR E UHC AARP MEDICARE HMO [id number] 2022-Present [phone] [address] [address] [place] [address] O [id number] 2022 Medicare UHC AARP MEDICAR E UHC AARP MEDICARE HMO [id number] 2022-Present [phone] [address] [address] [place] [address] O [id number] 1957 Medicare [id number] 1957 Medicare [id number] 1945 Unknown [id number] 1945 Unknown [id number] 1945 Unknown [id number] Medicare [id number] Unknown MEDICARE Social History Date Type Detail Facility Start: 01-31-2022 End: 02-27-2022 Current every day smoker Current every day smoker [facility] 250 DO Work Phone: Comment on above: 2 cups of coffee; quit 05/22/21; Start: 01-31-2022 End: 02-27-2022 Tobacco smoking status NHIS Smokes tobacco daily [facility] Start: 01-31-2022 End: 02-27-2022 Tobacco use and exposure Smokeless tobacco non-user [facility] Start: 01-31-2022 End: 05-09-2022 Alcohol intake Ex-drinker (finding) [facility] Start: 01-31-2022 End: 02-27-2022 Tobacco Comment 01/31/22 less than 1ppd now [facility] Start: 1945 Sex Assigned At Not on file C [facility] Start: 01-21-2022 End: 05-09-2022 Exposure to SARS-CoV-2 (event) Not sure [facility] History of tobacco use Cigarette Smoker [facility] Start: 01-31-2022 Sex Assigned At [employer] [facility] [employer] Other National Score (1-100), lower number is lower risk [address] [facility] Clinical Notes 04-30-2021 to 09-14-2022 Note Date & Type Note Facility 09-14-2022 Evaluation note Encounter Date Diagnosis Assessment Notes Sep, ASHD (arteriosclerotic heart disease) (ICD-10 - I25.10) PCI/stent LM, LAD, RCA - 05/2021 This patient is stable without activity related CP, dyspnea or lightheadedness . They are instructed to continue exercise and AHA diet plan. Sep, IFG (impaired fasting glucose) (ICD-10 - R73.01) This patient is following a comprehensive diabetic treatment plan. They are checking their feet daily for calluses and nonhealing ulcers. They are being seen for yearly dilated eye examinations. Goals: SBP less than 130, LDL less than 100, FBS less than 140, AC and A1C less than 7%. They are checking their BS daily, will which are reviewed at the office visit. Sep, Hypercholesterolemia (ICD-10 - E78.00) Diet and exercise with continued statin therapy. Sep, Essential hypertension (ICD-10 - I10) This patient is instructed to consume a healthy, low-fat, low-salt diet. They are also encouraged to continue exercise to achieve/maintai n a normal BMI. 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 Sep, Nicotine dependence, cigarettes, in remission (ICD-10 - F17.211) Sep, Medicare annual wellness visit, subsequent (ICD-10 - Z00.00) Personalized health advice was given to the beneficiary including a written plan for screenings discussed and provided. Advanced care planning reviewed and/or information given as requested. Additional counseling was provided here today in regards to, [ ]. The above visit was performed by [ ], under direct supervision of [ ]. Document reviewed and amended by provider signed below. Healthy diet and exercise. Reviewed age-appropriate preventive testing recommended. Sep, Screening mammogram for breast cancer (ICD-10 - Z12.31) Sep, Menopause (ICD-10 - Z78.0) [facility] Other 2022 NoteHNO ID: [id number] Author: Lauren Mosqeuda MD Service: ? 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 RADIATION SUMMARY: DATES OF TREATMENT: 02/27/2022- 04/06/2022 AREA TREATED: Larynx DELIVERED DOSE: Larynx: 6,300 cGy in 28 fractions, 2 Arcs, IMRT, 6MV with daily CBCT TOTAL: 6,300 cGy in 28 fractions ELAPSED TIME: 38 days. INTERVAL HISTORY: Patient doing well. Voice is improved. Mild dysphagia also improved. No other new issues. ALLERGIES Allergen Reactions Penicillins Unknown Strawberries Hives, Swelling MEDICATIONS: aspirin, enteric coated (ASPIRIN, ENTERIC COATED) 81 mg EC tablet Take by mouth q 24 HR. atorvastatin (LIPITOR) 40 mg tablet Take by mouth. calcium carbonate (CALTRATE) 600 mg calcium (1,500 mg) tab Take by mouth q 12 HR. cholecalciferol (VITAMIN D3) 1,000 unit tab tablet Take by mouth q 12 HR. clopidogrel (PLAVIX) 75 mg tablet Take by mouth. hydroCHLOROthiazide (HYDRODIURIL, ESIDRIX) 12.5 mg capsule Take by mouth. isosorbide mononitrate ER (IMDUR) 60 mg 24 hr tablet Take by mouth. metoprolol succinate ER (TOPROL XL) 25 mg 24 hr tablet Take by mouth q 24 HR. nitroglycerin sublingual (NITROQUICK) 0.4 mg SL tablet Dissolve under the tongue. REVIEW OF SYSTEMS: GENERAL: Negative for weight loss, fevers, chills, or night sweats. HEENT: Negative for sudden vision or hearing changes. NECK: Negative for masses in the neck. RESPIRATORY: Negative for cough or shortness of breath. NEURO: Negative for dizziness, headache, weakness or numbness. HEMATOLOGIC: Negative for bleeding or easy bruising. SKIN: Negative for rashes or other skin changes. PHYSICAL EXAM: VS: BP 141/78 Pulse 60 Temp 36.6 ?C (97.8 ?F) Resp 16 Wt 111.5 kg (245 lb 12.8 oz) SpO2 92% BMI 48.00 kg/m? KPS: 100 General Appearance: Alert and oriented. No acute distress. HEENT: NCAT. Sclera anicteric. PERRL. EOMI. Oral cavity and oropharynx: lips and gums normal, oral and pharyngeal mucosa moist, palate elevates normally, tongue mobile and without palpable lesions, tonsils without masses, indirect exam unable to see cords due to gag reflex Neck: Normal ROM. No palpable cervical or supraclavicular adenopathy. Skin: Mild postradiation changes anterior neck over the larynx no open areas Lymphatics: No palpable lymphadenopathy. 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 Status post definitive radiation completed 04/04/2022. Patient overall doing well with resolving postradiation issues. She has had follow-up with Dr. Patricia without new findings reported. She will have continued surveillance with him. I will plan to see patient back in 3 months. Signed by: Lauren Mosqueda MD cc: Isrrael Howard ([facility]) [address] [place] [address] 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 RADIATION SUMMARY: DATES OF TREATMENT: 02/27/2022- 04/06/2022 AREA TREATED: Larynx DELIVERED DOSE: Larynx: 6,300 cGy in 28 fractions, 2 Arcs, IMRT, 6MV with daily CBCT TOTAL: 6,300 cGy in 28 fractions ELAPSED TIME: 38 days. INTERVAL HISTORY: Patient doing well. Voice is improved. Mild dysphagia also improved. No other newissues. ALLERGIES Allergen Reactions Penicillins Unknown Strawberries Hives, Swelling MEDICATIONS: aspirin, enteric coated (ASPIRIN, ENTERIC COATED) 81 mg EC tablet Take by mouth q 24 HR. atorvastatin (LIPITOR) 40 mg tablet Take by mouth. calcium carbonate (CALTRATE) 600 mg calcium (1,500 mg) tab Take by mouth q 12 HR. cholecalciferol (VITAMIN D3) 1,000 unit tab tablet Take by mouth q 12 HR. clopidogrel (PLAVIX) 75 mg tablet Take by mouth. hydroCHLOROthiazide (HYDRODIURIL, ESIDRIX) 12.5 mg capsule Take by mouth. isosorbide mononitrate ER (IMDUR) 60 mg 24 hr tablet Take by mouth. metoprolol succinate ER (TOPROL XL) 25 mg 24 hr tablet Take by mouth q 24 HR. nitroglycerin sublingual (NITROQUICK) 0.4 mg SL tablet Dissolve under the tongue. REVIEW OF SYSTEMS: GENERAL: Negative for weight loss, fevers, chills, or night sweats. HEENT: Negative for sudden vision or hearing changes. NECK: Negative for masses in the neck. RESPIRATORY: Negative for cough or shortness of breath. NEURO: Negative for dizziness, headache, weakness or numbness. HEMATOLOGIC: Negative for bleeding or easy bruising. SKIN: Negative for rashes or other skin changes. PHYSICAL EXAM: VS: BP 141/78 Pulse 60 Temp 36.6 C (97.8 F) Resp 16 Wt 111.5 kg (245 lb 12.8 oz) SpO2 92% BMI 48.00 kg/m KPS: 100 General Appearance: Alert and oriented. No acute distress. HEENT: NCAT. Sclera anicteric. PERRL. EOMI. Oral cavity and oropharynx: lips and gums normal, oral and pharyngeal mucosa moist, palate elevatesnormally, tongue mobile and without palpable lesions, tonsils without masses, indirect exam unable to see cords due to gag reflex Neck: Normal ROM. No palpable cervical or supraclavicular adenopathy. Skin: Mild postradiation changes anterior neck over the larynx no open areas Lymphatics: No palpable lymphadenopathy. 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 Status post definitive radiation completed 04/04/2022. Patient overall doing well with resolving postradiation issues. She has had follow-up with Dr. Patricia without new findings reported. She will have continued surveillance with him. I will plan to see patient back in 3 months. Signed by: Lauren Mosqueda MD cc: Isrrael Howard ([facility]) [address] [place] [address] Dr. Patricia documented in this encounterUniversity Hospitals St. [facility]10-10-[facility]22 NoteHNO ID: [id number] Author: Lauren Mosqueda MD Service: ? 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 RADIATION SUMMARY: DATES OF TREATMENT: 02/27/2022- 04/06/2022 AREA TREATED: Larynx DELIVERED DOSE: Larynx: 6,300 cGy in 28 fractions, 2 Arcs, IMRT, 6MV with daily CBCT TOTAL: 6,300 cGy in 28 fractions ELAPSED TIME: 38 days. INTERVAL HISTORY: Doing fairly well. Swallowing improved. Still with hoarseness/voice change. Denies dyspnea. Denies neck pain. ALLERGIES Allergen Reactions Penicillins Unknown Strawberries Hives, Swelling MEDICATIONS: aspirin, enteric coated (ASPIRIN, ENTERIC COATED) 81 mg EC tablet Take by mouth q 24 HR. atorvastatin (LIPITOR) 40 mg tablet Take by mouth. calcium carbonate (CALTRATE) 600 mg calcium (1,500 mg) tab Take by mouth q 12 HR. cholecalciferol (VITAMIN D3) 1,000 unit tab tablet Take by mouth q 12 HR. clopidogrel (PLAVIX) 75 mg tablet Take by mouth. hydroCHLOROthiazide (HYDRODIURIL, ESIDRIX) 12.5 mg capsule Take by mouth. isosorbide mononitrate ER (IMDUR) 60 mg 24 hr tablet Take by mouth. metoprolol succinate ER (TOPROL XL) 25 mg 24 hr tablet Take by mouth q 24 HR. nitroglycerin sublingual (NITROQUICK) 0.4 mg SL tablet Dissolve under the tongue. REVIEW OF SYSTEMS: GENERAL: Negative for weight loss, fevers, chills, or night sweats. HEENT: Negative for sudden vision or hearing changes. NECK: Negative for masses in the neck. RESPIRATORY: Negative for cough or shortness of breath. MUSCULOSKELETAL: Negative for limitations in movement, pain, or swelling. NEURO: Negative for dizziness, headache, weakness or numbness. HEMATOLOGIC: Negative for bleeding or easy bruising. SKIN: Negative for rashes or other skin changes. PHYSICAL EXAM: VS: BP 138/67 Pulse (!) 55 Temp 36.1 ?C (96.9 ?F) Resp 16 Wt 109.8 kg (242 lb) SpO2 (!) 57% BMI 47.26 kg/m? KPS: 100 General Appearance: Alert and oriented. No acute distress. HEENT: NCAT. Sclera anicteric. PERRL. EOMI. Oral cavity and oropharynx: lips and gums normal, oral and pharyngeal mucosa moist, palate elevates normally, tongue mobile and without palpable lesions, tonsils without masses. Indirect exam did not get good view of cords Neck: Normal ROM. No palpable cervical or supraclavicular adenopathy. Skin: Mild to moderate hyperemia anterior lower neck Lymphatics: No palpable lymphadenopathy. 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 Clinically doing fairly well with improving dysphagia. Still with hoarseness. She will require continued close follow-up with Dr. Torrez which has been arranged. I would like to see patient back in 1 month for follow-up. 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 RADIATION SUMMARY: DATES OF TREATMENT: 02/27/2022- 04/06/2022 AREA TREATED: Larynx DELIVERED DOSE: Larynx: 6,300 cGy in 28 fractions, 2 Arcs, IMRT, 6MV with daily CBCT TOTAL: 6,300 cGy in 28 fractions ELAPSED TIME: 38 days. INTERVAL HISTORY: Doing fairly well. Swallowing improved. Still with hoarseness/voice change. Denies dyspnea. Denies neck pain. ALLERGIES Allergen Reactions Penicillins Unknown Strawberries Hives, Swelling MEDICATIONS: aspirin, enteric coated (ASPIRIN, ENTERIC COATED) 81 mg EC tablet Take by mouth q 24 HR. atorvastatin (LIPITOR) 40 mg tablet Take by mouth. calcium carbonate (CALTRATE) 600 mg calcium (1,500 mg) tab Take by mouth q 12 HR. cholecalciferol (VITAMIN D3) 1,000 unit tab tablet Take by mouth q 12 HR. clopidogrel (PLAVIX) 75 mg tablet Take by mouth. hydroCHLOROthiazide (HYDRODIURIL, ESIDRIX) 12.5 mg capsule Take by mouth. isosorbide mononitrate ER (IMDUR) 60 mg 24 hr tablet Take by mouth. metoprolol succinate ER (TOPROL XL) 25 mg 24 hr tablet Take by mouth q 24 HR. nitroglycerin sublingual (NITROQUICK) 0.4 mg SL tablet Dissolve under the tongue. REVIEW OF SYSTEMS: GENERAL: Negative for weight loss, fevers, chills, or night sweats. HEENT: Negative for sudden vision or hearing changes. NECK: Negative for masses in the neck. RESPIRATORY: Negative for cough or shortness of breath. MUSCULOSKELETAL: Negative for limitations in movement, pain, or swelling. NEURO: Negative for dizziness, headache, weakness or numbness. HEMATOLOGIC: Negative for bleeding or easy bruising. SKIN: Negative for rashes or other skin changes. PHYSICAL EXAM: VS: BP 138/67 Pulse (!) 55 Temp 36.1 C (96.9 F) Resp 16 Wt 109.8 kg (242 lb) SpO2 (!) 57% BMI 47.26 kg/m KPS: 100 General Appearance: Alert and oriented. No acute distress. HEENT: NCAT. Sclera anicteric. PERRL. EOMI. Oral cavity and oropharynx: lips and gums normal, oral and pharyngeal mucosa moist, palate elevatesnormally, tongue mobile and without palpable lesions, tonsils without masses. Indirect exam did notget good view of cords Neck: Normal ROM. No palpable cervical or supraclavicular adenopathy. Skin: Mild to moderate hyperemia anterior lower neck Lymphatics: No palpable lymphadenopathy. 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 Clinically doing fairly well with improving dysphagia. Still with hoarseness. She will require continued close follow-up with Dr. Torrez which has been arranged. I would like to see patient back in 1 month for follow-up. Signed by: Lauren Mosqueda MD cc: Isrrael Howard ([facility]) [address] [place] [address] Dr. Patricia documented in this encounterUniversity Hospitals St. 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 - atorvastatin (LIPITOR) 40 mg tablet Take by mouth. - calcium carbonate (CALTRATE) 600 mg calcium (1,500 mg) tab Take by mouth q 12 HR. - cholecalciferol (VITAMIN D3) 1,000 unit tab tablet Take by mouth q 12 HR. - clopidogrel (PLAVIX) 75 mg tablet Take by mouth. - hydroCHLOROthiazide (HYDRODIURIL, ESIDRIX) 12.5 mg capsule Take by mouth. - isosorbide mononitrate ER (IMDUR) 60 mg 24 hr tablet Take by mouth. - metoprolol succinate ER (TOPROL XL) 25 mg 24 hr tablet Take by mouth q 24 HR. - nitroglycerin sublingual (NITROQUICK) 0.4 mg SL tablet Dissolve under the tongue. Encounter Status:Closed by ASHLY WATERS on 04/18/22[facility]10-04-2022 NoteHNO ID: [id number] Author: Ashly Waters RD Service: ? Author Type: Registered Dietitian Type: Progress Notes Filed: 04/18/2022 2:37 PM Note Text: Very brief follow up with patient as she as was already at check-out following her appointment with Dr. Mosqueda. Patient denied any nutrition concerns, questions, or need for nutrition follow up at this time. Patient notified dietitian is available should concerns arise. Pt verbalized understanding. Ashly Waters MS, MARLO, LDMercy Health Kings [facility]10-04-2022 History of Present illness Narrative* Ashly Waters RD - 04/18/2022 2:33 PM EDT Very brief follow up with patient as she as was already at check-out following her appointment withDr. Mosqueda. Patient denied any nutrition concerns, questions, or need for nutrition follow up at this time. Patient notified dietitian is available should concerns arise. Pt verbalized understanding. Ashly Waters MS, MARLO, LD documented in this encounterUniversity Hospitals St. [facility]09-22-2022 NoteHNO ID: [id number] Author: Lauren Mosqueda MD Service: ? 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 AREA TREATED: Larynx DELIVERED DOSE: Larynx: 6,300 cGy in 28 fractions, 2 Arcs, IMRT, 6MV with daily CBCT TOTAL: 6,300 cGy in 28 fractions ELAPSED TIME: 38 days. CLINICAL SUMMARY: The patient tolerated radiation with mild radiation related dermatitis and dysphagia. No other issues. The patient was able to complete treatment as intended without break interruption or modification of prescription plan. The disease response will be assessed in clinic. The patient will be seen again in 2 weeks for postradiation follow-up. Staff Physician Lv Mosqueda M.D. / ROSALIO 23:44 PM Electronically Signed cc: Dr. 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 AREA TREATED: Larynx DELIVERED DOSE: Larynx: 6,300 cGy in 28 fractions, 2 Arcs, IMRT, 6MV with daily CBCT TOTAL: 6,300 cGy in 28 fractions ELAPSED TIME: 38 days. CLINICAL SUMMARY: The patient tolerated radiation with mild radiation related dermatitis and dysphagia. No other issues. The patient was able to complete treatment as intended without break interruption or modification of prescription plan. The disease response will be assessed in clinic. The patient will be seen again in 2 weeks for postradiation follow-up. Staff Physician Lv Mosqueda M.D. / ROSALIO 23:44 PM Electronically Signed cc: Dr. Harshad oHward documented in this encounterUniversity Hospitals St. 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 - atorvastatin (LIPITOR) 40 mg tablet Take by mouth. - calcium carbonate (CALTRATE) 600 mg calcium (1,500 mg) tab Take by mouth q 12 HR. - cholecalciferol (VITAMIN D3) 1,000 unit tab tablet Take by mouth q 12 HR. - clopidogrel (PLAVIX) 75 mg tablet Take by mouth. - hydroCHLOROthiazide (HYDRODIURIL, ESIDRIX) 12.5 mg capsule Take by mouth. - isosorbide mononitrate ER (IMDUR) 60 mg 24 hr tablet Take by mouth. - metoprolol succinate ER (TOPROL XL) 25 mg 24 hr tablet Take by mouth q 24 HR. - nitroglycerin sublingual (NITROQUICK) 0.4 mg SL tablet Dissolve under the tongue. Encounter Status:Closed by ASHLY WATERS on 04/05/22[facility]09-21-2022 NoteHNO ID: [id number] Author: Ashly Waters RD Service: ? 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 Nutrition Intervention: -continue small frequent meals/snacks -aim for soft/moist, [id number] foods -include protein source with each meal/snack -encouraged adequate hydration Nutrition Monitoring AND Evaluation: -PO Intake -Wt status -Biochemical Markers -Plan of care Date of last encounter: March 31, 2022 Patient met goal(s): Yes Patient's symptoms are: None Pt presents for nutrition counseling for larynx cancer. Pt is currently being treated with RT in which she completes tomorrow 04/06/22. Pt denies any chewing/swallowing issues, denies current N/V/D/C. Pt denies food allergies/intolerances. Appetite appears to be good, Intakes are good. Pt reports not changes in her appetite or intakes over the past week. She continues to focus more on soft foods and is tolerating well. At present, she has no nutrition questions or concerns. Thank you for allowing me to participate in the care of this pt. Readiness to Learn: Cognitive ability: Alert and oriented Motivation to learn: Interested Family support: Unable to assess - Family not present Instruction provided to: Patient Patient learns best by: Multiple Methods Factors affecting learning: None Physical limitations affecting learning: None Educational materials provided: none this visit Anthropometrics: Height: Last 1 Encounter Ht Readings: Date: Ht: 01/31/2022 152.4 cm (5') Current weight: Last 1 Encounter Wt Readings: Date: Wt: 04/03/2022 107 kg (236 lb) Estimated body mass index is 46.09 kg/m? as calculated from the following: Height as of 01/31/22: 152.4 cm (5'). Weight as of 04/03/22: 107 kg (236 lb). Resting Metabolic Rate: 1496 Weight Change: 5.9kg (5.2%) x 1 mo- significant Garvin Body Weight: 45.5kg Estimated kilocalorie needs: 1855 kilocalories determined by [place] Jeor x 1.2 Estimated protein needs: 45-68 grams determined by 1.0-1.5 g/kg Garvin weight Estimated fluid needs: ~1900 milliliters based on 1 mL per kcal (unless otherwise noted) Nutrition Focused Physical Exam: Unable to perform exam due to potential for patient discomfort (physical/emotional), will re-attempt during reassessment. Potential Signs of Inflammation: chronic condition Allergies: Penicillins Medications: Current Outpatient Medications Medication Sig Dispense Refill aspirin, enteric coated (ASPIRIN, ENTERIC COATED) 81 mg EC tablet Take by mouth q 24 HR. atorvastatin (LIPITOR) 40 mg tablet Take by mouth. calcium carbonate (CALTRATE) 600 mg calcium (1,500 mg) tab Take by mouth q 12 HR. cholecalciferol (VITAMIN D3) 1,000 unit tab tablet Take by mouth q 12 HR. clopidogrel (PLAVIX) 75 mg tablet Take by mouth. hydroCHLOROthiazide (HYDRODIURIL, ESIDRIX) 12.5 mg capsule Take by mouth. isosorbide mononitrate ER (IMDUR) 60 mg 24 hr tablet Take by mouth. metoprolol succinate ER (TOPROL XL) 25 mg 24 hr tablet Take by mouth q 24 HR. nitroglycerin sublingual (NITROQUICK) 0.4 mg SL tablet Dissolve under the tongue. No current facility-administered medications for this visit. Need for Follow up: will continue to follow Referred/Supervised by: Jean/Jean SON Billing Type: Re-assess/15 min 1 unit Time Spent with Patient: 15 minutes Signed by: Ashly Waters, MS, RDN, ANALIAMercy Health [facility]09-19-2022 NoteHNO ID: [id number] Author: Lauren Mosqueda MD Service: ? 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 COURSE: definitive Area Treated: Larynx Current dose: 5625 Gy in 25 fx Planned dose: 6300 Gy in 28 fx SUBJECTIVE: Doing fairly well continued mild to moderate dysphagia. Able to eat most foods however. No dyspnea. Hoarseness somewhat worse. PHYSICAL EXAM: KPS: 100 General Appearance: Alert and oriented. No acute distress. Radiation dermatitis: No Mucositis: No Neck: Normal ROM. No palpable cervical or supraclavicular adenopathy. IMAGING/LAB RESULTS: None TOXICITY ASSESSMENT (CTCv4): Dysphagia:grade 1 Mucositis: grade 0 - No symptoms Radiation dermatitis: grade 0 - No symptoms Trismus: grade 0 - No symptoms Voice Changes:grade 1/2 - Mild or intermittent change from normal voice Xerostomia: grade 0 - No symptoms . Treatment chart checked: Yes Patient treatment site reviewed and verified:Yes Port films reviewed and current:Yes Medications started: None ASSESSMENT: Patient doing well. Continue diet modification. Patient will finish this week. Chart and images reviewed. Follow-up care discussed. Lauren Mosqueda, [facility]09-19-2022 Nurse Note* Yovanny Grissom LPN - 04/03/2022 10:23 AM EDT Status: Post-menopausal. documented in this encounterUniversity Hospitals St. 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 COURSE: definitive Area Treated: Larynx Current dose: 5625 Gy in 25 fx Planned dose: 6300 Gy in 28 fx SUBJECTIVE: Doing fairly well continued mild to moderate dysphagia. Able to eat most foods however.No dyspnea. Hoarseness somewhat worse. PHYSICAL EXAM: KPS: 100 General Appearance: Alert and oriented. No acute distress. Radiation dermatitis: No Mucositis: No Neck: Normal ROM. No palpable cervical or supraclavicular adenopathy. IMAGING/LAB RESULTS: None TOXICITY ASSESSMENT (CTCv4): Dysphagia:grade 1 Mucositis: grade 0 - No symptoms Radiation dermatitis: grade 0 - No symptoms Trismus: grade 0 - No symptoms Voice Changes:grade 1/2 - Mild or intermittent change from normal voice Xerostomia: grade 0 - No symptoms . Treatment chart checked: Yes Patient treatment site reviewed and verified:Yes Port films reviewed and current:Yes Medications started: None ASSESSMENT: Patient doing well. Continue diet modification. Patient will finish this week. Chart and images reviewed. Follow-up care discussed. Lauren Mosqueda MD documented in this encounterUniversity Hospitals St. [facility]22 NoteHNO ID: [id number] Author: Ashly Waters RD Service: ? Author Type: Registered Dietitian Type: Progress Notes Filed: 03/31/2022 10:10 AM Note Text: Oncology Nutrition Therapy Progress Note RECOMMENDED MALNUTRITION DIAGNOSIS: MILD PROTEIN-CALORIE MALNUTRITION per DIONISIO Stoddard on 03/23/2022 Some elements copied from my note on 03/23/2022, have been updated and all reflect current decision making from today, 03/31/2022 Nutrition Intervention: -continue small frequent meals/snacks -aim for soft/moist, qrfp-iy-iasrney foods -include protein source with each meal/snack -encouraged adequate hydration Nutrition Monitoring AND Evaluation: -PO Intake -Wt status -Biochemical Markers -Plan of care Date of last encounter: March 23, 2022 Patient met goal(s): Yes Patient's symptoms are: Oral: swallowing problems Pt presents for nutrition counseling follow up. Pt's weight is stable over the past week. Pt currently being treated with RT. Pt c/o some swallowing difficulty with solid foods. Appetite appears good. Intakes are good. Pt reports not changes in her appetite or intakes over the past week. Pt states after reviewing soft protein options, she has been able to increase her protein intakes. She reports doing well with soft foods at this time and drinking plenty of fluids. READINESS TO LEARN Cognitive ability: Alert and oriented Motivation to learn: Interested Family support: Unable to assess - Family not present Instruction provided to: Patient Patient learns best by: Multiple Methods Factors affecting learning: None Physical limitations affecting learning: None Educational materials provided: none this visit Need for Follow up: will continue to follow Referred/Supervised by: Jean/Jean SON Billing Type: Re-assess/15 min 1 unit Billed Time: 15 minutes Signed by: Ashly Waters, MS, RDN, LDMer[facility] NoteEducation (NUTRSA) KATHLEEN ROSEN ([id number]) 1945 F Date Time Provider Department 03/31/22 10:45 AM ASHLY WATERS Reason for Visit: Nutrition Counseling [76] Primary Visit Diagnosis:Malnutrition of mild degree (HCC) [E44.1] Other Visit Diagnosis: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 - atorvastatin (LIPITOR) 40 mg tablet Take by mouth. - calcium carbonate (CALTRATE) 600 mg calcium (1,500 mg) tab Take by mouth q 12 HR. - cholecalciferol (VITAMIN D3) 1,000 unit tab tablet Take by mouth q 12 HR. - clopidogrel (PLAVIX) 75 mg tablet Take by mouth. - hydroCHLOROthiazide (HYDRODIURIL, ESIDRIX) 12.5 mg capsule Take by mouth. - isosorbide mononitrate ER (IMDUR) 60 mg 24 hr tablet Take by mouth. - metoprolol succinate ER (TOPROL XL) 25 mg 24 hr tablet Take by mouth q 24 HR. - nitroglycerin sublingual (NITROQUICK) 0.4 mg SL tablet Dissolve under the tongue. Encounter Status:Closed by ASHLY WATERS on 03/31/22[facility] History of Present illness Narrative* Ashly Waters RD - 03/31/2022 10:45 AM EDT Oncology Nutrition Therapy Progress Note RECOMMENDED MALNUTRITION DIAGNOSIS: MILD PROTEIN-CALORIE MALNUTRITION per DIONISIO Stoddard on 03/23/2022 Some elements copied from my note on 03/23/2022, have been updated and all reflect current decision making from today, 03/31/2022 Nutrition Intervention: -continue small frequent meals/snacks -aim for soft/moist, nazv-tp-wcurtkx foods -include protein source with each meal/snack -encouraged adequate hydration Nutrition Monitoring & Evaluation: -PO Intake -Wt status -Biochemical Markers -Plan of care Date of last encounter: March 23, 2022 Patient met goal(s): Yes Patient's symptoms are: Oral: swallowing problems Pt presents for nutrition counseling follow up. Pt's weight is stable over the past week. Pt currently being treated with RT. Pt c/o some swallowing difficulty with solid foods. Appetite appears good. Intakes are good. Pt reports not changes in her appetite or intakes over thepast week. Pt states after reviewing soft protein options, she has been able to increase her protein intakes. She reports doing well with soft foods at this time and drinking plenty of fluids. READINESS TO LEARN Cognitive ability: Alert and oriented Motivation to learn: Interested Family support: Unable to assess - Family not present Instruction provided to: Patient Patient learns best by: Multiple Methods Factors affecting learning: None Physical limitations affecting learning: None Educational materials provided: none this visit Need for Follow up: will continue to follow Referred/Supervised by: Jean/Jean SON Billing Type: Re-assess/15 min 1 unit Billed Time: 15 minutes Signed by: Ashly Waters MS, RDN, LD documented in this encounterUniversity [facility]als St. [facility]09-12-2022 NoteHNO ID: [id number] Author: Lauren Mosqueda MD Service: ? 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 COURSE: definitive Area Treated: Larynx Current dose: 3600 Gy in 16 fx Planned dose: 6300 Gy in 28 fx SUBJECTIVE: Doing well. Voice and swallowing stable. Denies dyspnea. Denies significant pain. PHYSICAL EXAM: KPS: 100 General Appearance: Alert and oriented. No acute distress. Radiation dermatitis: No Mucositis: No Neck: Normal ROM. No palpable cervical or supraclavicular adenopathy. IMAGING/LAB RESULTS: None TOXICITY ASSESSMENT (CTCv4): Dysphagia:grade 1 Mucositis: grade 0 - No symptoms Radiation dermatitis: grade 0 - No symptoms Trismus: grade 0 - No symptoms Voice Changes:grade 1 - Mild or intermittent change from normal voice Xerostomia: grade 0 - No symptoms . Treatment chart checked: Yes Patient treatment site reviewed and verified:Yes Port films reviewed and current:Yes Medications started: None ASSESSMENT: Patient doing well. Continue with softer foods for dysphagia. Tolerance good. Chart and imaging reviewed. Continue radiation as outlined. Lauren Mosqueda [facility]09-08-2022 NoteHNO ID: [id number] Author: Ashly Waters RD Service: ? Author Type: Registered Dietitian Type: Progress Notes Filed: 03/23/2022 10:37 AM Note Text: Oncology Nutrition Therapy Reassessment RECOMMENDED MALNUTRITION DIAGNOSIS: MILD PROTEIN-CALORIE MALNUTRITION In the context of Acute Illness or Injury based on: Unintentional Weight Loss: >2% over 1 week Some elements copied from my note on 03/16/2022, have been updated and all reflect current decision making from today, 03/23/2022 Nutrition Diagnosis: Increased protein and energy needs related to hypermetabolic disease process as evidenced by need for weight maintenance and preservation of muscle mass. Nutrition Intervention: -encouraged weight maintenance -continue small frequent meals/snacks -include lean protein source at each meal/snack -reviewed soft/moist easy to swallow foods -encouraged adequate hydration Nutrition Monitoring AND Evaluation: -PO Intake -Wt status -Biochemical Markers -Plan of care Date of last encounter: March 16, 2022 Patient met goal(s): Partially Patient's symptoms are: Oral: swallowing problems Weight Concerns: weight loss Pt presents for nutrition counseling for larynx cancer. Pt is currently being treated with RT. Pt c/o swallowing issues stating occasionally feeling like food is stuck. She has transitioned to soft foods which she states eases this symptom. Pt denies current N/V/D/C. Pt denies food allergies/intolerances. Appetite appears to be good, Intakes are fair. Pt states she has transitioned to soft foods. She has some difficulty with recall, but states she has been eating yogurt and cottage cheese. Reviewed with pt high-protein, soft and rcsf-rb-fwvyyfn foods to expand dietary choices. Re-emphasized importance of adequate calorie/protein intakes and problem solved with pt ways to meet recommendations. Pt verbalized understanding. Thank you for allowing me to participate in the care of this pt. Readiness to Learn: Cognitive ability: Alert and oriented Motivation to learn: Interested Family support: Unable to assess - Family not present Instruction provided to: Patient Patient learns best by: Multiple Methods Factors affecting learning: None Physical limitations affecting learning: None Educational materials provided: Soft/Moist High Protein Foods, Dpes-nk-Aouv/Swallow Foods Anthropometrics: Height: Last 1 Encounter Ht Readings: Date: Ht: 01/31/2022 152.4 cm (5') Current weight: Last 1 Encounter Wt Readings: Date: Wt: 03/21/2022 108.9 kg (240 lb) Estimated body mass index is 46.87 kg/m? as calculated from the following: Height as of 01/31/22: 152.4 cm (5'). Weight as of 03/21/22: 108.9 kg (240 lb). Resting Metabolic Rate: 1514 Weight Change: 4.4kg (3.8%) x ~1.5 weeks Garvin Body Weight: 45.5kg Estimated kilocalorie needs: 1855 kilocalories determined by [place] x 1.2 Estimated protein needs: 45-68 grams determined by 1.0-1.5 g/kg Garvin weight Estimated fluid needs: ~1900 milliliters based on 1 mL per kcal (unless otherwise noted) Nutrition Focused Physical Exam: Unable to perform exam due to potential for patient discomfort (physical/emotional), will re-attempt during reassessment. Potential Signs of Inflammation: chronic condition Allergies: Penicillins Medications: Current Outpatient Medications Medication Sig Dispense Refill aspirin, enteric coated (ASPIRIN, ENTERIC COATED) 81 mg EC tablet Take by mouth q 24 HR. atorvastatin (LIPITOR) 40 mg tablet Take by mouth. calcium carbonate (CALTRATE) 600 mg calcium (1,500 mg) tab Take by mouth q 12 HR. cholecalciferol (VITAMIN D3) 1,000 unit tab tablet Take by mouth q 12 HR. clopidogrel (PLAVIX) 75 mg tablet Take by mouth. hydroCHLOROthiazide (HYDRODIURIL, ESIDRIX) 12.5 mg capsule Take by mouth. isosorbide mononitrate ER (IMDUR) 60 mg 24 hr tablet Take by mouth. metoprolol succinate ER (TOPROL XL) 25 mg 24 hr tablet Take by mouth q 24 HR. nitroglycerin sublingual (NITROQUICK) 0.4 mg SL tablet Dissolve under the tongue. No current facility-administered medications for this visit. Need for Follow up: will continue to follow Referred/Supervised by: Jean/Jean SON Billing Type: Re-assess/15 min 1 unit Time Spent with Patient: 15 minutes Signed by: Ashly Waters, MS, RDN, [facility]09-08-2022 NoteEducation (NUTRSA) KATHLEEN ROSEN ([id number]) 1945 F Date Time Provider Department 03/23/22 10:00 ASHLY BRENNAN Reason for Visit: Nutrition Assessment [1591] Visit Diagnosis:Malnutrition of mild degree (HCC) [E44.1] During your visit today, we recorded the following information about you: Allergies As of Date: 03/23/2022 Noted Allergy Reaction PENICILLINS 01/31/2022 16 - Unknown Date Reviewed: 03/23/2022 Reviewed by: Ashly Waters RD - Fully Assessed Prescriptions as of 03/23/2022 - aspirin, enteric coated (ASPIRIN, ENTERIC COATED) 81 mg EC tablet Take by mouth q 24 HR. - atorvastatin (LIPITOR) 40 mg tablet Take by mouth. - calcium carbonate (CALTRATE) 600 mg calcium (1,500 mg) tab Take by mouth q 12 HR. - cholecalciferol (VITAMIN D3) 1,000 unit tab tablet Take by mouth q 12 HR. - clopidogrel (PLAVIX) 75 mg tablet Take by mouth. - hydroCHLOROthiazide (HYDRODIURIL, ESIDRIX) 12.5 mg capsule Take by mouth. - isosorbide mononitrate ER (IMDUR) 60 mg 24 hr tablet Take by mouth. - metoprolol succinate ER (TOPROL XL) 25 mg 24 hr tablet Take by mouth q 24 HR. - nitroglycerin sublingual (NITROQUICK) 0.4 mg SL tablet Dissolve under the tongue. Encounter Status:Closed by ASHLY WATERS on 03/23/22[facility]09-08-2022 History of Present illness Narrative* Ashly Waters RD - 03/23/2022 10:30 AM EDT Oncology Nutrition Therapy Reassessment RECOMMENDED MALNUTRITION DIAGNOSIS: MILD PROTEIN-CALORIE MALNUTRITION In the context of Acute Illness or Injury based on: Unintentional Weight Loss: >2% over 1 week Some elements copied from my note on 03/16/2022, have been updated and all reflect current decision making from today, 03/23/2022 Nutrition Diagnosis: Increased protein and energy needs related to hypermetabolic disease process as evidenced by need for weight maintenance and preservation of muscle mass. Nutrition Intervention: -encouraged weight maintenance -continue small frequent meals/snacks -include lean protein source at each meal/snack -reviewed soft/moist easy to swallow foods -encouraged adequate hydration Nutrition Monitoring & Evaluation: -PO Intake -Wt status -Biochemical Markers -Plan of care Date of last encounter: March 16, 2022 Patient met goal(s): Partially Patient's symptoms are: Oral: swallowing problems Weight Concerns: weight loss Pt presents for nutrition counseling for larynx cancer. Pt is currently being treated with RT. Pt c/o swallowing issues stating occasionally feeling like food is stuck. She has transitioned to soft foods which she states eases this symptom. Pt denies current N/V/D/C. Pt denies food allergies/intolerances. Appetite appears to be good, Intakes are fair. Pt states she has transitioned to soft foods. She has some difficulty with recall, but states she has been eating yogurt and cottage cheese. Reviewed with pt high-protein, soft and bucr-th-fsbnzjq foods to expand dietary choices. Re-emphasized importance of adequate calorie/protein intakes and problem solved with pt ways to meet recommendations. Pt verbalized understanding. Thank you for allowing me to participate in the care of this pt. Readiness to Learn: Cognitive ability: Alert and oriented Motivation to learn: Interested Family support: Unable to assess - Family not present Instruction provided to: Patient Patient learns best by: Multiple Methods Factors affecting learning: None Physical limitations affecting learning: None Educational materials provided: Soft/Moist High Protein Foods, Stdw-gp-Sahh/Swallow Foods Anthropometrics: Height: Last 1 Encounter Ht Readings: Date: Ht: 01/31/2022 152.4 cm (5') Current weight: Last 1 Encounter Wt Readings: Date: Wt: 03/21/2022 108.9 kg (240 lb) Estimated body mass index is 46.87 kg/m as calculated from the following: Height as of 01/31/22: 152.4 cm (5'). Weight as of 03/21/22: 108.9 kg (240 lb). Resting Metabolic Rate: 1514 Weight Change: 4.4kg (3.8%) x ~1.5 weeks Garvin Body Weight: 45.5kg Estimated kilocalorie needs: 1855 kilocalories determined by [place] Je[place] x 1.2 Estimated protein needs: 45-68 grams determined by 1.0-1.5 g/kg Garvin weight Estimated fluid needs: ~1900 milliliters based on 1 mL per kcal (unless otherwise noted) Nutrition Focused Physical Exam: Unable to perform exam due to potential for patient discomfort (physical/emotional), will re-attempt during reassessment. Potential Signs of Inflammation: chronic condition Allergies: Penicillins Medications: Current Outpatient Medications Medication Sig Dispense Refill aspirin, enteric coated (ASPIRIN, ENTERIC COATED) 81 mg EC tablet Take by mouth q 24 HR. atorvastatin (LIPITOR) 40 mg tablet Take by mouth. calcium carbonate (CALTRATE) 600 mg calcium (1,500 mg) tab Take by mouth q 12 HR. cholecalciferol (VITAMIN D3) 1,000 unit tab tablet Take by mouth q 12 HR. clopidogrel (PLAVIX) 75 mg tablet Take by mouth. hydroCHLOROthiazide (HYDRODIURIL, ESIDRIX) 12.5 mg capsule Take by mouth. isosorbide mononitrate ER (IMDUR) 60 mg 24 hr tablet Take by mouth. metoprolol succinate ER (TOPROL XL) 25 mg 24 hr tablet Take by mouth q 24 HR. nitroglycerin sublingual (NITROQUICK) 0.4 mg SL tablet Dissolve under the tongue. No current facility-administered medications for this visit. Need for Follow up: will continue to follow Referred/Supervised by: Jean/Jean MNStephanie Billing Type: Re-assess/15 min 1 unit Time Spent with Patient: 15 minutes Signed by: Ashly Waters MS, RDAnastasia, LD documented in this encounterUniversity Hospitals St. [facility]09-06-2022 NoteHNO ID: [id number] Author: Lauren Mosqueda MD Service: ? 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 COURSE: definitive Area Treated: Larynx Current dose: 3600 Gy in 16 fx Planned dose: 6300 Gy in 28 fx SUBJECTIVE: Doing well. Having more issues with throat irritation, feeling things are catching. Denies pain. Denies dyspnea. PHYSICAL EXAM: KPS: 100 General Appearance: Alert and oriented. No acute distress. Radiation dermatitis: No Mucositis: No Neck: Normal ROM. No palpable cervical or supraclavicular adenopathy. IMAGING/LAB RESULTS: None TOXICITY ASSESSMENT (CTCv4): Dysphagia:grade 1 Mucositis: grade 0 - No symptoms Radiation dermatitis: grade 0 - No symptoms Trismus: grade 0 - No symptoms Voice Changes:grade 1 - Mild or intermittent change from normal voice Xerostomia: grade 0 - No symptoms . Treatment chart checked: Yes Patient treatment site reviewed and verified:Yes Port films reviewed and current:Yes Medications started: None ASSESSMENT: Patient doing well. Discussed diet modification. PMX should she develop further dysphagia symptoms. Chart and imaging reviewed. Continue radiation as outlined. 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 COURSE: definitive Area Treated: Larynx Current dose: 3600 Gy in 16 fx Planned dose: 6300 Gy in 28 fx SUBJECTIVE: Doing well. Having more issues with throat irritation, feeling things are catching. Denies pain. Denies dyspnea. PHYSICAL EXAM: KPS: 100 General Appearance: Alert and oriented. No acute distress. Radiation dermatitis: No Mucositis: No Neck: Normal ROM. No palpable cervical or supraclavicular adenopathy. IMAGING/LAB RESULTS: None TOXICITY ASSESSMENT (CTCv4): Dysphagia:grade 1 Mucositis: grade 0 - No symptoms Radiation dermatitis: grade 0 - No symptoms Trismus: grade 0 - No symptoms Voice Changes:grade 1 - Mild or intermittent change from normal voice Xerostomia: grade 0 - No symptoms . Treatment chart checked: Yes Patient treatment site reviewed and verified:Yes Port films reviewed and current:Yes Medications started: None ASSESSMENT: Patient doing well. Discussed diet modification. PMX should she develop further dysphagia symptoms. Chart and imaging reviewed. Continue radiation as outlined. Lauren Mosqueda MD documented in this encounterUniversity Hospitals St. 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 - atorvastatin (LIPITOR) 40 mg tablet Take by mouth. - calcium carbonate (CALTRATE) 600 mg calcium (1,500 mg) tab Take by mouth q 12 HR. - cholecalciferol (VITAMIN D3) 1,000 unit tab tablet Take by mouth q 12 HR. - clopidogrel (PLAVIX) 75 mg tablet Take by mouth. - hydroCHLOROthiazide (HYDRODIURIL, ESIDRIX) 12.5 mg capsule Take by mouth. - isosorbide mononitrate ER (IMDUR) 60 mg 24 hr tablet Take by mouth. - metoprolol succinate ER (TOPROL XL) 25 mg 24 hr tablet Take by mouth q 24 HR. - nitroglycerin sublingual (NITROQUICK) 0.4 mg SL tablet Dissolve under the tongue. Encounter Status:Closed by ASHLY WATERS on 03/16/22[facility]09-01-2022 NoteHNO ID: [id number] Author: Ashly Waters RD Service: ? Author Type: Registered Dietitian Type: Progress Notes Filed: 03/16/2022 9:44 AM Note Text: Oncology Nutrition Therapy Reassessment RECOMMENDED MALNUTRITION DIAGNOSIS: NO MALNUTRITION IDENTIFIED Some elements copied from my note on 03/06/2022, have been updated and all reflect current decision making from today, 03/16/2022 Nutrition Diagnosis: Increased protein and energy needs related to hypermetabolic disease process as evidenced by need for weight maintenance and preservation of muscle mass. Nutrition Intervention: -continue small frequent meals and snacks -include lean protein source at each meal/snack -transition to soft/moist foods if throat pain increases -encouraged adequate hydration Nutrition Monitoring AND Evaluation: -PO Intake -Wt status -Biochemical Markers -Plan of care Date of last encounter: March 06, 2022 Patient met goal(s): Yes Patient's symptoms are: Oral: mild pain in throat Pt presents for nutrition counseling for larynx cancer. Pt is currently being treated with RT. Pt states she is starting to get some mild in her throat, but denies any swallowing issues, denies current N/V/D/C. Pt denies food allergies/intolerances. Pt's weight remains stable. Appetite appears to be good, Intakes are good. Pt reports she continues to eat per her usual consuming a variety of foods. Briefly discussed with pt if throat pain increases she may need to adjust textures of her foods and notify physician if she feels she needs pain medication. Pt verbalized understanding. Thank you for allowing me to participate in the care of this pt. Readiness to Learn: Cognitive ability: Alert and oriented Motivation to learn: Interested Family support: Unable to assess - Family not present Instruction provided to: Patient Patient learns best by: Multiple Methods Factors affecting learning: None Physical limitations affecting learning: None Educational materials provided: none this visit Anthropometrics: Height: Last 1 Encounter Ht Readings: Date: Ht: 01/31/2022 152.4 cm (5') Current weight: Last 1 Encounter Wt Readings: Date: Wt: 03/13/2022 113.3 kg (249 lb 12.8 oz) Estimated body mass index is 48.79 kg/m? as calculated from the following: Height as of 01/31/22: 152.4 cm (5'). Weight as of 03/13/22: 113.3 kg (249 lb 12.8 oz). Resting Metabolic Rate: 1559 Weight Change: n/a Garvin Body Weight: 45.5kg Estimated kilocalorie needs: 1855 kilocalories determined by [place] Jeor x 1.2 Estimated protein needs: 45-68 grams determined by 1.0-1.5 g/kg Garvin weight Estimated fluid needs: ~1900 milliliters based on 1 mL per kcal (unless otherwise noted) Nutrition Focused Physical Exam: Unable to perform exam due to potential for patient discomfort (physical/emotional), will re-attempt during reassessment. Potential Signs of Inflammation: chronic condition Allergies: Penicillins Medications: Current Outpatient Medications Medication Sig Dispense Refill aspirin, enteric coated (ASPIRIN, ENTERIC COATED) 81 mg EC tablet Take by mouth q 24 HR. atorvastatin (LIPITOR) 40 mg tablet Take by mouth. calcium carbonate (CALTRATE) 600 mg calcium (1,500 mg) tab Take by mouth q 12 HR. cholecalciferol (VITAMIN D3) 1,000 unit tab tablet Take by mouth q 12 HR. clopidogrel (PLAVIX) 75 mg tablet Take by mouth. hydroCHLOROthiazide (HYDRODIURIL, ESIDRIX) 12.5 mg capsule Take by mouth. isosorbide mononitrate ER (IMDUR) 60 mg 24 hr tablet Take by mouth. metoprolol succinate ER (TOPROL XL) 25 mg 24 hr tablet Take by mouth q 24 HR. nitroglycerin sublingual (NITROQUICK) 0.4 mg SL tablet Dissolve under the tongue. No current facility-administered medications for this visit. Need for Follow up: will continue to follow Referred/Supervised by: Jean/Jean SON Billing Type: Re-assess/15 min 1 unit Time Spent with Patient: 15 minutes Signed by: Ashly Waters, MS, RDN, LDMercy [facility]-01[facility] Nurse Note* Yovanny Grissom LPN - 03/16/2022 10:09 AM EDT Kathleen is here for radiation therapy with c/o a cough and runny nose. She states her cough is productive with yellowish mucus. These symptoms started approximately two days ago. She has not taken anyOTC medication for her symptoms. I reviewed with her that she can try OTC cough/cold remedy and mucinex as needed. She agreed with the above. She is vaccinated for Covid x 1 with [employer].She is to notify us tomorrow if symptoms worsen. Dr. Mosqueda notified of the above and is in agreement. Yovanny Grissom LPN documented in this encounterUniversity Hospitals St. [facility]09-01-2022 History of Present illness Narrative* Ashly Waters, DIONISIO - 03/16/2022 9:26 AM EDT Oncology Nutrition Therapy Reassessment RECOMMENDED MALNUTRITION DIAGNOSIS: NO MALNUTRITION IDENTIFIED Some elements copied from my note on 03/06/2022, have been updated and all reflect current decision making from today, 03/16/2022 Nutrition Diagnosis: Increased protein and energy needs related to hypermetabolic disease process as evidenced by need for weight maintenance and preservation of muscle mass. Nutrition Intervention: -continue small frequent meals and snacks -include lean protein source at each meal/snack -transition to soft/moist foods if throat pain increases -encouraged adequate hydration Nutrition Monitoring & Evaluation: -PO Intake -Wt status -Biochemical Markers -Plan of care Date of last encounter: March 06, 2022 Patient met goal(s): Yes Patient's symptoms are: Oral: mild pain in throat Pt presents for nutrition counseling for larynx cancer. Pt is currently being treated with RT. Pt states she is starting to get some mild in her throat, but denies any swallowing issues, denies current N/V/D/C. Pt denies food allergies/intolerances. Pt's weight remains stable. Appetite appears to be good, Intakes are good. Pt reports she continuesto eat per her usual consuming a variety of foods. Briefly discussed with pt if throat pain increases she may need to adjust textures of her foods and notify physician if she feels she needs pain medication. Pt verbalized understanding. Thank you for allowing me to participate in the care of this pt. Readiness to Learn: Cognitive ability: Alert and oriented Motivation to learn: Interested Family support: Unable to assess - Family not present Instruction provided to: Patient Patient learns best by: Multiple Methods Factors affecting learning: None Physical limitations affecting learning: None Educational materials provided: none this visit Anthropometrics: Height: Last 1 Encounter Ht Readings: Date: Ht: 01/31/2022 152.4 cm (5') Current weight: Last 1 Encounter Wt Readings: Date: Wt: 03/13/2022 113.3 kg (249 lb 12.8 oz) Estimated body mass index is 48.79 kg/m as calculated from the following: Height as of 01/31/22: 152.4 cm (5'). Weight as of 03/13/22: 113.3 kg (249 lb 12.8 oz). Resting Metabolic Rate: 1559 Weight Change: n/a Garvin Body Weight: 45.5kg Estimated kilocalorie needs: 1855 kilocalories determined by [place] x 1.2 Estimated protein needs: 45-68 grams determined by 1.0-1.5 g/kg Garvin weight Estimated fluid needs: ~1900 milliliters based on 1 mL per kcal (unless otherwise noted) Nutrition Focused Physical Exam: Unable to perform exam due to potential for patient discomfort (physical/emotional), will re-attempt during reassessment. Potential Signs of Inflammation: chronic condition Allergies: Penicillins Medications: Current Outpatient Medications Medication Sig Dispense Refill aspirin, enteric coated (ASPIRIN, ENTERIC COATED) 81 mg EC tablet Take by mouth q 24 HR. atorvastatin (LIPITOR) 40 mg tablet Take by mouth. calcium carbonate (CALTRATE) 600 mg calcium (1,500 mg) tab Take by mouth q 12 HR. cholecalciferol (VITAMIN D3) 1,000 unit tab tablet Take by mouth q 12 HR. clopidogrel (PLAVIX) 75 mg tablet Take by mouth. hydroCHLOROthiazide (HYDRODIURIL, ESIDRIX) 12.5 mg capsule Take by mouth. isosorbide mononitrate ER (IMDUR) 60 mg 24 hr tablet Take by mouth. metoprolol succinate ER (TOPROL XL) 25 mg 24 hr tablet Take by mouth q 24 HR. nitroglycerin sublingual (NITROQUICK) 0.4 mg SL tablet Dissolve under the tongue. No current facility-administered medications for this visit. Need for Follow up: will continue to follow Referred/Supervised by: Jean/Jean SON Billing Type: Re-assess/15 min 1 unit Time Spent with Patient: 15 minutes Signed by: Ashly Waters MS, RDN, LD documented in this encounterUniversity Hospitals St. [facility]08-29-2022 NoteHNO ID: [id number] Author: Lauren Mosqueda MD Service: ? 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 COURSE: definitive Area Treated: Larynx Current dose: 2475 Gy in 11 fx Planned dose: 6300 Gy in 28 fx SUBJECTIVE: Doing well. Denies significant new problems other than the feeling of fullness in the mid neck area. No pain. PHYSICAL EXAM: KPS: 100 General Appearance: Alert and oriented. No acute distress. Radiation dermatitis: No Mucositis: No Neck: Normal ROM. No palpable cervical or supraclavicular adenopathy. IMAGING/LAB RESULTS: None TOXICITY ASSESSMENT (CTCv4): Dysphagia:grade 0 - No symptoms Mucositis: grade 0 - No symptoms Radiation dermatitis: grade 0 - No symptoms Trismus: grade 0 - No symptoms Voice Changes:grade 1 - Mild or intermittent change from normal voice Xerostomia: grade 0 - No symptoms . Treatment chart checked: Yes Patient treatment site reviewed and verified:Yes Port films reviewed and current:Yes Medications started: None ASSESSMENT: Patient doing well. Chart and imaging reviewed. Continue radiation as outlined. Lauren Mosqueda [facility]08-29-2022 Nurse Note* Leah Fisher RN - 03/13/2022 10:20 AM EDT Status: Post-menopausal.Leah Fisher RN documented in this encounterUniversity Hospitals St. 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 COURSE: definitive Area Treated: Larynx Current dose: 2475 Gy in 11 fx Planned dose: 6300 Gy in 28 fx SUBJECTIVE: Doing well. Denies significant new problems other than the feeling of fullness in the mid neck area. No pain. PHYSICAL EXAM: KPS: 100 General Appearance: Alert and oriented. No acute distress. Radiation dermatitis: No Mucositis: No Neck: Normal ROM. No palpable cervical or supraclavicular adenopathy. IMAGING/LAB RESULTS: None TOXICITY ASSESSMENT (CTCv4): Dysphagia:grade 0 - No symptoms Mucositis: grade 0 - No symptoms Radiation dermatitis: grade 0 - No symptoms Trismus: grade 0 - No symptoms Voice Changes:grade 1 - Mild or intermittent change from normal voice Xerostomia: grade 0 - No symptoms . Treatment chart checked: Yes Patient treatment site reviewed and verified:Yes Port films reviewed and current:Yes Medications started: None ASSESSMENT: Patient doing well. Chart and imaging reviewed. Continue radiation as outlined. Lauren Mosqueda MD documented in this encounterUniversity Hospitals St. [facility]08-24-2022 NoteHNO ID: [id number] Author: Lavon Mckinnon MD Service: ? 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 COURSE: definitive Area Treated: Larynx Current dose: 1575 Gy in 7 fx Planned dose: 6300 Gy in 28 fx SUBJECTIVE: Tolerating surgery well and denies any pain/discomfort or change in his voice. He does get hoarse with talking. He denies any trouble swallowing and endorses stable energy appetite and hydration. He denies dry mouth with intact taste. EXAM: KPS: 90 General Appearance: Alert and oriented. No acute distress. Radiation dermatitis: No IMAGING/LAB RESULTS: None Treatment chart checked: Yes Patient treatment site reviewed and verified:Yes Port films reviewed and current:Yes Medications started: None ASSESSMENT/PLAN: Clinically stable. Toxicity within expected parameters. Continue radiation treatment as planned. 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 COURSE: definitive Area Treated: Larynx Current dose: 1575 Gy in 7 fx Planned dose: 6300 Gy in 28 fx SUBJECTIVE: Tolerating surgery well and denies any pain/discomfort or change in his voice. He does get hoarse with talking. He denies any trouble swallowing and endorses stable energy appetite and hydration. He denies dry mouth with intact taste. EXAM: KPS: 90 General Appearance: Alert and oriented. No acute distress. Radiation dermatitis: No IMAGING/LAB RESULTS: None Treatment chart checked: Yes Patient treatment site reviewed and verified:Yes Port films reviewed and current:Yes Medications started: None ASSESSMENT/PLAN: Clinically stable. Toxicity within expected parameters. Continue radiation treatment as planned. Lavon Mckinnon MD documented in this encounterUniversity Hospitals St. [facility]08-23-2022 Nurse Note* Leah Fisher RN - 03/07/2022 10:22 AM EDT Status: Post-menopausal.Leah Fisher RN documented in this encounterUniversity Hospitals St. John [facility]08-22-2022 NoteEducation (NUTRSA) SILASKATHLEEN Womack ([id number]) 1945 F Date Time Provider Department 03/06/22 10:00 AM ASHLY WATERS Reason for Visit: Nutrition Counseling [76] 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] During your visit today, we recorded the following information about you: Allergies As of Date: 03/06/2022 Noted Allergy Reaction PENICILLINS 01/31/2022 16 - Unknown Date Reviewed: 01/31/2022 Reviewed by: Yovanny Grissom LPN - Fully Assessed Prescriptions as of 03/06/2022 - aspirin, enteric coated (ASPIRIN, ENTERIC COATED) 81 mg EC tablet Take by mouth q 24 HR. - atorvastatin (LIPITOR) 40 mg tablet Take by mouth. - calcium carbonate (CALTRATE) 600 mg calcium (1,500 mg) tab Take by mouth q 12 HR. - cholecalciferol (VITAMIN D3) 1,000 unit tab tablet Take by mouth q 12 HR. - clopidogrel (PLAVIX) 75 mg tablet Take by mouth. - hydroCHLOROthiazide (HYDRODIURIL, ESIDRIX) 12.5 mg capsule Take by mouth. - isosorbide mononitrate ER (IMDUR) 60 mg 24 hr tablet Take by mouth. - metoprolol succinate ER (TOPROL XL) 25 mg 24 hr tablet Take by mouth q 24 HR. - nitroglycerin sublingual (NITROQUICK) 0.4 mg SL tablet Dissolve under the tongue. Encounter Status:Closed by ASHLY WATERS on 03/06/22[facility]08-22-20[facility] NoteHNO ID: [id number] Author: Ashly Waters RD Service: ? Author Type: Registered Dietitian Type: Progress Notes Filed: 03/06/2022 10:21 AM Note Text: Oncology Nutrition Therapy Progress Note RECOMMENDED MALNUTRITION DIAGNOSIS: NO MALNUTRITION IDENTIFIED Some elements copied from my note on 02/20/2022, have been updated and all reflect current decision making from today, 03/06/2022 Nutriscore: No Data Recorded Nutrition Intervention: -continue small frequent meals and snacks -include lean protein source at each meal/snack -encouraged adequate hydration Nutrition Monitoring AND Evaluation: -PO Intake -Wt status -Biochemical Markers -Plan of care Date of last encounter: February 20, 2022 Patient met goal(s): Yes Patient's symptoms are: None Pt presents for nutrition counseling follow up. Pt's weight is stable. Pt currently being treated with RT. Pt denies any current chewing/swallowing issues. Appetite appears good. Intakes are good. Pt reports no changes in her appetite. She continues to consume a variety of foods and textures with no difficulty. READINESS TO LEARN Cognitive ability: Alert and oriented Motivation to learn: Interested Family support: Unable to assess - Family not present Instruction provided to: Patient Patient learns best by: Multiple Methods Factors affecting learning: None Physical limitations affecting learning: None Educational materials provided: none this visit Need for Follow up: will continue to follow Referred/Supervised by: Berhane SON Billing Type: Re-assess/15 min 1 unit Billed Time: 15 minutes Signed by: Ashly Waters MS, RDN, ANALIAMercy Health [facility]08-22-2022 History of Present illness Narrative* Ashly Waters RD - 03/06/2022 9:51 AM EDT Oncology Nutrition Therapy Progress Note RECOMMENDED MALNUTRITION DIAGNOSIS: NO MALNUTRITION IDENTIFIED Some elements copied from my note on 02/20/2022, have been updated and all reflect current decision making from today, 03/06/2022 Nutriscore: No Data Recorded Nutrition Intervention: -continue small frequent meals and snacks -include lean protein source at each meal/snack -encouraged adequate hydration Nutrition Monitoring & Evaluation: -PO Intake -Wt status -Biochemical Markers -Plan of care Date of last encounter: February 20, 2022 Patient met goal(s): Yes Patient's symptoms are: None Pt presents for nutrition counseling follow up. Pt's weight is stable. Pt currently being treated with RT. Pt denies any current chewing/swallowing issues. Appetite appears good. Intakes are good. Pt reports no changes in her appetite. She continues to consume a variety of foods and textures with no difficulty. READINESS TO LEARN Cognitive ability: Alert and oriented Motivation to learn: Interested Family support: Unable to assess - Family not present Instruction provided to: Patient Patient learns best by: Multiple Methods Factors affecting learning: None Physical limitations affecting learning: None Educational materials provided: none this visit Need for Follow up: will continue to follow Referred/Supervised by: Engeler/Engeler MNT Billing Type: Re-assess/15 min 1 unit Billed Time: 15 minutes Signed by: Ashly Waters MS, RDN, LD documented in this encounterUniversity Hospitals St. [facility]08-15-2022 NoteHNO ID: [id number] Author: Luaren Mosqueda MD Service: ? 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 COURSE: definitive Area Treated: Larynx Current dose: 225 Gy in 1 fx Planned dose: 6300 Gy in 28 fx SUBJECTIVE: Here to start radiation, doing well. PHYSICAL EXAM: KPS: 100 General Appearance: Alert and oriented. No acute distress. Radiation dermatitis: No Mucositis: No Neck: Normal ROM. No palpable cervical or supraclavicular adenopathy. IMAGING/LAB RESULTS: None TOXICITY ASSESSMENT (CTCv4): Dysphagia:grade 0 - No symptoms Mucositis: grade 0 - No symptoms Radiation dermatitis: grade 0 - No symptoms Trismus: grade 0 - No symptoms Voice Changes:grade 1 - Mild or intermittent change from normal voice Xerostomia: grade 0 - No symptoms . Treatment chart checked: Yes Patient treatment site reviewed and verified:Yes Port films reviewed and current:Yes Medications started: None ASSESSMENT: Patient starting radiation today. Plan of care and expectations again reviewed. Plan, MU calculations and qa report reviewed. Initial imaging including cone beam ct and verification reviewed and approved. First treatment given. Continue radiation as prescribed. 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 - atorvastatin (LIPITOR) 40 mg tablet Take by mouth. - calcium carbonate (CALTRATE) 600 mg calcium (1,500 mg) tab Take by mouth q 12 HR. - cholecalciferol (VITAMIN D3) 1,000 unit tab tablet Take by mouth q 12 HR. - clopidogrel (PLAVIX) 75 mg tablet Take by mouth. - hydroCHLOROthiazide (HYDRODIURIL, ESIDRIX) 12.5 mg capsule Take by mouth. - isosorbide mononitrate ER (IMDUR) 60 mg 24 hr tablet Take by mouth. - metoprolol succinate ER (TOPROL XL) 25 mg 24 hr tablet Take by mouth q 24 HR. - nitroglycerin sublingual (NITROQUICK) 0.4 mg SL tablet Dissolve under the tongue. Encounter Status:Closed by ASHLY WATERS on 02/20/22[facility]08-08-2022 NoteHNO ID: [id number] Author: Ashly Waters RD Service: ? Author Type: Registered Dietitian Type: Progress Notes Filed: 02/20/2022 3:09 PM Note Text: Nutrition Therapy Initial Assessment This visit was performed via telehealth due to the COVID-19 epidemic as an effort to protect patients and minimize exposure. Consent from patient received to conduct visit via telehealth. This Team Access Model visit is a phone encounter. It required patient-provider interaction for the medical decision making as documented below. RECOMMENDED MALNUTRITION DIAGNOSIS: NO MALNUTRITION IDENTIFIED Patient's symptoms are: None Nutrition Diagnosis: Increased protein and energy needs related to hypermetabolic disease process as evidenced by need for weight maintenance and preservation of muscle mass. Nutrition Intervention: -encouraged weight maintenance -aim for small frequent meals/snacks -include lean protein source at each meal/snack -briefly reviewed potential nutrition related side effects -encouraged good hydration -discussed supplementation -not indicated at this time -provided contact information for any further questions/concerns Nutrition Monitoring AND Evaluation: -PO Intake -Wt status -Biochemical Markers -Plan of care Anthropometrics: Height: Last 1 Encounter Ht Readings: Date: Ht: 01/31/2022 152.4 cm (5') Current weight: Last 1 Encounter Wt Readings: Date: Wt: 01/31/2022 112 kg (247 lb) Estimated body mass index is 48.24 kg/m? as calculated from the following: Height as of 01/31/22: 152.4 cm (5'). Weight as of 01/31/22: 112 kg (247 lb). Resting Metabolic Rate: 1546 Weight Loss: n/a Garvin Body Weight: 45.5kg Estimated kilocalorie needs: 1855 kilocalories determined by [place] Je[place] x 1.2 Estimated protein needs: 45-68 grams determined by 1.0-1.5 g/kg Garvin weight Estimated fluid needs: ~1900 milliliters based on 1 mL per kcal (unless otherwise noted) Educational materials provided: none this visit READINESS TO LEARN Cognitive ability: Alert and oriented Motivation to learn: Interested Family support: Unable to assess - Family not present Instruction provided to: Patient Patient learns best by: Multiple Methods Factors affecting learning: None Physical limitations affecting learning: None Pt presents for phone consult regarding nutrition counseling for larynx cancer. Pt is currently scheduled to begin RT on 02/27. Pt denies any chewing/swallowing issues, denies current N/V/D/C. Pt denies food allergies/intolerances. Appetite appears to be good, Intakes are good. Pt reports she currently consumes 3 meals per day and includes a variety of foods. Presently ONS are not indicated, but briefly discussed with pt these may be needed in the near future. Reviewed above interventions with pt. Pt verbalized understanding. Thank you for allowing me to participate in the care of this pt. NUTRITION FOCUSED PHYSICAL EXAM: Unable to perform exam due to patient unavailable, will re-attempt during reassessment. Potential Signs of Inflammation: chronic condition Allergies: Penicillins Medications: Current Outpatient Medications Medication Sig Dispense Refill aspirin, enteric coated (ASPIRIN, ENTERIC COATED) 81 mg EC tablet Take by mouth q 24 HR. atorvastatin (LIPITOR) 40 mg tablet Take by mouth. calcium carbonate (CALTRATE) 600 mg calcium (1,500 mg) tab Take by mouth q 12 HR. cholecalciferol (VITAMIN D3) 1,000 unit tab tablet Take by mouth q 12 HR. clopidogrel (PLAVIX) 75 mg tablet Take by mouth. hydroCHLOROthiazide (HYDRODIURIL, ESIDRIX) 12.5 mg capsule Take by mouth. isosorbide mononitrate ER (IMDUR) 60 mg 24 hr tablet Take by mouth. metoprolol succinate ER (TOPROL XL) 25 mg 24 hr tablet Take by mouth q 24 HR. nitroglycerin sublingual (NITROQUICK) 0.4 mg SL tablet Dissolve under the tongue. No current facility-administered medications for this visit. Need for Follow up: will continue to follow Referred/Supervised by: Jean/Jean SON Billing Type: Initial Assess/15 min 1 unit Signed by: Ashly Waters, , RDN, [facility]08-08-2022 History of Present illness Narrative* Ashly Waters RD - 02/20/2022 3:00 PM EDT Nutrition Therapy Initial Assessment This visit was performed via telehealth due to the COVID-19 epidemic as an effort to protect patients and minimize exposure. Consent from patient received to conduct visit via telehealth. This Team Access Model visit is a phone encounter. It required patient-provider interaction for the medical decision making as documented below. RECOMMENDED MALNUTRITION DIAGNOSIS: NO MALNUTRITION IDENTIFIED Patient's symptoms are: None Nutrition Diagnosis: Increased protein and energy needs related to hypermetabolic disease process as evidenced by need for weight maintenance and preservation of muscle mass. Nutrition Intervention: -encouraged weight maintenance -aim for small frequent meals/snacks -include lean protein source at each meal/snack -briefly reviewed potential nutrition related side effects -encouraged good hydration -discussed supplementation -not indicated at this time -provided contact information for any further questions/concerns Nutrition Monitoring & Evaluation: -PO Intake -Wt status -Biochemical Markers -Plan of care Anthropometrics: Height: Last 1 Encounter Ht Readings: Date: Ht: 01/31/2022 152.4 cm (5') Current weight: Last 1 Encounter Wt Readings: Date: Wt: 01/31/2022 112 kg (247 lb) Estimated body mass index is 48.24 kg/m as calculated from the following: Height as of 01/31/22: 152.4 cm (5'). Weight as of 01/31/22: 112 kg (247 lb). Resting Metabolic Rate: 1546 Weight Loss: n/a Garvin Body Weight: 45.5kg Estimated kilocalorie needs: 1855 kilocalories determined by [place] Jeor x 1.2 Estimated protein needs: 45-68 grams determined by 1.0-1.5 g/kg Garvin weight Estimated fluid needs: ~1900 milliliters based on 1 mL per kcal (unless otherwise noted) Educational materials provided: none this visit READINESS TO LEARN Cognitive ability: Alert and oriented Motivation to learn: Interested Family support: Unable to assess - Family not present Instruction provided to: Patient Patient learns best by: Multiple Methods Factors affecting learning: None Physical limitations affecting learning: None Pt presents for phone consult regarding nutrition counseling for larynx cancer. Pt is currently scheduled to begin RT on 02/27. Pt denies any chewing/swallowing issues, denies current N/V/D/C. Pt denies food allergies/intolerances. Appetite appears to be good, Intakes are good. Pt reports she currently consumes 3 meals per day and includes a variety of foods. Presently ONS are not indicated, but briefly discussed with pt these may be needed in the near future. Reviewed above interventions with pt. Pt verbalized understanding. Thank you for allowing me to participate in the care of this pt. NUTRITION FOCUSED PHYSICAL EXAM: Unable to perform exam due to patient unavailable, will re-attemptduring reassessment. Potential Signs of Inflammation: chronic condition Allergies: Penicillins Medications: Current Outpatient Medications Medication Sig Dispense Refill aspirin, enteric coated (ASPIRIN, ENTERIC COATED) 81 mg EC tablet Take by mouth q 24 HR. atorvastatin (LIPITOR) 40 mg tablet Take by mouth. calcium carbonate (CALTRATE) 600 mg calcium (1,500 mg) tab Take by mouth q 12 HR. cholecalciferol (VITAMIN D3) 1,000 unit tab tablet Take by mouth q 12 HR. clopidogrel (PLAVIX) 75 mg tablet Take by mouth. hydroCHLOROthiazide (HYDRODIURIL, ESIDRIX) 12.5 mg capsule Take by mouth. isosorbide mononitrate ER (IMDUR) 60 mg 24 hr tablet Take by mouth. metoprolol succinate ER (TOPROL XL) 25 mg 24 hr tablet Take by mouth q 24 HR. nitroglycerin sublingual (NITROQUICK) 0.4 mg SL tablet Dissolve under the tongue. No current facility-administered medications for this visit. Need for Follow up: will continue to follow Referred/Supervised by: Jean/Jean OSN Billing Type: Initial Assess/15 min 1 unit Signed by: Ashly Waters MS, RDN, LD documented in this encounterUniversity Hospitals St. [facility]08-05-2022 NoteHNO ID: [id number] Author: RT Cali(R) Service: ? Author Type: Technologist Type: Progress Notes Filed: 02/17/2022 1:26 PM Note Text: Radiology Service Progress Note PATIENT NAME: Kathleen Rosen DATE OF SERVICE: February 17, 2022 TIME: 1:26 PM PATIENT IDENTITY VERIFICATION COMPLETED USING TWO (2) IDENTIFIERS: Name and Date of confirmed by patient verbally. FALL SCREENING: Has the patient had 2 falls in the last year or 1 fall with injury or currently using an Ambulatory Assistive Device (Walker, Cane, Wheelchair, Crutches, etc.)? No PATIENT GENDER DATA: Female. status: : No status: NO. PATIENT RELEVANT IMPLANT DATA REVIEWED: Not Applicable RADIOLOGY DEPARTMENT: CT; Exam(s) Completed: Neck PERIPHERAL IV DATA: Not applicable SIGNED BY: RT Cali(R) February 17, 2022 1:26 [facility]08-05-2022 NoteHNO ID: [id number] Author: Lauren Mosqueda MD Service: ? Author Type: Physician Type: Progress Notes Filed: 02/25/2022 12:33 AM Note Text: KATHLEEN ROSEN [id number] 02/17/2022 [facility] Department of Radiation Oncology Treatment Planning Note For reasons stated in the consult note, Kathleen Rosen is a candidate for radiation therapy. Based on review and interpretation of the relevant diagnostic studies together with the exam findings, Kathleen Rosen was simulated on 02/17/2022 at which time the target volume and/or requisite horn were delineated, as indicated in the simulation note, to be treated according to the prescription. The treatment target and organs at risk were contoured on the simulation scan . After reviewing multiple treatment plans with dosimetry, the best plan was approved to deliver the prescribed course of radiation to the target area using inverse planning to allow for the best isodose distribution, treating to the 97% isodose line with 6MV and 2 horn. Custom MLC asym jaws for IMRT were the treatment devices used to shape/modify the beams. Limiting dose to normal tissue was confirmed upon review of the calculated dose volume histogram. IMRT planning was used because it best met the dose/volume constraints for the organs at risk for this patient, better than what could be achieved using conventional or 3D planning. The specific dose requirements for the PTV, organs at risk and dose-volume histograms are contained in this treatment plan and/or elsewhere in the medical record. A completed summary of this plan dated 02/24/22 incorporated herein by reference includes dose, beam arrangements, energy, blocking, isodose distribution, and/or ports and DVH. Electronically Signed Lv Mosqueda M.D. :15 [facility]08-05-2022 NoteHNO ID: [id number] Author: Lauren Mosqueda MD Service: ? Author Type: Physician Type: Progress Notes Filed: 02/22/2022 12:32 AM Note Text: KATHLEEN ROSEN [id number] 02/17/2022 [facility] Radiation Oncology Department SIMULATION NOTE DATE OF SIMULATION: 02/17/2022 THERAPIST: Jyotsna Medina MACHINE: Siemens OpenSky mCT DIAGNOSIS: Malignant neoplasm of larynx, [id number] AREA: NECK CONTRAST: None Consent in Epic: Yes PATIENT POSITION: Supine. FIXATION DEVICE: In order to achieve accurate and reproducible treatments, the patient is immobilized with 20mm block, 9 degree wedge heel superior, #4 blue pad, custom aquaplast 5- point mask, hands holding ring, SBRT thigh bolster under knees. A time-out was conducted and recorded by the therapist. CT scan was completed for target localization and planning. Field arrangement will be determined after plan has been completed. The patient is scheduled for a verification simulation on the treatment machine to ensure proper set-up and field arrangement is correct prior to the first treatment of primary and boost horn if applicable. Patient education will be completed per nursing. Electronically Signed Lv Mosqueda M.D. / ROSALIO 21:08 [facility]08-05-2022 History of Present illness Narrative* Pia Benito RT(R) - 02/17/2022 12:45 PM EDT Radiology Service Progress Note PATIENT NAME: Kathleen Rosen DATE OF SERVICE: February 17, 2022 TIME: 1:26 PM PATIENT IDENTITY VERIFICATION COMPLETED USING TWO (2) IDENTIFIERS: Name and Date of confirmedby patient verbally. FALL SCREENING: Has the patient had 2 falls in the last year or 1 fall with injury or currently using an Ambulatory Assistive Device (Walker, Cane, Wheelchair, Crutches, etc.)? No PATIENT GENDER DATA: Female. status: : No status: NO. PATIENT RELEVANT IMPLANT DATA REVIEWED: Not Applicable RADIOLOGY DEPARTMENT: CT; Exam(s) Completed: Neck PERIPHERAL IV DATA: Not applicable SIGNED BY: RT Cali(R) February 17, 2022 1:26 PM documented in this encounterUniversity Hospitals St. [facility]08-05-2022 History of Present illness Narrative* Lauren Mosqueda MD - 02/17/2022 12:00 AM EDT KATHLEEN ROSEN [id number] 02/17/2022 [facility] Radiation Oncology Department SIMULATION NOTE DATE OF SIMULATION: 02/17/2022 THERAPIST: Jyotsna Medina MACHINE: iPayment DIAGNOSIS: Malignant neoplasm of larynx, [id number] AREA: NECK CONTRAST: None Consent in Epic: Yes PATIENT POSITION: Supine. FIXATION DEVICE: In order to achieve accurate and reproducible treatments, the patient is immobilized with 20mm block, 9 degree wedge heel superior, #4 blue pad, custom aquaplast 5- point mask, handsholding ring, SBRT thigh bolster under knees. A time-out was conducted and recorded by the therapist. CT scan was completed for target localization and planning. Field arrangement will be determined after plan has been completed. The patient is scheduled for a verification simulation on the treatment machine to ensure proper set-up and field arrangement is correct prior to the first treatment of primary and boost horn if applicable. Patient education will be completed per nursing. Electronically Signed Lv Mosqueda M.D. / ROSALIO 21:08 PM documented in this encounterUniversity Hospitals St. [facility]08-05-2022 History of Present illness Narrative* Lauren Mosqueda MD - 02/17/2022 12:00 AM EDT KATHLEEN ROSEN [id number] 02/17/2022 [facility] Department of Radiation Oncology Treatment Planning Note For reasons stated in the consult note, Kathleen Rosen is a candidate for radiation therapy. Based onreview and interpretation of the relevant diagnostic studies together with the exam findings, Kathleen Rosen was simulated on 02/17/2022 at which time the target volume and/or requisite horn were delineated, as indicated in the simulation note, to be treated according to the prescription. The treatment target and organs at risk were contoured on the simulation scan . After reviewing multiple treatment plans with dosimetry, the best plan was approved to deliver the prescribed course of radiation to the target area using inverse planning to allow for the best isodose distribution, treating to the 97% isodose line with 6MV and 2 horn. Custom MLC asym jaws for IMRT were the treatment devices used to shape/modify the beams. Limiting dose to normal tissue was confirmed upon review of the calculated dose volume histogram. IMRT planning was used because it best met the dose/volume constraints for the organs at risk for this patient, better than what could be achieved using conventional or 3D planning. The specific doserequirements for the PTV, organs at risk and dose-volume histograms are contained in this treatmentplan and/or elsewhere in the medical record. A completed summary of this plan dated 02/24/22 incorporated herein by reference includes dose, beamarrangements, energy, blocking, isodose distribution, and/or ports and DVH. Electronically Signed Lv Mosqueda M.D. 29:15 AM documented in this encounterUniversity Hospitals St. [facility]07-19-2022 NoteEducation (RADTSA) SILASKATHLEEN Reyes ([id number]) 1945 F Date Time Provider Department 01/31/22 YOVANNY GRISSOM Reason for Visit: Patient Education [91] Visit Notes: >> Yovanny Grissom LPN Tu Jan 31, 2022 12:23 PM Status: Signed Radiation Therapy - Patient Education Note PATIENT NAME: Kathleen Rosen PATIENT January 31, 2022 [facility] FACILITY/LOCATION: [facility] READINESS TO LEARN Cognitive Ability: Alert and oriented Motivation to learn: Interested Family Support: High - Very involved in pt care Instruction provide to: Patient and Family member Patient learns best by: Multiple Methods Factors effecting learning: None Physical limitations effecting learning: None LEARNING RESPONSE Diagnosis: Pt simulated today for radiation therapy to head and neck. Education Topic/Teaching Points: Radiation therapy, Side effects and OTV: Method of instruction: Written instruction - handouts Verbal instruction Patient /Family response: Patient and family verbalized understanding of radiation treatments, side effects, OTV, and transportation. Follow-up plan: Recommend - Recommend continued instruction and follow up as directed Supplemental material: Informational handouts on Appetite, Fatigue, Head and neck packet, Skin changes, Salt and soda rinses and managing swallowing difficulties, managing sore throat, new patient binder. Referral (recommendation): Dietitian Was KP approved? 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 - atorvastatin (LIPITOR) 40 mg tablet Take by mouth. - calcium carbonate (CALTRATE) 600 mg calcium (1,500 mg) tab Take by mouth q 12 HR. - cholecalciferol (VITAMIN D3) 1,000 unit tab tablet Take by mouth q 12 HR. - clopidogrel (PLAVIX) 75 mg tablet Take by mouth. - hydroCHLOROthiazide (HYDRODIURIL, ESIDRIX) 12.5 mg capsule Take by mouth. - isosorbide mononitrate ER (IMDUR) 60 mg 24 hr tablet Take by mouth. - metoprolol succinate ER (TOPROL XL) 25 mg 24 hr tablet Take by mouth q 24 HR. - nitroglycerin sublingual (NITROQUICK) 0.4 mg SL tablet Dissolve under the tongue. Encounter Status:Closed by YOVANNY GRISSOM on 01/31/22[facility] 01-31-2022 Nurse Note* Yovanny Grissom LPN - 01/31/2022 12:23 PM EDT Radiation Therapy - Patient Education Note PATIENT NAME: Kathleen Rosen PATIENT January 31, 2022 [facility] FACILITY/LOCATION: [facility] READINESS TO LEARN Cognitive Ability: Alert and oriented Motivation to learn: Interested Family Support: High - Very involved in pt care Instruction provide to: Patient and Family member Patient learns best by: Multiple Methods Factors effecting learning: None Physical limitations effecting learning: None LEARNING RESPONSE Diagnosis: Pt simulated today for radiation therapy to head and neck. Education Topic/Teaching Points: Radiation therapy, Side effects and OTV: Method of instruction: Written instruction - handouts Verbal instruction Patient /Family response: Patient and family verbalized understanding of radiation treatments, sideeffects, OTV, and transportation. Follow-up plan: Recommend - Recommend continued instruction and follow up as directed Supplemental material: Informational handouts on Appetite, Fatigue, Head and neck packet, Skin changes, Salt and soda rinses and managing swallowing difficulties, managing sore throat, new patient binder. Referral (recommendation): Dietitian Was approved? No Signed by: Yovanny Grissom LPN documented in this encounterUniversity Hospitals St. [facility]07-19-2022 NoteHNO ID: [id number] Author: Lauren Mosqueda MD Service: ? Author Type: Physician Type: Progress Notes Filed: 02/02/2022 11:51 AM Note Text: Radiation Oncology - New Patient/Consult Note PATIENT NAME: Kathleen Rosen PATIENT : 1945 REQUESTING PROVIDER: Dr. 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 Cancer Staging No matching staging information was found for the patient. HPI: 76 year old female who presents with above diagnosis, for an opinion regarding the role of radiation therapy in the management of the patient's disease. Final recommendations will be communicated back to the requesting physician by way of the shared medical record, or letter to requesting physician via [place] mail. Patient initially presented January 2021 with worsening hoarseness. She was seen by Dr. Patricia and found to have a verrucous lesion involving her right true vocal cord on endoscopy in the clinic. It was recommended she undergo examination under anesthesia with direct laryngoscopy and biopsy however on clearance she was found to have cardiac related issues subsequently needing stent placement. The procedure was delayed until this January. On January 04, 2022 she underwent reexamination of the larynx with fiberoptic flexible laryngoscope showing normal bilateral true vocal cord motion. Lesion involving the right true vocal cord was described. Bilateral piriform sinuses base of tongue without lesion. Given cardiac clearance she then underwent examination under anesthesia with biopsy as noted below. Microlaryngoscopy with biopsy/debulking right true cord lesion performed 01/17/2022, with biopsy right true vocal cord lesion. Findings including a hyperkeratotic/verrucous mass entire right true vocal cord. Pathology demonstrating at least squamous cell carcinoma in situ superficial invasion cannot be ruled out clinical correlation is suggested. She has done well after biopsy/debulking with no significant issues. She feels her voice has improved since her biopsy/debulking.. She is here to discuss potential radiation for newly diagnosed laryngeal cancer. FOCUSED ROS: Dysphagia: No Mucositis: No Voice Changes:Yes See HPI Fatigue: No Nausea: No Vomitting: No Pain: No Taste: No change Weight loss: No ALLERGIES Allergen Reactions - Penicillins Unknown MEDICATIONS: aspirin, enteric coated (ASPIRIN, ENTERIC COATED) 81 mg EC tablet Take by mouth q 24 HR. atorvastatin (LIPITOR) 40 mg tablet Take by mouth. calcium carbonate (CALTRATE) 600 mg calcium (1,500 mg) tab Take by mouth q 12 HR. cholecalciferol (VITAMIN D3) 1,000 unit tab tablet Take by mouth q 12 HR. clopidogrel (PLAVIX) 75 mg tablet Take by mouth. hydroCHLOROthiazide (HYDRODIURIL, ESIDRIX) 12.5 mg capsule Take by mouth. isosorbide mononitrate ER (IMDUR) 60 mg 24 hr tablet Take by mouth. metoprolol succinate ER (TOPROL XL) 25 mg 24 hr tablet Take by mouth q 24 HR. nitroglycerin sublingual (NITROQUICK) 0.4 mg SL tablet Dissolve under the tongue. PAST MEDICAL HISTORY Diagnosis Date - HTN (hypertension) - Hypercholesteremia Prior radiation therapy, collagen vascular disease, or inflammatory bowel disease: No No past surgical history on file. No family history on file. Social History Tobacco Use - Smoking status: Current Every Day Smoker Packs/day: 1.50 Years: 55.00 Pack years: 82.50 - Smokeless tobacco: Never Used - Tobacco comment: 01/31/22 less than 1ppd now Substance Use Topics - Alcohol use: Not Currently - Drug use: Never COMPLETE REVIEW OF SYSTEMS: GENERAL: feeling well without fatigue, no recent change in weight NECK: denies swelling or pain in neck RESPIRATORY: no cough, no wheezing or shortness of breath CARDIOVASCULAR: no chest pain, no palpitations, doing better after her stent placement last year GI: normal appetite, tolerating PO well, BMs normal and no abdominal pain MUSCULOSKELETAL: denies any painful or swollen joints, no muscle aches SKIN: no rash As noted in HPI PHYSICAL EXAM: VS: BP 112/70 Pulse 67 Temp 36.3 ?C (97.3 ?F) Ht 152.4 cm (5') Wt 112 kg (247 lb) SpO2 95% BMI 48.24 kg/m? KPS: 90 General Appearance: Alert and oriented. No acute distress. HEENT: NCAT. Sclera anicteric. PERRL. EOMI. Oral cavity AND oropharnyx: lips and gums normal, oral and pharyngeal mucosa moist, palate elevates normally, tongue mobile and without palpable lesions, tonsils without masses Indirect laryngeal exam, cords not well visualized due to thick reflux Trismus: none Dentition: NA Neck: Normal ROM. No palpable cervical or supraclavicular adenopathy. Chest: No respiratory distress. Lungs clear to auscultation bilaterally. Heart: Regular rate and (more content not included)...[facility] 01-31-2022 History of Present illness Narrative* G Lv Mosqueda MD - 01/31/2022 10:00 AM EDT Radiation Oncology - New Patient/Consult Note PATIENT NAME: Kathleen Rosen PATIENT : 1945 REQUESTING PROVIDER: Dr. 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 Cancer Staging No matching staging information was found for the patient. HPI: 76 year old female who presents with above diagnosis, for an opinion regarding the role of radiation therapy in the management of the patient's disease. Final recommendations will be communicated back to the requesting physician by way of the shared medical record, or letter to requesting physician via [place] mail. Patient initially presented January 2021 with worsening hoarseness. She was seen by Dr. Patricia and found to have a verrucous lesion involving her right true vocal cordon endoscopy in the clinic. It was recommended she undergo examination under anesthesia with direct laryngoscopy and biopsy however on clearance she was found to have cardiac related issues subsequently needing stent placement.The procedure was delayed until this January. On January 04, 2022 she underwent reexamination of the larynx with fiberoptic flexible laryngoscope showing normal bilateral true vocal cord motion. Lesion involving the right true vocal cord was described. Bilateral piriform sinuses base of tongue without lesion. Given cardiac clearance she then underwent examination under anesthesia with biopsy as noted below. Microlaryngoscopy with biopsy/debulking right true cord lesion performed 01/17/2022, with biopsy right true vocal cord lesion. Findings including a hyperkeratotic/verrucous mass entire right true vocalcord. Pathology demonstrating at least squamous cell carcinoma in situ superficial invasion cannot be ruled out clinical correlation is suggested. She has done well after biopsy/debulking with no significant issues. She feels her voice has improved since her biopsy/debulking.. She is here to discuss potential radiation for newly diagnosed laryngeal cancer. FOCUSED ROS: Dysphagia: No Mucositis: No Voice Changes:Yes See HPI Fatigue: No Nausea: No Vomitting: No Pain: No Taste: No change Weight loss: No ALLERGIES Allergen Reactions Penicillins Unknown MEDICATIONS: aspirin, enteric coated (ASPIRIN, ENTERIC COATED) 81 mg EC tablet Take by mouth q 24 HR. atorvastatin (LIPITOR) 40 mg tablet Take by mouth. calcium carbonate (CALTRATE) 600 mg calcium (1,500 mg) tab Take by mouth q 12 HR. cholecalciferol (VITAMIN D3) 1,000 unit tab tablet Take by mouth q 12 HR. clopidogrel (PLAVIX) 75 mg tablet Take by mouth. hydroCHLOROthiazide (HYDRODIURIL, ESIDRIX) 12.5 mg capsule Take by mouth. isosorbide mononitrate ER (IMDUR) 60 mg 24 hr tablet Take by mouth. metoprolol succinate ER (TOPROL XL) 25 mg 24 hr tablet Take by mouth q 24 HR. nitroglycerin sublingual (NITROQUICK) 0.4 mg SL tablet Dissolve under the tongue. PAST MEDICAL HISTORY Diagnosis Date HTN (hypertension) Hypercholesteremia Prior radiation therapy, collagen vascular disease, or inflammatory bowel disease: No No past surgical history on file. No family history on file. Social History Tobacco Use Smoking status: Current Every Day Smoker Packs/day: 1.50 Years: 55.00 Pack years: 82.50 Smokeless tobacco: Never Used Tobacco comment: 01/31/22 less than 1ppd now Substance Use Topics Alcohol use: Not Currently Drug use: Never COMPLETE REVIEW OF SYSTEMS: GENERAL: feeling well without fatigue, no recent change in weight NECK: denies swelling or pain in neck RESPIRATORY: no cough, no wheezing or shortness of breath CARDIOVASCULAR: no chest pain, no palpitations, doing better after her stent placement last year GI: normal appetite, tolerating PO well, BMs normal and no abdominal pain MUSCULOSKELETAL: denies any painful or swollen joints, no muscle aches SKIN: no rash As noted in HPI PHYSICAL EXAM: VS: BP 112/70 Pulse 67 Temp 36.3 C (97.3 F) Ht 152.4 cm (5') Wt 112 kg (247 lb) SpO2 95% BMI 48.24 kg/m KPS: 90 General Appearance: Alert and oriented. No acute distress. HEENT: NCAT. Sclera anicteric. PERRL. EOMI. Oral cavity & oropharnyx: lips and gums normal, oral and pharyngeal mucosa moist, palate elevates normally, tongue mobile and without palpable lesions, tonsils without masses Indirect laryngeal exam, cords not well visualized due to thick reflux Trismus: none Dentition: NA Neck: Normal ROM. No palpable cervical or supraclavicular adenopathy. Chest: No respiratory distress. Lungs clear to auscultation bilaterally. Heart: Regular rate and rhythm. Musculoskeletal: No edema. Normal ROM in extremities. No bone or spine tenderness. Neuro: Speech fluent. Gait normal. No focal deficits. Skin: No rashes noted Lymphatics: No palpable lymphadenopathy. Hematologic: No signs of active bleeding. 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 Given findings on laryngoscopy, with squamous cell carcinoma in situ and likely invasive component do feel that definitive treatment is warranted. Options of treatment discussed. I do feel radiation is a very suitable approach for her situation. Recommend laryngeal treatment only, [address] in [address]- based IMRT planning which will help with carotid and soft tissue sparing, with cone beam CT image guidance. We will plan a simulation as well as diagnostic neck scan followed by initiation of treatment. Signed by: Lauren Mosqueda MD cc: Isrrael Howard ([facility]) [address] [place] [id number] Asaf Patricia MD [address] [place] [phone] documented in this encounterUniversity Hospitals St. [facility]07-05-2022 NoteOPERATIVE NOTE OPERATION DATE: 01/17/2022 PRIMARY CARE PHYSICIAN: Dr. Howard SURGEON: Asaf Patricia M.D. PREOPERATIVE DIAGNOSIS: Right true vocal cord mass consistent with a T1 squamous cell carcinoma of the right vocal cord. PROCEDURE: Microlaryngoscopy and biopsy/debulking of the right true vocal cord. ANESTHESIA: General endotracheal. COMPLICATIONS: None. FINDINGS: Hyperkeratotic and verrucous mass of the entire right true vocal cord. INDICATIONS: This 76-year-old woman initially presented last summer with hoarseness and was found to have a verrucous mass of her right true vocal cord preoperatively; however, she required cardiac clearance and ended up having significant cardiovascular disease requiring stent placement. Patient, once cleared by her planting material unloader, returned for her biopsy. PROCEDURE: Patient identified in the holding are and taken back to the OR, where she was placed in a supine position. After induction of general endotracheal anesthesia, the table was turned. A tooth guard was put in position and a Dedo laryngoscope was used to expose the endolarynx. The above findings were noted and documented with a photograph. Then, using straight and upbiting cup forceps, the patient's tumor was debulked with several bites, significantly improving her laryngeal airway. There was self-limited bleeding, and the patient was awakened and taken to the recovery room in good condition. [facility] Signed and Approved by: DR ASAF PATRICIA 01/24/2022 08:05:00[facility]11-06-2021 NoteSend Summary: Discharge Summary Providers: Provider RoleProvider Name ReferringNicolas Odell Alberto PrimaryIrena, Pcp Note Recipients: Charlie Desai MD - [id number] [preferred] Nicolas Odell MD - [id number] [preferred] Unknown, Pcp, Discharge: Summary: Admission Date: .20-May-2021 05:53:00 Discharge Date: 21-May-2021 Attending Physician at Discharge: Charlie Desai Admission Reason: Angina Final Discharge Diagnoses: Coronary artery disease Procedures: Cardiac catheterization and intervention Condition at Discharge: Satisfactory Disposition at Discharge: .Home Vital Signs: T PRBPSpO2 [id number]/7093% Date/Time05/21 7: 7: 7: 7: 7:58 Range(35.6C - 36.3C ) (58 - 73 ) (16 - 16 ) (118 - 142 )/ (59 - 97 ) (90% - 93% ) Date: Weight/Scale Type:Height: 20-May-2021 06:33832.2 kg / .9 cm Physical Exam: Alert and oriented 3 Head normocephalic HEENT normal Neck supple no JVD or hepatojugular reflex Lungs clear to auscultation percussion Cardiovascular regular rate and rhythm no murmurs or gallops Abdomen soft bowel sounds present no tenderness or organomegaly. Extremity no edema in the lower extremity Neurologic patient is alert and cooperative with no motor or sensory deficits Skin no cyanosis or pallor Hospital Course: Patient was admitted electively on 05/20/2021 for IVUS/possible high risk PCI under the care of Dr. Odell due to recent findings of severe coronary artery disease per left heart catheterization performed on March 09, 2021. Recommendations were made for patient to undergo CABG, however she was deemed not a surgical candidate. Patient underwent IVUS of the left main and left anterior descending arteries with findings of 50% distal left main stenosis and 75% ostial LAD stenosis. Patient also noted to have severely calcified 80% mid RCA stenosis. She underwent successful PCI and 1 ERICA to the left main and LAD reducing those lesions down to 0% stenosis. She also received 1 ERICA to the mid RCA reducing that lesion down to 0% stenosis. She tolerated the procedure well and there were no postprocedural complications. She was monitored overnight due to high risk PCI and for close monitoring of her groin due to highly calcified arteries at procedural access site. She will be discharged to home on 05/21/2021 barring no complications. See progress note per medical planting material unloader for physical exam details. Patient will be discharged home on aspirin and Plavix therapy. She was initiated on high intensity statin therapy with atorvastatin 40 mg daily. She will be scheduled to follow-up with Dr. Torres in the [facility] office next week. Postprocedural activity, restrictions, potential complications, medications and future follow up discussed at length. Patient verbalized an understanding. Discharge more than 30 minutes Discharge Information: and Continuing Care: Lab Results - Pending: None Radiology Results - Pending: None Discharge Instructions: Activity: activity as tolerated. May shower.. May return to school/work. No pushing, pulling, or lifting objects greater than 5 pounds for 2 day(s). Follow Up Appointments: Follow-Up Appointment 01: Physician/Dept/Service: Dr. Torres Reason for Referral: Cardiology Hospital Follow Up Scheduled Date/Time: 26-May-2021 12:40 Location: [facility] Office Discharge Medications: Home Medication aspirin 81 mg oral tablet - 1 tab(s) orally once a day Calcium 600+D oral tablet - 1 tab(s) orally 2 times a day hydroCHLOROthiazide 12.5 mg oral capsule - 1 cap(s) orally once a day isosorbide mononitrate 60 mg oral tablet, extended release - 1 tab(s) orally once a day (in the morning) Metoprolol Succinate ER 25 mg oral tablet, extended release - 1 tab(s) orally once a day Vitamin D3 25 mcg (1000 intl units) oral capsule - 1 cap(s) orally 2 times a day clopidogrel 75 mg oral tablet - 1 tab(s) orally once a day atorvastatin 40 mg oral tablet - 1 tab(s) orally once (at bedtime) Nitrostat 0.4 mg sublingual tablet - 1 tab sublingual every 5 minutes x 3 doses as needed for chest pain. PRN Medication Electronic Signatures: Charlie Desai) (Signed 21-May-2021 09:38) Authored: Send Summary, Summary Content, Ongoing Care, Note Completion Last Updated: 21-May-2021 09:38 by Charlie Desai)[facility] 05-20-2021 NoteHistory & Physical Reviewed: I have reviewed the History and Physical dated: 13-May-2021 History and Physical reviewed and relevant findings noted. Patient examined to review pertinent physical findings.: No significant changes Home Medications Reviewed: no changes noted Allergies Reviewed: no changes noted Airway/Sedation Assessment: Mouth Opening OKyes Neck Flexibility OKyes Loose Teethno Oropharyngeal ClassificationClass II ASA PS ClassificationASA III Sedation Planmoderate sedation ERAS (Enhanced Recovery After Surgery): ERAS Patient: no Consent: COVID-19 Consent: COVID-19 Risk ConsentSurgeon has reviewed stevens risks related to the risk of veronica COVID-19 and if they contract COVID-19 what the risks are. Electronic Signatures: Nicolas Odell) (Signed 20-May-2021 08:07) Authored: History & Physical Reviewed, Airway/Sedation, ERAS, Consent, Note Completion Last Updated: 20-May-2021 08:07 by Nicolas Odell)[facility]11-04-2021 History of Present illness Narrative* Patient is seen after an absence. She underwent coronary angiography demonstrating disease in need of intervention. I thought that she really needed bypass surgery and she was referred to [facility]. They felt she was too high risk and because of this they ultimately requested that Dr. Odell perform high risk multivessel coronary intervention and this was undertaken last week in [place] without event. She is now doing well. She states she feels about the same. * Chart review reveals that her symptoms have basically not changed. Her risk factors including hypertension and hyperlipidemia appear to be adequately managed and because of this we suggest continued therapy as is without change. The merits of diet lifestyle modification exercise and weight loss were reviewed. [facility] Survey DO Work Phone: [phone] History of Present illness Narrative* I was able to have a discussion with Kathleen about her coronary artery disease. * She had originally seen in consultation on 30 April. She had been referred because of a positive stress test, and a coronary angiogram that suggested the presence of 70% stenosis in the LAD, 50 to 70% distal left main stenosis, and occluded and small circumflex, and an RCA lesion of 70 to 80%. * However she was completely asymptomatic, and reluctant to have surgery. Therefore we presented her at our weekly CHIP meeting which is attended by several planting material unloader and surgeons. Interestingly, itwas the consensus of the group that the lesions may not be as severe as identified. It was also the feeling that the stress test that was performed, may have little relevance especially in morbidly obese patients. It suggested a large transmural defect on the anterior lateral wall with normal ventricular function and possible reversible ischemia. During our discussion with the group, there was question as to the relevance of that. * The suggestion of this group was to obtain further imaging of her coronary arteries. The feeling was to obtain either a heart flow CT FFR study, or to have her restudy by the [facility] group, with possible IVUS or FFR of these lesions. [facility] 1800 Work Phone: Evaluation note* Diagnosis Malignant neoplasm of glottis (HCC)- Primary Malignant neoplasm of glottis documented in this encounter [facility]* Diagnosis Malignant neoplasm of glottis (HCC)- Primary Malignant neoplasm of glottis documented in this encounter [facility]* Diagnosis Malignant neoplasm of glottis (HCC)- Primary Malignant neoplasm of glottis documented in this encounter [facility]* Diagnosis Malignant neoplasm of glottis (HCC)- Primary Malignant neoplasm of glottis documented in this encounter [facility]* Diagnosis Malignant neoplasm of glottis (HCC)- Primary Malignant neoplasm of glottis [facility] Diagnosis Malignant neoplasm of glottis (HCC)- Primary Malignant neoplasm of glottis documented in this encounter [facility]* Diagnosis Malignant neoplasm of glottis (HCC)- Primary Malignant neoplasm of glottis [facility]* Diagnosis Cough productive of yellow sputum- Primary Rhinitis, unspecified type [facility]* Diagnosis Malignant neoplasm of glottis (HCC)- Primary Malignant neoplasm of glottis documented [facility] this encounter [facility]* Diagnosis Malnutrition of mild degree (HCC) Malnutrition of mild degree documented in this encounter [facility]* Diagnosis Malnutrition of mild degree (HCC)- Primary Malnutrition of mild degree Malignant neoplasm of glottis (HCC) Malignant neoplasm of glottis documented in this encounter [facility]* Diagnosis Malignant neoplasm of glottis (HCC)- Primary Malignant neoplasm of glottis documented in this encounter [facility]* Diagnosis Malnutrition of mild degree (HCC)- Primary Malnutrition of mild degree Malignant neoplasm of glottis (HCC) Malignant neoplasm of glottis documented in this encounter [facility]Eval[facility] noteNo [employer] Other Evaluation note* Diagnosis Malignant neoplasm of glottis (HCC) Malignant neoplasm of glottis documented in this encounter [facility] CenterHiswillis-[facility] Narrative - Reported* Type Description Date Medical History Hypercholesterolemia Medical History Nicotine dependence, cigarettes, in remission Medical History Age-related osteopor osis without current pathological fracture Medical History Pulmonary nodule Medical History Chronic venous insufficiency Medical History Chronic bronchitis, mucopurulent Medical History ASHD (arteriosclerotic heart dis ease) Medical History Hoarseness, persistent Medical History Osteopenia of spine Medical History Menopause Medical History Lumbar spondylosis Medical History Essential hypertension Medical History IFG (impaired fasting glucose) Surgical History MICROLARYNGOSCOPY, WITH BIOPSY 2021 Surgical History MICROLARYNGOSCOPY, DIRECT 2021 Surgical History PRQ CARD STENT W/ANGIO 1 VSL 20 21 Surgical History LEFT HEART CATHETERIZATION 2020 Surgical History CHOLECYSTECTOMY Surgical History LHC PTCA LCX Surgical History CARDIAC CATH, LEFT HEART Surgical History ANGIOPLATY, CORONARY [place] Hospitalization History SEE SURGICAL HX [employer] Other History of Present illness NarrativeReturns for follow-up of problems as noted. In the interim she is done relatively well. Underwent high risk angioplasty and stenting of the left main trunk, LAD, and right coronary. This was well-tolerated. Its been 6 months and because of this we now question whether or not antiplatelet therapy could be interrupted to facilitate vocal cord biopsy as per original plan. I will confer with intervent ional cardiology in this regard. In the meantime it appears his risk factors including hypertensionand hyperlipidemia are adequately controlled and because of this we suggest no change. We will contact her after we have reviewed with interventional cardiology the recommendations.-[facility] HospitalBal[facility] 250 DO Work Phone: Chief Complaint Patient is having a telehealth follow-up visit to discuss PCi vs CABG. Referring provider: Dr. Aneudy Torres. Little Mcwilliams, BSN, RN.* [facility] f/u [facility]. * KATHLEEN ROSEN is being seen for follow-up of a hospitalization for. KATHLEEN ROSEN is being seen for a 6 month follow-up of. Family History Unknown Family Member Name Dates Details Family history of lung cance r: Brother(V16.1, Z80.1) Status:Active Family history of myocardial infarction: Mother, Father(V17.3, Z82.49) Status:Active Unknown Family Member Name Dates Details Family history of lung cance r: Brother(V16.1, Z80.1) Status:Active Family history of myocardial infarction: Mother, Father(V17.3, Z82.49) Status:Active Unknown Family Member Name Dates Details Family history of myocardial infarction: Mother, Father(V17.3, Z82.49) Status:Active Family history of lung cance r: Brother(V16.1, Z80.1) Status:Active Unknown Family Member Name Dates Details Family history of myocardial infarction: Mother, Father(V17.3, Z82.49) Status:Active Family history of lung cance r: Brother(V16.1, Z80.1) Status:Active Unknown Family Member Name Dates Details Family history of lung cance r: Brother(V16.1, Z80.1) Status:Active Family history of myocardial infarction: Mother, Father(V17.3, Z82.49) Status:Active Unknown Family Member Name Dates Details Family history of lung cance r: Brother(V16.1, Z80.1) Status:Active Family history of myocardial infarction: Mother, Father(V17.3, Z82.49) Status:Active Unknown Family Member Name Dates Details Family history of myocardial infarction: Mother, Father(V17.3, Z82.49) Status:Active Family history of lung cance r: Brother(V16.1, Z80.1) Status:Active Summary Purpose Advance Directives No Advanced Directives Records FoundNo Advanced Directives Records FoundNo Advanced Directives Records FoundNo Advanced Directives Records FoundNo Advanced Directives Records Found Reason for Referral Specialty Diagnoses / Procedures Referred By Jessi t Referred To Contact CT IMAGING Diagnoses Malignant neoplasm of glottis (HCC) Procedures CT NECK SOFT TISSUE WO IVCON CT SOFT TISSUE NECK W/O CONTRAST MATERIAL Lauren Mosqueda MD [address] [place] [address] [place] [address] Ct Imaging Referral ID Status Reason Start Date Expiration Date Visits Requested Visits Authorized [id number] Authorized Auto-Generat ed Referral 01/31/2022 03/02/2023 1 1 Specialty Diagnoses / Procedures Referred By Contomar t Referred To Contact CT IMAGING Diagnoses Malignant neoplasm of glottis (HCC) Procedures CT NECK SOFT TISSUE WO IVCON CT SOFT TISSUE NECK W/O CONTRAST MATERIAL Lauren Mosqueda MD [address] [place] [address] [place] [address] [place] [address] Referral ID Status Reason Start Date Expiration Date V isits Requested Visits Authorized [id number] Closed Auto-Generate d Referral 01/31/2022 03/02/2023 1 1 Additional Source Comments INFORMATION SOURCE (unrecogn ized section and content) DATE CREATED AUTHOR 05/25/2021 [facility] DATE CREATED AUTHOR AUTHOR'S ORGANIZ ATION 08/08/2021 [facility] DATE CREATED AUTHOR AUTHOR'S ORGANIZ ATION 12/07/2021 [employer] DATE CREATED AUTHOR AUTHOR'S ORGANIZ ATION 05/15/2022 [facility] DATE CREATED AUTHOR AUTHOR'S ORGANIZ ATION 10/08/2022 [facility] Source Comments (unrecognize d section and content) In the event this informatio n is protected by the Federal Confidentiality of Alcohol and Drug Abuse Patient Records regulations: The Federal rules restrict any use of the information to criminally investigate or prosecute any alcohol or drug abuse patient.[facility] CenterIn the event this information is protected by the Federal Confidentiality of Alcohol and Drug Abuse Patient Records regulations: The Federal rules restrict any use of the information to criminally investigate or prosecute any alcohol or drug abuse patient.[facility] CenterIn the event this information is protected by the Federal Confidentiality of Alcohol and Drug Abuse Patient Records regulations: The Federal rules restrict any use of the information to criminally investigate or prosecute any alcohol or drug abuse patient.[facility] CenterIn the event this information is protected by the Federal Confidentiality of Alcohol and Drug Abuse Patient Records regulations: The Federal rules restrict any use of the information to criminally investigate or prosecute any alcohol or drug abuse patient.[facility] CenterIn the event this information is protected by the Federal Confidentiality of Alcohol and Drug Abuse Patient Records regulations: The Federal rules restrict any use of the information to criminally investigate or prosecute any alcohol or drug abuse patient.[facility] CenterIn the event this information is protected by the Federal Confidentiality of Alcohol and Drug Abuse Patient Records regulations: The Federal rules restrict any use of the information to criminally investigate or prosecute any alcohol or drug abuse patient.[facility] CenterIn the event this information is protected by the Federal Confidentiality of Alcohol and Drug Abuse Patient Records regulations: The Federal rules restrict any use of the information to criminally investigate or prosecute any alcohol or drug abuse patient.[facility] CenterIn the event this information is protected by the Federal Confidentiality of Alcohol and Drug Abuse Patient Records regulations: The Federal rules restrict any use of the information to criminally investigate or prosecute any alcohol or drug abuse patient.[facility] CenterIn the event this information is protected by the Federal Confidentiality of Alcohol and Drug Abuse Patient Records regulations: The Federal rules restrict any use of the information to criminally investigate or prosecute any alcohol or drug abuse patient.[facility] CenterIn the event this information is protected by the Federal Confidentiality of Alcohol and Drug Abuse Patient Records regulations: The Federal rules restrict any use of the information to criminally investigate or prosecute any alcohol or drug abuse patient.[facility] CenterIn the event this information is protected by the Federal Confidentiality of Alcohol and Drug Abuse Patient Records regulations: The Federal rules restrict any use of the information to criminally investigate or prosecute any alcohol or drug abuse patient.[facility] CenterIn the event this information is protected by the Federal Confidentiality of Alcohol and Drug Abuse Patient Records regulations: The Federal rules restrict any use of the information to criminally investigate or prosecute any alcohol or drug abuse patient.[facility] CenterIn the event this information is protected by the Federal Confidentiality of Alcohol and Drug Abuse Patient Records regulations: The Federal rules restrict any use of the information to criminally investigate or prosecute any alcohol or drug abuse patient.[facility] CenterIn the event this information is protected by the Federal Confidentiality of Alcohol and Drug Abuse Patient Records regulations: The Federal rules restrict any use of the information to criminally investigate or prosecute any alcohol or drug abuse patient.[facility] CenterIn the event this information is protected by the Federal Confidentiality of Alcohol and Drug Abuse Patient Records regulations: The Federal rules restrict any use of the information to criminally investigate or prosecute any alcohol or drug abuse patient.[facility] CenterIn the event this information is protected by the Federal Confidentiality of Alcohol and Drug Abuse Patient Records regulations: The Federal rules restrict any use of the information to criminally investigate or prosecute any alcohol or drug abuse patient.[facility] CenterIn the event this information is protected by the Federal Confidentiality of Alcohol and Drug Abuse Patient Records regulations: The Federal rules restrict any use of the information to criminally investigate or prosecute any alcohol or drug abuse patient.[facility] CenterIn the event this information is protected by the Federal Confidentiality of Alcohol and Drug Abuse Patient Records regulations: The Federal rules restrict any use of the information to criminally investigate or prosecute any alcohol or drug abuse patient.[facility] CenterIn the event this information is protected by the Federal Confidentiality of Alcohol and Drug Abuse Patient Records regulations: The Federal rules restrict any use of the information to criminally investigate or prosecute any alcohol or drug abuse patient.[facility] CenterIn the event this information is protected by the Federal Confidentiality of Alcohol and Drug Abuse Patient Records regulations: The Federal rules restrict any use of the information to criminally investigate or prosecute any alcohol or drug abuse patient.[facility] CenterIn the event this information is protected by the Federal Confidentiality of Alcohol and Drug Abuse Patient Records regulations: The Federal rules restrict any use of the information to criminally investigate or prosecute any alcohol or drug abuse patient.[facility] CenterIn the event this information is protected by the Federal Confidentiality of Alcohol and Drug Abuse Patient Records regulations: The Federal rules restrict any use of the information to criminally investigate or prosecute any alcohol or drug abuse patient.[facility] Reason for Visit (unrecogniz ed section and content) Reason Comments Patient Education Reason Comments Consult Reason Onset Date Comments Simulation Request Form 02/17/2022 Reason Comments Nutrition Telephone Reason Comments Nutrition Counseling Reason Comments Radiotherapy On-treatment Visit Reason Comments Nutrition Assessment Reason Comments Head and Neck Cancer Reason Comments Radiology CT Specialty Diagnoses / Procedures Referred By Jessi t Referred To Contact CT IMAGING Diagnoses Malignant neoplasm of glottis (HCC) Procedures CT NECK SOFT TISSUE WO IVCON CT SOFT TISSUE NECK W/O CONTRAST MATERIAL Lauren Mosqueda MD [address] [place] [address] [place] [address] Ct Imaging [place] [id number] Referral ID Status Reason Start Date Expiration Date V isits Requested Visits Authorized [id number] Closed Auto-Generate d Referral 01/31/2022 03/02/2023 1 1 Specialty Diagnoses / Procedures Referred By Jessi t Referred To Contact Radiation Oncology / RADIATION ONCOLOGY Diagnoses Malignant neoplasm of larynx, unspecified SIM/АННА/Neck Procedures SIMULATION BALDO IMRT 28 fractions Lauren Mosqueda MD [address] [place] [address] [place] [address] Lauren Mosqueda MD [address] [place] [address] [address] [place] [id number] Referral ID Status Reason Start Date Expiration Date Visits Re quested Visits Authorized [id number] Closed 02/15/2022 05/16/2022 29 29 Care Teams (unrecognized sec tion and content) Gui Developer Relationship Specialty Start Date End Date Isrrael Howard, DO [address] [place] [address] PCP - General Internal Medicine 01/25/22 Asaf Patriciaughton [address] [place] [address] Referring Ent - Otolaryngology 01/25/22 Gui Developer Relationship Specialty Start Date End Date Isrrael Howard, DO [address] [facility] [place] [address] PCP - General Internal Medicine 01/25/22 Riley Patriciasimona Gonzalez [address] [place] [address] Referring Ent - Otolaryngology 01/25/22 Gui Developer Relationship Specialty Start Date End Date Isrrael Howard, DO [address] [facility] [place] [address] PCP - General Internal Medicine 01/25/22 WellingtonAsaf hahn [address] [place] [address] Referring Ent - Otolaryngology 01/25/22 Gui Developer Relationship Specialty Start Date End Date Isrrael Howard, DO [address] [facility] [place] [address] PCP - General Internal Medicine 01/25/22 Harshad Asaf Gonzalez [address] [place] [address] Referring Ent - Otolaryngology 01/25/22 Gui Developer Relationship Specialty Start Date End Date Isrrael Howard, DO [address] [facility] [place] [address] PCP - General Internal Medicine 01/25/22 Riley Patriciasimona Gonzalez [address] [place] [address] Referring Ent - Otolaryngology 01/25/22 Gui Developer Relationship Specialty Start Date End Date Isrrael Howard, DO [address] [facility] [place] [address] PCP - General Internal Medicine 01/25/22 Asaf Patricia [address] [place] [address] Referring Ent - Otolaryngology 01/25/22 Gui Developer Relationship Specialty Start Date End Date LeeIsrrael, DO [address] [facility] [place] [address] PCP - General Internal Medicine 01/25/22 Asaf Patricia [address] [place] [address] Referring Ent - Otolaryngology 01/25/22 Gui Developer Relationship Specialty Start Date End Date Isrrael Howard, DO [address] [facility] [address] PCP - General Internal Medicine 01/25/22 Asaf Patricia [address] [place] [address] Referring Ent - Otolaryngology 01/25/22 Gui Developer Relationship Specialty Start Date End Date Isrrael Howard, DO [address] [facility] [address] PCP - General Internal Medicine 01/25/22 Asaf Patricia [address] [place] [address] Referring Ent - Otolaryngology 01/25/22 Gui Developer Relationship Specialty Start Date End Date Isrrael Howard, DO [address] [facility] [address] PCP - General Internal Medicine 01/25/22 Asaf Patricia [address] [place] [address] Referring Ent - Otolaryngology 01/25/22 Gui Developer Relationship Specialty Start Date End Date Isrrael Howard, DO [address] [facility] [place] [address] PCP - General Internal Medicine 01/25/22 Rodgercami Asaf Gonzalez [address] [place] [address] Referring Ent - Otolaryngology 01/25/22 Gui Developer Relationship Specialty Start Date End Date Isrrael Howard, DO [address] [facility] [place] [address] PCP - General Internal Medicine 01/25/22 Asaf Patricia [address] [place] [address] Referring Ent - Otolaryngology 01/25/22 Gui Developer Relationship Specialty Start Date End Date Isrrael Howard, DO [address] [facility] [place] [address] PCP - General Internal Medicine 01/25/22 Asaf Patricia [address] [place] [address] Referring Ent - Otolaryngology 01/25/22 Gui Developer Relationship Specialty Start Date End Date Isrrael Howard, DO [address] [facility] [place] [address] PCP - General Internal Medicine 01/25/22 Asaf Patricia [address] [place] [address] Referring Ent - Otolaryngology 01/25/22 Gui Developer Relationship Specialty Start Date End Date Isrrael Howard, DO [address] [facility] [place] [address] PCP - General Internal Medicine 01/25/22 Asaf Patricia [address] [place] [address] Referring Ent - Otolaryngology 01/25/22 Gui Developer Relationship Specialty Start Date End Date Isrrael Howard DO [address] [place] [address] PCP - General Internal Medicine 01/25/22 Asaf Patricia MD [address] [facility] [address] [place] [address] Referring Ent - Otolaryngology 01/25/22 Gui Developer Relationship Specialty Start Date End Date Isrrael Howard DO [address] [place] [address] PCP - General Internal Medicine 01/25/22 Asaf Patricia MD [address] [place] [address] Referring Ent - Otolaryngology 01/25/22 FOR RECORDS PERTAINING TO PATIENTS WHO ARE OR HAVE BEEN ENROLLED IN A CHEMICAL DEPENDENCY/SUBSTANCEABUSE PROGRAM, SOME INFORMATION MAY BE OMITTED. This clinical summary was aggregated from multiple sources. Caution should be exercised in using it in the provision of clinical care. This summary normalizes information from multiple sources, and as a consequence, information in this document may materially change the coding, format and clinical context of patient data. In addition, data may be omitted in some cases. CLINICAL DECISIONS SHOULD BE BASED ON THE PRIMARY CLINICAL RECORDS. [facility]. provides no warranty or guarantee of the accuracy or completeness of information in this document.
[2024-05-08 19:07] LABS: Basophils Percent Auto 0.6 % (0.2-2.0); Eosinophils Absolute Auto 0.4 10^3/uL (0.0-0.7); Eosinophils Percent Auto 8.7 % (0.9-7.0); Hematocrit 45.2 % (36.0-48.0); Hemoglobin 14.2 g/dL (12.0-16.0); Immature Granulocytes Abs Auto 0.02 10^3/uL (0.00-0.03); Immature Granulocytes Pct Auto 0.4 % (0.0-0.5); Lymphocytes Absolute Auto 1.6 10^3/uL (1.2-3.8); Lymphocytes Percent Auto 33.1 % (20.5-60.0); Mean Corpuscular HGB Conc 31.4 g/dL (29.9-35.2); Mean Corpuscular Hemoglobin 26.8 pg (26.7-34.0); Mean Corpuscular Volume 85.4 fL (81.0-99.0); Mean Platelet Volume 10.3 fL (9.5-13.5); Monocytes Absolute Auto 0.4 10^3/uL (0.3-0.8); Monocytes Percent Auto 8.9 % (1.7-12.0); Neutrophils Absolute Auto 2.3 10^3/uL (1.4-6.5); Neutrophils Percent Auto 48.3 % (43.0-75.0); Platelet Count 157 10^3/uL (150-450); Red Blood Count 5.29 10^6/uL (4.20-5.40); Red Cell Distribution Width 16.6 % (11.0-15.0); White Blood Count 4.8 10^3/uL (4.0-11.0)
[2024-05-08 19:21] LABS: Estimated Average Glucose 143 mg/dL; Glycohemoglobin A1C 6.6 % (4.5-6.2)
[2024-05-08 19:22] LABS: Alanine Aminotransferase 77 U/L (14-59); Albumin Globulin Ratio 0.7; Albumin Level 2.5 g/dL (3.4-5.0); Alkaline Phosphatase 78 U/L (46-116); Anion Gap 10.1; Aspartate Amino Transferase 24 U/L (15-37); BUN Creatinine Ratio 19.8; Bilirubin Total 0.8 mg/dL (0.2-1.0); Calcium 9.4 mg/dL (8.5-10.1); Carbon Dioxide 33.7 mmol/L (21.0-32.0); Chloride 99 mmol/L (98-107); Estimated GFR (African America 50 (>=60 mL/min/1.73m^2); Estimated GFR (Non-African Ame 41 (>=60 mL/min/1.73m^2); Globulin 3.6 g/dL; Glucose 139 mg/dL (74-106); Potassium 3.8 mmol/L (3.5-5.1); Sodium 139 mmol/L (136-145); Total Protein 6.1 g/dL (6.4-8.2)
== END 2024-05-08 18:38 | disposition home or self-care (01) ==
LOC: LAB 18:37
PROVIDERS: PCP Internal Medicine; Visit Provider Internal Medicine
DX: I50.32 Chronic diastolic (congestive) heart failure (principal); D75.1 Secondary polycythemia; R73.01 Impaired fasting glucose; N18.9 Chronic kidney disease, unspecified; I12.9 Hypertensive chronic kidney disease with stage 1 through stage 4 chronic kidney disease, or unspecified chronic kidney disease
CPT/HCPCS: 36415; 80053; 83036; 83880; 85025

== ENCOUNTER 2024-06-23 09:30 | Outpatient (OUT) | payer MEDICARE, SELFPAY ==
--- NOTE | 2024-06-23 09:34 | CT_ITS ---
[address] [address] Patient Name: DAVID ROSEN MRN: [id number] date: 1945 Sex: F Assigned Patient Location: CT Current Patient Location: Accession/Order Number: [id number] Exam Date: 06/23/2024 09:40 Report Date: 06/24/2024 06:54 At the request of: ISAK HOWARD Procedure: CT chest wo con EXAMINATION: CT chest wo con HISTORY: Mucopurulent Chronic Bronchitis, Pneumonia COMPARISON: CT chest 04/15/2024 TECHNIQUE: Axial, Coronal, and Sagittal images were created without the administration of IV contrast material. Dose reduction techniques were achieved by using automated exposure control and/or adjustment of mA and/or kV according to patient size and/or use of iterative reconstruction technique. FINDINGS: LUNGS: Mild residual infiltrates/consolidation within posterior right lung base; trace amount within left lung base. Stable appearance of a few tiny nodules scattered within the lungs, and a larger partially calcified granuloma within lingula. Moderate emphysematous changes. PLEURA: No mass, effusion, or pneumothorax. VASCULATURE: No abnormality. SUZI: No mass or pathologic adenopathy. MEDIASTINUM: No mass or pathologic adenopathy. CARDIAC: No enlargement, pericardial thickening, or pericardial effusion. Coronary Artery calcifications: Coronary calcifications are heavy. AORTA: No aneurysm or dissection. CHEST WALL: No mass or axillary adenopathy BONES: No bone lesion or fracture. LIMITED ABDOMEN: No suspicious findings. Limited images of the upper abdomen. OTHER: Negative. CT/CT chest wo con IMPRESSION: 1. Mild residual infiltrates/consolidation within posterior right lung base; trace amount within left lung base. Significant change compared to prior study. 2. Stable calcified and noncalcified nodules; no overtly suspicious findings. 3. Moderate emphysematous changes. 4. Marked atherosclerotic coronary artery disease. Electronically authenticated by: BRIANNA LY Date: 06/24/2024 06:54
[2024-06-23 09:59] LABS: Basophils Absolute Auto 0.1 10^3/uL (0.0-0.1); Basophils Percent Auto 0.7 % (0.2-2.0); Eosinophils Absolute Auto 0.3 10^3/uL (0.0-0.7); Eosinophils Percent Auto 4.5 % (0.9-7.0); Hematocrit 37.5 % (36.0-48.0); Hemoglobin 11.6 g/dL (12.0-16.0); Immature Granulocytes Abs Auto 0.01 10^3/uL (0.00-0.03); Immature Granulocytes Pct Auto 0.1 % (0.0-0.5); Lymphocytes Absolute Auto 2.9 10^3/uL (1.2-3.8); Lymphocytes Percent Auto 41.6 % (20.5-60.0); Mean Corpuscular HGB Conc 30.9 g/dL (29.9-35.2); Mean Corpuscular Hemoglobin 28.3 pg (26.7-34.0); Mean Corpuscular Volume 91.5 fL (81.0-99.0); Mean Platelet Volume 8.9 fL (9.5-13.5); Monocytes Absolute Auto 0.5 10^3/uL (0.3-0.8); Monocytes Percent Auto 6.9 % (1.7-12.0); Neutrophils Absolute Auto 3.2 10^3/uL (1.4-6.5); Neutrophils Percent Auto 46.2 % (43.0-75.0); Platelet Count 225 10^3/uL (150-450); Red Cell Distribution Width 18.9 % (11.0-15.0); White Blood Count 6.9 10^3/uL (4.0-11.0)
[2024-06-23 10:25] LABS: Alanine Aminotransferase 16 U/L (14-59); Albumin Globulin Ratio 0.7; Albumin Level 2.9 g/dL (3.4-5.0); Alkaline Phosphatase 82 U/L (46-116); Anion Gap 10.3; Aspartate Amino Transferase 13 U/L (15-37); Bilirubin Total 0.7 mg/dL (0.2-1.0); Calcium 8.7 mg/dL (8.5-10.1); Carbon Dioxide 32.9 mmol/L (21.0-32.0); Chloride 103 mmol/L (98-107); Estimated GFR (African America >60 (>=60 mL/min/1.73m^2); Estimated GFR (Non-African Ame 59 (>=60 mL/min/1.73m^2); Globulin 3.9 g/dL; Glucose 124 mg/dL (74-106); Potassium 4.2 mmol/L (3.5-5.1); Sodium 142 mmol/L (136-145); Total Protein 6.8 g/dL (6.4-8.2)
== END 2024-06-23 09:31 | disposition home or self-care (01) ==
LOC: CT 09:30
PROVIDERS: PCP Internal Medicine; Visit Provider Internal Medicine
DX: J41.1 Mucopurulent chronic bronchitis (principal); J18.9 Pneumonia, unspecified organism; R09.02 Hypoxemia; D75.1 Secondary polycythemia; N18.32 Chronic kidney disease, stage 3b; I50.33 Acute on chronic diastolic (congestive) heart failure; I27.20 Pulmonary hypertension, unspecified; I25.10 Atherosclerotic heart disease of native coronary artery without angina pectoris; I12.9 Hypertensive chronic kidney disease with stage 1 through stage 4 chronic kidney disease, or unspecified chronic kidney disease
CPT/HCPCS: 36415; 71250; 80053; 83880; 85025

== ENCOUNTER 2024-10-08 09:32 | Outpatient (OUT) | payer MEDICARE, SELFPAY ==
--- OUTSIDE RECORDS SUMMARY | 2024-10-08 09:47 | XMS_ITS | CCD ---
Author Organization [facility] Care Team Providers Care Sink Maker Name Role Phone Unknown, Referring Provider Unavailable Unav ailable Unavailable Unavailable Isrrael Howard E Unavailable Parnav DOIsrrael E Primary Care Provider Asaf Patricia Unavailable Isrrael Howard DO E Primary Care Provider Asaf Patricia Unavailable [phone] Asaf Patricia Unavailable [phone] CMR G LV Referring Unavailable BALL, ISRRAEL [...] Primary Care Unavailable ASHLY WATERS Attending Unavailable ENGELER G LV Referring Unavailable [...] Care Unavailable ASHLY WATERS Attending Unavailable ENGELER, Lauren GALICIA Referring Unavailable BALL, ISRRAEL E Primary Care Unavailable TRISHAETZASHLY HARDIN Attending Unavailable BALL, ISRRAEL E Primary [...] Unavailable TIMMIS, DR RON Consulting Unavailable NEFCY, JESSICA Consulting Unavailable TIMMIS, DR RON Admitting Unavailable TIMMIS, DR RON Attending Unavailable BALL, DR PARISI Primary Care Unavailable TIMMIS, DR RON Consulting Unavailable DORKOSKIE, JESSICA Consulting Unavailable MCCORNACK, BRIANNA Consulting Unavailable BALL, DR PARISI Admitting Unavailable BALL, DR PARISI Attending Unavailable BALL, DR PARISI Primary Care Unavailable BALL, DR PARISI Consulting Unavailable ZIEBER, DR BRIANNA Stone Consulting Unavailable Ball DO, Isrrael E Primary Care Provider Asaf Patricia MD Unavailable MIRIAM SEO Attending Unavailable BALL, ISRRAEL E Primary Care Unavailable Ball DO, Isrrael E Primary Care Provider Allergies Allergy Classification Reported Allergen(s) Allergy Type Date of Onset Reaction(s) Facility (12 sources) Penicillins; Translations: [Penicillins] Allergy to drug (finding) 02-01-20 [facility] Repository (20 sources) Penicillins Propensity to adverse reactions to drug 02-01-20 Unknown [facility] (4 sources) [place]; Translations: [STRAWBERRIES] Food Allergy 04-18-20 22 Hives, Swelling [facility] (4 sources) Penicillin Drug Allergy Unknown [facility] Other (1 source) Penicillins Drug allergy (disorder) 05-21-20 16 [facility] Repository (1 source) strawberry allergenic extract Drug Allergy [facility] Repository (1 source) patient allergy list reviewed by nurse or physicia Propensity to adverse reactions 06-18-20 Comment:Done [facility] Other (1 source) Substance with penicillin structure and antibacterial mechanism of action (substance) Drug allergy Unknown [facility] Other Medications Current Medications Medication Drug Class(es) Dates Sig (Normalized) Sig (Original) aspirin 81 mg chewable tablet (20 sources) Platelet Aggregation Inhibitor, Nonsteroidal Anti-inflammatory Drug Start: 03-08-2021 take 1 tablet by mouth once daily Aspirin 81 mg Tablet,Chewable Active 81 MG PO Daily March 08, 2021 12:00am take 1 tablet by mouth once gris y aspirin 81 mg EC tablet Take 1 tablet (81 mg) by mouth once daily. Active aspirin, enteric coated (ASPIRIN, ENTERIC COATED) 81 mg EC tablet Take by mouth q 24 HR. Active Comment on above: Take by mouth q 24 H R. atorvastatin 40 mg oral tablet (20 sources) HMG-CoA Reductase Inhibitor Start: End: take 1 tablet by mouth once daily Atorvastatin 40 mg tablet Active 0 .ROUTE .COMPLEX June 27, 2024 7:43am Take 1 tablet by mouth once daily Start: 05-20-2021 End: 09-26-2023 take 1 tablet by mouth once daily Atorvastatin 40 mg tablet Discontinued 40 MG PO Daily September 13, 2023 1:00am September 26, 2023 6:14pm Comment on above: Take by mouth. calcium carbonate 1500 mg or al tablet (20 sources) calcium carbonat e (CALTRATE) 600 mg calcium (1,500 mg) tab Take by mouth q 12 HR. Active Calcium 600 MG T ABS Take 1 tablet twice daily Quantity: 0 Refills: 0 Ordered: 06-Apr-2021 DO Active Comment on above: Take by mouth q 12 H R. clopidogrel 75 mg oral tablet (20 sources) P2Y12 Platelet Inhibitor Start: 09-28-2023 End: 06-27-2024 take 1 tablet by mouth once daily Clopidogrel 75 mg tablet Active 0 .ROUTE .COMPLEX June 27, 2024 7:43am Take 1 tablet by mouth once daily Start: 05-05-2021 End: 09-28-2023 take 1 tablet by mouth once daily Clopidogrel 75 mg tablet Discontinued 75 MG PO Daily September 28, 2023 12:00am September 28, 2023 8:48am Start: 05-05-2021 Clopidogrel Bi sulfate 75 MG Oral Tablet TAKE 4 PILLS X1 DOSE THE ONE PILL DAILY THERAFTER Quantity: 90 Refills: 3 Ordered: 05-May-2021 Naomie Cross Start : 05-May-2021 Active Comment on above: Take by mouth. furosemide 40 mg oral tablet (5 sources) Loop Diuretic Start: 05-08-2024 End: 05-09-2024 take 1 tablet by mouth every other day Furosemide 40 mg tablet Active 40 MG PO .QOD 45 May 09, 2024 4:50pm Start: 04-20-2024 End: 05-08-2024 take 1 tablet by mouth once daily Furosemide 40 mg tablet Discontinued 40 MG PO Daily April 30, 2024 10:15am May 08, 2024 8:33pm 24 hr isosorbide mononitrate 60 mg extended release oral tablet (20 sources) Nitrate Vasodilator Start: 09-28-2023 End: 06-27-2024 take 1 tablet by mouth once daily Isosorbide Mononitrate 60 mg tablet extended release 24 hr Active 0 .ROUTE .COMPLEX June 27, 2024 7:43am Take 1 tablet by mouth once daily Start: 09-13-2023 End: 09-28-2023 take 1 tablet by mouth once daily, then take 1 tablet by mouth every twenty-four hours Isosorbide Mononitrate 30 mg tablet extended release 24 hr Discontinued 30 MG PO Daily September 13, 2023 1:00am September 28, 2023 8:48am Start: 08-16-2020 End: 09-13-2023 take 1 tablet by mouth once daily, then take 1 tablet by mouth every twenty-four hours Isosorbide Mononitrate 60 mg Tablet Extended Release 24 Hr Discontinued 60 MG PO Daily March 08, 2021 12:00am September 13, 2023 4:36pm Start: 08-16-2020 take 1 tablet by adrian th every twenty-four hours isosorbide mononitrate ER (IMDUR) 60 mg 24 hr tablet Take by mouth. 08/16/2020 Active Imdur Active Comment on above: Take by mouth. losartan potassium 50 mg oral tablet (3 sources) Angiotensin 2 Receptor Kristina Start: 04-20-2024 End: 04-30-2024 take 1 tablet by mouth once daily Losartan 50 mg tablet Active 50 MG PO Daily 90 April 30, 2024 10:16am 24 hr metoprolol succinate 50 mg extended release oral tablet (20 sources) beta-Adrenergic Kristina Start: 12-31-2023 metoprolol succinate XL (Toprol-XL) 50 mg 24 hr tablet 1 tablet (50 mg) once daily. 12/31/2023 Active Start: 12-31-2023 take 1 tablet by adrian th once daily Metoprolol Succinate 50 mg tablet extended release 24 hr Active 0 .ROUTE .COMPLEX December 31, 2023 12:44pm Take 1 tablet by mouth once daily Start: 03-09-2021 End: 12-31-2023 take 1 tablet by mouth once daily Metoprolol Succinate 25 mg tablet extended release 24 hr Discontinued 25 MG PO Daily March 09, 2021 12:00am December 31, 2023 12:45pm start on 03/12/2021 Start: 03-08-2021 End: 03-09-2021 take 1 tablet by mouth once daily Metoprolol Succinate 50 mg Tablet Extended Release 24 Hr Discontinued 50 MG PO Daily March 08, 2021 12:00am March 09, 2021 1:52pm take 1 tablet by adrian th every twenty-four hours metoprolol succinate ER (TOPROL XL) 25 mg 24 hr tablet Take by mouth q 24 HR. Active Comment on above: Take by mouth q 24 H R. nitroglycerin 0.4 mg sublingual tablet (20 sources) Nitrate Vasodilator Start: 05-20-2021 nitroglycerin (Nitrostat) 0.[address] 1 tablet (0.4 mg) under the tongue. 05/20/2021 Active Start: 05-20-2021 Nitroglycerin 0.4 MG Sublingual Tablet Sublingual Quantity: 25 Refills: 0 Ordered: 22-May-2021 DO Start : 20-May-2021 Active Comment on above: Dissolve under the t ongue. oxygen (O2) gas therapy (1 source) oxygen (O2) gas therapy Inhale 1 each continuously. 3 lpm Active Completed/Discontinued Medications Medication Drug Class(es) Dates Sig (Normalized) Sig (Original) acetaZOLAMIDE 250 mg oral tablet (1 source) Carbonic Anhydrase Inhibitor Start: 04-20-2024 End: 04-30-2024 take 1 tablet by mouth twice daily Acetazolamide 250 mg tablet Discontinued 250 MG PO Twice daily 60 30 April 20, 2024 12:00am April 30, 2024 8:37pm calcium carbonate 1500 mg / cholecalciferol 200 unt oral tablet (1 source) Vitamin D Start: 03-08-2021 End: 09-13-2023 take 1 tablet by mouth twice daily Calcium Carbonate-Vitamin D3 (Calcium 600 + D(3)) 600 mg(1,500mg) -200 unit Tablet Discontinued 1 TAB PO Twice daily March 08, 2021 12:00am September 13, 2023 4:36pm cholecalciferol 0.025 mg oral capsule (20 sources) Vitamin D Start: 03-08-2021 End: 09-13-2023 take 1 capsule by mouth twice daily Cholecalciferol (Vitamin D3) (Vitamin D3) 25 mcg (1,000 unit) Capsule Discontinued 25 MCG PO Twice daily March 08, 2021 12:00am September 13, 2023 4:36pm take 1 tablet by mouth once gris y cholecalciferol (Vitamin D-3) 25 MCG (1000 UT) tablet Take 1 tablet (1,000 Units) by mouth once daily. Active cholecalciferol (VITAMIN D3) 1,000 unit tab tablet Take by mouth q 12 HR. Active Vitamin D 1000 U NIT TABS Take 1 tablet twice daily Quantity: 0 Refills: 0 Ordered: 06-Apr-2021 DO Active Comment on above: Take by mouth q 12 H R. hydroCHLOROthiazide 12.5 mg oral capsule (20 sources) Thiazide Diuretic Start: 2023 End: 2023 take 1 capsule by mouth once daily Hydrochlorothiazide 12.5 mg capsule Discontinued 0 .ROUTE .COMPLEX 90 December 31, 2023 12:44pm April 20, 2024 6:53pm Take 1 capsule by mouth once daily Start: 03-08-2021 End: 12-31-2023 take 1 tablet by mouth once daily Hydrochlorothiazide 12.5 mg Tablet Discontinued 12.5 MG PO Daily March 08, 2021 12:00am December 31, 2023 12:45pm Start: 11-18-2020 hydroCHLOROthi azide (HYDRODIURIL, ESIDRIX) 12.5 mg capsule Take by mouth. 11/18/2020 Active Comment on above: Take by mouth. lovastatin 10 mg oral tablet (5 sources) HMG-CoA Reductase Inhibitor Start: 0 End: 4 take 1 tablet by mouth once daily in the evening Lovastatin 10 mg Tablet Discontinued 10 MG PO Every evening March 08, 2021 12:00am September 13, 2023 4:36pm Problems Active Problems Problem Classification Problem Date Documented Date Episodic/Chronic Acute bronchitis (2 sources) Acute bronchitis; Translations: [Acute bronchitis due to other specified organisms] Onset: 04-21-2014 Episodic Acute myocardial infarction (5 sources) Myocardial infarction; Translations: [Acute myocardial infarction of unspecified site, episode of care unspecified] Chronic Cancer of head and neck (20 sources) Malignant tumor of glottis; 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] Onset: 01-23-2022 Chronic Chronic kidney disease (2 sources) Chronic kidney disease; Translations: [Chronic kidney disease, unspecified] 04-29-2024 Chronic Chronic obstructive pulmonary disease and bronchiectasis (11 sources) Mucopurulent chronic bronchitis; Translations: [Mucopurulent chronic bronchitis] Onset: 01-23-2022 Chronic Congestive heart failure; nonhypertensive (3 sources) Acute exacerbation of chronic congestive heart failure; Translations: [Acute on chronic diastolic (congestive) heart failure] 09-14-2024 Chronic Coronary atherosclerosis and other heart disease (20 sources) Coronary arteriosclerosis; Translations: [Coronary atherosclerosis of unspecified type of vessel, hoopa or graft] Onset: 01-23-2022 Chronic Comment on above: Echo: LVEF 65%, RUDY, normal RV size/function - CI/Stent LM, LAD, RCA 05/2021 Diabetes mellitus with complications (2 sources) Hyperglycemia due to type 2 diabetes mellitus; Translations: [Type 2 diabetes mellitus with hyperglycemia] 09-14-2024 Chronic Diabetes mellitus without complication (1 source) Type 2 diabetes mellitus without complication; Translations: [Diabetes mellitus without mention of complication, type II or unspecified type, not stated as uncontrolled] Chronic Diabetes mellitus without complication (6 sources) Impaired fasting glycemia; Translations: [Impaired fasting glucose] Episodic Disorders of lipid metabolism (20 sources) Hyperlipidemia; Translations: [Other and unspecified hyperlipidemia] Onset: 07[birth year]16-1957 Chronic Essential hypertension (20 sources) Hypertensive disorder; Translations: [Unspecified essential hypertension] Onset: 05-08-2024 Chronic Immunizations and screening for infectious disease [...] Episodic Other diseases of veins and lymphatics (7 sources) Peripheral venous insufficiency; Translations: [Venous insufficiency (chronic) (peripheral)] 09-13-2023 Episodic Other diseases of veins and lymphatics (3 sources) Venous insufficiency (chronic) (peripheral); Translations: [Venous (peripheral) insufficiency, unspecified] Onset: 01-23-2022 Episodic Other hematologic conditions (1 source) Erythrocytosis; Translations: [Secondary polycythemia] 04-20-2024 Episodic Other lower respiratory disease (1 source) Productive cough-yellow sputum; Translations: [Cough productive of yellow sputum] Episodic Other lower respiratory disease (5 sources) Nodule of lung; Translations: [Solitary pulmonary nodule] 10-09-2023 Episodic Comment on above: LDCT: no suspicious nodules, 09/2022, 09/2023 Other lower respiratory disease (1 source) Solitary pulmonary nodule Episodic Other lower respiratory disease (1 source) Solitary nodule of lung; Translations: [Solitary pulmonary nodule] Episodic Other lower respiratory disease (2 sources) Shortness of breath; Translations: [Shortness of breath] Onset: 05-08-2024 Episodic Other lower respiratory disease (2 sources) Dyspnea; Translations: [Shortness of breath] Onset: 05-08-2024 05-08-2024 Episodic Other lower respiratory disease (1 source) Hypoxia; Translations: [Hypoxemia] 04-29-2024 Episodic Other lower respiratory disease (1 source) Hypoxemia; Translations: [Hypoxemia] 09-17-2024 Episodic Other nutritional; endocrine; and metabolic disorders (9 sources) Body mass index 40+ - severely obese; Translations: [Morbid obesity] Onset: 12-29-2015 05-08-2024 Chronic Other nutritional; endocrine; and metabolic disorders (1 source) Obesity; Translations: [Obesity, unspecified] Chronic Other nutritional; endocrine; and metabolic disorders (2 sources) Body mass index (BMI) 40.0-44.9, adult; Translations: [Body mass index (BMI) 40.0-44.9, adult (Multi)] Onset: 05-08-2024 Chronic Other screening for suspected conditions (not mental disorders or infectious disease) (16 sources) Cardiovascular stress test abnormal; Translations: [Other nonspecific abnormal results of function study of cardiovascular system] Onset: 07-24-2014 Resolved: 08-20-2021 Episodic Other upper respiratory disease (1 source) Rhinitis; Translations: [Chronic rhinitis] Chronic Other upper respiratory disease (4 sources) Difficulty speaking; Translations: [Dysphonia] Episodic Other upper respiratory disease (1 source) Dysphonia; Translations: [Dysphonia] Episodic Pulmonary heart disease (2 sources) Pulmonary hypertension; Translations: [Pulmonary hypertension, unspecified] 06-01-2024 Chronic Residual codes; unclassified (6 sources) Asymptomatic menopausal [...] user; Translations: [Tobacco use] Onset: 07-05-2016 Episodic Residual codes; unclassified (1 source) Menopause present; Translations: [Asymptomatic menopausal state] 09-13-2023 Episodic Screening and history of mental health and substance abuse codes (8 sources) Ex-smoker; Translations: [Personal history of tobacco use] Onset: 07-05-2016 05-08-2024 Episodic Comment on above: quit 05/22/21; Skin and subcutaneous tissue infections (1 source) Cellulitis of left lower limb; Translations: [Cellulitis of left lower limb] 04-09-2024 Episodic Spondylosis; intervertebral disc disorders; other back problems (5 sources) Lumbar spondylosis; Translations: [Spondylosis without myelopathy or radiculopathy, lumbar region] Chronic Substance-related disorders (13 sources) Tobacco user; Translations: [Nicotine dependence, cigarettes, in remission] Onset: 12-29-2015 Chronic Comment on above: LDCT: no suspicious nodules, 09/2022, 09/2023 Past or Other Problems Problem Classification Problem [...] Onset: 04-18-2017 Episodic Other aftercare (1 source) assisted (current) use of aspirin; Translations: [HALF-WAY CURRENT USE OF ASPIRIN] Onset: 01-23-2022 Episodic Other aftercare (1 source) Other retirement (current) drug therapy; Translations: [OTH HALF-WAY CURRENT DRUG THERAPY] Onset: 01-23-2022 Episodic Other bone disease and musculoskeletal deformities (1 source) Other specified disorders of bone density and structure, unspecified site; Translations: [OTH D/O BONE DEN STRUCT UNS SITE] Onset: 01-23-2022 Episodic Other connective tissue disease (1 source) Ganglion and cyst of synovium, tendon and bursa; Translations: [Other ganglion and cyst of synovium, tendon, and bursa] Onset: 09-28-2014 Episodic Other injuries and conditions due to [...] OTH PART DIGESTV TRACT] Onset: 01-23-2022 Episodic Sprains and strains (1 source) Strain of rotator cuff capsule; Translations: [Rotator cuff (capsule) sprain and strain] Onset: 09-28-2014 Episodic Superficial injury; contusion (2 sources) Contusion of lower back; Translations: [Contusion of lower back and pelvis, initial encounter] Onset: 08-16-2016 Episodic Unclassified (1 source) Onset: 05-08-2024 05-08-2024 Results Test Name Value Interpretation Reference Range Facility ECG 12 [place] 05-08-2024 Normal sinus rhythm with old lateral infarct [facility] Work Phone: CT LUNG CANCER SCREENINGon 0 10-05-2022 CT [...] BRIANNA LY Date: 2022-10-05 12:47 Normal [facility] MAMM SCREEN 3D ABELARDO CADon 10-05-2022 MG MAMM SCREEN 3D ABELARDO CAD Patient: KATHLEEN ROSEN Exam Date: 10/05/2022 : 1945 Gender:F Ordering : DR ISRRAEL HOWARD D.O. Admission #: [id number] Family : Order #: [id number] CLICK HERE TO VIEW EXAM RADIOLOGY REPORT [...] breast cancer at age 66. LOCATION: [facility] BREAST COMPOSITION: Scattered areas fibroglandular density. FINDINGS: [...] Ly M.D. 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 Status post definitive radiation completed 04/04/2022. Patient overall doing well with resolving postradiation issues. She has had follow-up with Dr. Patricia without new findings reported. She will have continued surveillance with him. I will plan to see patient back in 3 months. Signed by: Lauren Mosqueda MD cc: Isrrael Howard ([facility]) [address] [place] [address] Dr. 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] Order(s):T4/THYROXINE BLOOD [SQT4] Order #: [id number] FUTURE TSH BLD [SQTSH] Order #: [id number] FUTURE Prescriptions as of 05/15/2022 - aspirin, [...] Encounter Status:Closed by Lauren MOSQUEDA on 05/15/22 [facility] CNOVon 04-18-2022 CNOV Office Visit (RADTSA ) ----- SILASKATHLEEN Reyes ([id number]) 1945 F Date Time Provider Department 04/18/22 2:30 PM Lauren MOSQUEDA RADTSA During your visit today, we recorded the following information about you: Temperature Pulse Respiration Blood pressure 96.9 degrees 55/minute 16/minute 138/67 Weight 109.8 kg Lauren Mosqueda MD 04/24/2022 8:20 AM Signed Radiation Oncology - Follow Up Note PATIENT NAME: Kathleen Rosen PATIENT DIAGNOSIS: Glottic cancer, right true vocal cord, 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 Clinically doing fairly well with improving dysphagia. Still with hoarseness. She will require continued close follow-up with Dr. Torrez which has been arranged. I would like to see patient back in 1 month for follow-up. Signed by: Lauren Mosqueda MD cc: Isrrael Howard ([facility]) [address] [place] [address] Dr. Patricia Referring Provider: ISRRAEL HOWARD [[id number]] Allergies As of Date: 04/18/2022 Noted Allergy [...] for Encounter Date Provider Department Center 04/18/2022 [id number] MOSQUEDA (more content not included)... 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 COURSE: definitive Area Treated: Larynx Current dose: [...] Signed Status: Post-menopausal. Referring Provider: Lauren MOSQUEDA [[id number]] Allergies As of Date: 04/03/2022 Noted Allergy [...] degree (HCC) [E44.1] 03/23/2022 Visit Notes: >> Yovanny Grissom LPN Mon Apr 03, 2022 10:23 AM Status: Signed Status: Post-menopausal. 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 COURSE: definitive Area Treated: Larynx Current dose: [...] Encounter Status:Closed by Lauren MOSQUEDA on 03/21/22 [facility] CNOVon 03-16-2022 CNOV Office Visit (RADTSA ) ----- KATHLEEN ROSEN ([id number]) 1945 F Date Time Provider Department 03/16/22 10:45 AM LAB/PORT RADT BALDO LINDER During your visit today, we recorded the following information about you: Temperature Pulse Respiration Blood pressure 96.9 degrees 67/minute 18/minute 131/78 Yovanny Grissom LPN 03/16/2022 10:12 AM Signed Kathleen is here for radiation therapy [...] is vaccinated for Covid x 1 with [employer]. She is to notify us tomorrow if symptoms worsen. Dr. Mosqueda notified of the above and is in agreement. Yovanny Grissom LPN Referring Provider: ISRRAEL HOWARD [[id number]] Allergies As of Date: 03/16/2022 Noted Allergy [...] is vaccinated for Covid x 1 with [employer]. She is to notify us tomorrow if symptoms worsen. Dr. Mosqueda notified of the above and is in agreement. 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 COURSE: definitive Area Treated: Larynx Current dose: [...] reviewed. Continue radiation as outlined. 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 COURSE: definitive Area Treated: Larynx Current dose: [...] Encounter Status:Closed by Lauren [facility]22 [facility]RADLE[facility]A [facility] ----- KATHLEEN ROSEN ([id number]) 1945 F Date Time Provider Department 02/17/22 11:45 AM Lauren MOSQUEDA RADLEIFA During your visit today, we recorded the following information about you: Referring Provider: Lauren MOSQUEDA [[id number]] Allergies As of Date: 02/17/2022 Noted Allergy Reaction PENICILLINS 01/31/2022 16 - Unknown Date Reviewed: 01/31/2022 Reviewed by: Yovanny Grissom LPN - Fully Assessed Reason for Visit: Simulation Request Form [4060] 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] Order(s):RADIATION TREATMENT PER RADIATION ONCOLOGIST PLAN [[id number]] Order #: [id number]: 1 PT ED CANCER [[id number]] Order #: [id number]: 1 CT SIM PLANNING RADIATION ONCOLOGY [[id number]] Order #: [id number] Prescriptions as of 02/20/2022 - aspirin, enteric [...] Status:Closed by Lauren MOSQUEDA on 02/20/22 Normal [facility] CT NECK SOFT TISSUE WO IVCON on 02-17-2022 CT NECK SOFT TISSUE WO IVCON * * *Final Report* * * DATE OF EXAM: Feb 17 2022 1:10PM [facility] 0509 - CT NECK SOFT TISSUE WO IVCON / PROCEDURE REASON: Malignant neoplasm of glottis (HCC) * * * * Physician Interpretation * * * * RESULT: CT NECK SOFT TISSUE WO IVCON History: 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 Comparison: No prior imaging available for comparison. [...] submandibular spaces are normal in unenhanced appearance. [employer] spaces appear normal. Infrahyoid Neck: The known [...] any questions regarding this interpretation, please call [phone]. If you are unable to reach us at the number above, please feel free to contact [facility] eRadiology at [phone]. [id number] Normal [facility] CT Neck WO contraston 2021 IMPRESSION: [...] any questions regarding this interpretation, please call [phone]. If you are unable to reach us at the number above, please feel free to [facility] at [phone]. 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 Comparison: No prior imaging available for comparison. [...] submandibular spaces are normal in unenhanced appearance. [employer] spaces appear normal. Infrahyoid Neck: The known [...] outlet syndrome. 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 Comparison: No prior imaging available for comparison. [...] submandibular spaces are normal in unenhanced appearance. [employer] spaces appear normal. Infrahyoid Neck: The known [...] any questions regarding this interpretation, please call [phone]. If you are unable to reach us at the number above, please feel free to contact [facility] eRadiology at [phone]. [facility] Radiology Study observation (narrative) [facility] CT Neck WO contrastOrdered B y: [facility] Provider on 02-17-2022 [facility] CNOVon 01-31-2022 CNOV Office Visit (RADTSA ) ----- KATHLEEN ROSEN ([id number]) 1945 F Date Time Provider Department 01/31/22 10:00 AM Lauren MOSQUEDA During your visit today, we recorded the following information about you: Temperature Pulse Blood pressure Weight 97.3 degrees 67/minute 112/70 112 kg Height 1.524 m G Lv Mosqueda MD 02/02/2022 11:51 AM Signed Radiation Oncology - New Patient/Consult Note PATIENT NAME: Kathleen Rosen PATIENT : 1945 REQUESTING PROVIDER: Dr. 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 Cancer Staging No matching staging information was [...] tonsils wit (more content not included)... Normal [facility] CBC AUTO DIFFon 01-12-2022 BASO # 0.1 103/ul Normal 0.0-0.1 [facility] Comment on above: Performed By: #### C BC #### [facility] [address] [place] [address] Dr. Prosper Doyle Basophils/100 WBC (Bld) 0.8 % Normal 0.2-2.0 [facility] Comment on above: Performed By: #### C BC #### [facility] [address] [place] [address] Dr. Prosper Doyle EO # 0.5 103/ul Normal 0.0-0.7 [facility] Comment on above: Performed By: #### C BC #### [facility] [address] [place] [address] Dr. Prosper Doyle Eosinophils/100 WBC (Bld) 5.8 % Normal 0.9-7.0 [facility] Comment on above: Performed By: #### C BC #### [facility] [address] [place] [address] Dr. Prosper Doyle Erythrocyte distribution width (RBC) [Ratio] 14.1 % Normal 11.0-15.0 [facility] Comment on above: Performed By: #### C BC #### [facility] [address] [place] [address] Dr. Prosper Doyle Hematocrit (Bld) [Volume fraction] 48.1 % Critically high 36.0-48.0 [facility] Comment on above: Performed By: #### C BC #### [facility] [address] [place] [address] Dr. Prosper Doyle Hemoglobin (Bld) [Mass/Vol] 15.2 g/dL Normal 12.0-16.0 [facility] Comment on above: Performed By: #### C BC #### [facility] [address] [place] [address] Dr. Prosper Doyle IG # 0.01 10e3/ul Normal 0.00-0.03 [facility] Comment on above: Performed By: #### C BC #### [facility] [address] [place] [address] Dr. Prosper Doyle IG % 0.1 % Normal 0.0-0.5 [facility] Comment on above: Performed By: #### C BC #### [facility] [address] [place] [address] Dr. Prosper Doyle LYMPH # 2.7 103/ul Normal 1.2-3.8 [facility] Comment on above: Performed By: #### C BC #### [facility] [address] [place] [address] Dr. Prosper Doyle Lymphocytes/100 WBC (Bld) 35.5 % Normal 20.5-60.0 [facility] Comment on above: Performed By: #### C BC #### [facility] [address] [place] [address] Dr. Prosper Doyle MANUAL DIFF REQ NO Normal [facility] Comment on above: Performed By: #### C BC #### [facility] [address] [place] [address] Dr. Prosper Doyle MCH (RBC) [Entitic mass] 30.5 pg Normal 26.7-34.0 [facility] Comment on above: Performed By: #### C BC #### [facility] [address] [place] [address] Dr. Prosper Doyle MCHC (RBC) [Mass/Vol] 31.6 g/dL Normal 29.9-35.2 [facility] Comment on above: Performed By: #### C BC #### [facility] [address] [place] [address] Dr. Prosper Doyle MCV (RBC) [Entitic vol] 96.4 fL Normal 81.0-99.0 [facility] Comment on above: Performed By: #### C BC #### [facility] [address] [place] [address] Dr. Prosper Doyle MONO # 0.5 103/ul Normal 0.3-0.8 [facility] Comment on above: Performed By: #### C BC #### [facility] [address] [place] [address] Dr. Prosper Doyle Monocytes/100 WBC (Bld) 6.4 % Normal 1.7-12.0 [facility] Comment on above: Performed By: #### C BC #### [facility] [address] [place] [address] Dr. Prosper Doyle NEUT # 4.0 103/ul Normal 1.4-6.5 [facility] Comment on above: Performed By: #### C BC #### [facility] [address] [place] [address] Dr. Prosper Doyle Neutrophils/100 WBC (Bld) 51.4 % Normal 43.0-75.0 [facility] Comment on above: Performed By: #### C BC #### [facility] [address] [place] [address] Dr. Prosper Doyle Platelet mean volume (Bld) [Entitic vol] 9.0 fL Critically low 9.5-13.5 [facility] Comment on above: Performed By: #### C BC #### [facility] [address] [place] [address] Dr. Prosper Doyle PLT 275 103/ul Normal 150-450 [facility] Comment on above: Performed By: #### C BC #### [facility] [address] [place] [address] Dr. Prosper Doyle RBC 4.99 106/ul Normal 4.20-5.40 [facility] Comment on above: Performed By: #### C BC #### [facility] [address] [place] [address] Dr. Prosper Doyle WBC 7.7 103/ul Normal 4.0-11.0 [facility] Comment on above: Performed By: #### C BC #### [facility] [address] [place] [address] Dr. Prosper Doyle PROF CHEM 8 (BAS METB)on Anion gap [Moles/Vol] 8.0 mmol/L Normal [facility] Comment on above: Performed By: #### B MP #### [facility] [address] [place] [address] Dr. Prosper Doyle Calcium [Mass/Vol] 9.1 mg/dL Normal 8.5-10.1 [facility] Comment on above: Performed By: #### B MP #### [facility] [address] [place] [address] Dr. Prosper Doyle Chloride [Moles/Vol] 99 mmol/L Normal 98-107 [facility] Comment on above: Performed By: #### B MP #### [facility] [address] [place] [address] Dr. Prosper Doyle CO2 [Moles/Vol] 35.1 mmol/L Critically high 21.0-32.0 [facility] Comment on above: Performed By: #### B MP #### [facility] [address] [place] [address] Dr. Prosper Doyle Creatinine [Mass/Vol] 0.72 mg/dL Normal 0.55-1.02 [facility] Comment on above: Performed By: #### B MP #### [facility] [address] [place] [address] Dr. Prosper Doyle EGFR-AF EQUATORIAL GUINEAN >60 Normal >=60 [facility] Comment on above: Performed By: #### B MP #### [facility] [address] [place] [address] Dr. Prosper Doyle EGFR-NON AF EQUATORIAL GUINEAN >60 Normal >=60 [facility] Comment on above: Performed By: #### B MP #### [facility] [address] [place] [address] Dr. Prosper Doyle Glucose [Mass/Vol] 103 mg/dL Normal 74-106 [facility] Comment on above: Performed By: #### B MP #### [facility] [address] [place] [address] Dr. Prosper Doyle Potassium [Moles/Vol] 4.1 mmol/L Normal 3.5-5.1 [facility] Comment on above: Performed By: #### B MP #### [facility] [address] [place] [address] Dr. Prosper Doyle Sodium [Moles/Vol] 138 mmol/L Normal 136-145 [facility] Comment on above: Performed By: #### B MP #### [facility] [address] [place] [address] Dr. Prosper Doyle Urea nitrogen [Mass/Vol] 15.0 mg/dL Normal 7.0-18.0 [facility] Comment on above: Performed By: #### B MP #### [facility] [address] [place] [address] Dr. Prosper Doyle Urea nitrogen/Creatinine [Mass ratio] 20.8 mg/mg Normal [facility] Comment on above: Performed By: #### B MP #### [facility] [address] [place] [address] Dr. Prosper Doyle PROTIMEon 01-12-2022 INR Coag (PPP) [Relative time] 1.06 {INR} Normal [facility] Comment on above: Performed By: #### P T, PTT #### [facility] [address] [place] [address] Dr. Prosper Doyle INR GUIDELINES SEE BELOW Normal [facility] Comment on above: Result Comment: CARLA RED INR: 2.0 - 3.0 CONDITIONS NOT LISTED BELOW 2.5 - 3.5 FOR PROSTHETIC HEART VALVE REPLACEMENT 2.5 - 3.5 RECURRENT THROMBOSIS Performed By: #### P T, PTT #### [facility] [address] [place] [address] Dr. Prosper Doyle PT Coag (PPP) [Time] 11.4 s Normal 9.0-11.6 [facility] Comment on above: Performed By: #### P T, PTT #### [facility] [address] [place] [address] Dr. Prosper Doyle PTTon 01-12-2022 aPTT Coag (Bld) [Time] 27.1 s Normal 22.3-36.2 [facility] Comment on above: Performed By: #### P T, PTT #### [facility] [address] [place] [address] Dr. Prosper Doyle XR CHEST 2 Von [...] JESSICA ORTIZ Date: 2022-01-12 15:42 Normal [facility] Office Visit (Cardiology)on 12-06-2021 Follow-up visit Diagnoses/Problems Assessed CAD (coronary artery disease) (414.00) (I25.10) Hyperlipidemia (272.4) (E78.5) Hypertension (401.9) (I10) Morbid obesity with BMI of 45.0-49.9, adult (278.01,V85.42) (E66.01,Z68.42) History of PTCA (V45.82) (Z98.61) Former smoker (V15.82) (Z87.891) quit 05/22/21 Orders CAD (coronary artery disease), History of LA (myocardial infarction) Renew: Aspirin 81 MG Oral Tablet Delayed Release; TAKE 1 TABLET DAILY CAD (coronary artery disease), Hyperlipidemia Renew: Atorvastatin Calcium 40 MG Oral Tablet; TAKE 1 TABLET AT BEDTIME Morbid obesity with BMI of 45.0-49.9, adult Healthy Weight Tips; Status:Complete - Retrospective Authorization; Done: [id number] SocHx: Former smoker Tobacco Use Screening; Status:Complete; Done: [id number] Patient Instructions By signing my name below, I, Rosi Moon LPN, attest that this documentation has been prepared [...] negative for complaint. Vitals Vital Signs Recorded: [id number] 10:31AM Heart Rate66, R Radial Zdsevpyn792, RUE, Sitting Nwmerazzb46, RUE, Sitting Height5 ft 1 in Tpwlhg106 lb BMI Tgmenxyhee03.18 kg/m2 BSA Calculated2.09 Tobacco Useb) No PHQ-2 [...] no acute (more content not included)... Normal [facility] Tobacco Screening.on 022 Adult depression screening assessment No [facility] [employer] [address] DO Work Phone: Fall risk assessment a) No falls within the last year [facility] [employer] [address] DO Work Phone: Tobacco use status CP b) No [facility] [employer] [address] DO Work Phone: Office Visit (Cardiology)on 05-26-2021 Follow-up visit Diagnoses/Problems Assessed CAD (coronary artery disease) (414.00) (I25.10) Hyperlipidemia (272.4) (E78.5) Hypertension (401.9) (I10) History of PTCA (V45.82) (Z98.61) Morbid obesity with BMI of 45.0-49.9, adult (278.01,V85.42) (E66.01,Z68.42) History of LA (myocardial infarction) (412) (I25.2) Former smoker (V15.82) (Z87.891) quit 05/22/21 Orders History of LA (myocardial infarction) Renew: Aspirin 81 MG Oral [...] your visit. By signing my name below, I, Lea Rodriguez RN,Scribe LETTER TO DR PATRICIA Follow up in6 [ ] months Chief Complaint [facility] f/u PTCA. KATHLEEN ROSEN is being seen for follow-up of a hospitalization for. History of Present Illness Patient is seen after an absence. She underwent coronary angiography demonstrating disease in need of intervention. I thought that she really needed bypass surgery and she was referred to [facility]. They felt she was too high risk and because of this they ultimately requested that Dr. Odell perform high risk multivessel coronary intervention and this was undertaken last week in [place] without event. She is now doing well. [...] Vital Signs Recorded: 26May2021 01:21PMRecorded: 26May2021 12:47PM Nkupfhip361, LUE, Szwccdd424, LUE, Sitting Bhhcewwum48, LUE, Yajkqbp99, LUE, Sitting Heart Rate57, L Brachial Artery Height5 ft 1 in Fxzein946 lb BMI Hdezbzcmor17.91 kg/m2 BSA Calculated2.05 Tobacco Useb) No Fall [...] MD; Nov (more content not included)... Normal [facility] Tobacco Screening.on 021 Fall risk assessment a) No falls within the last year -[facility] [address] DO Work Phone: Tobacco use status [facility] b) No -[facility] [address] DO Work Phone: BASIC METABOLIC PANELon 11-0 Anion gap [Moles/Vol] 10 mmol/L Normal 10 - 20 [facility] Comment on above: Performed By: #### B MP #### [address] [id number] Calcium [Mass/Vol] 9.7 mg/dL Normal 8.6 - 10.3 [facility] Comment on above: Performed By: #### B MP #### [address] [id number] Chloride [Moles/Vol] 97 mmol/L Low 98 - 107 [facility] Comment on above: Performed By: #### B MP #### [address] [id number] Creatinine [Mass/Vol] 0.69 mg/dL Normal 0.50 - 1.05 [facility] Comment on above: Performed By: #### B MP #### [address] [id number] GFR- AM. >60 Normal >60 [facility] Comment on above: Result Comment: CALC ULATIONS OF ESTIMATED GFR ARE PERFORMED USING THE MDRD STUDY EQUATION FOR THE IDMS-TRACEABLE CREATININE METHODS. CLIN CHEM 2007;53:766-72 Performed By: #### B MP #### [address] [id number] GFR-NON AM. >60 Normal >60 [facility] Comment on above: Performed By: #### B MP #### [address] [id number] Glucose [Mass/Vol] 100 mg/dL High 74 - 99 [facility] Comment on above: Performed By: #### B MP #### [address] [id number] HCO3 (Bld) [Moles/Vol] 31 mmol/L Normal 21 - 32 [facility] Comment on above: Performed By: #### B MP #### [address] [id number] Potassium [Moles/Vol] 4.0 mmol/L Normal 3.5 - 5.3 [facility] Comment on above: Performed By: #### B MP #### [address] [id number] Sodium [Moles/Vol] 134 mmol/L Low 136 - 145 [facility] Comment on above: Performed By: #### B MP #### [address] [id number] Urea nitrogen [Mass/Vol] 17 mg/dL Normal 6 - 23 [facility] Comment on above: Performed By: #### B MP #### [address] [id number] Laboratory - Chemistry and C hemistry - challengeon 05-21-2021 Anion gap [Moles/Vol] 10 mmol/L 10 - 20 [facility] Work Phone: Calcium [Mass/Vol] 9.7 mg/dL 8.6 - 10.3 [facility] [address] DO Work Phone: Chloride [Moles/Vol] 97 mmol/L below low threshold 98 - 107 [facility] 305 DO Work Phone: CO2 [Moles/Vol] 31 mmol/L 21 - 32 [facility] DO Work Phone: Creatinine [Mass/Vol] 0.69 mg/dL See Below [place] [address] DO Work Phone: Comment on above: Reference Range: 0.5 0 - 1.05 Glucose [Mass/Vol] 100 mg/dL above high threshold 74 - 99 [place] [address] DO Work Phone: Potassium [Moles/Vol] 4.0 mmol/L 3.5 - 5.3 [place] [address] DO Work Phone: Sodium [Moles/Vol] 134 mmol/L below low threshold 136 - 145 [place] [address] DO Work Phone: Urea nitrogen [Mass/Vol] 17 mg/dL 6 - 23 [place] [address] DO Work Phone: No Panel Informationon 05-21 >60 >60 [place] [address] DO Work Phone: Comment on above: CALCULATIONS OF MICH MATED GFR ARE PERFORMED USING THE MDRD STUDY EQUATION FOR THE IDMS-TRACEABLE CREATININE METHODS. CLIN CHEM 2007;53:766-72 BASIC METABOLIC PANELon 11-0 Anion gap [Moles/Vol] 12 mmol/L Normal 10 - 20 [facility] Comment on above: Performed By: #### B MP #### [address] [id number] Calcium [Mass/Vol] 9.1 mg/dL Normal 8.6 - 10.3 [facility] Comment on above: Performed By: #### B MP #### [address] [id number] Chloride [Moles/Vol] 99 mmol/L Normal 98 - 107 [facility] Comment on above: Performed By: #### B MP #### [address] [id number] Creatinine [Mass/Vol] 0.64 mg/dL Normal 0.50 - 1.05 [facility] Comment on above: Performed By: #### B MP #### [address] [id number] GFR- AM. >60 Normal >60 [facility] Comment on above: Result Comment: CALC ULATIONS OF ESTIMATED GFR ARE PERFORMED USING THE MDRD STUDY EQUATION FOR THE IDMS-TRACEABLE CREATININE METHODS. CLIN CHEM 2007;53:766-72 Performed By: #### B MP #### [address] [id number] GFR-NON AM. >60 Normal >60 [facility] Comment on above: Performed By: #### B MP #### [address] [id number] Glucose [Mass/Vol] 115 mg/dL High 74 - 99 [facility] Comment on above: Performed By: #### B MP #### [address] [id number] HCO3 (Bld) [Moles/Vol] 30 mmol/L Normal 21 - 32 [facility] Comment on above: Performed By: #### B MP #### [address] [id number] Potassium [Moles/Vol] 3.9 mmol/L Normal 3.5 - 5.3 [facility] Comment on above: Performed By: #### B MP #### [address] [id number] Sodium [Moles/Vol] 137 mmol/L Normal 136 - 145 [facility] Comment on above: Performed By: #### B MP #### [address] [id number] Urea nitrogen [Mass/Vol] 14 mg/dL Normal 6 - 23 [facility] Comment on above: Performed By: #### B MP #### [address] [id number] CBCon 05-20-2021 Erythrocyte distribution width (RBC) [Ratio] 13.6 % Normal 11.5 - 14.5 [facility] Comment on above: Performed By: #### C BC #### [address] [id number] Hematocrit (Bld) [Volume fraction] 48.4 % High 36.0 - 46.0 [facility] Comment on above: Performed By: #### C BC #### [address] [id number] Hemoglobin (Bld) [Mass/Vol] 15.2 g/dL Normal 12.0 - 16.0 [facility] Comment on above: Performed By: #### C BC #### [address] [id number] MCHC (RBC) [Mass/Vol] 31.4 g/dL Low 32.0 - 36.0 [facility] Comment on above: Performed By: #### C BC #### [address] [id number] MCV (RBC) [Entitic vol] 98 fL Normal 80 - 100 [facility] Comment on above: Performed By: #### C BC #### [address] [id number] Platelets (Bld) [#/Vol] 266 10*3/uL Normal 150 - 450 [facility] Comment on above: Performed By: #### C BC #### [address] [id number] RBC 4.94 x10E12/L Normal 4.00 - 5.20 [facility] Comment on above: Performed By: #### C BC #### [address] [id number] WBC (Bld) [#/Vol] 6.9 10*3/uL Normal 4.4 - 11.3 [facility] Comment on above: Performed By: #### C BC #### [address] [id number] Discharge [id number] 021 Discharge Profile2 Discharge Orders: Anticipated Discharge Date: Anticipated Discharge [id number] Anticipated Discharge Time09:36 DNAR: DNAR Status: none [...] no complications. See progress note per medical teacher counselor for physical exam details. Patient will be discharged home on aspirin and Plavix therapy. She was initiated on high intensity statin therapy with atorvastatin 40 mg daily. She will be scheduled to follow-up with Dr. Torres in the [facility] office next week. Postprocedural activity, restrictions, potential complications, medications and future follow up discussed at length. Patient verbalized an understanding. Provider FINAL REVIEW of Orders: Final Review: Final Review of Medication Reconciliation and Orders Completedby Physician Reviewing ProviderCharlie Desai MD at 21-May-2021 09:36:58 Appointments: Follow-Up Appointment 01: Physician/Dept/ServiceDr. Torres Reason for ReferralCardiology Hospital Follow Up Scheduled Date/Htut50-Awl-6992 12:40 [facility] Office Phone [phone] Electronic Signatures: Charlie Desai) (Signed 21-May-2021 09:36) Authored: Discharge Orders, Provider FINAL REVIEW of Orders Kayce Wallace (PRIMARY CARE NURSE PRACTITIONER-VARIETY SAW OPERATOR) (Signed 20-May-2021 15:19) Authored: Discharge Orders, Hospital Course (Home Care/Gold Form), Provider FINAL REVIEW of Orders, Appointments, Gold Form - Blind Stitch Machine Operator Summary Last Updated: 21-May-2021 09:36 by Charlie Desai) [facility] FFR/IVUSon 05-20-2021 FFR/IVUS [facility], School Operations Manager [address] [place] [address] Cardiovascular Catheterization Report Patient Name: KATHLEEN Reyes Performing [id number] [address] Odell SILAS Physician: Study Date: 05/20/2021 Verifying Physician: Chyna Odell MD MRN/PID: [id number] Office Clin Asst: Accession/Order#: [id number] Referring Physician: Chyna ODELL Date of : 1945 Referring Physician: Gender: F Referring Physician: Chyna Odell MD Admit Date: 05/20/2021 Fellow: Study: [...] Positive. Ischemic Risk: Intermediate. CTA performed: No. [facility] accessed: Yes. LVEF Assessed: Yes. LVEF = 60%. Procedure Description: After infiltration with 2% Lidocaine, the right femoral artery was cannulated with a modified Seldinger technique. Subsequently a 6 Lao sheath was placed in the right femoral [...] Physicia +------- (more content not included)... Normal [facility] Laboratory - Chemistry and C hemistry - challengeon 05-20-2021 Anion gap [Moles/Vol] 12 mmol/L 10 - 20 [place] [address] DO Work Phone: Calcium [Mass/Vol] 9.1 mg/dL 8.6 - 10.3 [place] [address] DO Work Phone: [phone] Chloride [Moles/Vol] 99 mmol/L 98 - 107 [place] [address] DO Work Phone: [phone] CO2 [Moles/Vol] 30 mmol/L 21 - 32 [place] [address] DO Work Phone: [phone] Creatinine [Mass/Vol] 0.64 mg/dL See Below [place] [address] DO Work Phone: [phone] Comment on above: Reference Range: 0.5 0 - 1.05 Glucose [Mass/Vol] 115 mg/dL above high threshold 74 - 99 [place] [address] DO Work Phone: [phone] Potassium [Moles/Vol] 3.9 mmol/L 3.5 - 5.3 [place] [address] DO Work Phone: [phone] Sodium [Moles/Vol] 137 mmol/L 136 - 145 [place] [address] DO Work Phone: [phone] Urea nitrogen [Mass/Vol] 14 mg/dL 6 - 23 [place] [address] DO Work Phone: [phone] Laboratory - Hematology and Cell countson 05-20-2021 Erythrocyte distribution width (RBC) [Ratio] 13.6 % See Below [facility] Nabil-Paloma Ma DO Work Phone: [phone] Comment on above: Reference Range: 11. 5 - 14.5 Hematocrit (Bld) [Volume fraction] 48.4 % above high threshold See Below [facility] Betty Ma DO Work Phone: [phone] Comment on above: Reference Range: 36. 0 - 46.0 Hemoglobin (Bld) [Mass/Vol] 15.2 g/dL See Below [facility] Work Phone: [phone] Comment on above: Reference Range: 12. 0 - 16.0 MCHC (RBC) [Mass/Vol] 31.4 g/dL below low threshold See Below [facility] Ma DO Work Phone: [phone] Comment on above: Reference Range: 32. 0 - 36.0 MCV (RBC) [Entitic vol] 98 fL 80 - 100 [facility] Work Phone: [phone] Platelets (Bld) [#/Vol] 266 10*3/uL 150 - 450 [facility] Work Phone: [phone] RBC (Bld) [#/Vol] 4.94 {x10E12/L} See Below [facility] Work Phone: [phone] Comment on above: Reference Range: 4.0 0 - 5.20 WBC (Bld) [#/Vol] 6.9 10*3/uL 4.4 - 11.3 [facility]oma Ma DO Work Phone: [phone] Panel Informationon 05-20 [email or web address] ?RetrieveTestByDateTime?P [email or web address]=[id number]&Date=0 11-23-2020&Time=10%3a37%3a 26%3a00&TestType=ECG&Site =11&OutputType=PDF&Ext=PD F [facility] Work Phone: Sinus bradycardia wi th sinus arrhythmia [facility] 305 DO Work Phone: [phone] Borderline Abnormal -[facility] 305 DO Work Phone: [phone] [facility] 305 DO Work Phone: [phone] [facility] 305 DO Work Phone: [phone] [facility] 305 DO Work Phone: [phone] [facility] 305 DO Work Phone: [phone] [facility] 305 DO Work Phone: [phone] [facility] 305 DO Work Phone: [phone] [facility] 305 DO Work Phone: [phone] [facility] 305 DO Work Phone: [phone] [facility] 305 DO Work Phone: [phone] [facility] 305 DO Work Phone: [phone] [facility] 305 DO Work Phone: [phone] [facility] 305 DO Work Phone: [phone] [facility] 305 DO Work Phone: [phone] [facility] 305 DO Work Phone: [phone] [facility] 305 DO Work Phone: [phone] >[phone] >60 [facility] 305 DO Work Phone: [phone] Comment on above: CALCULATIONS OF MICH MATED GFR ARE PERFORMED USING THE MDRD STUDY EQUATION FOR THE IDMS-TRACEABLE CREATININE METHODS. CLIN CHEM 2007;53:766-72 [email or web address] ?RetrieveTestByDateTime?P [id number]&Date=0 11-23-2020&Time=06%3a58%3a 23%3a00&TestType=ECG&Site =11&OutputType=PDF&Ext=PD F [facility] 305 DO Work Phone: Sinus bradycardia [facility] [facility] DO Work Phone: [phone] [facility] 305 DO Work Phone: [phone] [facility] 305 DO Work Phone: [phone] [facility] 305 DO Work Phone: [phone] [facility] 305 DO Work Phone: [phone] [facility] 305 DO Work Phone: [phone] [facility] 305 DO Work Phone: [phone] [facility] 305 DO Work Phone: [phone] [facility] 305 DO Work Phone: [phone] [facility] 305 DO Work Phone: [phone] [facility] 305 DO Work Phone: [phone] [facility] 305 DO Work Phone: [phone] [facility] 305 DO Work Phone: [phone] [facility] 305 DO Work Phone: [phone] [facility] 305 DO Work Phone: Order Reconciliationon 05-20 Order Reconciliation Page 1 Discharge Reconciliation Document Reconciliation Type: Discharge requested on behalf of Kayce Wallace (Advanced Practice Nurse) done by Kayce Wallace (PRIMARY CARE NURSE PRACTITIONER-[facility]) Discharge - Reconciliation: 20-May-2021 12:26 by: Kayce Wallace ([facility]) Home Medications EnteredHOME MEDICATIONS AT DISCHARGE DateReconciliation [...] cap(s) orally 2 times a day Normal [facility] Order Reconciliation Page 1 Admission Reconciliation Document Reconciliation Type: Observation requested on behalf of Kayce Wallace (Advanced Practice Nurse) done by Kayce Wallace (PRIMARY CARE NURSE PRACTITIONER-VARIETY SAW OPERATOR) Observation - Reconciliation: 20-May-2021 10:51 by: Kayce Wallace (PRIMARY CARE NURSE PRACTITIONER-VARIETY SAW OPERATOR) Home MedicationsEnteredLast Dose TakenReconciled with current Order Reconciliation Comment/ Additional Information aspirin 81 mg oral tablet 1 tab(s) orally once a [id number] 5:00 AM Reviewed and Held Calcium 600+D oral tablet 1 tab(s) orally 2 times a [id number] 5:00 AM Reviewed and Held clopidogrel 75 mg oral tablet 1 tab(s) orally once a [id number]-[id number]-May-2021 5:00 AM Reviewed and Held hydroCHLOROthiazide 12.5 mg oral capsule 1 cap(s) orally once a [id number]-[id number]-May-2021 5:00 AM hydroCHLOROthiazide Tablet (ESIDREX)DOSE = 12.5 [...] oral tablet 1 tab(s) orally once a [id number]-[id number] 9:00 PM Reviewed and Held Metoprolol Succinate ER 25 mg oral tablet, extended release 1 tab(s) orally once a inq74-[id number]-Ken-[id number] 5:00 AM Metoprolol Succinate Extended Release Tablet, Extended Release (TOPROL-XL)DOSE = 25 mg Oral DailyMetoprolol Succinate ER 25 mg oral tablet, extended release continued as the inpatient order Metoprolol Succinate Extended Release Vitamin D3 25 mcg (1000 intl units) oral capsule 1 cap(s) orally 2 times a day [id number] 5:00 AM Reviewed and Held Additional Current Orders Aspirin Chewable Tablet, ChewableDOSE = 81 mg Oral Daily Clopidogrel Tablet (PLAVIX)DOSE = 75 mg Oral Daily Sodium Chloride 0.9% Infusion IV Bag Volume = 1,000 mL Run at: 100 mL/hr IntraVenous Stop After 6 HoursClinician Notes: Post procedure Normal [facility] Patient Profile - Preop v3on 05-20-2021 Patient Profile - Preop v3 Patient Profile - Preop: Initial Info: Patient DemographicsName: KATHLEEN ROSEN Date: 1945 Address: [address] [place] [address] Primary Phone [phone] How to be AddressedSharon Spoken Language PreferredEnglish Source of Informationpatient Stated Reason for Admissionfor heart cath Primary Contact Name and NumberPam [phone] Patient Belongingsremains with patient Patient Belongings Remaining with Patientvision aids; cell phone/electronics; purse/wallet Medications Brought to Hospitalno General Health: Weight in kg109.2 kilogram(s) Weight in nok828.7 pound(s) Weight Methodactual (measured) Scale Typestanding Height in feet5 feet Height in inches1 inch(es) Height in cm154.9 centimeter(s) Height Methodstated BMI (kg/m2)45.511 square meter Patient or Family Member Reaction to Anesthesiano previous reaction Blood Avoidance/Restrictionsnon e Previous Transfusion Reactionno Health Mgmt: Symptoms/Conditions Managed at Homecardiovascular Cardiovascular Symptoms/Conditionshypert ension Barriers to Managing Healthnone Relationship/Environ: Lives Withother relative(s) Living Arrangementshouse Resource/Environmental Concernsnone Anticipated Transition Tovan meter Services Anticipated at Transitionnone Tobacco Use: Tobacco Useyes Tobacco Typecigarettes Last Tobacco [id number]-Hgd-9050 Number of Packs per Day1 Pre-op Checklist: Arrival [id number]-5569 Arrival Time05:53 Procedure Typefor heart cath NPOyes Last Food [id number]-Grt-4717 18:00 ID Band On Patientpatient ID (name), allergy, falls risk Consent Signedpending H&P Completepending Anesthesia Assessment Completedpending EKG Performedyes Chest X-Ray Performednot ordered Preop Antibioticsnot ordered Beta-kristina Last Dose Date/Bdtf14-Chh-0696 04:37 Type and Screen Resultedn/a HCG Urine TestN/A Chlorhexadine Bath Givennot applicable Nasal Antiseptic Appliednot applicable Soap and Water Bath the Night Before Surgerynot applicable Hair Washed with Shampoono SCD's Appliedno NITISH Hose Appliedno Additional Information: Information Review: Allergies, Home Meds and Significant Events have been Reviewed and Verified with Patient/Familyyes Allergy, Intolerance, Adverse Event: Allergies: [place]: Food, Facial Swelling, Rash, Active penicillin: Drug, Unknown, Active Electronic Signatures: Marianela Magaña) (Signed 20-May-2021 06:39) Authored: Initial Info, General Health, Health Mgmt, Relationship/Environ, Tobacco Use, Pre-op Checklist, Additional Information Last Updated: 20-May-2021 06:39 by Marianela Magaña) Normal [facility] Office Visit (Cardiac Surger y)on 05-04-2021 Follow-up [...] and that was the recommendation of the [facility] group, since he works with Dr. Cintron in the [facility] heart group. Dr. Odell reviewed the films [...] vs CABG. Referring provider: Dr. Aneudy Torres. AGUSTÍN PalomoN, RN. Adult Risk ScreeningThere are no spiritual/cultural [...] CHIP meeting which is attended by several teacher counselor and surgeons. Interestingly, it was the consensus [...] or to have her restudy by the [facility] group, with possible IVUS or FFR of [...] Sincerely, Sign (more content not included)... Normal [facility] Office Visit (Cardiac Surger y)on 04-20-2021 Follow-up [...] CHIP meeting which is a meeting with teacher counselor and surgeons about complex revascularization. In looking [...] following a referral by Dr. Aneudy Torres. CHRISTOPH Palomo, RN Adult Risk ScreeningThere are no spiritual/cultural [...] our visit, she had been walking in [facility], with no difficulty and no limitations. She [...] HPI. Re (more content not included)... Normal [facility] Blood Urea Nitrogenon 2020 Urea nitrogen [Mass/Vol] 16 mg/dL Normal 9-23 [facility] Comment on above: Performed By: #### P P, BUN, LYTES, CBC, CREAT, LIPID #### [facility] [address] COVID-19 Antigenon 1 COVID-19 Antigen Healthcare Worker?: N Reji Reference Reji Reference Negative SARS-CoV+SARS-CoV-2 (COVID-19) Ag [Presence] in Respiratory specimen by Rapid immunoassay Negative for SARS Antigen by JEA NCLAUDE COVID19 Blank Space ---- Reji Disclaimer Negative [...] This test was developed and its performance Rjei Disclaimer characteristic determined by [employer] and Reji Disclaimer validated at [facility]. This Reji Disclaimer test has [...] Emergency Use Authorization for Coronavirus Reji Disclaimer iseas during the Public Health Emergency) Reji Disclaimer [...] is terminated or revoked sooner. PERFORMED BY: [place] [address] PATHOLOGIST FINANCE VICE PRESIDENT IVAN NOBLES M.D. Normal [facility] Comment on above: Performed By: #### C OVID-19 REJI, SOFIANEG #### [address] Coagulation Profileon 2020 aPTT Coag (Bld) [Time] 33.3 s Normal 25.1-36.5 [facility] Comment on above: Result Comment: PERF ORMED BY: [place] [address] PATHOLOGIST FINANCE VICE PRESIDENT IVAN NOBLES M.D. Performed By: #### P P, BUN, LYTES, CBC, CREAT, LIPID #### [address] INR Coag (PPP) [Relative time] 1.1 {INR} Normal [facility] Comment on above: Result Comment: [...] P, BUN, LYTES, CBC, CREAT, LIPID #### [address] PT Coag (PPP) [Time] 12.6 s Normal 9.0-12.9 [facility] Comment on above: Performed By: #### P P, BUN, LYTES, CBC, CREAT, LIPID #### [address] Complete Blood Count Auto Di ffon 03-09-2021 Basophils (Bld) [#/Vol] 0.1 10*3/uL Normal 0.0-0.2 [facility] Comment on above: Result Comment: PERF ORMED BY: [place] [address] PATHOLOGIST FINANCE VICE PRESIDENT IVAN NOBLES M.D. Performed By: #### P P, BUN, LYTES, CBC, CREAT, LIPID #### [address] Basophils/100 WBC (Bld) 0.8 % Normal . [facility] Comment on above: Performed By: #### P P, BUN, LYTES, CBC, CREAT, LIPID #### [address] Eosinophils (Bld) [#/Vol] 0.2 10*3/uL Normal 0.0-0.45 [facility] Comment on above: Performed By: #### P P, BUN, LYTES, CBC, CREAT, LIPID #### [address] Eosinophils/100 WBC (Bld) 3.7 % Normal . [facility] Comment on above: Performed By: #### P P, BUN, LYTES, CBC, CREAT, LIPID #### [address] Erythrocyte distribution width (RBC) [Ratio] 15.1 % Normal 11.9-15.3 [facility] Comment on above: Performed By: #### P P, BUN, LYTES, CBC, CREAT, LIPID #### [address] Hematocrit (Bld) [Volume fraction] 47.4 % High 34.0-46.4 [facility] Comment on above: Performed By: #### P P, BUN, LYTES, CBC, CREAT, LIPID #### [address] Hemoglobin (Bld) [Mass/Vol] 15.9 g/dL High 11.8-15.4 [facility] Comment on above: Performed By: #### P P, BUN, LYTES, CBC, CREAT, LIPID #### [address] Lymphocytes (Bld) [#/Vol] 2.2 10*3/uL Normal 1.00-4.8 [facility] Comment on above: Performed By: #### P P, BUN, LYTES, CBC, CREAT, LIPID #### [address] Lymphocytes/100 WBC (Bld) 34.3 % Normal . [facility] Comment on above: Performed By: #### P P, BUN, LYTES, CBC, CREAT, LIPID #### [address] MCH (RBC) [Entitic mass] 31.2 pg Normal 24.7-34.3 [facility] Comment on above: Performed By: #### P P, BUN, LYTES, CBC, CREAT, LIPID #### [address] MCV (RBC) [Entitic vol] 93.0 fL Normal 80-100 [facility] Comment on above: Performed By: #### P P, BUN, LYTES, CBC, CREAT, LIPID #### [address] Mean Corpuscular HGB Conc 33.5 g/dL Normal 32.0-35.0 [facility] Comment on above: Performed By: #### P P, BUN, LYTES, CBC, CREAT, LIPID #### [address] Monocytes (Bld) [#/Vol] 0.4 10*3/uL Normal 0.0-0.8 [facility] Comment on above: Performed By: #### P P, BUN, LYTES, CBC, CREAT, LIPID #### [address] Monocytes/100 WBC (Bld) 6.1 % Normal . [facility] Comment on above: Performed By: #### P P, BUN, LYTES, CBC, CREAT, LIPID #### [address] Neutrophils (Bld) [#/Vol] 3.6 10*3/uL Normal 1.8-7.7 [facility] Comment on above: Performed By: #### P P, BUN, LYTES, CBC, CREAT, LIPID #### [address] Neutrophils/100 WBC (Bld) 55.1 % Normal . [facility] Comment on above: Performed By: #### P P, BUN, LYTES, CBC, CREAT, LIPID #### [address] Nucleated RBC/100 WBC (Bld) [Ratio] 0.0 % Normal 0-0.5 [facility] Comment on above: Performed By: #### P P, BUN, LYTES, CBC, CREAT, LIPID #### [address] Platelet mean volume (Bld) [Entitic vol] 7.4 fL Normal 6.3-10.7 [facility] Comment on above: Performed By: #### P P, BUN, LYTES, CBC, CREAT, LIPID #### [address] Platelets (Bld) [#/Vol] 275 10*3/uL Normal 150-450 [facility] Comment on above: Performed By: #### P P, BUN, LYTES, CBC, CREAT, LIPID #### [address] RBC (Bld) [#/Vol] 5.10 10*6/uL High 3.60-5.00 [facility] Comment on above: Performed By: #### P P, BUN, LYTES, CBC, CREAT, LIPID #### [address] WBC (Bld) [#/Vol] 6.5 10*3/uL Normal 4.5-11.0 [facility] Comment on above: Performed By: #### P P, BUN, LYTES, CBC, CREAT, LIPID #### [address] Creatinineon 03-09-2021 Creatinine [Mass/Vol] 0.71 mg/dL Normal 0.44-1.03 [facility] Comment on above: Performed By: #### P P, BUN, LYTES, CBC, CREAT, LIPID #### [address] Creatinine Clr Calc Pharmacy 73.02 [facility] Comment on above: Performed By: #### P P, BUN, LYTES, CBC, CREAT, LIPID #### [address] Estimated GFR ( Sheela > 60 [facility] Comment on above: Result Comment: GFR estimated reference range: According to KDOQI guidelines, <60 ml/min/1.73m2 is sufficient to diagnose a patient with chronic kidney disease. Performed By: #### P P, BUN, LYTES, CBC, CREAT, LIPID #### [address] Estimated GFR (Non- Am > 60 Normal [facility] Comment on above: Performed By: #### P P, BUN, LYTES, CBC, CREAT, LIPID #### [address] Electrolyteson 03-09-2021 Chloride [Moles/Vol] 97 mmol/L Normal 95-114 [facility] Comment on above: Performed By: #### P P, BUN, LYTES, CBC, CREAT, LIPID #### [address] CO2 [Moles/Vol] 28.0 mmol/L Normal 22.0-30.0 [facility] Comment on above: Performed By: #### P P, BUN, LYTES, CBC, CREAT, LIPID #### [address] Potassium [Moles/Vol] 3.9 mmol/L Normal 3.5-5.1 [facility] Comment on above: Performed By: #### P P, BUN, LYTES, CBC, CREAT, LIPID #### [address] Sodium [Moles/Vol] 137 mmol/L Normal 136-146 [facility] Comment on above: Performed By: #### P P, BUN, LYTES, CBC, CREAT, LIPID #### [address] Lipid Panelon 03-09-2021 Cholesterol [Mass/Vol] 147 mg/dL Normal 140-200 [facility] Comment on above: Result Comment: Chol less than 200 mg/dl low risk Chol 201-239 mg/dl borderline risk Chol 240 mg/dl and greater high risk Performed By: #### P P, BUN, LYTES, CBC, CREAT, LIPID #### [facility] [address] Cholesterol in HDL [Mass/Vol] 43 mg/dL Normal 35-85 [facility] Comment on above: Result Comment: HDL CHOL ATP-III CLASSIFICATION Cardiovascular Risk HDL > or equal to 60 mg/dL LOW HDL < 40 mg/dL HIGH Performed By: #### P P, BUN, LYTES, CBC, CREAT, LIPID #### [facility] [address] Cholesterol.total/C holesterol in HDL [Mass ratio] 3.4 {ratio} Normal <5.0 [facility] Comment on above: Result Comment: PERF ORMED BY: [place] [address] PATHOLOGIST FINANCE VICE PRESIDENT IVAN NOBLES M.D. Performed By: #### P P, BUN, LYTES, CBC, CREAT, LIPID #### [address] LDL Cholesterol,Calcula nitish 81 mg/dL Normal 0-100 [facility] Comment on above: Result Comment: LDL ATP III CLASSIFICATION LDL less than 100 mg/dL Optimal LDL 100-129 mg/dL Near or above optimal LDL 130-159 mg/dL Borderline high LDL 160-189 mg/dL High LDL greater than 189 mg/dL Very high Performed By: #### P P, BUN, LYTES, CBC, CREAT, LIPID #### [address] Triglyceride w/Reflex 117 mg/dL Normal 35-149 [facility] Comment on above: Result Comment: TRIG ATP III CLASSIFICATION TRIG less than 150 mg/dL Normal TRIG 150-199 mg/dL Borderline high TRIG 200-500 mg/dL High TRIG greater than 500 mg/dL Very high Standard traceable to the Center for Disease Conrtrol and Prevention (CDC) test method. Performed By: #### P P, BUN, LYTES, CBC, CREAT, LIPID #### [address] VLDL CHOLESTEROL 23 mg/dL Normal [facility] Comment on above: Performed By: #### P P, BUN, LYTES, CBC, CREAT, LIPID #### [facility] [address] Reji Ag Negativeon 03-09-20 21 Reji Ag Negative Negative Normal Negative [facility] Comment on above: Result Comment: This is a duplicate Reji SARS Antigen (JEAN CLAUDE) result to be used for statistical tracking purpose only. PERFORMED BY: [place] [address] PATHOLOGIST FINANCE VICE PRESIDENT IVAN NOBLES M.D. Performed By: #### C OVID-19 REJI, SOFIANEG #### [facility] [address] Vital Signs Date Time Vital Sign Value Performing Clinician Facility 09-17-2024 09:41-0500 Body height 170.18 cm [facility] 09-17-2024 09:41-0500 Body mass index (BMI) [Ratio] 37.6 kg/m2 [facility] 09-17-2024 09:41-0500 Body weight 109.08 kg [facility] 09-17-2024 09:41-0500 Diastolic blood pressure 66 mm[Hg] [facility] 09-17-2024 09:41-0500 Heart rate 66 /min [facility] 09-17-2024 09:41-0500 Respiratory rate 12 /min [facility] 09-17-2024 09:41-0500 Systolic blood pressure 120 mm[Hg] [facility] 05-08-2024 15:44-0400 Body height 152.4 cm Miriam Seo MD Work Phone: [facility] 05-08-2024 15:44-0400 Body mass index (BMI) [Ratio] 44.14 kg/m2 Miriam Seo MD Work Phone: [facility] 05-08-2024 15:44-0400 Body weight 102.51 kg Miriam Seo MD Work Phone: [facility] 05-08-2024 15:44-0400 Diastolic blood pressure 60 mm[Hg] Miriam Seo MD Work Phone: [facility] 05-08-2024 15:44-0400 Heart rate 78 /min Miriam Seo MD Work Phone: [facility] 05-08-2024 15:44-0400 Systolic blood pressure 98 mm[Hg] Miriam Seo MD Work Phone: [facility] 09-14-2022 10:30-0500 Body height 170.18 cm Isrrael Ball Other [facility] Other 09-14-2022 10:30-0500 Body mass index (BMI) [Ratio] 37.99 kg/m2 Isrrael Ball Other [facility] Other 09-14-2022 10:30-0500 Body weight 110.04 kg Isrrael Ball Other [facility] Other 09-14-2022 10:30-0500 Diastolic blood pressure 80 mm[Hg] Isrrael Ball Other [facility] Other 09-14-2022 10:30-0500 Respiratory rate 12 /min Isrrael Ball Other [facility] Other 09-14-2022 10:30-0500 Systolic blood pressure 130 mm[Hg] Isrrael Ball Other [facility] Other 05-09-2022 14:18-0400 Body temperature 97.81 [degF] GOKUL Mosqueda MD Work Phone: [facility] 05-09-2022 14:18-0400 Body weight 111.49 kg GOKUL Mosqueda MD Work Phone: [facility] 05-09-2022 14:18-0400 Diastolic blood pressure 78 mm[Hg] GOKUL Mosqueda MD Work Phone: [facility] 05-09-2022 14:18-0400 Heart rate 60 /min GOKUL Mosqueda MD Work Phone: [facility] 05-09-2022 14:18-0400 Respiratory rate 16 /min GOKUL Mosqueda MD Work Phone: [facility] 05-09-2022 14:18-0400 SaO2% (BldA) [Mass fraction] 92 % GOKUL Mosqueda MD Work Phone: [facility] 05-09-2022 14:18-0400 Systolic blood pressure 141 mm[Hg] GOKUL Mosqueda MD Work Phone: [facility] 04-18-2022 14:07-0400 Body temperature 96.91 [degF] GOKUL Mosqueda MD Work Phone: [facility] 04-18-2022 14:07-0400 Body weight 109.77 kg GOKUL Mosqueda MD Work Phone: [facility] 04-18-2022 14:07-0400 Diastolic blood pressure 67 mm[Hg] GOKUL Mosqueda MD Work Phone: [facility] 04-18-2022 14:07-0400 Heart rate 55 /min GOKUL Mosqueda MD Work Phone: [facility] 04-18-2022 14:07-0400 Respiratory rate 16 /min GOKUL Mosqueda MD Work Phone: [facility] 04-18-2022 14:07-0400 SaO2% (BldA) [Mass fraction] 57 % GOKUL Mosqueda MD Work Phone: [facility] 04-18-2022 14:07-0400 Systolic blood pressure 138 mm[Hg] GOKUL Mosqueda MD Work Phone: [facility] 04-03-2022 10:21-0400 Body temperature 97.11 [degF] GOKUL Mosqueda MD Work Phone: [facility] 04-03-2022 10:21-0400 Body weight 107.05 kg GOKUL Mosqueda MD Work Phone: [facility] 04-03-2022 10:21-0400 Diastolic blood pressure 84 mm[Hg] GOKUL Mosqueda MD Work Phone: [facility] 04-03-2022 10:21-0400 Heart rate 62 /min GOKUL Mosqueda MD Work Phone: [facility] 04-03-2022 10:21-0400 Respiratory rate 16 /min GOKUL Mosqueda MD Work Phone: [facility] 04-03-2022 10:21-0400 SaO2% (BldA) [Mass fraction] 91 % GOKUL Mosqueda MD Work Phone: [facility] 04-03-2022 10:21-0400 Systolic blood pressure 144 mm[Hg] GOKUL Mosqueda MD Work Phone: [facility] 03-21-2022 10:35-0400 Body temperature 97.39 [degF] GOKUL Mosqueda MD Work Phone: [facility] 03-21-2022 10:35-0400 Body weight 108.86 kg GOKUL Mosqueda MD Work Phone: [facility] 03-21-2022 10:35-0400 Diastolic blood pressure 75 mm[Hg] GOKUL Mosqueda MD Work Phone: [facility] 03-21-2022 10:35-0400 Heart rate 66 /min GOKUL Mosqueda MD Work Phone: [facility] 03-21-2022 10:35-0400 Respiratory rate 18 /min GOKUL Mosqueda MD Work Phone: [facility] 03-21-2022 10:35-0400 SaO2% (BldA) [Mass fraction] 92 % GOKUL Mosqueda MD Work Phone: [facility] 03-21-2022 10:35-0400 Systolic blood pressure 128 mm[Hg] GOKUL Mosqueda MD Work Phone: [facility] 03-16-2022 10:08-0400 Body temperature 96.91 [degF] [facility] Work Phone: [facility] 03-16-2022 10:08-0400 Diastolic blood pressure 78 mm[Hg] [facility] [place] Work Phone: [facility] 03-16-2022 10:08-0400 Heart rate 67 /min [facility] [place] Work Phone: [facility] 03-16-2022 10:08-0400 Respiratory rate 18 /min [facility] [place] Work Phone: [facility] 03-16-2022 10:08-0400 SaO2% (BldA) [Mass fraction] 91 % [facility] Work Phone: [facility] 03-16-2022 10:08-0400 Systolic blood pressure 131 mm[Hg] [facility] Work Phone: [facility] 03-13-2022 10:19-0400 Body temperature 97.11 [degF] GOKUL Mosqueda MD Work Phone: [facility] 03-13-2022 10:19-0400 Body weight 113.31 kg GOKUL Mosqueda MD Work Phone: [facility] 03-13-2022 10:19-0400 Heart rate 69 /min GOKUL Mosqueda MD Work Phone: [facility] 03-13-2022 10:19-0400 Respiratory rate 18 /min GOKUL Mosqueda MD Work Phone: [facility] 03-13-2022 10:19-0400 SaO2% (BldA) [Mass fraction] 92 % GOKUL Mosqueda MD Work Phone: [facility] 03-07-2022 10:22-0400 Body temperature 97.59 [degF] Lavon Mckinnon MD Work Phone: [facility] 03-07-2022 10:22-0400 Body weight 112.49 kg Lavon Mckinnon MD Work Phone: [facility] 03-07-2022 10:22-0400 Diastolic blood pressure 68 mm[Hg] Lavon Mckinnon MD Work Phone: [facility] 03-07-2022 10:22-0400 Heart rate 61 /min Lavon Mckinnon MD Work Phone: [facility] 03-07-2022 10:22-0400 Respiratory rate 16 /min Lavon Mckinnon MD Work Phone: [facility] 03-07-2022 10:22-0400 SaO2% (BldA) [Mass fraction] 93 % Lavon Mckinnon MD Work Phone: [facility] 03-07-2022 10:22-0400 Systolic blood pressure 160 mm[Hg] Lavon Mckinnon MD Work Phone: [facility] 01-31-2022 09:49-0400 Body height 152.4 cm GOKUL Mosqueda MD Work Phone: [facility] 01-31-2022 09:49-0400 Body temperature 97.3 [degF] GOKUL Mosqueda MD Work Phone: [facility] 01-31-2022 09:49-0400 Body weight 112.04 kg GOKUL Mosqueda MD Work Phone: [facility] 01-31-2022 09:49-0400 Diastolic blood pressure 70 mm[Hg] GOKUL Mosqueda MD Work Phone: [facility] 01-31-2022 09:49-0400 Heart rate 67 /min GOKUL Mosqueda MD Work Phone: [facility] 01-31-2022 09:49-0400 SaO2% (BldA) [Mass fraction] 95 % GOKUL Mosqueda MD Work Phone: [facility] 01-31-2022 09:49-0400 Systolic blood pressure 112 mm[Hg] GOKUL Mosqueda MD Work Phone: [facility] 12-06-2021 10:31-0400 Body height 154.94 cm Isrrael E Ball Work Phone: [facility] 250 DO Work Phone: 12-06-2021 10:31-0400 Body mass index (BMI) [Ratio] 48.18 kg/m2 Isrrael E Ball Work Phone: [facility] 250 DO Work Phone: 12-06-2021 10:31-0400 Body surface area Derived from formula 2.09 m2 Isrrael Elena Ball Work Phone: [facility] 250 DO Work Phone: 12-06-2021 10:31-0400 Body weight 115.67 kg Isrrael Elena Ball Work Phone: [facility] 250 DO Work Phone: 12-06-2021 10:31-0400 Diastolic blood pressure 66 mm[Hg] Isrrael Elena Ball Work Phone: [facility] 250 DO Work Phone: 12-06-2021 10:31-0400 Heart rate 66 /min Isrrael E Ball Work Phone: [facility] 250 DO Work Phone: 12-06-2021 10:31-0400 Systolic blood pressure 108 mm[Hg] Isrrael Elena Ball Work Phone: [facility] 250 DO Work Phone: 05-26-2021 13:21-0500 Diastolic blood pressure 78 mm[Hg] Referring Provider Unknown [facility] 250 DO Work Phone: 05-26-2021 13:21-0500 Systolic blood pressure 132 mm[Hg] Referring Provider Unknown [facility] 250 DO Work Phone: 05-26-2021 12:47-0500 Body height 154.94 cm Referring Provider Unknown [facility] 250 DO Work Phone: 05-26-2021 12:47-0500 Body mass index (BMI) [Ratio] 45.91 kg/m2 Referring Provider Unknown [facility] 250 DO Work Phone: 05-26-2021 12:47-0500 Body surface area Derived from formula 2.05 m2 Referring Provider Unknown [facility] 250 DO Work Phone: 05-26-2021 12:47-0500 Body weight 110.22 kg Referring Provider Unknown [facility] 250 DO Work Phone: 05-26-2021 12:47-0500 Diastolic blood pressure 73 mm[Hg] Referring Provider Unknown [facility] 250 DO Work Phone: 05-26-2021 12:47-0500 Heart rate 57 /min Referring Provider Unknown [facility] 250 DO Work Phone: 05-26-2021 12:47-0500 Systolic blood pressure 149 mm[Hg] Referring Provider Unknown [facility] 250 DO Work Phone: Encounters Encounter Date Encounter Type Care Provider Facility Start: 09-17-2024 End: 09-17-2024 ambulatory [facility] Work Phone: Start: 09-17-2024 End: 09-17-2024 Patient encounter procedure [facility] Work Phone: Start: 09-14-2024 Patient encounter procedure [facility] Start: 05-08-2024 End: 05-08-2024 Office outpatient visit 25 minutes Miriam Seo MD Work Phone: [facility] Comment on above: Multiple vessel nicole nary artery disease (Primary Dx); Shortness of breath; Mixed hyperlipidemia; Essential hypertension; BMI 40.0-44.9, adult (Multi); Chronic obstructive pulmonary disease, unspecified COPD type (Multi) Start: 05-08-2024 End: 05-08-2024 ambulatory [facility] Start: 03-26-2023 End: 03-26-2023 ambulatory Isrrael Pranav Other [facility] Other Start: 03-26-2023 Telephone encounter Isrrael LARA [facility] Start: 10-05-2022 End: 10-06-[address] ISRRAEL HOWARD Facility: Start: 09-28-2022 End: 09-28-2022 ambulatory Isrrael Howard Other [facility] Other Start: 09-28-2022 Telephone encounter Isrrael LARA [facility] Start: 09-14-2022 End: 09-14-2022 ambulatory Isrrael Howard Other [facility] Other Start: 09-14-2022 Patient encounter procedure Isrrael Howard [facility] Pranav [facility] Start: 09-11-2022 End: 09-11-2022 ambulatory Isrrael Howard Other [facility] Other Start: 09-11-2022 Telephone encounter Isrrael LARA [facility] Start: 05-09-2022 End: 05-09-2022 ambulatory Lauren MOSQUEDA Facility[facility] Start: 05-09-2022 End: 05-09-2022 Patient encounter procedure [...] Start: 04-06-2022 End: 04-06-2022 ambulatory Lauren MOSQUEDA Facility:[facility] Start: 04-05-2022 End: 04-05-2022 ambulatory ASHLY WATERS Facility:[facility] Start: 04-04-2022 End: 04-04-2022 ambulatory Lauren MOSQUEDA Facility:[facility] Start: 04-03-2022 End: 04-03-2022 ambulatory Lauren MOSQUEDA Facility:[facility] Start: 04-03-2022 End: 04-03-2022 Patient encounter procedure Lauren Mosqueda MD Work Phone: Radiation Oncology Comment on above: 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) Start: 03-31-2022 End: 03-31-2022 ambulatory ASHLY WATERS Facility:[facility] Start: 03-31-2022 End: 03-31-[address] Work Phone: [facility] Start: 03-31-2022 End: 03-31-20[address] Nutrition therapy [address] RD Work Phone: Nutrition Therapy Comment on above: Nutrition Counseling Start: 03-30-2022 End: 03-30-2022 ambulatory Lauren MOSQUEDA Facility:[facility] Start: 03-29-2022 End: 03-29-2022 ambulatory Lauren MOSQUEDA Facility:[facility] Start: 03-28-2022 Rx Renewal Isrrael reyes Work Phone: [facility] 250 DO Work Phone: Start: 03-28-2022 End: 03-28-2022 ambulatory Lauren MOSQUEDA Facility:[facility] Start: 03-27-2022 End: 03-27-2022 ambulatory Lauren MOSQUEDA Facility:[facility] Start: 03-24-2022 End: 03-24-2022 ambulatory Lauren MOSQUEDA Facility:[facility] Start: 03-23-2022 End: 03-24-[address] Work Phone: [facility] Start: 03-23-2022 End: 03-23-2022 Nutrition therapy Ashly Waters RD Work Phone: Nutrition Therapy Comment on above: Nutrition Assessment Start: 03-22-2022 End: 03-22-2022 ambulatory Lauren MOSQUEDA Facility:[facility] Start: 03-21-2022 End: 03-21-2022 ambulatory Lauren MOSQUEDA Facility:[facility] Start: 03-21-2022 End: 03-21-2022 Patient encounter procedure Lauren Mosqueda MD Work Phone: Radiation Oncology Comment on above: 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) Start: 03-17-2022 End: 03-17-2022 ambulatory Lauren MOSQUEDA Facility:[facility] Start: 03-16-2022 End: 03-16-2022 Patient encounter procedure [facility] Work Phone: Rad[facility] On[facility] Comment on above: Cough productive of yellow sputum (Primary Dx); Rhinitis, unspecified type Start: 03-16-2022 End: 03-16-[address] Work Phone: [facility] Start: 03-16-2022 End: 03-16-[address] RD Work Phone: Nutrition Therapy Comment on above: Nutrition Assessment Start: 03-15-2022 End: 03-15-2022 ambulatory Lauren FANGNICK Facility[facility] Start: 03-14-2022 End: 03-14-2022 ambulatory Lauren PABONR Facility:[facility] Start: 03-13-2022 End: 03-13-2022 ambulatory Lauren PABONR Facility:[facility] Start: 03-13-2022 End: 03-13-2022 Patient encounter procedure Lauren Mosqueda MD Work Phone: Radiation Oncology Comment on above: 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) Start: 03-10-2022 End: 03-10-2022 ambulatory Lauren PABONR Facility:[facility] Start: 03-09-2022 End: 03-09-2022 ambulatory Lauren PABONR Facility:[facility] Start: 03-08-2022 End: 03-08-2022 ambulatory Lauren PABONR Facility:[facility] Start: 03-07-2022 End: 03-07-2022 ambulatory LAVON MCKINNON Facility:[facility] Start: 03-07-2022 End: 03-07-2022 Patient encounter procedure Lavon Mckinnon MD Work Phone: Radiation Oncology Comment on above: 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) Start: 03-06-2022 End: 03-06-[address] Work Phone: [facility] Start: 03-06-2022 End: 03-06-20[address] therapy [address] RD Work Phone: Nutrition Therapy Comment on above: Nutrition Counseling Start: 03-03-2022 End: 03-03-2022 ambulatory Lauren PABONR Facility:[facility] Start: 03-02-2022 End: 03-02-2022 ambulatory G LV FANGMADIR Facility:[facility] Start: 03-01-2022 End: 03-01-2022 ambulatory G LV PABONR Facility:[facility] Start: 02-28-2022 End: 02-28-2022 ambulatory G LV FANGMADIR Facility[facility] Start: 02-27-2022 End: 02-27-2022 ambulatory Lauren MOSQUEDA Facility:[facility] Start: 02-20-2022 End: 02-21-2022 ambulatory Ashly Waters [...] Start: 02-17-2022 End: 02-17-2022 ambulatory Lauren MOSQUEDA Facility[facility] Start: 02-17-2022 End: 02-17-2022 Subsequent hospital visit by physician Arrival Time Radiology Work Phone: Radiology Pet CT Comment on above: Malignant neoplasm o f glottis (HCC) [C32.0] Start: 02-03-2022 Patient encounter procedure [facility] Provider [facility] Department Start: 01-31-2022 End: 01-31-2022 ambulatory Yovanny Grissom LPN Rad[facility] Comment on above: Patient Education Start: 01-31-2022 End: 01-31-2022 Patient encounter procedure Lauren Mosqueda MD Work Phone: Radiation Oncology Comment on above: 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) Start: 01-19-2022 Encounter for preprocedural cardiovascular examination DR ASAF PATRICIA [facility] Start: 01-19-2022 Encounter for preprocedural laboratory examination DR ASAF PATRICIA [facility] Start: 01-18-2022 Rx Renewal Isrrael reyes Work Phone: [facility] 250 DO Work Phone: Start: 01-17-2022 End: 01-17-[address] ASAF PATRICIA Facility:[facility] Start: 01-12-2022 End: 01-13-[address] ASAF PATRICIA Facility:[facility] Start: 01-12-2022 End: 01-13-2022 Encounter for preprocedural cardiovascular examination DR ASAF PATRICIA Facility:[facility] Start: 12-08-2021 Message Isrrael reyes Work Phone: [facility] 250 DO Work Phone: Start: 12-06-2021 Office outpatient vi sit 25 minutes Isrrael Elena Pranav Work Phone: [facility] 250 DO Work Phone: Start: 08-20-2021 End: 08-20-2021 Pre-procedure evaluation check Isrrael Howard Other [facility] Other Start: 07-12-2021 Adult health examination Js min Pranav Other [facility] Other Start: 05-26-2021 Office outpatient vi sit 15 minutes Referring Provider Unknown [facility] 250 DO Work Phone: Start: 05-21-2021 Chart Update Referring Prov ider Unknown [facility] 305 DO Work Phone: Start: 05-05-2021 Telephone encounter Referring Provider Unknown [facility] 250 DO Work Phone: Start: 05-04-2021 Office consultation new/estab patient 80 min Referring Provider Unknown [facility] 1800 Work Phone: Patient encounter status Referri ng Provider Unknown [facility] 305 DO Work Phone: End: 05-26-2021 Patient encounter status Referring Provider Unknown [facility] 250 DO Work Phone: Procedures Date Procedure Procedure Detail Performing Clinician Start: 05-08-2024 Ecg routine ecg w/le ast 12 lds w/i&r Motito Seo MD Work Phone: Start: 02-17-2022 Ct soft tissue neck w/o contrast material G Lv Mosqueda MD Work Phone: Start: 04-06-2021 Follow-up visit Start: 06-25-2014 Screening for osteoporosis Isrrael Howard Other Start: 06-25-2014 Screening mammography B enjs [facility] Other Appendectomy Referring Provi melody Unknown Cholecystectomy Referring Pr ovider Unknown Colonoscopy Referring Provi melody Unknown Comment [...] Treatment Date Care Activity Detail Author Start: 04-09-2025 Echocardiography E[facility] Start: 01-02-2025 End: 01-02-2025 Patient encounter procedure 01/02/2025 10:30 AM EDT Office Visit [facility] [address] [id number] Miriam Seo MD [address] [facility] [address] [place], [place] [id number] [facility] Start: 03-16-2024 Covid-19 Vaccine ( season) Covid-19 Vaccine ( season) [facility] Start: 03-16-2024 Influenza vaccination Influenza Vacc ine (#1) [facility] Start: 07-16-2023 Advance Directive Discussion Advance Directive Discussion [facility] Start: 10-30-2022 RSV High Risk: (Elde rly (60+) or Population) (1 - 1-dose 75+ series) RSV High Risk: (Elderly (60+) or Population) (1 - 1-dose 75+ series) [facility] Start: 10-30-2022 RSV Vaccine (1 - 1-d ose 75+ series) RSV Vaccine (1 - 1-dose 75+ series) [facility] Start: 07-21-2022 FUV, Provider: Aneudy Torres, Status: Pen, Time: 3:20 PM FUV, Provider: Aneudy Torres, Status: Pen, Time: 3:20 PM [facility] 250 DO Work Phone: Start: 05-21-2022 Creatinine measurement Creatinine Le maxime [facility] Start: 05-21-2022 Potassium measurement Potassium Leve l [facility] Start: 05-09-2022 End: 07-09-2022 Thyrotropin [Units/volume] in Serum or Plasma TSH BLD Lab Routine Malignant neoplasm of glottis (HCC) Expected: 05/09/2022, Expires: 07/09/2022 [facility] Work Phone: Comment on above: Expected: 05/09/2022 , Expires: 07/09/2022 Start: 05-09-2022 End: 07-09-2022 Thyroxine (T4) [Mass/volume] in Serum or Plasma T4/THYROXINE BLOOD Lab Routine Malignant neoplasm of glottis (HCC) Expected: 05/09/2022, Expires: 07/09/2022 [facility] Work Phone: Comment on above: Expected: 05/09/2022 , Expires: 07/09/2022 Start: 03-16-2022 Influenza vaccination INFLUENZA (#1) [facility] Start: 12-06-2021 FUV, Provider: Aneudy Torres, Status: Dejuan, Time: 10:40 AM FUV, Provider: Aneudy Torres, Status: Dejuan, Time: 10:40 AM [facility] 250 DO Work Phone: Start: 07-16-2021 ADVANCE DIRECTIVE DISCUSSION ADVANCE DIRECTIVE DISCUSSION [facility] Start: 01-01-2022 DEPRESSION ASSESSMENT DEPRESSION ASS ESSMENT [facility] Start: 05-26-2021 FUV, Provider: Aneudy Torres, Status: Pen, Time: 12:40 PM FUV, Provider: Aneudy Torres, Status: Pen, Time: 12:40 PM -[facility] 305 DO Work Phone: Start: 05-20-[address]21 [facility], Provider: Nicolas Odell, Status: Pen, Time: 12:[address] [facility], Provider: Nicolas Odell, Status: Pen, Time: 12:00 PM [facility] 250 DO Work Phone: Start: 01-25-2021 COVID-19 VACCINE (2 - Booster for Sendy series) COVID-19 VACCINE (2 - Booster for Sendy series) [facility] Start: 07-16-2016 Pneumococcal Vaccine : 65+ (2 of 2 - PCV) Pneumococcal Vaccine: 65+ (2 of 2 - PCV) [facility] Start: 05-17-2013 DTaP/Tdap/Td Vaccine s (1 - Tdap) DTaP/Tdap/Td Vaccines (1 - Tdap) [facility] Start: 10-30-2012 BONE DENSITY BONE DENSITY [facility] Start: 10-30-2012 Screening for osteoporosis Bone Dens ity Screening [facility] Start: 10-30-1997 Influenza vaccination LUNG CANCER SC REENING [facility] Start: 10-30-1997 SHINGRIX VACCINE (1 of 2) NAZARIO GRIX VACCINE (1 of 2) [facility] Start: 10-30-1997 Zoster Vaccines (1 of 2) Zoste r Vaccines (1 of 2) [facility] Start: 10-30-1992 COLOGUARD (FIT-DNA) COLOGUARD (FIT-D NA) [facility] Start: 10-30-1992 Colonoscopy COLONOSCOPY [facility] Start: 10-30-1992 COLORECTAL CANCER SCREENING COLORECTAL CANCER SCREENING [facility] Start: 10-30-[address] COLONOGRAPHY [facility] Start: 10-30-1992 DIABETES SCREEN DIABETES SCREEN [facility] Start: 10-30-1992 Diabetes Screening Diabetes Screenin g [facility] Start: 10-30-1992 FECAL OCCULT BLOOD FECAL OCCULT BLOO D [facility] Start: 10-30-1992 LIPID SCREEN LIPID SCREEN [facility] Start: 10-30-1992 SIGMOIDOSCOPY SIGMOIDOSCOPY [facility] Start: 1987 Mammography MAMMOGRAM [facility] Start: 10-30-1966 Urine microalbumin profile [facility] Start: 10-30-1965 Anxiety Screening Anxiety Screening [facility] Start: 10-30-1965 Depression Screening Depression Scre ening [facility] Start: 10-30-1965 Diabetes mellitus screening Diabetes Screening [facility] Start: 10-30-1965 HEPATITIS C SCREENING HEPATITIS C SC [facility] Start: 10-30-1965 Hepatitis C screening Hepatitis C Sc [facility] Start: 1959 Adult depression scr eening assessment DEPRESSION SCREENING [facility] Start: 10-30-1953 PNEUMOCOCCAL: 65+ (1 - PCV) PNEUMOCOCCAL: 65+ (1 - PCV) [facility] Start: 1945 Lipid panel Lipid Panel [facility] Start: 1945 Medicare Annual Well ness Visit Medicare Annual Wellness Visit (AWV) [facility] CT SIM PLANNING RADI ATION ONCOLOGY CT SIM PLANNING RADIATION ONCOLOGY Radiology Routine Malignant neoplasm of glottis (HCC) Ordered: 02/20/2022 [facility] Work Phone: Comment on above: Ordered: 02/20/2022 End: 03-02-2023 Ct soft tissue neck w/o contrast material CT NECK SOFT TISSUE WO IVCON Radiology Routine Malignant neoplasm of glottis (HCC) 1 Occurrences starting 01/31/2022 until 03/02/2023 [facility] Work Phone: Comment on above: 1 Occurrences starti ng 01/31/2022 until 03/02/2023 [facility] Immunizations Immunization Date Immunization Notes Care Provider Sowmya read 05-13-2021 Fluad Quadrivalent 0 .5 ML Intramuscular Prefilled Syringe Referring Provider Unknown -[facility] 250 DO Work Phone: 05-13-2021 influenza virus vaccine, split virus (incl. purified surface antigen) Isrrael Howard Other [facility] [employer] Other 05-13-2021 influenza virus vaccine, unspecified formulation Arrival Radiology Work Phone: [facility] 11-30-2020 Sendy COVID-19 Vaccine 0.5 ML Intramuscular Suspension Referring Provider Unknown [facility] 07-12-2020 influenza virus vaccine, split virus (incl. purified surface antigen) Isrrael Howard Other [facility] [employer] Other 07-12-2020 influenza virus vaccine, unspecified formulation [facility] 04-15-2020 influenza, seasonal, injectable Referring Provider Unknown [facility] 250 DO Work Phone: 04-18-2017 influenza virus vaccine, split virus (incl. purified surface antigen) Isrrael Howard Other [facility] [employer] Other 04-18-2017 influenza virus vaccine, unspecified formulation [facility] 04-18-2017 influenza, high dose seasonal, preservative-free Referring Provider Unknown [facility] 250 DO Work Phone: 07-19-2015 influenza, seasonal, injectable Referring Provider Unknown [facility] 250 DO Work Phone: 07-16-2015 pneumococcal polysaccharide vaccine, 23 valent Referring Provider Unknown [facility] 06-30-2015 pneumococcal conjuga te vaccine, 13 valent Isrrael Howard Other [facility] 06-24-2014 influenza virus vaccine, split virus (incl. purified surface antigen) Isrrael Howard Other [facility] [employer] Other 06-24-2014 influenza virus vaccine, unspecified formulation [facility] 06-18-2013 pneumococcal polysaccharide vaccine, 23 valent Isrrael Howard Other [facility] 05-16-2013 tetanus and diphther ia toxoids, adsorbed, preservative free, for adult use (5 Lf of tetanus toxoid and 2 Lf of diphtheria toxoid) Isrrael Howard Other [facility] pneumococcal Conjuga te, unspecified formulation; Translations: [Need for prophylactic vaccination against Streptococcus pneumoniae (pneumococcus)] Isrrael Pranav Other [facility] Other Payers Date Payer Category Payer Dual Eligibility Medicare/Medicaid Organization [facility] [id number] 2022 Medicare UHC AARP MEDICAR E UHC AARP MEDICARE HMO [id number] 2022-Present [phone] [address] [address] [place] [address] O [id number] 2022 Medicare UHC AARP MEDICAR E UHC AARP MEDICARE HMO [id number] 2022-Present [phone] [address] [address] [place] [address] O [id number] 1959 Medicare [id number] 1957 Medicare [id number] 1945 Unknown [id number] 1945 Unknown [id number] 1945 Unknown [id number] 1945 Unknown [id number] Medicare [id number] Unknown MEDICARE Social History Date Type Detail Facility Start: 01-31-2022 End: 05-08-2024 Current every day smoker Current every day smoker [facility] 250 DO Work Phone: Comment on above: 2 cups of coffee; quit 05/22/21; Start: 01-31-2022 End: 02-27-2022 Tobacco smoking status PAIS Smokes tobacco daily [facility] Start: 01-31-2022 End: 05-08-2024 Tobacco use and exposure Smokeless tobacco non-user [facility] Start: 01-31-2022 End: 05-09-2022 Alcohol intake Ex-drinker (finding) [facility] Start: 01-31-2022 End: 02-27-2022 Tobacco Comment 01/31/22 less than 1ppd now [facility] Start: 1945 Sex Assigned At Not on file [facility] Start: 01-21-2022 End: 05-08-2024 Exposure to SARS-CoV-2 (event) Not sure [facility] History of tobacco use Cigarette Smoker [facility] Start: 01-31-2022 End: 05-08-2024 Sex Assigned At [facility] [employer] Other National Score (1-100), lower number is lower risk 91 [facility] Start: 05-08-2024 [facility] Work Phone: History of tobacco use Current smoker [facility] Work Phone: Start: 05-08-2024 Alcoholic beverage intake Lifetime non-drinker (finding) [facility] Work Phone: Start: 03-09-2021 Tobacco smoking stat [facility] Current Heavy tobacco smoker [facility] Start: 03-05-2025 Sex Female (finding) [facility] Start: 1945 Sex Assigned At Female F [facility] Clinical Notes 04-30-2021 to 05-08-2024 Miriam Seo MD - 05/08/2024 3:30 PM EDTPatient Instructions Note Date & Type Note Facility 05-08-2024 History of Present illness Narrative Subjective Kathleen Rosen is a 78 y.o. female Chief Complaint Follow-up HPI Patient is here for follow-up from recent hospitalization for continue management of coronary artery disease. She has been seen back [place] [address] Torres. EKG suggestive of previous lateral myocardial infarction. Cardiac catheterization showed left main disease and RCA disease. The patient refused bypass surgery and ultimately underwent high risk PCI by Dr. Odell to the left main into the LAD and to the RCA. Following her intervention she failed to follow-up with our group. She was recently in the hospital record was reviewed and it appears that she was in the hospital for COPD exacerbation and pneumonia. An echocardiogram done through that hospitalization showing normal LV systolic function. Patient currently on oxygen therapy. She denies chest pain, lightheadedness, dizziness or syncope. She described functional 3 symptoms. She is on home O2 therapy. The patient denies any chest pain or nitroglycerin use. Assessment 1.Multivessel coronary artery disease with remote multivessel PCI to the left main into the LAD and RCA with previous evidence of lateral wall myocardial infarction. No anginal symptoms reported 2. Class III shortness of breath with home O2 dependence he will due to COPD and prior tobacco use 4. Hyperlipidemia on atorvastatin 5. Physician hypertension controlled 6. Morbid obesity 7. Former smoker Plan 1. I indicated the patient that it would be difficult to assess for progression of coronary artery disease without objective testing considering her class III shortness of breath, morbid obesity and sedentary lifestyle. The patient for the time being feels that most of her symptoms is related to her lung and recent pneumonia. She want to wait for any testing. 2. I recommended 6-month follow-up and we will consider doing Lexiscan myocardial fusion study 3. We discussed risk factor modification 4. I reviewed with her her previous record including heart cath and PCI report 5. I suggested 6-month follow-up or earlier if the need arise Review of Systems Constitutional: Positive for malaise/fatigue. Cardiovascular: Positive for leg swelling. Respiratory: Positive for shortness of breath. All other systems reviewed and are negative. Vitals: 05/08/24 1544 BP: 98/60 BP Location: Left arm Patient Position: Sitting Pulse: 78 Weight: 103 kg (226 lb) Height: 1.524 m (5') EKG done in office today Objective Physical Exam Constitutional: Appearance: Normal appearance. HENT: Nose: Nose normal. Neck: Vascular: No carotid bruit. Cardiovascular: Rate and Rhythm: Normal rate. Pulses: Normal pulses. Heart sounds: Normal heart sounds. Pulmonary: Effort: Pulmonary effort is normal. Abdominal: General: Bowel sounds are normal. Palpations: Abdomen is soft. Musculoskeletal: General: Normal range of motion. Cervical back: Normal range of motion. Right lower leg: No edema. Left lower leg: No edema. Skin: General: Skin is warm and dry. Neurological: General: No focal deficit present. Mental Status: She is alert. Psychiatric: Mood and Affect: Mood normal. Behavior: Behavior normal. Thought Content: Thought content normal. Judgment: Judgment normal. Allergies Penicillins Current Medications Current Outpatient Medications: aspirin 81 mg EC tablet, Take 1 tablet (81 mg) by mouth once daily., Disp: , Rfl: atorvastatin (Lipitor) 40 mg tablet, 1 tablet (40 mg) once daily at bedtime., Disp: , Rfl: cholecalciferol (Vitamin D-3) 25 MCG (1000 UT) tablet, Take 1 tablet (1,000 Units) by mouth once daily., Disp: , Rfl: clopidogrel (Plavix) 75 mg tablet, Take 1 tablet (75 mg) by mouth once daily., Disp: , Rfl: furosemide (Lasix) 40 mg tablet, 1 tablet (40 mg) once daily., Disp: , Rfl: isosorbide mononitrate ER (Imdur) 60 mg 24 hr tablet, 1 tablet (60 mg) once daily., Disp: , Rfl: losartan (Cozaar) 50 mg tablet, Take 1 tablet (50 mg) by mouth early in the morning.., Disp: , Rfl: metoprolol succinate XL (Toprol-XL) 50 mg 24 hr tablet, 1 tablet (50 mg) once daily., Disp: , Rfl: nitroglycerin (Nitrostat) 0.4 mg SL tablet, Place 1 tablet (0.4 mg) under the tongue., Disp: , Rfl: oxygen (O2) gas therapy, Inhale 1 each continuously. 3 lpm, Disp: , Rfl: Assessment/Plan 1. Multiple vessel coronary artery disease Follow Up In Cardiology ECG 12 Lead 2. Shortness of breath 3. Mixed hyperlipidemia 4. Essential hypertension 5. BMI 40.0-44.9, adult (Multi) 6. Chronic obstructive pulmonary disease, unspecified COPD type (Multi) Scribe Attestation By signing my name below, I, Altagracia Brewster LPN , Scribkassy attest that this documentation has been prepared under the direction and in the presence of Miriam Seo MD. Provider Attestation - Scribe documentation All medical record entries made by the Scribe were at my direction and personally dictated by me. I have reviewed the chart and agree that the record accurately reflects my personal performance of the history, physical exam, discussion and plan. documented in this encounter [facility] Work Phone: 05-08-2024 Instructions Altagracia Mace LPN - 05/08/2024 3:30 PM EDT Please bring all medicines, vitamins, and herbal supplements with you when you come to the office. Prescriptions will not be filled unless you are compliant with your follow up appointments or have a follow up appointment scheduled as per instruction of your physician. Refills should be requested at the time of your visit. BMI was above normal measurement. Current weight: 103 kg (226 lb) Weight change since last visit (-) denotes wt loss -29 lbs Weight loss needed to achieve BMI 25: 98.3 Lbs Weight loss needed to achieve BMI 30: 72.7 Lbs Provided instructions on dietary changes. 6 months Same meds Discuss Stress testing at next visit documented in this encounter [facility] Work Phone: 09-14-2022 Evaluation note Encounter Date Diagnosis Assessment [...] - Z12.31) Sep, Menopause (ICD-10 - Z78.0) [facility] Other 2022 NoteHNO ID: [id number] Author: Lauren Mosqueda MD Service: ? 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 RADIATION SUMMARY: DATES OF TREATMENT: 02/27/2022- 04/06/2022 [...] carcinoma in situ likely invasive , stage [id number]. Status post definitive radiation completed 04/04/2022. Patient overall doing well with resolving postradiation issues. She has had follow-up with Dr. Patricia without new findings reported. She will have continued surveillance with him. I will plan to see patient back in 3 months. Signed by: Lauren Mosqueda MD cc: Isrrael Howard ([facility]) [address] [place] [address] 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 RADIATION SUMMARY: DATES OF TREATMENT: 02/27/2022- 04/06/2022 [...] carcinoma in situ likely invasive , stage [id number]. Status post definitive radiation completed 04/04/2022. Patient overall doing well with resolving postradiation issues. She has had follow-up with Dr. Patricia without new findings reported. She will have continued surveillance with him. I will plan to see patient back in 3 months. Signed by: Lauren Mosqueda MD cc: Isrrael Howard ([facility]) [address] [place] [address] Dr. Patricia [facility] NoteHNO ID: [id number] Author: Lauren Mosqueda MD Service: ? 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 RADIATION SUMMARY: DATES OF TREATMENT: 02/27/2022- 04/06/2022 [...] carcinoma in situ likely invasive , stage [id number], status post completion definitive radiation 04/06/2022. Clinically doing fairly well with improving dysphagia. Still with hoarseness. She will require continued close follow-up with Dr. Torrez which has been arranged. I would like to see patient back in 1 month for follow-up. Signed by: Lauren Mosqueda MD cc: Isrrael Howard ([place]) [facility] [place] [address] 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 RADIATION SUMMARY: DATES OF TREATMENT: 02/27/2022- 04/06/2022 [...] carcinoma in situ likely invasive , stage [id number], status post completion definitive radiation 04/06/2022. Clinically doing fairly well with improving dysphagia. Still with hoarseness. She will require continued close follow-up with Dr. Torrez which has been arranged. I would like to see patient back in 1 month for follow-up. Signed by: Lauren Mosqueda MD cc: Isrrael Howard ([facility]) [address] [place] [address] Dr. Patricia documented [facility] NoteEducation (NUTRSA) KATHLEEN ROSEN ([id number]) 1945 F Date Time Provider Department 04/18/22 [...] tongue. Encounter Status:Closed by ASHLY WATERS on 04/18/22[facility]10-04-2022 NoteHNO ID: [id number] Author: Ashly Waters RD Service: ? Author [...] should concerns arise. Pt verbalized understanding. Ashly Waters, MS, RDN, [facility]10-04-2022 History of Present illness Narrative* Ashly Waters RD - 04/18/2022 2:33 PM EDT Very brief follow up with patient as she as was already at check-out following her appointment withDr. Mosqueda. Patient denied any nutrition concerns, questions, or need for nutrition follow up at this time. Patient notified dietitian is available should concerns arise. Pt verbalized understanding. Ashly Waters, MS, RDN, LD documented in [facility]09-22-2022 NoteHNO ID: [id number] Author: Lauren Mosqueda MD Service: ? 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 AREA TREATED: Larynx DELIVERED DOSE: Larynx: 6,300 [...] Staff Physician Lv Mosqueda M.D. / ROSALIO :44 PM Electronically Signed cc: Dr. 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 AREA TREATED: Larynx DELIVERED DOSE: Larynx: 6,300 [...] 23:44 PM Electronically Signed cc: Dr. Harshad Howard documented in [facility]09-[facility]-20[facility] NoteEducation (NUTRSA) KATHLEEN ROSEN ([id number]) 1945 F Date Time Provider Department 04/05/22 [...] tongue. Encounter Status:Closed by ASHLY WATERS on 04/05/22[facility]09-21-2022 NoteHNO ID: [id number] Author: Ashly Waters RD Service: ? Author [...] -continue small frequent meals/snacks -aim for soft/moist, ajjg-vz-oyqdmwm foods -include protein source with each meal/snack [...] Change: 5.9kg (5.2%) x 1 mo- significant [place] Body Weight: 45.5kg Estimated kilocalorie needs: 1855 kilocalories determined by [place]-St. Jeor x 1.2 Estimated protein needs: 45-68 grams determined by 1.0-1.5 g/kg [place] weight Estimated fluid needs: ~1900 milliliters based [...] minutes Signed by: Ashly Waters, MS, RDN, [facility]09-19-2022 NoteHNO ID: [id number] Author: Lauren Mosqueda MD Service: ? 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 COURSE: definitive Area Treated: Larynx Current dose: [...] images reviewed. Follow-up care discussed. Lauren Mosqueda, [facility]09-19-2022 Nurse Note* Yovanny Grissom LPN - 04/03/2022 10:23 AM EDT Status: Post-menopausal. 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 COURSE: definitive Area Treated: Larynx Current dose: [...] discussed. Lauren Mosqueda MD documented in this encounterE[facility]09-16-2022 NoteHNO ID: [id number] Author: Ashly Waters RD Service: ? Author [...] -continue small frequent meals/snacks -aim for soft/moist, rpgt-hr-dhpmlnh foods -include protein source with each meal/snack [...] minutes Signed by: Ashly Waters MS, RDN, [facility]09-16-2022 NoteEducation (NUTRSA) KATHLEEN ROSEN ([id number]) 1945 F Date Time Provider Department 03/31/22 [...] tongue. Encounter Status:Closed by ASHLY WATERS on 03/31/22[facility]09-16-2022 History of Present illness Narrative* Ashly Waters RD - 03/31/2022 10:45 AM EDT Oncology Nutrition Therapy Progress Note RECOMMENDED MALNUTRITION DIAGNOSIS: MILD PROTEIN-CALORIE MALNUTRITION per DIONISIO Stoddard on 03/23/2022 Some elements copied from my note on 03/23/2022, have been updated and all reflect current decision making from today, 03/31/2022 Nutrition Intervention: -continue small frequent meals/snacks -aim for soft/moist, gtgo-mu-izygbim foods -include protein source with each meal/snack [...] 15 minutes Signed by: Ashly Waters MS, MARLO, ANALIA documented in this encounterEly[facility]09-12-2022 NoteHNO ID: [id number] Author: Lauren Mosqueda MD Service: ? 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 COURSE: definitive Area Treated: Larynx Current dose: [...] reviewed. Continue radiation as outlined. Lauren Mosqueda [facility]09-08-2022 NoteHNO ID: [id number] Author: Ashly Waters RD Service: ? Author [...] cheese. Reviewed with pt high-protein, soft and bvop-wh-soevpmo foods to expand dietary choices. Re-emphasized importance [...] Educational materials provided: Soft/Moist High Protein Foods, Ahgz-pc-Vcwg/Swallow Foods Anthropometrics: Height: Last 1 Encounter Ht [...] Weight Change: 4.4kg (3.8%) x ~1.5 weeks [place] Body Weight: 45.5kg Estimated kilocalorie needs: 1855 kilocalories determined by [place]-St. Jeor x 1.2 Estimated protein needs: 45-68 grams determined by 1.0-1.5 g/kg [place] weight Estimated fluid needs: ~1900 milliliters based [...] minutes Signed by: Ashly Waters, MS, RDN, [facility] NoteEducation (NUTRSA) KATHLEEN ROSEN ([id number]) 1945 F Date Time Provider Department 03/23/22 10:00 AM ASHLY WATERS Reason for Visit: Nutrition Assessment [1591] Visit [...] tongue. Encounter Status:Closed by ASHLY WATERS on 03/23/22[facility]09-08-2022 History of Present illness Narrative* Ashly [...] cheese. Reviewed with pt high-protein, soft and tqxg-kr-yznrveu foods to expand dietary choices. Re-emphasized importance [...] Educational materials provided: Soft/Moist High Protein Foods, Qsfn-sn-Pgzn/Swallow Foods Anthropometrics: Height: Last 1 Encounter Ht [...] Weight Change: 4.4kg (3.8%) x ~1.5 weeks [place] Body Weight: 45.5kg Estimated kilocalorie needs: 1855 kilocalories determined by [place]. Jeor x 1.2 Estimated protein needs: 45-68 grams determined by 1.0-1.5 g/kg [place] weight Estimated fluid needs: ~1900 milliliters based [...] Waters MS, RDN, LD documented in this encounterEly[facility]09-06-2022 NoteHNO ID: [id number] Author: Lauren Mosqueda MD Service: ? 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 COURSE: definitive Area Treated: Larynx Current dose: [...] reviewed. Continue radiation as outlined. 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 COURSE: definitive Area Treated: Larynx Current dose: [...] outlined. Lauren Mosqueda MD documented [facility] NoteEducation (NUTRSA) KATHLEEN ROSEN ([id number]) 1945 F Date Time Provider Department 03/16/22 [...] tongue. Encounter Status:Closed by ASHLY WATERS on 03/16/22[facility]09-01-2022 NoteHNO ID: [id number] Author: Ashly Waters RD Service: ? Author [...] Resting Metabolic Rate: 1559 Weight Change: n/a [place] Body Weight: 45.5kg Estimated kilocalorie needs: 1855 kilocalories determined by [place] Jeor x 1.2 Estimated protein needs: 45-68 grams determined by 1.0-1.5 g/kg [place] weight Estimated fluid needs: ~1900 milliliters based [...] minutes Signed by: Ashly Waters, MS, RDN, [facility]09-01-2022 Nurse Note* Yovanny rGissom LPN - 03/16/2022 10:09 AM EDT Kathleen [...] is vaccinated for Covid x 1 with [employer].She is to notify us tomorrow if symptoms worsen. Dr. Mosqueda notified of the above and is in agreement. Yovanny Grissom LPN documented in this encounterEly[facility]09-01-2022 History of Present illness Narrative* Ashly Waters, RD - 03/16/2022 9:26 AM EDT Oncology Nutrition [...] Resting Metabolic Rate: 1559 Weight Change: n/a [place] Body Weight: 45.5kg Estimated kilocalorie needs: 1855 kilocalories determined by [place]. Jeor x 1.2 Estimated protein needs: 45-68 grams determined by 1.0-1.5 g/kg [place] weight Estimated fluid needs: ~1900 milliliters based [...] Waters MS, RDN, LD documented in this encounterEly[facility]08-29-2022 NoteHNO ID: [id number] Author: Lauren Mosqueda MD Service: ? 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 COURSE: definitive Area Treated: Larynx Current dose: [...] imaging reviewed. Continue radiation as outlined. 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 COURSE: definitive Area Treated: Larynx Current dose: [...] outlined. Lauren Mosqueda MD documented in this encounterEly[facility]08-24-2022 NoteHNO ID: [id number] Author: Lavon Mckinnon MD Service: ? 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 COURSE: definitive Area Treated: Larynx Current dose: [...] Continue radiation treatment as planned. 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 COURSE: definitive Area Treated: Larynx Current dose: [...] planned. Lavon Mckinnon MD documented in this encounterElyria [facility]08-23-2022 Nurse Note* Leah Fisher RN - 03/07/2022 10:22 AM EDT Status: Post-menopausal.Leah Fisher RN documented in this encounterElyria [facility]08-22-2022 NoteEducation (NUTRSA) SILASKATHLEEN Jonn ([id number]) 1945 F Date Time Provider Department 03/06/22 [...] tongue. Encounter Status:Closed by ASHLY WATERS on 03/06/22[facility]08-22-2022 NoteHNO ID: [id number] Author: Ashly Waters RD Service: ? Author [...] minutes Signed by: Ashly Waters MS, RDN, [facility]08-[facility]-2022 History of Present illness Narrative* sAhly Waters RD - 03/06/2022 9:51 AM EDT [...] 15 minutes Signed by: Ashly Waters MS, MARLO, ANALIA documented in this encounterElyria [facility] Hospital08-15-2022 NoteHNO ID: [id number] Author: Lauren Mosqueda MD Service: ? 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 COURSE: definitive Area Treated: Larynx Current dose: [...] treatment given. Continue radiation as prescribed. Lauren Mosqueda [facility]08-08-2022 NoteEducation (NUTRSA) KATHLEEN ROSEN ([id number]) 1945 F Date Time Provider Department 02/20/22 [...] tongue. Encounter Status:Closed by ASHLY WATERS on 02/20/22[facility]08-08-2022 NoteHNO ID: [id number] Author: Ashly Waters RD Service: ? Author [...] Resting Metabolic Rate: 1546 Weight Loss: n/a [place] Body Weight: 45.5kg Estimated kilocalorie needs: 1855 kilocalories determined by [place]. Jeor x 1.2 Estimated protein needs: 45-68 grams determined by 1.0-1.5 g/kg [place] weight Estimated fluid needs: ~1900 milliliters based [...] min 1 unit Signed by: Ashly Waters, MS, RDN, [facility]DW[facility]08-[facility]-2022 History of Present illness Narrative* Ashly Waters, DIONISIO - 02/20/2022 3:00 PM EDT Nutrition Therapy [...] Resting Metabolic Rate: 1546 Weight Loss: n/a [place] Body Weight: 45.5kg Estimated kilocalorie needs: 1855 kilocalories determined by [place] Jeor x 1.2 Estimated protein needs: 45-68 grams determined by 1.0-1.5 g/kg [place] weight Estimated fluid needs: ~1900 milliliters based [...] Waters MS, RDN, LD documented in this encounterElyria [facility]08-05-2022 NoteHNO ID: [id number] Author: RT Cali(Bertha) Service: ? Author Type: Technologist Type: Progress [...] PERIPHERAL IV DATA: Not applicable SIGNED BY: JERRY Leiva) February 17, 2022 1:26 [facility]08-05-2022 NoteHNO ID: [id number] Author: Lauren Mosqueda MD Service: ? Author Type: Physician Type: Progress Notes Filed: 02/25/2022 12:33 AM Note Text: KATHLEEN ROSEN [id number] 02/17/2022 [facility] Department of Radiation Oncology Treatment Planning Note [...] DVH. Electronically Signed Lv Mosqueda M.D. :15 [facility]08-05-2022 NoteHNO ID: [id number] Author: Lauren Mosqueda MD Service: ? Author Type: Physician Type: Progress Notes Filed: 02/22/2022 12:32 AM Note Text: KATHLEEN ROSEN [id number] 02/17/2022 [facility] Radiation Oncology Department SIMULATION NOTE DATE OF SIMULATION: 02/17/2022 THERAPIST: Jyotsna Arguelles Carol MACHINE: [employer]graph mCT DIAGNOSIS: Malignant neoplasm of larynx, [id number] AREA: NECK CONTRAST: None Consent in Epic: [...] Electronically Signed Lv Mosqueda M.D. / ROSALIO :08 [facility]08-05-2022 History of Present illness Narrative* Pia Benito [...] IV DATA: Not applicable SIGNED BY: RT Cali(Bertha) February 17, 2022 1:26 PM documented in this encounterElyria [facility] Hospital08-05-2022 History of Present illness Narrative* Lauren Mosqueda MD - 02/17/2022 12:00 AM EDT KATHLEEN ROSEN [id number] 02/17/2022 [facility] Radiation Oncology Department SIMULATION NOTE DATE OF SIMULATION: 02/17/2022 THERAPIST: Jyotsna Medina MACHINE: [employer] DIAGNOSIS: Malignant neoplasm of larynx, iwcctfwddzxA42.9 AREA: NECK CONTRAST: None Consent in Epic: [...] nursing. Electronically Signed Lv Mosqueda M.D. / NRS 21:08 PM documented in this encounterElyria [facility] Hospital08-05-2022 History of Present illness Narrative* Lauren Mosqueda MD - 02/17/2022 12:00 AM EDT KATHLEEN ROSEN [id number] 02/17/2022 [facility] Department of Radiation Oncology Treatment Planning Note [...] Mosqueda M.D. 29:15 AM documented in this encounterElyria Memorial Hospital07-19-2022 NoteEducation (RADTSA) KATHLEEN ROSEN ([id number]) 1945 F Date Time Provider Department 01/31/22 YOVANNY GRISSOM Reason for Visit: Patient Education [91] Visit Notes: >> Yovanny Grissom LPN kassy Jan 31, 2022 12:23 PM Status: Signed Radiation Therapy - Patient Education Note PATIENT NAME: Kathleen Rosen PATIENT January 31, 2022 [facility] FACILITY/LOCATION: [facility] READINESS TO LEARN Cognitive Ability: Alert [...] tongue. Encounter Status:Closed by YOVANNY GRISSOM on 01/31/22[facility] 01-31-2022 Nurse Note* Yovanny Grissom LPN - 01/31/2022 12:23 PM EDT Radiation Therapy - Patient Education Note PATIENT NAME: Kathleen Rosen PATIENT January 31, 2022 [facility] FACILITY/LOCATION: [facility] READINESS TO LEARN Cognitive Ability: Alert [...] by: Yovanny Grissom LPN documented in this encounterElyria [facility] Hospital07-19-2022 NoteHNO ID: [id number] Author: Lauren Mosqueda MD Service: ? Author [...] likely invasive, right true vocal cord, stage [id number]. Cancer Staging No matching staging information was [...] Heart: Regular rate and (more content not included)...[facility] 01-31-2022 History of Present illness Narrative* [...] likely invasive, right true vocal cord, stage [id number]. Cancer Staging No matching staging information was [...] carcinoma in situ likely invasive , stage [id number]. Given findings on laryngoscopy, with squamous cell [...] by: Lauren Mosqueda MD cc: Isrrael Howard ([facility]) [address] [place] [id number] Asaf Patricia MD [address] [place] [id number] documented in this encounterElyria [facility] Hospital07-05-2022 NoteOPERATIVE NOTE OPERATION DATE: 01/17/2022 PRIMARY CARE [...] stent placement. Patient, once cleared by her teacher counselor, returned for her biopsy. PROCEDURE: Patient identified [...] to the recovery room in good condition. [facility] Signed and Approved by: DR ASAF PATRICIA 01/24/2022 08:05:00[facility]11-06-2021 NoteSend Summary: Discharge Summary Providers: Provider RoleProvider Name ReferringONicolas mccormick Alberto PrimaryLexiiwelsi, Pcp Note Recipients: Charlie Desai MD - [id number] [preferred] Nicolas Odell MD - [id number] [preferred] Unknown, Pcp, Discharge: Summary: Admission Date: .20-May-2021 05:53:00 Discharge Date: 21-May-2021 Attending Physician at Discharge: Charlie Desai Admission Reason: Angina Final Discharge Diagnoses: Coronary artery disease Procedures: Cardiac catheterization and intervention Condition at Discharge: Satisfactory Disposition at Discharge: .Home Vital Signs: T PRBPSpO2 Value35.35790701/7093% Date/Time05/21 7: 7: 7: 7: 7:58 Range(35.6C - 36.3C ) (58 - 73 ) (16 - 16 ) (118 - 142 )/ (59 - 97 ) (90% - 93% ) Date: Weight/Scale Type:Height: 20-May-2021 06:65358.2 kg / yntwviqm884.9 cm Physical Exam: Alert and oriented 3 [...] no complications. See progress note per medical teacher counselor for physical exam details. Patient will be discharged home on aspirin and Plavix therapy. She was initiated on high intensity statin therapy with atorvastatin 40 mg daily. She will be scheduled to follow-up with Dr. Torres in the [facility] office next week. Postprocedural activity, restrictions, potential [...] Follow Up Scheduled Date/Time: 26-May-2021 12:40 Location: [facility] Office Discharge Medications: Home Medication aspirin 81 [...] Completion Last Updated: 21-May-2021 09:38 by Charlie Desai)[facility] 05-20-2021 NoteHistory & Physical Reviewed: I have [...] COVID-19 what the risks are. Electronic Signatures: Nicoals Odell) (Signed 20-May-2021 08:07) Authored: History & Physical Reviewed, Airway/Sedation, ERAS, Consent, Note Completion Last Updated: 20-May-2021 08:07 by Nicolas Odell)[facility]11-04-2021 History of Present illness Narrative* Patient is seen after an absence. She underwent coronary angiography demonstrating disease in need of intervention. I thought that she really needed bypass surgery and she was referred to [facility]. They felt she was too high risk and because of this they ultimately requested that Dr. Odell perform high risk multivessel coronary intervention and this was undertaken last week in [place] without event. She is now doing well. She states she feels about the same. * Chart review reveals that her symptoms have basically not changed. Her risk factors including hypertension and hyperlipidemia appear to be adequately managed and because of this we suggest continued therapy as is without change. The merits of diet lifestyle modification exercise and weight loss were reviewed. -[facility] Work Phone: [phone] History of Present illness Narrative* I was [...] CHIP meeting which is attended by several teacher counselor and surgeons. Interestingly, itwas the consensus of [...] or to have her restudy by the [facility] group, with possible IVUS or FFR of these lesions. -CT Surgery-Carlos Ewing Work Phone: Evaluation note* Diagnosis Malignant neoplasm of glottis (HCC)- Primary Malignant neoplasm of glottis [facility] Malignant neoplasm of glottis (HCC)- Primary Malignant neoplasm of glottis [facility] Diagnosis Malignant neoplasm of glottis (HCC)- Primary Malignant neoplasm of glottis [facility] Diagnosis Malignant neoplasm of glottis (HCC)- Primary Malignant neoplasm of glottis [facility] Diagnosis Malignant neoplasm of glottis (HCC)- Primary Malignant neoplasm of glottis [facility] Diagnosis Malignant neoplasm of glottis (HCC)- Primary Malignant neoplasm of glottis [facility] Diagnosis Malignant neoplasm of glottis (HCC)- Primary Malignant neoplasm of glottis [facility]* Diagnosis Cough productive of yellow sputum- Primary Rhinitis, unspecified type [facility] Diagnosis Malignant neoplasm of glottis (HCC)- Primary Malignant neoplasm of glottis [facility]* Diagnosis Malnutrition of mild degree (HCC) Malnutrition of mild degree [facility] Diagnosis Malnutrition of mild degree (HCC)- Primary Malnutrition of mild degree Malignant neoplasm of glottis (HCC) Malignant neoplasm of glottis documented [facility]* Diagnosis Malignant neoplasm of glottis (HCC)- Primary Malignant neoplasm of glottis documented in this encounter [facility] note* Diagnosis Malnutrition of mild degree (HCC)- Primary Malnutrition of mild degree Malignant neoplasm of glottis (HCC) Malignant neoplasm of glottis documented in this encounter [facility] noteNo [facility] [employer] Other Evaluation note* Diagnosis Malignant neoplasm of glottis (HCC) Malignant neoplasm of glottis documented in this encounter [facility] note* Diagnosis Multiple vessel coronary artery disease- Primary Shortness of breath Mixed hyperlipidemia Essential hypertension Unspecified essential hypertension BMI 40.0-44.9, adult (Multi) Chronic obstructive pulmonary disease, unspecified COPD type (Multi) documented in this encounter [facility] Work Phone: Evaluation note* Diagnosis Onset Date Resolution Status Admit Date ASHD (arteriosclerotic heart disease) acute September 17, 2024 9:28am Chronic bronchitis, mucopurulent acu te September 17, 2024 9:28am Chronic heart failure with p reserved ejection fraction (HFpEF) acute September 17, 2024 9:28am Chronic kidney disease acute [facility] 2024 9:28am Chronic venous insufficiency acute September 17, 2024 9:28am Essential hypertension acute [facility] 2024 9:28am Hypercholesterolemia acute [facility] 2024 9:28am Hypoxia acute September 17 9:28am Medicare annual wellness vis it, subsequent acute September 17, 2024 9:28am Nicotine dependence acute September 17, 2024 9:28am Pulmonary hypertension acute [facility] 2024 9:28am Screening mammogram for anahi st cancer acute September 17, 2024 9:28am Type 2 diabetes mellitus wit h hyperglycemia acute September 17, 2024 9:28am [facility] Work Phone: History general Narrative - Reported* Type Description Date [...] CORONARY [place] Hospitalization History SEE SURGICAL HX [place] [employer] Other History of Present illness NarrativeReturns for [...] we have reviewed with interventional cardiology the recommendations.[facility]Baldo 250 DO Work Phone: Chief Complaint Patient is having a telehealth follow-up visit to discuss PCi vs CABG. Referring provider: Dr. Aneudy Torres. Little Mcwilliams, BSN, RN.* [facility] f/u [facility]. * KATHLEEN ROSEN is being [...] Brother(V16.1, Z80.1) Status:Active Summary Purpose Advance Directives Advance Directive Response Recorded Date/ Time Advance Directives No April 25, 2017 4:06pm Reason for Referral Specialty Diagnoses / Procedures Referred By Contac t Referred To Contact CT IMAGING Diagnoses Malignant neoplasm of glottis (HCC) Procedures CT NECK SOFT TISSUE WO IVCON CT SOFT TISSUE NECK W/O CONTRAST MATERIAL Lauren Mosqueda MD [address] [place] [address] [place] [address] Ct Imaging Referral ID Status Reason Start Date Expiration Date Visits Requested Visits Authorized [id number] Authorized Auto-Generat ed Referral 01/31/2022 03/02/2023 1 1 Specialty Diagnoses / Procedures Referred By Contac t Referred To Contact CT IMAGING Diagnoses Malignant neoplasm of glottis (HCC) Procedures CT NECK SOFT TISSUE WO IVCON CT SOFT TISSUE NECK W/O CONTRAST MATERIAL Lauren Mosqueda MD [address] [place] [address] [place] [address] [place] [id number] Referral ID Status Reason Start Date Expiration Date V isits Requested Visits Authorized [id number] Closed Auto-Generate d Referral 01/31/2022 03/02/2023 1 1 Chief Complaint and Reason for Visit Chief Complaint Admit Date Wellness September 17, 2024 9:28 am Reason for Visit Admit Date ASHD (arteriosclerotic heart disease) [facility] 2024 9:28am Chronic bronchitis, mucopurulent September 172024 9:28am Chronic heart failure with preserved eje ction fraction (HFpEF) September 17, 2024 9:28am Chronic kidney disease September 17, 2024 9 :28am Chronic venous insufficiency September 17, 2024 9:28am Essential hypertension September 17, 2024 9 :28am Hypercholesterolemia September 17, 2024 9:2 8am Hypoxia September 17, 2024 9:28 am Medicare annual wellness visit, subseque nt September 17, 2024 9:28am Nicotine dependence September 17, 2024 9:28 am Pulmonary hypertension September 17, 2024 9 :28am Screening mammogram for breast cancer [facility] 2024 9:28am Type 2 diabetes mellitus with hyperglyce sita September 17, 2024 9:28am Additional Source Comments INFORMATION SOURCE (unrecogn ized section and content) DATE CREATED AUTHOR 05/25/2021 [facility] DATE CREATED AUTHOR AUTHOR'S ORGANIZ ATION 08/08/2021 [facility] DATE CREATED AUTHOR AUTHOR'S ORGANIZ ATION 12/07/2021 [employer] DATE CREATED AUTHOR AUTHOR'S ORGANIZ ATION 05/15/2022 [facility] DATE CREATED AUTHOR AUTHOR'S ORGANIZ ATION 10/08/2022 [facility] DATE CREATED AUTHOR AUTHOR'S ORGANIZ ATION 05/10/2024 [facility] Ambulatory Source Comments (unrecognize d section and content) In the event this informatio n is protected by the Federal Confidentiality of Alcohol and Drug Abuse Patient Records regulations: The Federal rules restrict any use of the information to criminally investigate or prosecute any alcohol or drug abuse patient.[facility] HospitalIn the event this information is protected by the Federal Confidentiality of Alcohol and Drug Abuse Patient Records regulations: The Federal rules restrict any use of the information to criminally investigate or prosecute any alcohol or drug abuse patient.[facility] HospitalIn the event this information is protected by the Federal Confidentiality of Alcohol and Drug Abuse Patient Records regulations: The Federal rules restrict any use of the information to criminally investigate or prosecute any alcohol or drug abuse patient.[facility] HospitalIn the event this information is protected by the Federal Confidentiality of Alcohol and Drug Abuse Patient Records regulations: The Federal rules restrict any use of the information to criminally investigate or prosecute any alcohol or drug abuse patient.[facility] HospitalIn the event this information is protected by the Federal Confidentiality of Alcohol and Drug Abuse Patient Records regulations: The Federal rules restrict any use of the information to criminally investigate or prosecute any alcohol or drug abuse patient.[facility] HospitalIn the event this information is protected by the Federal Confidentiality of Alcohol and Drug Abuse Patient Records regulations: The Federal rules restrict any use of the information to criminally investigate or prosecute any alcohol or drug abuse patient.[facility] HospitalIn the event this information is protected by the Federal Confidentiality of Alcohol and Drug Abuse Patient Records regulations: The Federal rules restrict any use of the information to criminally investigate or prosecute any alcohol or drug abuse patient.[facility] HospitalIn the event this information is protected by the Federal Confidentiality of Alcohol and Drug Abuse Patient Records regulations: The Federal rules restrict any use of the information to criminally investigate or prosecute any alcohol or drug abuse patient.[facility] HospitalIn the event this information is protected by the Federal Confidentiality of Alcohol and Drug Abuse Patient Records regulations: The Federal rules restrict any use of the information to criminally investigate or prosecute any alcohol or drug abuse patient.[facility] HospitalIn the event this information is protected by the Federal Confidentiality of Alcohol and Drug Abuse Patient Records regulations: The Federal rules restrict any use of the information to criminally investigate or prosecute any alcohol or drug abuse patient.[facility] HospitalIn the event this information is protected by the Federal Confidentiality of Alcohol and Drug Abuse Patient Records regulations: The Federal rules restrict any use of the information to criminally investigate or prosecute any alcohol or drug abuse patient.[facility] HospitalIn the event this information is protected by the Federal Confidentiality of Alcohol and Drug Abuse Patient Records regulations: The Federal rules restrict any use of the information to criminally investigate or prosecute any alcohol or drug abuse patient.[facility] HospitalIn the event this information is protected by the Federal Confidentiality of Alcohol and Drug Abuse Patient Records regulations: The Federal rules restrict any use of the information to criminally investigate or prosecute any alcohol or drug abuse patient.[facility] HospitalIn the event this information is protected by the Federal Confidentiality of Alcohol and Drug Abuse Patient Records regulations: The Federal rules restrict any use of the information to criminally investigate or prosecute any alcohol or drug abuse patient.[facility] the event this information is protected by the Federal Confidentiality of Alcohol and Drug Abuse Patient Records regulations: The Federal rules restrict any use of the information to criminally investigate or prosecute any alcohol or drug abuse patient.[facility] HospitalIn the event this information is protected by the Federal Confidentiality of Alcohol and Drug Abuse Patient Records regulations: The Federal rules restrict any use of the information to criminally investigate or prosecute any alcohol or drug abuse patient.[facility] HospitalIn the event this information is protected by the Federal Confidentiality of Alcohol and Drug Abuse Patient Records regulations: The Federal rules restrict any use of the information to criminally investigate or prosecute any alcohol or drug abuse patient.[facility] HospitalIn the event this information is protected by the Federal Confidentiality of Alcohol and Drug Abuse Patient Records regulations: The Federal rules restrict any use of the information to criminally investigate or prosecute any alcohol or drug abuse patient.[facility] HospitalIn the event this information is protected by the Federal Confidentiality of Alcohol and Drug Abuse Patient Records regulations: The Federal rules restrict any use of the information to criminally investigate or prosecute any alcohol or drug abuse patient.[facility] HospitalIn the event this information is protected by the Federal Confidentiality of Alcohol and Drug Abuse Patient Records regulations: The Federal rules restrict any use of the information to criminally investigate or prosecute any alcohol or drug abuse patient.[facility] HospitalIn the event this information is protected by the Federal Confidentiality of Alcohol and Drug Abuse Patient Records regulations: The Federal rules restrict any use of the information to criminally investigate or prosecute any alcohol or drug abuse patient.[facility] HospitalIn the event this information is protected by the Federal Confidentiality of Alcohol and Drug Abuse Patient Records regulations: The Federal rules restrict any use of the information to criminally investigate or prosecute any alcohol or drug abuse patient.[facility] Reason for Visit (unrecogniz ed section and content) Reason Comments Patient Education Reason Comments Consult Reason Onset Date Comments Simulation Request Form 02/17/2022 Reason Comments Nutrition Telephone Reason Comments Nutrition Counseling Reason Comments Radiotherapy On-treatment Visit Reason Comments Nutrition Assessment Reason Comments Head and Neck Cancer Reason Comments Radiology CT Specialty Diagnoses / Procedures Referred By Jessi weems Referred To Contact CT IMAGING Diagnoses Malignant neoplasm of glottis (HCC) Procedures CT NECK SOFT TISSUE WO IVCON CT SOFT TISSUE NECK W/O CONTRAST MATERIAL Lauren Mosqueda MD [facility] [place] [address] [place] [address] Referral ID Status Reason Start Date Expiration Date V isits Requested Visits Authorized [id number] Closed Auto-Generate d Referral 01/31/2022 03/02/2023 1 1 Specialty Diagnoses / Procedures Referred By Jessi weems Referred To Contact Radiation Oncology / RADIATION ONCOLOGY Diagnoses Malignant neoplasm of larynx, unspecified SIM/АННА/Neck Procedures SIMULATION BALDO IMRT 28 fractions Lauren Mosqueda MD [address] [place] [address] Lauren Mosqueda MD [address] [place] [address] Referral ID Status Reason Start Date Expiration Date Visits Re quested Visits Authorized [id number] Closed 02/15/2022 05/16/2022 29 29 Reason Comments Follow-up Heart failure [facility] Specialty Diagnoses / Procedures Referred By Jessi weems Referred To Contact Diagnoses Multiple vessel coronary artery disease Procedures ECG 12 Lead Miriam Seo MD [address] [facility] [address] [place] [address] Phone: tel: fax: Referral ID Status Reason Start Date Expiration Date V isits Requested Visits Authorized [id number] Authorized 05/08/2024 05/08/2025 1 1 Care Teams (unrecognized sec tion and content) Sink Maker Relationship Specialty Start Date End Date Pranav Isrrael Kassy, DO [address] [place] [address] PCP - General Internal Medicine 01/25/22 Asaf Patricia [address] [place] [address] Referring Ent - Otolaryngology 01/25/22 Sink Maker Relationship Specialty Start Date End Date PranavIsrrael, DO [address] [place] [address] PCP - General Internal Medicine 01/25/22 Asaf Patricia [address] [place] [address] Referring Ent - Otolaryngology 01/25/22 Sink Maker Relationship Specialty Start Date End Date Isrrael Howard, DO [address] [place] [address] PCP - General Internal Medicine 01/25/22 Asaf Patricia [address] [place] [address] Referring Ent - Otolaryngology 01/25/22 Sink Maker Relationship Specialty Start Date End Date Isrrael Howard, DO [address] [facility] [place] [address] PCP - General Internal Medicine 01/25/22 Asaf Patricia [address] [place] [place] [address] Referring Ent - Otolaryngology 01/25/22 Sink Maker Relationship Specialty Start Date End Date Isrrael Howard, DO [address] [facility] [place] [address] PCP - General Internal Medicine 01/25/22 Asaf Patricia [address] [place] [place] [address] Referring Ent - Otolaryngology 01/25/22 Sink Maker Relationship Specialty Start Date End Date Isrrael Howard, DO [address] [facility] [place] [address] PCP - General Internal Medicine 01/25/22 Asaf Patricia [address] [place] [place] [address] Referring Ent - Otolaryngology 01/25/22 Sink Maker Relationship Specialty Start Date End Date Isrrael Howard, DO [address] [facility] [place] [address] PCP - General Internal Medicine 01/25/22 Asaf Patricia [address] [place] [place] [address] Referring Ent - Otolaryngology 01/25/22 Sink Maker Relationship Specialty Start Date End Date Isrrael Howard, DO [address] [facility] [place] [address] PCP - General Internal Medicine 01/25/22 Asaf Patricia [address] [place] [address] Referring Ent - Otolaryngology 01/25/22 Sink Maker Relationship Specialty Start Date End Date Isrrael Howard, DO [address] [facility] [place] [address] PCP - General Internal Medicine 01/25/22 Asaf Patricia [address] [place] [address] Referring Ent - Otolaryngology 01/25/22 Sink Maker Relationship Specialty Start Date End Date Isrrael Howard, DO [address] [place] [facility] [place] [address] PCP - General Internal Medicine 01/25/22 Asaf Patricia [address] [place] [place] [address] Referring Ent - Otolaryngology 01/25/22 Sink Maker Relationship Specialty Start Date End Date Isrrael Howard, DO [address] [place] [facility] [place] [address] PCP - General Internal Medicine 01/25/22 Asaf Patricia [address] [place] [address] Referring Ent - Otolaryngology 01/25/22 Sink Maker Relationship Specialty Start Date End Date Isrrael Howard, DO [address] [place] [facility] [place] [address] PCP - General Internal Medicine 01/25/22 Asaf Patricia [address] [place] [address] Referring Ent - Otolaryngology 01/25/22 Sink Maker Relationship Specialty Start Date End Date Isrrael Howard, DO [address] [place] [facility] [place] [address] PCP - General Internal Medicine 01/25/22 Asaf Patricia [address] [place] [place] [address] Referring Ent - Otolaryngology 01/25/22 Sink Maker Relationship Specialty Start Date End Date Isrrael Howard, DO [address] [place] [facility] [place] [address] PCP - General Internal Medicine 01/25/22 Asaf Patricia [address] [place] [place] [address] Referring Ent - Otolaryngology 01/25/22 Sink Maker Relationship Specialty Start Date End Date Isrrael Howard, DO [address] [place] [facility] [place] [address] PCP - General Internal Medicine 01/25/22 Asaf Patricia [address] [place] [place] [address] Referring Ent - Otolaryngology 01/25/22 Sink Maker Relationship Specialty Start Date End Date Isrrael Howard DO [address] [place] [facility] [place] [address] PCP - General Internal Medicine 01/25/22 Asaf Patricia MD [address] [facility] [address] [place] [address] Referring Ent - Otolaryngology 01/25/22 Sink Maker Relationship Specialty Start Date End Date Isrrael Howard DO [address] [place] [facility] [place] [address] PCP - General Internal Medicine 01/25/22 Asaf Patricia MD [address] [place] [address] [address] [place] [address] Referring Ent - Otolaryngology 01/25/22 Sink Maker Relationship Specialty Start Date End Date Isrrael Howard DO PCP - General 12/06/21 Team Status: Active Member Role Status Dates Isrrael Howard DO Primary Care Provider Active Team Status: Inactive Member Role Status Dates Isrrael Howard DO Primary Care Provide r, Attending Provider Active Start: September 17, 2024 End: September 17, 2024 Goals (unrecognized section and content) Goals may be documented in a n alternate section FOR RECORDS PERTAINING TO PATIENTS WHO ARE [...] BE BASED ON THE PRIMARY CLINICAL RECORDS. Desk [facility]. provides no warranty or guarantee of the accuracy or completeness of information in this document.
--- NOTE | 2024-10-08 09:51 | CT_ITS ---
The [address] [address] Patient Name: DAVID ROSEN MRN: [id number] date: 1945 Sex: F Assigned Patient Location: LAB Current Patient Location: LAB Accession/Order Number: [id number] Exam Date: 10/08/2024 14:45 Report Date: 10/08/2024 14:47 At the request of: ISAK HOWARD DO Procedure: CT lung screening low-dose CT CHEST WITHOUT CONTRAST, LOW DOSE SCREENING: CLINICAL DATA: A 78-year old former smoker, smoking for 55 pack-years. COMPARISON: CT chest 06/24/2024 TECHNIQUE: Noncontrast axial CT scan images of the chest were obtained under the low dose screening CT protocol. Coronal and sagittal reconstructed images were also submitted. FINDINGS: Mediastinum : Suboptimal evaluation due to low-dose technique. Thoracic aorta appears normal in caliber. Pulmonary trunk appears nondilated. No pericardial effusion. No lymphadenopathy. The esophagus is grossly unremarkable. Lungs: No focal consolidation, pneumothorax or pleural effusion. Trachea and distal airways appear patent. Bibasilar atelectasis/scarring. Calcified granuloma involving the lingula. Emphysema. No suspicious noncalcified pulmonary nodule or mass. Upper abdomen: No acute findings. Bony thorax and chest wall: Soft tissues surrounding the chest wall demonstrate no acute findings. Osseous structures demonstrate degenerative change. CT/CT lung screening low-dose IMPRESSION: NO SUSPICIOUS PULMONARY NODULE. LUNG - RADS Version 1.0 Assessment: Category 1, Negative (No nodules and definitely benign nodules). Management: Continue annual lung screening with LDCT in 12 months. Impression dictated by: Mushtaq Abbott Jr., D.O.10/08/2024 2:47 PM Dictation Location: [place] [address] Electronically authenticated by: [id number] Y Date: 10/08/2024 14:47
--- NOTE | 2024-10-08 10:09 | MM_ITS ---
Patient Name: DAVID ROSEN MR#: [id number] : 1945 Exam Date: 10/08/2024 Ordering Doctor: DR Isrrael Rock D.O. RADIOLOGY REPORT PROCEDURE: MM TOMOSYNTHESIS SCREENING BI COMPARISON: MM TOMOSYNTHESIS SCREENING BI, 10/08/2023. MG MAMM SCREEN 3D ABELARDO CAD, 10/05/2022. MG MAMM SCREEN 3D ABELARDO CAD, 09/12/2021. MG MAMM ABELARDO SCRN W CAD DIG, 07/22/2014. INDICATIONS: Screening Calculator Name NCI Breast Cancer Risk Assessment Tool 5 Year Breast Cancer Risk 4.50% Lifetime Breast Cancer Risk 8.90% Personal Breast Cancer No Personal Ovarian Cancer No Treatments None Family Cancers Brother with lung cancer at age ~70; Sister with breast cancer at age 64. LOCATION: [facility] BREAST COMPOSITION: There are scattered areas of fibroglandular density. FINDINGS: LEFT BREAST: ASYMMETRY visible on only the CC view. RIGHT BREAST: No significant suspicious finding. DIAGNOSTIC CATEGORY 0--INCOMPLETE: NEED ADDITIONAL IMAGING EVALUATION. RECOMMENDATIONS: ADDITIONAL MAMMOGRAPHIC VIEWS REQUIRED: LEFT BREAST - cc view, located in the lateral breast, at the posterior depth, with size of approximately 5 mm. ULTRASOUND: LEFT BREAST PLEASE NOTE: A NORMAL MAMMOGRAM DOES NOT EXCLUDE THE POSSIBILITY OF BREAST CANCER. A CLINICALLY SUSPICIOUS PALPABLE LUMP SHOULD BE BIOPSIED. Dictated by: Duran Vela DO on 10/09/2024 at 08:10 Approved by: Duran Vela DO on 10/09/2024 at 08:15
[2024-10-08 10:42] LABS: Basophils Percent Auto 0.6 % (0.2-2.0); Eosinophils Absolute Auto 0.3 10^3/uL (0.0-0.7); Eosinophils Percent Auto 3.9 % (0.9-7.0); Estimated Average Glucose 117 mg/dL; Glycohemoglobin A1C 5.7 % (4.5-6.2); Hematocrit 38.2 % (36.0-48.0); Hemoglobin 11.9 g/dL (12.0-16.0); Immature Granulocytes Abs Auto 0.02 10^3/uL (0.00-0.03); Immature Granulocytes Pct Auto 0.3 % (0.0-0.5); Lymphocytes Absolute Auto 2.2 10^3/uL (1.2-3.8); Lymphocytes Percent Auto 32.6 % (20.5-60.0); Mean Corpuscular HGB Conc 31.2 g/dL (29.9-35.2); Mean Corpuscular Volume 92.9 fL (81.0-99.0); Mean Platelet Volume 9.3 fL (9.5-13.5); Monocytes Absolute Auto 0.3 10^3/uL (0.3-0.8); Monocytes Percent Auto 5.1 % (1.7-12.0); Neutrophils Absolute Auto 3.9 10^3/uL (1.4-6.5); Neutrophils Percent Auto 57.5 % (43.0-75.0); Platelet Count 232 10^3/uL (150-450); Red Blood Count 4.11 10^6/uL (4.20-5.40); Red Cell Distribution Width 13.4 % (11.0-15.0); White Blood Count 6.7 10^3/uL (4.0-11.0)
[2024-10-08 10:58] LABS: Microalbum Creatinine Ratio Ur 20.9 mg/g (0.0-29.9); Microalbumin Urine Random 1.7 mg/dL (<=30.0)
[2024-10-08 11:02] LABS: Alanine Aminotransferase 19 U/L (14-59); Albumin Globulin Ratio 0.7; Albumin Level 3.1 g/dL (3.4-5.0); Alkaline Phosphatase 83 U/L (46-116); Anion Gap 5.6; Aspartate Amino Transferase 12 U/L (15-37); BUN Creatinine Ratio 33.3; Bilirubin Total 0.5 mg/dL (0.2-1.0); Calcium 8.9 mg/dL (8.5-10.1); Carbon Dioxide 37.3 mmol/L (21.0-32.0); Chloride 100 mmol/L (98-107); Cholesterol 135 mg/dL (<=200); Estimated GFR (African America >60 (>=60 mL/min/1.73m^2); Estimated GFR (Non-African Ame >60 (>=60 mL/min/1.73m^2); Globulin 4.2 g/dL; Glucose 137 mg/dL (74-106); HDL Cholesterol 67 mg/dL (40-60); Potassium 3.9 mmol/L (3.5-5.1); Sodium 139 mmol/L (136-145); Total Protein 7.3 g/dL (6.4-8.2); Triglycerides 86 mg/dL (<=150); VLDL CHOLESTEROL 17.2 mg/dL
== END 2024-10-08 09:33 | disposition home or self-care (01) ==
LOC: LAB 09:32
PROVIDERS: PCP Internal Medicine; Visit Provider Internal Medicine
DX: Z12.31 Encounter for screening mammogram for malignant neoplasm of breast (principal); Z78.0 Asymptomatic menopausal state; E11.65 Type 2 diabetes mellitus with hyperglycemia; E78.00 Pure hypercholesterolemia, unspecified; N18.32 Chronic kidney disease, stage 3b; D75.1 Secondary polycythemia; Z80.1 Family history of malignant neoplasm of trachea, bronchus and lung; Z80.3 Family history of malignant neoplasm of breast; R92.8 Other abnormal and inconclusive findings on diagnostic imaging of breast; Z87.891 Personal history of nicotine dependence; I12.9 Hypertensive chronic kidney disease with stage 1 through stage 4 chronic kidney disease, or unspecified chronic kidney disease
CPT/HCPCS: 36415; 71271; 77063; 77067; 77080; 80053; 80061; 82043; 82570; 83036; 85025